=== PATIENT | female | born 1945 | race Caucasian/White ===

== ENCOUNTER → 2016-12-29 | Outpatient (CLI) | payer OTHER ==
[~2016-12-29] MED LIST: ACET-1311 PO; AMLO-114 PO; CEPH500C2 PO; CHOL1000 PO; CLOP1TAB15 PO; EFF/375 PO; ETAN50IN2 INJ; Embrel INJ; FLUT1INH INH; FLV1 PO; FSM70 PO; FSMD/70 PO; FURO-85 PO; GABA-113 PO; GABA1CAP4 PO; LEVO-14 PO; LEVO25TA5 PO; LOSA25TA18 PO; LOVA20TA4 PO; MAGN400T6 PO; MELO15TA10 PO; MELO7.5T5 PO; METH2.5T PO; METO50TA16 PO; MONT1TAB5 PO; NRN/300 PO; NRN600 PO; ONDA4TAB10 SL; OXYC1TAB3 PO; POTA10CA28 PO; PRLSR20 PO; PRT/20 PO; SOLI10TA2 PO; TIOT1AER2 INFIL; TIOT1SPR INH
[2016-12-29 11:11] VITALS: BP 106/67; PULSE 63; TEMP 36.4; O2SAT 97
== END | disposition home or self-care (01) ==
LOC: C.ONC 11:06
PROVIDERS: ATTEND Physician Assistant Medical
DX: D05.11 Intraductal carcinoma in situ of right breast (principal)

== ENCOUNTER 2016-12-30 15:25 | Emergency (ER) | payer OTHER ==
[~2016-12-30] VITALS: Ht 154.9 cm; Wt 96.7 kg
[~2016-12-30 15:25] MED LIST changes: -CEPH500C2 PO; -ETAN50IN2 INJ; -FSM70 PO; -GABA1CAP4 PO; -MELO15TA10 PO; -ONDA4TAB10 SL; -OXYC1TAB3 PO; -PRT/20 PO; -SOLI10TA2 PO; -TIOT1AER2 INFIL; -TIOT1SPR INH
[2016-12-30 15:32] VITALS: TEMP 36.7; Ht 154.9 cm; Wt 96.7 kg
[2016-12-30] MEDS ORDERED: FLV1 PO (15:47)
[2016-12-30] MEDS ORDERED: FENTANYL CITRATE INJ 50 MCG/1 ML 2 ML VIAL IV STA (15:57)
[2016-12-30] MEDS ORDERED: ONDANSETRON INJ 2 MG/ML 2 ML VIAL IV STA (15:57)
[2016-12-30] MEDS ORDERED: SODIUM CHLORIDE 0.9% 500ML 500 ML IV STA (15:57)
[2016-12-30] MEDS ORDERED: ETAN50IN2 INJ (16:00)
[2016-12-30] MEDS ORDERED: FSM70 PO (16:00)
[2016-12-30] MEDS ORDERED: EFF/375 PO (16:00)
[2016-12-30 16:23] LABS: BASO % 0.6 %; BASO ABS # 0.03 K/uL (0-0.2); COMPLETE YES; EOS % 0.2 %; HEMATOCRIT 38.9 % (37-47); IG% 0.8 %; LYMPH % 14.9 %; LYMPH ABS # 0.76 K/uL (1.2-3.4); MEAN CELL VOLUME 94.2 fL (80-100); MEAN CORPUSCULAR HEMOGLOBIN 32.2 pg (25-34); MEAN CORPUSCULAR HGB CONC 34.2 g/dl (32-36); MONO % 0.6 %; NEUT % 82.9 %; PLATELET COUNT 177 K/uL (130-400); RED BLOOD COUNT 4.13 M/uL (4.2-5.4); WHITE BLOOD COUNT 5.09 K/uL (4.8-10.8)
[2016-12-30] MEDS ORDERED: GABA1CAP4 PO (16:23)
[2016-12-30] MEDS ORDERED: MELO15TA10 PO (16:23)
[2016-12-30] MEDS ORDERED: TIOT1AER2 INFIL (16:23)
[2016-12-30] MEDS ORDERED: NRN600 PO (16:23)
[2016-12-30] MEDS ORDERED: SOLI10TA2 PO (16:23)
[2016-12-30] MEDS ORDERED: PRT/20 PO (16:27)
[2016-12-30 16:43] LABS: BUN/CREATININE RATIO 18.4 (10-20); C-REACTIVE PROTEIN 0.41 mg/dl (0-0.29); CALCIUM 9.6 mg/dl (8.5-10.1); CREATININE 0.83 mg/dl (0.60-1.20); POTASSIUM 4.3 mmol/L (3.5-5.1)
[2016-12-30] MEDS ORDERED: CEFTRIAXONE SOD INJ 1 GM ADDVIAL IV STA (16:59)
[2016-12-30] MEDS ORDERED: OXYCODONE IR HOME PACK PO ONE (17:00)
[2016-12-30] MEDS ORDERED: ONDANSETRON HOME PACK 4MG OD TAB PO ONE (17:00)
[2016-12-30] MEDS ORDERED: CEPH500C2 PO (17:01)
[2016-12-30] MEDS ORDERED: ONDA4TAB10 SL (17:01)
[2016-12-30] MEDS ORDERED: OXYC1TAB3 PO (17:01)
--- NOTE | 2016-12-30 17:02 | EMERGENCY ROOM VISIT NOTE ---
History Report prepared by Jarad: Belle Melchor Under the Supervision of: Dr. Conrad Moore M.D. First contact with patient: 15:47 Chief Complaint: PAIN (GENERALIZED) Stated Complaint: BREAST DISCOMFORT HX: BREAST CANCER History of Present Illness The patient is a 71 year old female who presents to the Emergency Room with complaints of worsening right breast pain starting yesterday. She describes her pain as throbbing. She has breast cancer and had radiation therapy yesterday. She was experiencing some infection and pain in her breast and was given gel patches to apply to the affected area. She was told to present to the ED if her pain worsens. She is taking ibuprofen, but her pain is not improving. She is also experiencing nausea, swelling in the legs, and often has a low grade fever. She denies any syncope. She is not on antibiotics or receiving chemotherapy currently. She has had radiation fernando before and reports that her current pain is similar. Source of History: patient Onset: yesterday Position: other (right breast) Quality: other (throbbing) Timing: worsening Associated Symptoms: + fevers, + nausea Note: Pt reports swelling of the legs. Pt denies syncope. Review of Systems See HPI for pertinent positives & negatives. A total of 10 systems reviewed and were otherwise negative. Past Medical & Surgical Medical Problems: (1) Breast cancer Family History FH: breast cancer Social History Smoking Status: Never Smoker Marital Status: Occupation Status: retired Current/Historical Medications Scheduled Acetaminophen (Tylenol), 650 MG PO Q4 Alendronate Sodium (Alendronate Sodium), 70 MG PO WK Amlodipine (Norvasc), 10 MG PO DAILY Cephalexin Monohydrate (Keflex), 500 MG PO QID Cholecalciferol (Vitamin D3), 1 TAB PO DAILY Clopidogrel (Plavix), 75 MG PO DAILY Etanercept (Enbrel), 50 MG INJ WK Fluticasone Furoate-Vilanterol (Breo Ellipta), 1 PUFF INH DAILY Folic Acid (Folic Acid), 2 MG PO QAM Furosemide (Lasix), 2 TAB PO DAILY Gabapentin (Gabapentin), 600 MG PO HS Gabapentin (Gabapentin), 900 MG PO QAM Levocetirizine Dihydrochloride (Levocetirizine Dihydrochl), 1 TAB PO DAILY Levothyroxine Sodium (Levothyroxine Sodium), 1 TAB PO DAILY Losartan Potassium (Cozaar), 1 TAB PO DAILY Lovastatin (Mevacor), 20 MG PO QPM Magnesium Oxide (Mag-Ox), 400 MG PO DAILY Meloxicam (Mobic), 15 MG PO DAILY Methotrexate (Methotrexate), 8 TABS PO DIRECTED Metoprolol Tartrate (Lopressor) (Lopressor), 1 TAB PO BID Montelukast Sodium (Montelukast Sodium), 1 TAB PO DAILY Ondasetron Odt (Zofran Odt), 4 MG SL Q6H Pantoprazole (Protonix), 20 MG PO BID Potassium Chloride (Micro-K Ext Rel), 10 MEQ PO DAILY Solifenacin (Vesicare), 10 MG PO DAILY Tiotropium [place] Monohydrate (Spiriva Respimat), 2 PUFF INFIL DAILY Venlafaxine Hcl (Effexor), 2 TAB PO QAM Venlafaxine Hcl (Effexor), 37.5 MG PO QPM Scheduled PRN Oxycodone Immediate Rel Tab (Roxicodone Ir), 1-2 TAB PO Q4H PRN for Severe Pain Allergies Coded Allergies: No Known Allergies (Unverified , 01/10/16) Physical Exam Vital Signs Date Time Temp Pulse Resp B/P Pulse Ox O2 Delivery O2 Flow Rate FiO2 12/30/16 18:27 74 18 118/51 93 Room Air 12/30/16 15:32 36.7 78 20 144/77 95 Room Air Physical Exam GENERAL: Patient is anxious appearing and in minimal distress. HEENT: No acute trauma, normocephalic atraumatic, mucous membranes moist, no nasal congestion, no scleral icterus. NECK: No stridor, no adenopathy, no meningismus, trachea is midline. CHEST: Erythema over the right breast consistent with cellulitis vs radiation fernando. Erythema extends to the right axilla. Very tender to palpation over the entire breast. No fluctuance appreciated. LUNGS: No dyspnea. Clear to auscultation and equal bilaterally. No wheeze, no rhonchi. HEART: Regular rate and rhythm. No murmurs, rubs, gallops appreciated. ABDOMEN: Soft, nontender, bowel sounds positive, no masses appreciated, no peritonitis. BACK: No midline tenderness, no CVA tenderness EXTREMITIES: Normal motion all extremities, no cyanosis, no edema. NEUROLOGIC: Alert and oriented, no acute motor or sensory deficits, no focal weakness, cranial nerves grossly intact. SKIN: No rash, no jaundice, no diaphoresis. Medical Decision & Procedures Laboratory Results 12/30/16 16:10 Red Blood Count 4.13, Mean Corpuscular Volume 94.2, Mean Corpuscular Hemoglobin 32.2, Mean Corpuscular Hemoglobin Concent 34.2, Mean Platelet Volume 9.0, Neutrophils (%) (Auto) 82.9, Lymphocytes (%) (Auto) 14.9, Monocytes (%) (Auto) 0.6, Eosinophils (%) (Auto) 0.2, Basophils (%) (Auto) 0.6, Neutrophils # (Auto) 4.22, Lymphocytes # (Auto) 0.76, Monocytes # (Auto) 0.03, Eosinophils # (Auto) 0.01, Basophils # (Auto) 0.03 12/30/16 16:10 Test 12/30/16 16:10 White Blood Count 5.09 K/uL (4.8-10.8) Red Blood Count 4.13 M/uL (4.2-5.4) Hemoglobin 13.3 g/dL (12.0-16.0) Hematocrit 38.9 % (37-47) Mean Corpuscular Volume 94.2 fL (80-100) Mean Corpuscular Hemoglobin 32.2 pg (25-34) Mean Corpuscular Hemoglobin Concent 34.2 g/dl (32-36) Platelet Count 177 K/uL (130-400) Mean Platelet Volume 9.0 fL (7.4-10.4) Neutrophils (%) (Auto) 82.9 % Lymphocytes (%) (Auto) 14.9 % Monocytes (%) (Auto) 0.6 % Eosinophils (%) (Auto) 0.2 % Basophils (%) (Auto) 0.6 % Neutrophils # (Auto) 4.22 K/uL (1.4-6.5) Lymphocytes # (Auto) 0.76 K/uL (1.2-3.4) Monocytes # (Auto) 0.03 K/uL (0.11-0.59) Eosinophils # (Auto) 0.01 K/uL (0-0.5) Basophils # (Auto) 0.03 K/uL (0-0.2) RDW Standard Deviation 51.6 fL (36.4-46.3) RDW Coefficient of Variation 15.4 % (11.5-14.5) Immature Granulocyte % (Auto) 0.8 % Immature Granulocyte # (Auto) 0.04 K/uL (0.00-0.02) Anion Gap 5.0 mmol/L (3-11) Est Creatinine Clear Calc Drug Dose 65.1 ml/min Estimated GFR () 81.7 Estimated GFR (Non- 70.4 BUN/Creatinine Ratio 18.4 (10-20) Calcium Level 9.6 mg/dl (8.5-10.1) C-Reactive Protein 0.41 mg/dl (0-0.29) Laboratory results as reviewed by me. Medications Administered Medications (Trade) Dose Ordered Sig/Antony Route Start Time Stop Time Status Last Admin Dose Admin Ondansetron HCl 4 mg 4 mg NOW STAT IV 12/30/16 15:57 12/30/16 15:59 DC 12/30/16 16:33 4 MG Sodium Chloride (Nss 500ml) 500 ml @ 999 mls/hr Q31M STAT IV 12/30/16 15:57 12/30/16 16:27 DC 12/30/16 16:10 999 MLS/HR Fentanyl Citrate (Fentanyl Inj) 50 mcg NOW STAT IV 12/30/16 15:57 12/30/16 15:59 DC 12/30/16 16:34 50 MCG Ceftriaxone Sodium (Rocephin Inj) 1 gm NOW STAT IV 12/30/16 16:59 12/30/16 17:00 DC 12/30/16 17:22 1 GM Oxycodone HCl (Roxicodone Immediate Rel 5MG Home Pack) 1 homepack UD ONCE PO 12/30/16 17:00 12/30/16 17:01 DC 12/30/16 17:00 1 HOMEPACK Ondansetron HCl (ZOFRAN ODT 4MG Home Pack) 1 homepack UD ONCE PO 12/30/16 17:00 12/30/16 17:01 DC 12/30/16 17:00 1 HOMEPACK Hydromorphone HCl (Dilaudid Inj) 0.5 mg NOW STAT IV 12/30/16 17:24 12/30/16 17:25 DC 3/18/17 17:29 0.5 MG ED Course 1551: The patient was evaluated in room B4. A complete history and physical exam was performed. 1557: Fentanyl Inj 50 mcg IV, NSS 500 ml @ 999 mls/hr IV, Zofran Inj 4 mg IV. 1656: I reevaluated the patient. She is feeling better. I discussed results and discharge instructions: She verbalized understanding and agreement. The patient is ready for discharge. 165: Rocephin Inj 1 gm IV. 1700: Ondansetron HCl 1 homepack PO, Oxycodone HCl 1 homepack PO. 1724: Dilaudid Inj 0.5 mg IV. Medical Decision Differentials: Cellulitis, abscess, radiation burn, sepsis 71 yr old female with erythema and pain over anterior right breast extending over nipple and up to axillae. No significant fluctuance nor sloughing of skin. She is not septic. Labs look good. Suspect primarily burn related though with difficulty telling, new pain, and patient stating low grade fever seems reasonable to cover for possible infectious etiology. Stable and feeling better with pain meds. Restrictions on pain meds discussed. 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 I confirm that the note above accurately reflects all work, treatment, procedures, and medical decision making performed by me. Departure Information Dispostion Home / Self-Care Prescriptions Cephalexin Monohydrate (KEFLEX) 500 Mg Cap 500 MG PO QID for 7 Days, #28 CAP Prov: Conrad Moore M.D. 12/30/16 Ondasetron Odt (ZOFRAN ODT) 4 Mg Tab 4 MG SL Q6H for Nausea, #20 TAB Prov: Conrad Moore M.D. 12/30/16 Oxycodone Immediate Rel Tab (ROXICODONE IR) 5 Mg Tab 1-2 TAB PO Q4H Y for Severe Pain, #20 TAB Prov: Conrad Moore M.D. 12/30/16 Referrals Marilu Butler PA-C (PCP) Forms HOME CARE DOCUMENTATION FORM, IMPORTANT VISIT INFORMATION Patient Instructions Cellulitis Luis, My [facility] Additional Instructions You have received a narcotic pain medication prescription. These medications may cause drowsiness and should not be used with other sedative medications. Do not drive, drink alcohol, perform dangerous activities, nor make important decisions after taking these medications. custodial use or inappropriate use may lead to addiction. These medications may cause constipation. Problem Qualifiers
[2016-12-30] MEDS ORDERED: HYDROmorphone INJ 0.5 MG/0.5 ML SYR IV STA (17:24)
[2016-12-30 18:27] VITALS: BP 118/51; PULSE 74; O2SAT 93
== END 2016-12-30 18:28 | disposition home or self-care (01) ==
LOC: C.EDB 15:27
DX: N61.0 Mastitis without abscess (principal); T21.01XA Burn of unspecified degree of chest wall, initial encounter; W90.8XXA Exposure to other nonionizing radiation, initial encounter; D05.11 Intraductal carcinoma in situ of right breast; Z80.3 Family history of malignant neoplasm of breast; Z79.02 Long term (current) use of antithrombotics/antiplatelets

== ENCOUNTER → 2017-01-31 | Outpatient (CLI) | payer OTHER ==
[~2017-01-31] MED LIST changes: +ETAN50IN2 INJ; -Embrel INJ; +FSM70 PO; -FSMD/70 PO; -GABA-113 PO; +GABA1CAP4 PO; +MELO15TA10 PO; -MELO7.5T5 PO; -NRN/300 PO; +ONDA4TAB10 SL; +OXYC1TAB3 PO; -PRLSR20 PO; +PRT/20 PO; +SOLI10TA2 PO; +TIOT1AER2 INFIL
[2017-01-31 15:03] VITALS: BP 129/79; PULSE 68; TEMP 36.8; O2SAT 97
--- NOTE | 2017-01-31 16:18 | Radiation Oncology Follow-Up ---
Radiation Oncology Follow-Up Date of Visit Jan 31, 2017. Reason For Visit One-month follow-up and cancer survivorship care plan Radiation Completion Date Hypofractionation 12/12/16 Diagnosis (1) Intraductal carcinoma of right breast Status: Acute Onset Date: 08/31/2016 Permanent Comment: Abnormal right breast mammogram Status post stereotactic biopsy 08/31/2016 revealing DCIS Estrogen receptor negative and progesterone receptor negative Status post needle localization partial mastectomy 09/29/2016 Stage pTis NX Status post completion of radiation therapy utilizing hypo-fractionation completed 12/12/2016 received 5130 cGy Last Edited By: Marilu Butler on Dec 27, 2016 17:44 History of Present Illness Ms. Garcia is a 70-year-old female with a strong family cancer history. The patient's mother had breast cancer and at age 67. He has 2 sisters with a history of breast cancer. The patient has been followed with screening mammograms. On 08/21/2016 she underwent bilateral digital screening mammograms. This showed the developing grouped calcifications seen in the central right breast. Spot magnification CC and ML views were recommended. Additional imaging was performed on 08/25/2016. This again showed grouped calcifications in the central right breast that appear pleomorphic and indeterminant. Tissue sampling was recommended. On 08/31/2016 the patient underwent a needle localization biopsy at [facility]. The stereotactic biopsy of the right breast 4 to 5 o'clock position 7 cm from the nipple revealed focal atypical ductal proliferation as well as evidence of ductal carcinoma in situ solid with focal noncommunicative necrosis and nuclear grade 3 of 3. The microcalcifications were associated with the DCIS. Estrogen and progesterone receptors were performed and both were negative. Specimen: [id number] and Case: [id number]. Patient was seen by Dr. Ranjith Schaeffer discussed treatment options with the patient. They opted to proceed with a breast conserving technique. Therefore on 10/02/2016 the patient underwent a right partial breast mastectomy. This confirmed residual DCIS extending over 1.2 cm. The histologic pattern was solid with nuclear grade 3. Necrosis was present that was central (expansive "comedo"necrosis. Margins were uninvolved with DCIS. The closest margin was the medial-inferior margin at 4 mm. The distance from the lateral inferior margin was 6 mm and lateral superior margin was 6 mm. No invasive carcinoma was identified. The final stage was therefore pTis ER negative and IL negative. Case: [id number]. Patient is recovering well from her surgery. We are seeing her today in referral to discuss with her the adjuvant radiation options. She underwent a CT simulation was found a candidate for hypo-fractionation. She completed radiation therapy 12/12/2016 and received 5130 cGy Interim History She's been doing well over the past month. Initially she had radiation dermatitis. She was seen in follow-up and was prescribed a Medrol Dosepak. She is also seen in the emergency room. There was concern for possible infection. She was given a seven-day course of Keflex. The area of redness completely resolved without difficulty. There was some dryness and peeling of the skin. This also resolved without difficulty. She has noted a general discomfort of the breasts. This happens in both breasts. It seems to be more intense on the right side. She gives us a pain level of 2. We discussed caffeine intake. She drinks 4-5 cups of coffee per day. She has seen Dr. Schaeffer in follow-up and mammography is scheduled for March. Allergies Coded Allergies: No Known Allergies (Unverified , 01/10/16) Home Medications Scheduled Acetaminophen (Tylenol), 650 MG PO Q4 Alendronate Sodium (Alendronate Sodium), 70 MG PO WK Amlodipine (Norvasc), 10 MG PO DAILY Cholecalciferol (Vitamin D3), 1 TAB PO DAILY Clopidogrel (Plavix), 75 MG PO DAILY Etanercept (Enbrel), 50 MG INJ WK Fluticasone Furoate-Vilanterol (Breo Ellipta), 1 PUFF INH DAILY Folic Acid (Folic Acid), 2 MG PO QAM Furosemide (Lasix), 2 TAB PO DAILY Gabapentin (Gabapentin), 600 MG PO HS Gabapentin (Gabapentin), 900 MG PO QAM Levocetirizine Dihydrochloride (Levocetirizine Dihydrochl), 1 TAB PO DAILY Levothyroxine Sodium (Levothyroxine Sodium), 1 TAB PO DAILY Losartan Potassium (Cozaar), 1 TAB PO DAILY Lovastatin (Mevacor), 20 MG PO QPM Magnesium Oxide (Mag-Ox), 400 MG PO DAILY Meloxicam (Mobic), 15 MG PO DAILY Methotrexate (Methotrexate), 8 TABS PO DIRECTED Metoprolol Tartrate (Lopressor) (Lopressor), 1 TAB PO BID Montelukast Sodium (Montelukast Sodium), 1 TAB PO DAILY Ondasetron Odt (Zofran Odt), 4 MG SL Q6H Pantoprazole (Protonix), 20 MG PO BID Potassium Chloride (Micro-K Ext Rel), 10 MEQ PO DAILY Tiotropium [place] Monohydrate (Spiriva Respimat), 2 PUFF INFIL DAILY Venlafaxine Hcl (Effexor), 2 TAB PO QAM Venlafaxine Hcl (Effexor), 37.5 MG PO QPM Scheduled PRN Oxycodone Immediate Rel Tab (Roxicodone Ir), 1-2 TAB PO Q4H PRN for Severe Pain Review of Systems Gastrointestinal: Symptoms: WNL Oral: Symptoms: No Problems Respiratory: Symptoms: SOB With Exertion Other Respiratory: Relates this to her known COPD; Urinary: Symptoms: WNL Comments: Doesn't ignore urge to void;2 voids/night;Had bladder "tacking" in past; Skin: Symptoms: No Problems Other Skin Symptoms: Using natural care gel to right breast PRN;Skin intact; Breast: Right Upper Arm Measurement: 40.5 Right Mid Arm Measurement: 26.5 Right Wrist Measurement: 16.0 Left Upper Arm Measurement: 40.5 Left Mid Arm Measurement: 26.5 Left Wrist Measurement: 16.0 Arm Dominence: Right Physical Exam Vital Signs Date Time Temp Pulse Resp B/P Pulse Ox O2 Delivery O2 Flow Rate FiO2 01/31/17 15:03 36.8 68 20 129/79 97 Fatigue: None General Appearance: no apparent distress Eyes: normal inspection, EOMI ENT: normal ENT inspection, hearing grossly normal Neck: no adenopathy, thyroid normal Respiratory/Chest: lungs clear, no respiratory distress, no accessory muscle use Breast: Breast examination reveals a well-healed incision in the right breast. There are no masses. She has generalized tenderness throughout the breast. There are no skin retractions or nipple changes. She does have hyperpigmentation. There is also increased hyperpigmentation of a few keratotic lesions near the inframammary fold. Using the [place] score cosmesis she has a good outcome. Left breast pressure no masses or tenderness and no axillary adenopathy. Abdomen: non tender Extremities: no pedal edema Neurologic/Psychiatric: no motor/sensory deficits, alert, normal mood/affect Skin: warm/dry Laboratory Studies Test 12/30/16 16:10 White Blood Count 5.09 K/uL (4.8-10.8) Red Blood Count 4.13 M/uL (4.2-5.4) Hemoglobin 13.3 g/dL (12.0-16.0) Hematocrit 38.9 % (37-47) Mean Corpuscular Volume 94.2 fL (80-100) Mean Corpuscular Hemoglobin 32.2 pg (25-34) Mean Corpuscular Hemoglobin Concent 34.2 g/dl (32-36) Platelet Count 177 K/uL (130-400) Mean Platelet Volume 9.0 fL (7.4-10.4) Neutrophils (%) (Auto) 82.9 % Lymphocytes (%) (Auto) 14.9 % Monocytes (%) (Auto) 0.6 % Eosinophils (%) (Auto) 0.2 % Basophils (%) (Auto) 0.6 % Neutrophils # (Auto) 4.22 K/uL (1.4-6.5) Lymphocytes # (Auto) 0.76 K/uL (1.2-3.4) Monocytes # (Auto) 0.03 K/uL (0.11-0.59) Eosinophils # (Auto) 0.01 K/uL (0-0.5) Basophils # (Auto) 0.03 K/uL (0-0.2) RDW Standard Deviation 51.6 fL (36.4-46.3) RDW Coefficient of Variation 15.4 % (11.5-14.5) Immature Granulocyte % (Auto) 0.8 % Immature Granulocyte # (Auto) 0.04 K/uL (0.00-0.02) Sodium Level 140 mmol/L (136-145) Potassium Level 4.3 mmol/L (3.5-5.1) Chloride Level 105 mmol/L (98-107) Carbon Dioxide Level 30 mmol/L (21-32) Anion Gap 5.0 mmol/L (3-11) Blood Urea Nitrogen 15 mg/dl (7-18) Creatinine 0.83 mg/dl (0.60-1.20) Est Creatinine Clear Calc Drug Dose 65.1 ml/min Estimated GFR () 81.7 Estimated GFR (Non- 70.4 BUN/Creatinine Ratio 18.4 (10-20) Random Glucose 125 mg/dl (70-99) Calcium Level 9.6 mg/dl (8.5-10.1) C-Reactive Protein 0.41 mg/dl (0-0.29) Assessment & Plan Plan: Continue regular follow-up with Dr. Schaeffer. Mammography and follow-up visit will be occurring in March. We discussed weaning off of caffeine. She is going to steadily stop caffeine. She will wean off by introducing decaffeinated coffee. Today we completed a cancer survivorship care plan. A copy of the document was given to the patient. She was given a survivorship booklet. She has been made aware of survivorship program with available at the hospital as well as the availability of our library. We discussed increasing exercise and activity. She is going to participate in [place] [employer] with her sikh. She is going to begin walking on a regular basis. She will also watch her diet. We asked her to return to our office in 6 months. She may call if she has a questions or concerns in the interim. Total Time In Follow-Up I spent 20 minutes speaking to the patient and performing examination. I spent 20 minutes reviewing information, preparing the survivorship document, and completing this note. Copy To Ranjith Schaeffer M.D.; Conrad Gary M.D.
== END | disposition home or self-care (01) ==
LOC: C.ONC 14:50
PROVIDERS: ATTEND Physician Assistant Medical
DX: Z08 Encounter for follow-up examination after completed treatment for malignant neoplasm (principal); Z92.3 Personal history of irradiation; Z85.3 Personal history of malignant neoplasm of breast

== ENCOUNTER → 2017-10-04 | Outpatient (CLI) | payer OTHER ==
[~2017-10-04] MED LIST changes: -AMLO-114 PO; +AMLO10TA3 PO; +FAMO20TA9 PO; +GABA-1219 PO; -GABA1CAP4 PO; -ONDA4TAB10 SL; -OXYC1TAB3 PO; -SOLI10TA2 PO
[2017-10-04 13:34] VITALS: BP 124/70; PULSE 65; TEMP 36.8; O2SAT 96
--- NOTE | 2017-10-04 16:50 | Radiation Oncology Follow-Up ---
Radiation Oncology Follow-Up Date of Visit Oct 04, 2017. Reason For Visit 8 month follow-up Radiation Completion Date Hypo 12/12/16 Diagnosis (1) Intraductal carcinoma of right breast Status: Acute Onset Date: 08/31/2016 Stage: 0 Permanent Comment: Abnormal right breast mammogram Status post stereotactic biopsy 08/31/2016 revealing DCIS Estrogen receptor negative and progesterone receptor negative Status post needle localization partial mastectomy 09/29/2016 Stage pTis NX Status post completion of radiation therapy utilizing hypo-fractionation completed 12/12/2016 received 5130 cGy Last Edited By: Marilu Butler on Dec 27, 2016 17:44 History of Present Illness Ms. Garcia has a strong family cancer history. The patient's mother had breast cancer and at age 67. He has 2 sisters with a history of breast cancer. The patient has been followed with screening mammograms. On 04/2016 she underwent bilateral digital screening mammograms. This showed the developing grouped calcifications seen in the central right breast. Spot magnification CC and ML views were recommended. Additional imaging was performed on 08/25/2016. This again showed grouped calcifications in the central right breast that appear pleomorphic and indeterminant. Tissue sampling was recommended. On 08/31/2016 the patient underwent a needle localization biopsy at [facility]. The stereotactic biopsy of the right breast 4 to 5 o'clock position 7 cm from the nipple revealed focal atypical ductal proliferation as well as evidence of ductal carcinoma in situ solid with focal noncommunicative necrosis and nuclear grade 3 of 3. The microcalcifications were associated with the DCIS. Estrogen and progesterone receptors were performed and both were negative. Specimen: [id number] and Case: [id number]. Patient was seen by Dr. Ranjith Schaeffer discussed treatment options with the patient. They opted to proceed with a breast conserving technique. Therefore on 10/02/2016 the patient underwent a right partial breast mastectomy. This confirmed residual DCIS extending over 1.2 cm. The histologic pattern was solid with nuclear grade 3. Necrosis was present that was central (expansive "comedo"necrosis. Margins were uninvolved with DCIS. The closest margin was the medial-inferior margin at 4 mm. The distance from the lateral inferior margin was 6 mm and lateral superior margin was 6 mm. No invasive carcinoma was identified. The final stage was therefore pTis ER negative and CO negative. Case: [id number]. Patient is recovering well from her surgery. We are seeing her today in referral to discuss with her the adjuvant radiation options. She underwent a CT simulation was found a candidate for hypo-fractionation. She completed radiation therapy 12/12/2016 and received 5130 cGy Interim History She continues to have discomfort of the right breast. She had been seen in follow-up with a discoloration and some mild swelling. Discoloration has resolved. She continues to have some discomfort. This increases with activity. She rates her pain from a 4-5. Occasionally she'll take Tylenol. Discomfort last 5-10 minutes. This happens approximately 3 times per day. She previously was seen and treated with a Medrol Dosepak. This did help with the discomfort. She has noted no masses and no change of the axilla. There has been no swelling of her arm. She is up-to-date on mammography. Allergies Coded Allergies: No Known Allergies (Unverified , 01/10/16) Home Medications Scheduled Acetaminophen (Tylenol), 650 MG PO Q4 Alendronate Sodium (Alendronate Sodium), 70 MG PO WK Amlodipine (Norvasc), 10 MG PO DAILY Clopidogrel (Plavix), 75 MG PO DAILY Etanercept (Enbrel), 50 MG INJ WK Famotidine (Pepcid), 1 TAB PO DAILY Fluticasone Furoate-Vilanterol (Breo Ellipta), 1 PUFF INH DAILY Folic Acid (Folic Acid), 2 MG PO QAM Furosemide (Lasix), 2 TAB PO DAILY Gabapentin (Gabapentin), 600 MG PO HS Gabapentin (Gabapentin), 900 MG PO QAM Levocetirizine Dihydrochloride (Levocetirizine Dihydrochl), 1 TAB PO DAILY Levothyroxine Sodium (Levothyroxine Sodium), 1 TAB PO DAILY Losartan Potassium (Cozaar), 1 TAB PO DAILY Lovastatin (Mevacor), 20 MG PO QPM Meloxicam (Mobic), 15 MG PO DAILY Methotrexate (Methotrexate), 8 TABS PO DIRECTED Metoprolol Tartrate (Lopressor) (Lopressor), 1 TAB PO BID Montelukast Sodium (Montelukast Sodium), 1 TAB PO DAILY Potassium Chloride (Micro-K Ext Rel), 10 MEQ PO DAILY Venlafaxine Hcl (Effexor), 1 TAB PO QAM Review of Systems Gastrointestinal: Symptoms: WNL Oral: Symptoms: No Problems Other Oral Symptoms: Reports sore mouth Respiratory: Symptoms: WNL Other Respiratory: COPD Urinary: Symptoms: WNL Comments: Doesn't ignore urge to void;2 voids/night;Had bladder "tacking" in past; Skin: Symptoms: No Problems Other Skin Symptoms: Reports skin is darker since treatment Breast: Right Upper Arm Measurement: 38.2 Right Mid Arm Measurement: 24.0 Right Wrist Measurement: 16.0 Left Upper Arm Measurement: 39.0 Left Mid Arm Measurement: 25.3 Left Wrist Measurement: 15.3 Arm Dominence: Right Physical Exam Vital Signs Date Time Temp Pulse Resp B/P (MAP) Pulse Ox O2 Delivery O2 Flow Rate FiO2 10/04/17 13:34 36.8 65 16 124/70 96 Fatigue: None General Appearance: no apparent distress Eyes: normal inspection, EOMI ENT: normal ENT inspection, hearing grossly normal Neck: no adenopathy, thyroid normal Respiratory/Chest: lungs clear, no respiratory distress, no accessory muscle use Breast: Breast examination reveals mild generalized tenderness of the right breast. There are no masses and no change of the axilla there is no swelling of the arm. There is no edema or hyperpigmentation. There are no nipple changes or skin retractions. Using the [place] score cosmesis she has a good outcome. The left breast showed no masses or tenderness and no axillary adenopathy. Cardiovascular: regular rate, rhythm, no gallop, no murmur Extremities: no pedal edema Neurologic/Psychiatric: no motor/sensory deficits, alert, normal mood/affect Skin: warm/dry Pain Management Patient Reports Pain: Yes Initial Pain Intensity: 5 Pain Management Plan Pain management in the assessment and plan. Laboratory Laboratory Results: not applicable Pathology Pathology Results: not applicable Imaging Imaging Studies: were reviewed, and pertinent findings noted below Imaging Comments She had a mammogram at [facility] on 08/22/2017. There is no evidence to suggest malignancy. There are no suspicious calcifications. Postoperative changes of the right breast appears stable. There are benign calcifications in both breasts. This was given a BI-RADS Category 3. Follow- up was recommended. Assessment & Plan Plan: Continue with scheduled mammography she'll be having a right breast mammogram in February. We discussed the breast tenderness. I've asked her to take ibuprofen 400 mg twice a day with food for one week. She then will stop the medication she may assess whether this has helped the discomfort of the breast. She can repeat this every few months if needed. We discussed that the discomfort she is steadily improve over time. Pain is related to posttreatment inflammation. She was instructed to not take the ibuprofen on 8 continued regular basis. We asked her to return to our office in 1 year. She may call if she has any questions or concerns in the interim. Total Time In Follow-Up I spent 20 minutes speaking to the patient and performing examination. I spent 15 minutes reviewing information and completing this note. Copy To Ranjith Schaeffer M.D.; Conrad Gary M.D.
== END | disposition home or self-care (01) ==
LOC: C.ONC 13:24
PROVIDERS: ATTEND Physician Assistant Medical
DX: Z08 Encounter for follow-up examination after completed treatment for malignant neoplasm (principal); Z92.3 Personal history of irradiation; Z85.3 Personal history of malignant neoplasm of breast

== ENCOUNTER 2017-12-31 08:38 | Day surgery (SDC) | payer OTHER ==
[~2017-12-31] VITALS: Ht 154.9 cm; Wt 92.0 kg
[2017-12-31] VITALS (7 sets, daily range): BP systolic 109–132; BP diastolic 48–63; PULSE 71–85; TEMP 36.5–37; O2SAT 92–99; Ht 154.9 cm; Wt 92.0 kg
[~2017-12-31 08:38] MED LIST changes: +AMLO-114 PO; -AMLO10TA3 PO; -CHOL1000 PO; -MAGN400T6 PO; -PRT/20 PO; -TIOT1AER2 INFIL
--- NOTE | 2017-12-31 09:22 | History & Physical Bridge Note ---
H&P Re-Evaluation Bridge Note: I have examined the patient, reviewed the History & Physical and in the interval since the performance of the History & Physical I have noted the following changes of clinical significance: No changes noted
--- NOTE | 2017-12-31 09:23 | Pre Sedation Assessment ---
Pre Sedation Assessment General Date of Sedation: Dec 31, 2017. Pre-Sedation Airway Assessment Smoking Status: Never Smoker Mallampati Classification: Class II ASA Classification: Class II NPO Status Date of Last Intake of Fluids: Dec 30, 2017 Time of Last Intake of Fluids: 2199 Date of Last Intake of Solids: Dec 30, 2017 Time of Last Intake of Solids: 2129 Procedure Planning Contraindications for Sedation: None Current Medications Reviewed: Yes Notes The planned sedation has been discussed with the patient. Informed Consent was obtained. I have identified the patient, determined the appropriateness of sedation and have assessed the patient immediately prior to the procedure. All medicine(s) and interventions are by my order.
[2017-12-31] MEDS ORDERED: NURSING VERBAL MED ORDER ONE (09:45)
[2017-12-31] MEDS ORDERED: DEXTROSE 5% 1000ML 1,000 ML IV SCH (10:00)
--- NOTE | 2017-12-31 11:11 | [facility] Operative Report ---
Operative Report Operative Date Dec 31, 2017. Pre-Operative Diagnosis cough Post-Operative Diagnosis cough Procedure(s) Performed bronchoscopy Surgeon dr dent Estimated Blood Loss 0 Findings Chronic Mucopurulent Bronchitis Specimens left upper lobe washing Complication(s) None Disposition I attest to the content of the Intraoperative Record and any orders documented therein. Any exceptions are noted below.
--- NOTE | 2017-12-31 11:11 | Post Sedation Assessment ---
Post Sedation Assessment General Date of Sedation Dec 31, 2017. Vital Signs: Vital Signs Past 12 Hours Date Time Temp Pulse Resp B/P (MAP) Pulse Ox O2 Delivery O2 Flow Rate FiO2 12/31/17 11:00 79 21 119/73 94 Oxymask 6 12/31/17 10:55 79 21 137/94 94 Oxymask 6 12/31/17 10:50 89 22 125/74 92 Oxymask 6 12/31/17 10:45 79 17 126/65 100 Oxymask 6 12/31/17 10:40 82 17 142/63 100 Oxymask 6 12/31/17 10:32 76 19 132/90 98 Oxymask 6 12/31/17 09:26 36.5 74 20 126/61 (82) 92 Room Air Post Procedure Recovery Score Activity: (2) Moves 4 extremities * Respiration: (2) Deep breath/cough Circulation: (2) +/-20% PreAnes Value Consciousness: (1) Arouseable (by name) Oxygen Saturation: (1) O2 needed for >90% Post Anesthesia Score: 8 Discharge Sedation Level of Care: Fast Track Phase II Post Sedation Plan On clinical assessment, the patient appears to have tolerated the sedation without complications. Patient is recovering as anticipated. Patient will continue to be monitored by nursing and may be discharged when sedation discharge criteria are met per below protocol. Upon Completions of procedure and additional 15 minutes continue every 5 minute vital signs and the P.A.R. score; then discharge to a Phase I or Fast Track to Phase II per the following guidelines: * Discharge Patient to appropriate Phase II area if PAR is 8 or greater or return to pre- procedure baseline. The post - procedure orders will be as directed. * If PAR score is less than 8 or not return to pre-procedure baseline then patient will follow Phase I monitoring till PAR is reached for Phase II. The Phase I may be done in procedure room or may call to secure a Phase I area. * If naloxone or flumazenil are used for reversal, hold in Phase I for an additional 60 -120 minutes before discharge to Phase II. Please call the Sedation Physician to re-evaluate and complete post-note for discharge to Phase II area. Do NOT discharge from procedure sedation or Phase 1 until post- sedation evaluation note is complete by procedure /sedation MD Sedation Discharge Instructions to be given to the patient at discharge to home.
[2017-12-31] MEDS ORDERED: LEVALBUTEROL 1.25MG/3ML NEB INH ONE (11:13)
[2017-12-31] MEDS ORDERED: LIDOCAINE HCL 2% LOCAL 50ML VIAL INSTIL ONE (11:13)
[2017-12-31] MEDS ORDERED: FENTANYL CITRATE INJ 50 MCG/1 ML 2 ML VIAL IV ONE (11:13)
[2017-12-31] MEDS ORDERED: LIDOCAINE VISCOUS 2% 100ML TOP ONE (11:13)
[2017-12-31] MEDS ORDERED: OXYMETAZOLINE HCL 0.05% NA SPR 15 ML BTL ONE (11:13)
[2017-12-31] MEDS ORDERED: LIDOCAINE 4% INH SOLN 4 ML BTL TOP ONE (11:13)
[2017-12-31] MEDS ORDERED: MIDAZOLAM HCL 5 MG/ML 1 ML VIAL IV ONE (11:13)
--- NOTE | 2017-12-31 11:13 | Discharge Instructions ---
Discharge Instructions Date of Service Dec 31, 2017. Admission Reason for Admission: Cough,Chronic Bronchitis,Sob Discharge Discharge Diagnosis / Problem: Chronic Mucopurulent Bronchitis Discharge Goals Goal(s): Diagnostic testing Activity Recommendations Activity Limitations: resume your previous activity Lifting Limitations: none Exercise/Sports Limitations: none May Resume Sexual Activity: when tolerated Shower/Bathe: no limitations Driving or Machine Use: resume 1 day after discharge none . Instructions / Follow-Up Instructions / Follow-Up ACTIVITY RECOMMENDATIONS: * Rest today, resume normal activity tomorrow. * Do not drive today. SPECIAL CARE INSTRUCTIONS: * Call your physician if you experience any chest or shoulder pain, fever, coughing, spitting up blood (more than 2 teaspoons) or excessive shortness of breath. * Remove dressing from IV site (where needle was placed into the vein) after 2 hours. Apply a warm, moist compress to site if irritation occurs. Call physician if site becomes red or painful to touch. FOLLOW UP VISIT: * Keep any scheduled doctor appointments. Current Hospital Diet Patient's current hospital diet: Discharge Diet Recommended Diet: Regular Diet Fluid Restriction: None Procedures Procedures Performed: bronchoscopy Pending Studies Studies pending at discharge: no Medical Emergencies . Who to Call and When: Medical Emergencies: If at any time you feel your situation is an emergency, please call 911 immediately. . Non-Emergent Contact Non-Emergency issues call your: Equipment Operat0R Call Non-Emergent contact if: temperature is above 101 . . "Provider Documentation" section prepared by Rajan Paris. .
--- NOTE | 2017-12-31 11:29 | OPERATIVE REPORT ---
DATE OF OPERATION: 12/31/2017 TIME: 0900 PROCEDURE: Fiberoptic bronchoscopy with bronchoalveolar lavage. INDICATIONS: Persistent cough/chest congestion refractory to outpatient therapy. ANESTHESIA PREOPERATIVELY: None. ANESTHESIA DURING PROCEDURE: A 4 mg IV Versed, 25 mcg IV fentanyl, 20 mL 2% Xylocaine spray above and below the cords, 4% viscous Xylocaine intranasally. DESCRIPTION OF PROCEDURE: Procedure was started at 10:40. The fiberoptic bronchoscope was inserted into the left naris and advanced to the level of the true vocal cords without difficulty. The cords appeared to approximate normally with phonation without evidence of lesions or paralysis. The area was anesthetized and scope was then introduced in the trachea and right/left tracheobronchial tree. The esdras was sharp. There was evidence for endoscopic dynamic airway collapse or EDAC involving the trachea and both right and left mainstem bronchi to approximately 70% of the normally customary diameter. Right mainstem bronchus was explored initially and no endobronchial lesion was seen. Right upper lobe, the apical impulse, anterior segments, bronchus intermedius, right middle lobe and the medial lateral segments and all basilar segments right lower lobe were found to be free of endobronchial lesions. Small amount of mucopurulent secretion was lavaged from right lower lobe until clear. Left tracheobronchial tree was then explored and moderately severe inflammatory mucosal change was seen with easy friability involving the left upper lobe and lingula. This area was copiously lavaged with normosol and the aspirate sent for appropriate studies. No lesions were visible. The left lower lobe was then explored and no endobronchial lesion was seen down to the segmental and subsegmental bronchi. The scope was then withdrawn to the left upper division and both the left upper lobe bronchus and its segmental bronchi and lingula subdivision were again copiously lavaged with normosol and the aspirate sent for appropriate studies. The procedure was then terminated. No brushings or biopsies were deemed necessary. The patient was given a nebulizer treatment with Xopenex 1.25 mg then transferred back to the medical treatment unit hemodynamically stable with no signs of respiratory compromise. Will await microbiological and cytologic examination of the bronchial washings. I attest to the content of the Intraoperative Record and any orders documented therein. Any exception s are noted below.
== END 2017-12-31 13:22 | disposition home or self-care (01) ==
LOC: C.ACU 08:38
PROVIDERS: ATTEND Internal Medicine Pulmonary Disease
DX: R05 Cough (principal); R09.89 Other specified symptoms and signs involving the circulatory and respiratory systems; K21.9 Gastro-esophageal reflux disease without esophagitis; I10 Essential (primary) hypertension; F32.9 Major depressive disorder, single episode, unspecified; Z90.89 Acquired absence of other organs; Z98.890 Other specified postprocedural states; Z90.710 Acquired absence of both cervix and uterus; Z98.51 Tubal ligation status; Z80.1 Family history of malignant neoplasm of trachea, bronchus and lung; Z80.3 Family history of malignant neoplasm of breast; Z82.49 Family history of ischemic heart disease and other diseases of the circulatory system; Z83.3 Family history of diabetes mellitus; Z82.3 Family history of stroke; Z80.7 Family history of other malignant neoplasms of lymphoid, hematopoietic and related tissues

== ENCOUNTER 2020-08-31 06:59 | Observation (INO) ==
--- NOTE | 2020-08-19 15:42 | PAT Medication Instructions ---
Medication Instructions Date of Service August 19, 2020 Home Medications Medication Instructions Recorded azelastine 137 mcg (0.1 %) nasal 2 sprays INTNAS BID PRN #30 ml 09/30/19 spray aerosol nebulizers #1 ea 11/03/19 fluticasone fur. 100 mcg-umeclid 1 inh INHALATION QAM #1 inhaler 05/24/20 62.5 mcg-vilant 25 mcg inhalat.powder montelukast 10 mg tablet 10 mg PO QPM #90 tab 06/21/20 amlodipine [Norvasc] 10 mg PO QAM levothyroxine [Synthroid] 25 mcg PO QAM losartan [Cozaar] 25 mg PO QAM lovastatin 20 mg PO HS arformoterol 15 mcg/2 mL solution for nebulization 15 mcg INHALATION BID PRN gabapentin 300 mg capsule 900 mg PO QAM ipratropium 0.5 mg-albuterol 3 mg (2.5 mg base)/3 mL nebulization soln 3 ml INHALATION Q4H PRN cetirizine 10 mg tablet 10 mg PO QAM Dexilant 60 mg PO QAM gabapentin 600 mg PO HS metoprolol tartrate 50 mg PO BID clopidogrel [Plavix] 75 mg PO QAM folic acid 2 mg PO QAM furosemide 20 mg tablet 40 mg PO QAM azelastine 137 mcg (0.1 %) nasal spray aerosol 2 sprays INTNAS BID PRN abatacept 125 mg/mL subcutaneous syringe 125 mg SQ WK duloxetine 30 mg capsule,delayed release 30 mg PO QAM fluticasone fur. 100 mcg-umeclid 62.5 mcg-vilant 25 mcg inhalat.powder 1 inh INHALATION QAM montelukast 10 mg tablet 10 mg PO QPM denosumab 60 mg/mL subcutaneous syringe 60 mg SUBCUT .COMPLEX ASK your prescriber and surgeon abatacept 125 mg/mL subcutaneous syringe 125 mg SQ WK denosumab 60 mg/mL subcutaneous syringe 60 mg SUBCUT .COMPLEX clopidogrel [Plavix] 75 mg PO QAM (in order for spinal anesthesia, clopidogrel (Plavix) needs to be stopped 7 days before surgery. Please check if okay with doctor that prescribes this to you) DO NOT take the morning of surgery losartan [Cozaar] 25 mg PO QAM cetirizine 10 mg tablet 10 mg PO QAM folic acid 2 mg PO QAM furosemide 20 mg tablet 40 mg PO QAM Take morning of surgery With a small sip of water, OTHERWISE NOTHING TO EAT OR DRINK AFTER MIDNIGHT: amlodipine [Norvasc] 10 mg PO QAM levothyroxine [Synthroid] 25 mcg PO QAM arformoterol 15 mcg/2 mL solution for nebulization 15 mcg INHALATION BID PRN (if needed) gabapentin 300 mg capsule 900 mg PO QAM ipratropium 0.5 mg-albuterol 3 mg (2.5 mg base)/3 mL nebulization soln 3 ml INHALATION Q4H PRN (if needed) Dexilant 60 mg PO QAM metoprolol tartrate 50 mg PO BID azelastine 137 mcg (0.1 %) nasal spray aerosol 2 sprays INTNAS BID PRN (if needed) duloxetine 30 mg capsule,delayed release 30 mg PO QAM fluticasone fur. 100 mcg-umeclid 62.5 mcg-vilant 25 mcg inhalat.powder 1 inh INHALATION QAM Take evening before surgery lovastatin 20 mg PO HS arformoterol 15 mcg/2 mL solution for nebulization 15 mcg INHALATION BID PRN (if needed) ipratropium 0.5 mg-albuterol 3 mg (2.5 mg base)/3 mL nebulization soln 3 ml INHALATION Q4H PRN (if needed) gabapentin 600 mg PO HS metoprolol tartrate 50 mg PO BID azelastine 137 mcg (0.1 %) nasal spray aerosol 2 sprays INTNAS BID PRN (if needed) montelukast 10 mg tablet 10 mg PO QPM Other Notes If you have any questions please call us at [phone] or [phone] or [phone] or [phone]
--- NOTE | 2020-08-20 08:37 | History & Physical Report ---
Date of Service August 20, 2020 date of surgery: 08/31/20 Procedure: Right Total Knee Arthroplasty Assessment & Plan (1) Arthritis of right knee: Risks and benefits of procedure discussed in detail today, patient would like to proceed with a Right total knee replacement at [facility] as scheduled. will obtain medical clearance prior to surgery as well as obtain PATs at [facility]. Will place on ASA 81mg po bid x 1 month post op, f/u 2 weeks post op for routine post-operative care and x-ray, sooner if having any problems. will make arrangements for HHPT at the time of discharge. At this point in time, has failed conservative measures and would like to proceed with surgical intervention. The risks and benefits have been discussed including, but not limited to, risk of infection, nerve injury, stiffness, loss of motion, failure to improve, etc. Reasonable outcomes and options of treatment were discussed. An explanation of appropriate alternatives to the procedure that may be advantageous were discussed and their risks and benefits, as well as the risks and benefits of not proceeding with treatment. I offered to answer any additional inquiries concerning the treatment involved. All the patient's questions were answered. The patient is agreeable, understanding of the treatment plan and alternatives, and wishes to proceed with the treatment plan. History of Present Illness Chief Complaint: Right knee pain Primary Care Provider: Conrad L. Cookie Gallo is a 74 year old female who complains of Right knee pain, presents for pre- op evaluation prior to a Right total knee replacement by dr Romero at [facility]. She complains of pain and decreased range of motion in her Right knee. She states that the symptoms have been chronic and non-traumatic and states that the symptoms are moderate-severe. The pain is described as aching, sharp and throbbing. The symptoms are aggravated by ascending stairs, daily activities, first steps while awake walking. Prior NSAIDs include IBU and Aleve as well as prior pain medications include Tylenol. she has had previous cortisone injections without relief. Allergies Allergy/AdvReac Type Severity Reaction Status Date / Time No Known Drug Allergies Allergy Verified 08/16/20 15:29 Home Medications Home Medications Medication Instructions Recorded Confirmed Type amlodipine [Norvasc] 10 mg PO QAM 08/13/18 08/16/20 History levothyroxine [Synthroid] 25 mcg PO QAM 08/13/18 08/16/20 History losartan [Cozaar] 25 mg PO QAM 08/13/18 08/16/20 History lovastatin 20 mg PO HS 08/13/18 08/16/20 History arformoterol 15 mcg/2 mL solution 15 mcg INHALATION BID PRN #1 ml 05/09/19 08/16/20 History for nebulization gabapentin 300 mg capsule 900 mg PO QAM cap 05/09/19 08/16/20 History ipratropium 0.5 mg-albuterol 3 mg 3 ml INHALATION Q4H PRN #3 ml 05/09/19 08/16/20 History (2.5 mg base)/3 mL nebulization soln cetirizine 10 mg tablet 10 mg PO QAM 06/05/19 08/16/20 History Dexilant 60 mg PO QAM 06/12/19 08/16/20 History gabapentin 600 mg PO HS 06/12/19 08/16/20 History metoprolol tartrate 50 mg PO BID 06/12/19 08/16/20 History clopidogrel [Plavix] 75 mg PO QAM 06/20/19 08/16/20 History folic acid 2 mg PO QAM 09/08/19 08/16/20 History furosemide 20 mg tablet 40 mg PO QAM tab 09/18/19 08/16/20 History azelastine 137 mcg (0.1 %) nasal 2 sprays INTNAS BID PRN #30 ml 09/30/19 08/16/20 Rx spray aerosol nebulizers #1 ea 11/03/19 08/16/20 Rx abatacept 125 mg/mL subcutaneous 125 mg SQ WK 05/24/20 08/16/20 History syringe duloxetine 30 mg capsule,delayed 30 mg PO QAM 05/24/20 08/16/20 History release fluticasone fur. 100 mcg-umeclid 1 inh INHALATION QAM #1 inhaler 05/24/20 08/16/20 Rx 62.5 mcg-vilant 25 mcg inhalat.powder montelukast 10 mg tablet 10 mg PO QPM #90 tab 06/21/20 08/16/20 Rx denosumab 60 mg/mL subcutaneous 60 mg SUBCUT .COMPLEX ml 08/16/20 08/16/20 History syringe Past Med/Surg History Medical History Abdominal aortic aneurysm FOLLOWED BY [facility] ?NAME "RECENT CHECK UP DONE" Allergic rhinitis Anxiety Chronic obstructive pulmonary disease Fibromyalgia GERD (gastroesophageal reflux disease) Hx of migraines HX: breast cancer RT (SURGERY AND RADIATION) Hyperlipidemia Hypertension Osteoarthritis Peripheral edema Lasix PRN Peripheral neuropathy Restless leg syndrome Rheumatoid arthritis Transient ischemic attack (TIA) REASON FOR PLAVIX (TIA "A LONG TIME AGO") Surgical History Family history of reaction to anesthesia SISTER-NAUSEA History of appendectomy History of arthroscopy RT KNEE History of bilateral tubal ligation History of bladder surgery BLADDER TACK History of bronchoscopy History of cardiac cath "UNSURE OF DATE, A LONG TIME AGO" NO STENTS PLACED History of carpal tunnel surgery RT/LEFT History of cholecystectomy History of colonoscopy History of esophagogastroduodenoscopy (EGD) History of repair of rectocele History of repair of rotator cuff RT/LEFT X 2 History of tooth extraction Hx of lumpectomy RT Nausea and vomiting after administration of anesthetic agent S/P MIGUE-BSO Status post excisional biopsy Excisional BX and possible closure of right nasal defect -Dr. Drake on 06/20/19 Family History Mother Diabetes Breast cancer Lung cancer Unknown Bone cancer Coronary heart disease Non-Hodgkin lymphoma Breast cancer Lung cancer Stroke syndrome Cancer Hypertension Thyroid disorder Stroke Father Diabetes Sister Colon cancer Diabetes Family history of esophageal cancer Brother Diabetes Social History Smoking Status: Never smoker Second Hand Exposure: No; Do You Dip or Chew Tobacco: No; Tobacco Cessation Education Requested by Patient: No Hx Alcohol Use: Yes Hx Substance Use: No Preferred Language: Persian Communication Ability: Effective Visual Impairment: No Limitations Metrologist Required: No Beliefs That Will Affect Care: None Current Living Situation: Alone Feels Safe at Home: Yes Safety Concerns: Feels Safe At This Time Assistive Devices: Cane, Denture - Upper, Denture - Lower and Glasses Review of Systems Review of Systems: All systems reviewed & are unremarkable except as noted in HPI & below Constitutional: no fever, no chills and no sweats Respiratory: no cough and no dyspnea Cardiovascular: no chest pain, no dyspnea and no orthopnea Gastrointestinal: no abdominal pain, no nausea and no vomiting Musculoskeletal: as per Subjective / HPI Physical Exam Physical Exam: Ht: 5ft 1in Wt: 88.45kg BP: 138/84 Pulse: 65 Constitutional: WD/WN, vitals as above no acute distress Respiratory: normal respiratory effort, lungs clear to auscultation no respiratory distress, no labored breathing and does not use accessory muscles Cardiovascular: RRR, no murmur, no edema Gastrointestinal (Abdomen): normal bowel sounds, soft, nontender, no hepatosplenomegaly Musculoskeletal: Knee: + knee abnormal to inspection (Right knee- ), + effusion (+1 effusion), + limited ROM of knee (ROM 0/3/110), + knee ROM with crepitation, + joint line tenderness (medial joint line) and + Betito's sign positive; no deformity, no skin erythema, no ecchymosis, no valgus laxity, no varus laxity, anterior drawer test negative, Meera's sign negative and pivot shift test negative Results & Data Results & Data ([facility]) Laboratory Results Laboratory Results WBC 6.04 K/uL (4.8-10.8) 08/20/20 12:52 RBC 4.38 M/uL (4.2-5.4) 08/20/20 12:52 Hgb 12.4 g/dL (12.0-16.0) 08/20/20 12:52 Hct 38.8 % (37-47) 08/20/20 12:52 MCV 88.6 fL (80-100) 08/20/20 12:52 MCH 28.3 pg (25-34) 08/20/20 12:52 MCHC 32.0 g/dL (32-36) 08/20/20 12:52 RDW Std Deviation 47.7 fL (36.4-46.3) H 08/20/20 12:52 RDW Coeff of Griffin 14.7 % (11.5-14.5) H 08/20/20 12:52 Plt Count 213 K/uL (130-400) 08/20/20 12:52 MPV 9.4 fL (7.4-10.4) 08/20/20 12:52 Immature Gran % (Auto) 0.3 % 08/20/20 12:52 Neut % (Auto) 67.8 % 08/20/20 12:52 Lymph % (Auto) 25.2 % 08/20/20 12:52 [place] % (Auto) 5.1 % 08/20/20 12:52 Eos % (Auto) 1.3 % 08/20/20 12:52 Baso % (Auto) 0.3 % 08/20/20 12:52 Neut # (Auto) 4.09 K/uL (1.4-6.5) 08/20/20 12:52 Lymph # (Auto) 1.52 K/uL (1.2-3.4) 08/20/20 12:52 [place] # (Auto) 0.31 K/uL (0.11-0.59) 08/20/20 12:52 Eos # (Auto) 0.08 K/uL (0-0.5) 08/20/20 12:52 Baso # (Auto) 0.02 K/uL (0-0.2) 08/20/20 12:52 Immature Gran # (Auto) 0.02 K/uL (0.00-0.02) 08/20/20 12:52 PT 10.8 Seconds (9.0-12.0) 08/20/20 12:52 INR 1.0 (0.9-1.1) 08/20/20 12:52 APTT 27.0 Seconds (21.0-31.0) 08/20/20 12:52 PTT Ratio 1.0 08/20/20 12:52 Sodium 139 mmol/L (136-145) 08/20/20 12:52 Potassium 4.6 mmol/L (3.5-5.1) 08/20/20 12:52 Chloride 108 mmol/L (98-107) H 08/20/20 12:52 Carbon Dioxide 27 mmol/L (21-32) 08/20/20 12:52 Anion Gap 4.0 (3-11) 08/20/20 12:52 BUN 9 mg/dl (7-18) 08/20/20 12:52 Creatinine 0.62 mg/dl (0.6-1.2) 08/20/20 12:52 Est Cr Clr Drug Dosing 81.6 ml/min 08/20/20 12:52 Est GFR ( Amer) 102.2 08/20/20 12:52 Est GFR (Non-Af Amer) 88.2 08/20/20 12:52 BUN/Creatinine Ratio 15.0 (10-20) 08/20/20 12:52 Glucose 104 mg/dl (70-99) H 08/20/20 12:52 Estimat Average Glucose 114 mg/dl 08/20/20 12:52 Hemoglobin A1c 5.6 % (4.5-5.6) 08/20/20 12:52 Calcium 9.3 mg/dl (8.5-10.1) 08/20/20 12:52 Albumin 3.4 gm/dl (3.4-5.0) 08/20/20 12:52 Urine Color Yellow 08/20/20 12:52 Urine Appearance Clear (Clear) 08/20/20 12:52 Urine pH 5.5 (4.5-7.5) 08/20/20 12:52 Ur Specific [place] 1.009 (1.000-1.030) 08/20/20 12:52 Urine Protein Negative (Negative) 08/20/20 12:52 Urine Glucose (UA) Negative (Negative) 08/20/20 12:52 Urine Ketones Negative (Negative) 08/20/20 12:52 Urine Blood Negative (Negative) 08/20/20 12:52 Urine Nitrite Negative (Negative) 08/20/20 12:52 Urine Bilirubin Negative (Negative) 08/20/20 12:52 Urine Urobilinogen Negative (Negative) 08/20/20 12:52 Ur Leukocyte Esterase Negative (Negative) 08/20/20 12:52 Blood Type A Positive 08/20/20 12:52 Antibody Screen NEGATIVE 08/20/20 12:52 Diagnostic Findings Right Knee X-ray: Right knee series showing degenerative changes to the right knee, narrowing of the medial compartment and patello-femoral joint with patellar spurring noted, findings showing joint space narrowing of the medial compartment and patello- femoral joint, osteophyte formation and subchondral sclerosis noted. overall varus alignment. no acute bony pathology noted.
--- NOTE | 2020-08-20 12:46 | Anesthesiology Consultation ---
Date of Service August 20, 2020 Assessment & Plan (1) Encounter for pre-operative examination: COVID Status: As of 08/20 assessment, patient denies travel to endemic area, known exposure/sick contacts, or symptoms of COVID19. Patient instructed that they and their household members must follow strict social distancing guidelines, wear a mask in public and avoid travel/events/gatherings for 14 days prior to surgery. Preoperative COVID19 testing to be completed prior to surgery per surgeon's arrangements (pt pt [place]24 [place] [facility] Patient made aware to self- isolate as much as possible between COVID testing and surgery. Pulmonary visit 08/16/20. Pulm aware of upcoming surgery. "Stable at this time..continue medications as they are." Chart Review Chart Review: Acceptable Risk for Surgery (pending pcp clearance) and Patient seen in Pre Admission Testing Teaching & Discussion Instructed NPO after midnight before surgery, except medications with 15 cc of water. Medication instructions provided according to the PAT guidelines. History Surgery Operation Date: 08/31/20 07:15 Proposed Procedures p Right Total Knee Arthroplasty - Ari Romero DO Height/Weight Height: 5 ft 1 in Weight: 93.2 kg Allergies Allergy/AdvReac Type Severity Reaction Status Date / Time No Known Drug Allergies Allergy Verified 08/16/20 15:29 Medications Home Medications Medication Instructions Recorded Confirmed Last Taken amlodipine [Norvasc] 10 mg PO QAM 08/13/18 08/16/20 09/08/19 levothyroxine [Synthroid] 25 mcg PO QAM 08/13/18 08/16/20 09/08/19 losartan [Cozaar] 25 mg PO QAM 08/13/18 08/16/20 09/08/19 lovastatin 20 mg PO HS 08/13/18 08/16/20 09/07/19 arformoterol 15 mcg/2 mL solution 15 mcg INHALATION BID PRN #1 ml 05/09/19 08/16/20 Unknown for nebulization gabapentin 300 mg capsule 900 mg PO QAM cap 05/09/19 08/16/20 09/08/19 ipratropium 0.5 mg-albuterol 3 mg 3 ml INHALATION Q4H PRN #3 ml 05/09/19 08/16/20 Unknown (2.5 mg base)/3 mL nebulization soln cetirizine 10 mg tablet 10 mg PO QAM 06/05/19 08/16/20 09/08/19 Dexilant 60 mg PO QAM 06/12/19 08/16/20 09/08/19 gabapentin 600 mg PO HS 06/12/19 08/16/20 09/07/19 metoprolol tartrate 50 mg PO BID 06/12/19 08/16/20 09/08/19 clopidogrel [Plavix] 75 mg PO QAM 06/20/19 08/16/20 09/08/19 folic acid 2 mg PO QAM 09/08/19 08/16/20 09/08/19 furosemide 20 mg tablet 40 mg PO QAM tab 09/18/19 08/16/20 Unknown azelastine 137 mcg (0.1 %) nasal 2 sprays INTNAS BID PRN #30 ml 09/30/19 08/16/20 Unknown spray aerosol nebulizers #1 ea 11/03/19 08/16/20 Unknown abatacept 125 mg/mL subcutaneous 125 mg SQ WK 05/24/20 08/16/20 Unknown syringe duloxetine 30 mg capsule,delayed 30 mg PO QAM 05/24/20 08/16/20 Unknown release fluticasone fur. 100 mcg-umeclid 1 inh INHALATION QAM #1 inhaler 05/24/20 08/16/20 Unknown 62.5 mcg-vilant 25 mcg inhalat.powder montelukast 10 mg tablet 10 mg PO QPM #90 tab 06/21/20 08/16/20 Unknown denosumab 60 mg/mL subcutaneous 60 mg SUBCUT .COMPLEX ml 08/16/20 08/16/20 Unknown syringe Past Medical History Medical History (Updated 08/20/20 @ 15:28 by Evelio Aponte) Allergic rhinitis Anxiety Chronic obstructive pulmonary disease Fibromyalgia GERD (gastroesophageal reflux disease) Hx of migraines HX: breast cancer RT (SURGERY AND RADIATION) Hyperlipidemia Hypertension Osteoarthritis Peripheral edema Lasix PRN Peripheral neuropathy Restless leg syndrome Rheumatoid arthritis Superior mesenteric artery stenosis Follows with [facility]. "Asymptomatic severe SMA stenosis with widely patent celiac and CHRIS. She has symptoms unrelated to eating. No indication for surgery. Continue Plavix and statin." Transient ischemic attack (TIA) Remote hx, now on Plavix for SMA stenosis. Past Family History Family History Mother Diabetes Breast cancer Lung cancer Unknown Bone cancer Coronary heart disease Non-Hodgkin lymphoma Breast cancer Lung cancer Stroke syndrome Cancer Hypertension Thyroid disorder Stroke Father Diabetes Sister Colon cancer Diabetes Family history of esophageal cancer Brother Diabetes Past Surgical History Surgical History Family history of reaction to anesthesia SISTER-NAUSEA History of appendectomy History of arthroscopy RT KNEE History of bilateral tubal ligation History of bladder surgery BLADDER TACK History of bronchoscopy History of cardiac cath "UNSURE OF DATE, A LONG TIME AGO" NO STENTS PLACED History of carpal tunnel surgery RT/LEFT History of cholecystectomy History of colonoscopy History of esophagogastroduodenoscopy (EGD) History of repair of rectocele History of repair of rotator cuff RT/LEFT X 2 History of tooth extraction Hx of lumpectomy RT Nausea and vomiting after administration of anesthetic agent S/P MIGUE-BSO Status post excisional biopsy Excisional BX and possible closure of right nasal defect -Dr. Drake on 06/20/19 Past Anesthesia History No Hx of Anesthesia Complications and No Family Hx of Anesthesia Complications (sister PONV) History of PONV No Hx of Motion Sickness and History of PONV Social History Smoking Status: Never smoker Do You Dip or Chew Tobacco: No Hx Alcohol Use: Yes alcohol intake frequency: holidays/special occasions only Hx Substance Use: No substance use type: does not use Review of Systems Pt denies any recent chest pain, shortness of breath, palpitations, cough, fever, URI. + daily acid reflux. Physical Exam Vital Signs BP: 119/77 P: 68bpm SPO2: 96% RA T: 98.0 F R: 16 ENMT Mouth: + dentures and + edentulous Thyromental Distance: < 3.5 Finger Breadths (3) Mallampati Class: I Neck + short neck; neck extension not limited Respiratory normal respiratory effort, lungs clear to auscultation Cardiovascular RRR, no murmur, no edema Testing Laboratory Results 08/20/20 12:52 08/20/20 12:52 PT 10.8 Seconds (9.0-12.0) 08/20/20 12:52 INR 1.0 (0.9-1.1) 08/20/20 12:52 APTT 27.0 Seconds (21.0-31.0) 08/20/20 12:52 Hemoglobin A1c 5.6 % (4.5-5.6) 08/20/20 12:52 Urine Color Yellow 08/20/20 12:52 Urine Appearance Clear (Clear) 08/20/20 12:52 Urine pH 5.5 (4.5-7.5) 08/20/20 12:52 Ur Specific [place] 1.009 (1.000-1.030) 08/20/20 12:52 Urine Protein Negative (Negative) 08/20/20 12:52 Urine Glucose (UA) Negative (Negative) 08/20/20 12:52 Urine Ketones Negative (Negative) 08/20/20 12:52 Urine Nitrite Negative (Negative) 08/20/20 12:52 Ur Leukocyte Esterase Negative (Negative) 08/20/20 12:52 Blood Type A Positive 08/20/20 12:52 Antibody Screen NEGATIVE 08/20/20 12:52 Electrocardiogram Date: 08/20/20 Findings: + NSR @ (64bpm) Left axis deviation. No significant change from 08/2019. Chest X-Ray Date: 08/20/20 Findings: + NAD
[2020-08-20 13:46] LABS: Basophils # (auto) 0.02 K/uL (0-0.2); Basophils % (auto) 0.3 %; Eosinophils # (auto) 0.08 K/uL (0-0.5); Eosinophils % (auto) 1.3 %; Hematocrit (blood only) 38.8 % (37-47); Hemoglobin 12.4 g/dL (12.0-16.0); Immature Granulocytes # (auto) 0.02 K/uL (0.00-0.02); Immature Granulocytes % (auto) 0.3 %; Lymphocytes # (auto) 1.52 K/uL (1.2-3.4); Lymphocytes % (auto) 25.2 %; Mean Corpuscular Hemoglobin 28.3 pg (25-34); Mean Corpuscular Volume 88.6 fL (80-100); Mean Platelet Volume 9.4 fL (7.4-10.4); Monocytes # (auto) 0.31 K/uL (0.11-0.59); Monocytes % (auto) 5.1 %; Neutrophils # (auto) 4.09 K/uL (1.4-6.5); Neutrophils % (auto) 67.8 %; Platelet Count 213 K/uL (130-400); RDW Coefficient of Variation 14.7 % (11.5-14.5); RDW Standard Deviation 47.7 fL (36.4-46.3); Red Blood Count 4.38 M/uL (4.2-5.4); White Blood Count 6.04 K/uL (4.8-10.8)
--- NOTE | 2020-08-20 13:48 | XRay Report ---
XR chest Pre-admission PA/Lat HISTORY: Preop. COMPARISON: Chest 09/08/2019. FINDINGS: A few bibasilar linear densities suggesting subsegmental atelectasis or scarring. This [place] ins unchanged. Otherwise, lungs are clear. No pleural effusions. No pneumothorax. The heart is normal in size. IMPRESSION: No significant change compared to the prior study. No acute process. ACT 112: Negative or not required by law. Electronically signed by: Preet Cooper M.D. 08/20/2020 1:46 PM
[2020-08-20 13:57] LABS: Prothrombin Time 10.8 Seconds (9.0-12.0)
[2020-08-20 14:11] LABS: Albumin Level 3.4 gm/dl (3.4-5.0); Calcium 9.3 mg/dl (8.5-10.1); Creatinine Clr Calc Pharmacy 81.6 ml/min; Est GFR (African American) 102.2; Est GFR (Non-African American) 88.2; Potassium 4.6 mmol/L (3.5-5.1)
[2020-08-20 14:52] LABS: Appearance Urine Clear (Clear); Bilirubin Urine Negative (Negative); Blood Urine Negative (Negative); Color Urine Yellow; Glucose Urine UA Negative (Negative); Ketones Urine Negative (Negative); Leukocyte Esterase Urine Negative (Negative); Nitrite Urine Negative (Negative); Protein Urine Negative (Negative); Specific Gravity Urine 1.009 (1.000-1.030); Urobilinogen Urine Negative (Negative); pH Urine 5.5 (4.5-7.5)
[2020-08-20 14:54] LABS: Estimated Average Glucose 114 mg/dl; Hemoglobin A1C 5.6 % (4.5-5.6)
--- NOTE | 2020-08-20 18:21 | Electrocardiogram Report ---
Test Reason : Blood Pressure : / mmHG Vent. Rate : 064 BPM Atrial Rate : 064 BPM P-R Int : 194 ms QRS Dur : 090 ms QT Int : 412 ms P-R-T Axes : 033 -38 057 degrees QTc Int : 425 ms Normal sinus rhythm Left axis deviation Abnormal ECG When compared with ECG of 08-SEP-2019 16:54, No significant change was found Confirmed by Niraj Logan ([id number]) on 08/20/2020 6:20:53 PM Referred By: Ari Romero Confirmed By:Harshal Logan
[~2020-08-31 06:59] MED LIST changes: -ACET-1311 PO; -AMLO-114 PO; +BUPIVACAINE 0.5 % 5 MG/1 ML PF 10ML VIAL ONE; -CLOP1TAB15 PO; -EFF/375 PO; +EPINEPHrine INJ 1 MG/ML AMP ONE; -ETAN50IN2 INJ; -FAMO20TA9 PO; -FLUT1INH INH; -FLV1 PO; -FSM70 PO; -FURO-85 PO; -GABA-1219 PO; -LEVO-14 PO; -LEVO25TA5 PO; -LOSA25TA18 PO; -LOVA20TA4 PO; +LR 500ML BOLUS, THEN 15ML/HR IV SCH; -MELO15TA10 PO; -METH2.5T PO; -METO50TA16 PO; +METOCLOPRAMIDE HCL 10 MG TABLET PO SCH; -MONT1TAB5 PO; -NRN600 PO; -POTA10CA28 PO; +ROPIVACAINE 0.5% 5 MG/ML 30 ML VIAL ONE; +ROPIVACAINE 0.5% HCL/PF 150 MG, BUPIVACAINE 0.5% MPF 30 ML, EPINEPHrine 30MG/30ML (OR U... INSTIL SCH; +TRANEXAMIC ACID 1,000 MG **IV Intra-op IV SCH; +TRANEXAMIC ACID 1,000 MG **IV Pre-op IV SCH; +ceFAZolin 2000MG 2,000 MG/15 ML SYR IV SCH
--- NOTE | 2020-08-31 07:22 | History & Physical Bridge Note ---
Date of Service August 31, 2020 History & Physical Bridge Note I have examined the patient, reviewed the History & Physical and in the interval since the performance of the History & Physical I have noted the following changes of clinical significance: no changes noted
[2020-08-31] MEDS ORDERED: fentaNYL citrate 100 MCG/2 ML VIAL ONE (07:44)
[2020-08-31] MEDS ORDERED: MIDAZOLAM HCL 1 MG/ML 2ML VIAL ONE ×2 (07:44→10:09)
[2020-08-31] MEDS: ACETAMINOPHEN 500 MG TAB PO SCH ×4 (07:59→20:53)
[2020-08-31] MEDS: dexAMETHasone 4 MG TAB PO SCH ×2 (07:59→09:22)
[2020-08-31] MEDS: FAMOTIDINE 20 MG TAB PO SCH ×2 (07:59→09:23)
[2020-08-31] MEDS: CeleBREX 200 MG CAP PO SCH ×2 (07:59→09:23)
[2020-08-31] MEDS: GABAPENTIN 300 MG CAP PO SCH ×2 (08:00→10:10)
[2020-08-31] MEDS ORDERED: ORTHO JOINT ANESTHETIC ONE (09:20)
[2020-08-31] MEDS ORDERED: BACITRACIN INJ 50,000 UNIT VIAL ONE (09:20)
[2020-08-31] MEDS ORDERED: PROPOFOL IV EMULSION 10 MG/ML 20 ML VIAL IV ONE ×2 (10:17→11:17)
[2020-08-31] MEDS ORDERED: ONDANSETRON INJ 2 MG/ML 2 ML VIAL ONE (10:20)
[2020-08-31] MEDS ORDERED: ATROPINE SULFATE 0.1 MG/ML 10ML SYR IV PRN (11:04)
[2020-08-31] MEDS ORDERED: ePHEDrine sulfate 50 MG/ML AMP IV PRN (11:04)
--- NOTE | 2020-08-31 11:13 | Operative Report ---
Post Operative Report Pre & Post Diagnosis Operation Date: 08/31/20 09:00 Pre-Op Diagnosis: Unilateral Primary Osteoarthritis of Right Knee Post-Op Diagnosis: Unilateral Primary Osteoarthritis of Right Knee I identified the patient and participated in the time-out.: Yes Procedure Operation Date: 08/31/20 09:00 Actual Procedures p Right Total Knee Arthroplasty, Cemented(Right) journey 2 patient matched total knee arthroplasty size 3 femur to tibia 13 polyethylene 29 oval patella- Ari Romero DO Surgeon Ari Romero DO [employer] Juan SHIRLEY Estimated Blood Loss 5 Findings Consistent with Post-Op Diagnosis Patient presents with severe end-stage tricompartmental degenerative joint disease right knee no response to conservative management clinic physical therapy injections the intraoperative findings are consistent with eburnated [id number] marginal osteophytes subchondral cystic changes moderate to large effusion varus alignment a 3 flexion contracture Specimens Bone and cartilage Drains Medium bore Hemovac Anesthesia Type MAC Spinal Regional Complications none Disposition Accompanied Patient To Recovery: No Disposition: Recovery Room Indications Patient presents with ongoing planes of pain trouble to the right knee no response to conservative management patient fell attempted Visco supplementation corticosteroid injections anti-inflammatories relative rest activity modification the above intraoperative findings were noted Description of Procedure After proper prepping and draping of the Right lower extremity anterior midline incision was made over the region of the extensor extensor mechanism after meticulous hemostasis was obtained and maintained in subcutaneous tissues a medial parapatellar incision was made The patella was subluxed lateralward the medial lateral gutter were cleaned from any hypertrophic synovitis and scar tissue of the distal femoral block was placed and the distal femoral osteotomy cut was made subsequently the chamfers anterior and posterior osteotomy cuts were made utilizing the 4-in-1 block the tibia was subsequently subluxed anteriorward medial and ateral meniscal remnants were excised in their entirety remnants of the anterior and posterior cruciate ligaments were excised in their entirety excellent exposure of the proximal tibia was obtained the tibial osteotomy guide was placed on the proximal tibial osteotomy cut was made once again the knee was irrigated with copious amounts of sterile saline solution the patella was subsequently everted lateralward thickened scar tissue around the patella was removed the patella was subsequently cut utilizing a freehand technique and was drilled prepared for final preparation and placement of patella socially flexion-extension gaps were checked and the equal and symmetric trials were placed to the appropriate femoral and tibial trials with poly-spacer being placed for equal flexion and extension gaps and full range of motion including extension to 0 and flexion to 140 the trial components after having been taken to recovery range of motion was subsequently removed meticulous hemostasis was obtained and maintained subsequently a knee block injection of joint cocktail including ropivacaine 0.5% 150 mg. Bupivacaine 0.5% epinephrine 1-200,030 mL's toradol 30 mg dexamethasone 4 mg ketamine 10 mg clonidine 100 micrograms normal saline solution 30 mg was infiltrated into the soft tissues of the posterior knee medial lateral gutters and periosteal synovium special attention was paid to protect neurovascular structures at all times subsequently trial components having been removed the knee was irrigated with sterile saline solution. debris was removed the proximal tibia was subsequently prepared and was made ready for the placement of the tibial component tibial component was also cemented and tamped into position the femoral component was subsequently placed and cemented in the position the patellar component was subsequently cemented in position because hemostasis once again obtained and maintained wound having been thoroughly irrigated with debridement and debridement lavage was performed as well as a medial parapatellar incision closed with #1 Vicryl in interrupted fashion subcutaneous was closed with #2 Vicryl skin was closed with skin clips. PA-C was necessary for prepping and drapping as well as wound closure of deep fascia Sub cutaneous tissue and skin and was necessary for the case. A sterile compressive dressing was placed patient was taken to recovery in stable condition of report dictated by Nick I attest to the content of the Intraoperative Record and any orders documented therein. Any exceptions are noted below. I attest to the content of the Intraoperative Record and any orders documented therein. Any exceptions are noted below.
[2020-08-31] MEDS ORDERED: ePHEDrine sulfate 50 MG/ML SYR ONE (11:19)
--- NOTE | 2020-08-31 12:51 | XRay Report ---
TWO VIEWS RIGHT KNEE CLINICAL HISTORY: Postoperative examination. FINDINGS: AP and crosstable lateral portable views of the right knee are obtained. A right knee arthr oplasty is in near anatomic alignment. There has been undersurface remodeling of the patella. No acut e fracture is seen. There are expected postoperative changes around the knee including a surgical zen in, soft tissue edema, and subcutaneous gas. IMPRESSION: Expected postoperative changes status post right knee arthroplasty. No acute fracture is seen. ACT 112: Negative or not required by law. Electronically signed by: Jose Levi M.D. 08/31/2020 12:50 PM
--- NOTE | 2020-08-31 13:02 | Anesthesiology Progress Note ---
Date of Service August 31, 2020 Anesthesia Post Procedure Vital Signs Vital Signs: Temp Pulse Pulse Resp BP Pulse Ox 08/31/20 12:50 75 18 109/51 L 93 08/31/20 12:40 36.4 C L 74 18 102/55 L 93 08/31/20 12:30 73 14 106/69 93 08/31/20 12:20 75 20 103/60 93 08/31/20 12:10 77 14 107/63 94 08/31/20 12:00 77 14 100/57 L 96 08/31/20 11:51 36.2 C L 76 16 103/58 L 99 08/31/20 07:44 36.7 C 73 20 137/68 98 Pain Intensity Right Knee: Pain Intensity: 0 Transfer of Care Handoff Completed per policy Notes Mental Status: alert / awake / arousable Patient Amnestic to Procedure: Yes Nausea / Vomiting: adequately controlled Pain: adequately controlled Airway Patency, RR, SpO2: stable & adequate BP & HR: stable & adequate Hydration State: stable & adequate Neuraxial Anesthesia: was administered and sensory block is resolving Anesthetic Complications: no major complications apparent
[2020-08-31] MEDS ORDERED: MAGNESIUM HYDROXIDE SUSP 30 ML UDC PO PRN (13:10)
[2020-08-31] MEDS ORDERED: diphenhydrAMINE Capsule 25 MG CAP PO PRN (13:10)
[2020-08-31] MEDS ORDERED: METOCLOPRAMIDE HCL INJ 5 MG/ML 2 ML VIAL IV PRN (13:10)
[2020-08-31] MEDS ORDERED: ALBUT/IPRATROP 3MG/0.5MG NEB 3 ML VIAL INH PRN (13:10)
[2020-08-31] MEDS ORDERED: bisacodyL 10 MG SUPP PR PRN (13:10)
[2020-08-31] MEDS ORDERED: HYDROmorphone INJ 1 MG/ML SYRINGE IV PRN (13:10)
[2020-08-31] MEDS ORDERED: NALOXONE HCL 0.4 MG/1 ML VIAL/CARP IV PRN (13:10)
[2020-08-31] MEDS: SODIUM CHLORIDE 0.9% 1000ML 1,000 ML IV SCH ×2 (13:20→23:20)
[2020-08-31] MEDS ORDERED: FORMOTEROL 20 MCG/2 ML VIAL INH PRN (14:02)
[2020-08-31] MEDS: KETOROLAC TROMETHAMINE 15 MG/ML VIAL IV SCH ×2 (14:12→19:38)
[2020-08-31] MEDS: ONDANSETRON INJ 2 MG/ML 2 ML VIAL IV PRN ×2 (14:13→21:01)
[2020-08-31] MEDS ORDERED: Scopolamine CHECK PATCH PLACEMENT SCH (16:00)
[2020-08-31] MEDS: ceFAZolin 2000MG 2,000 MG/15 ML SYR IV SCH (17:18)
[2020-08-31] MEDS: DOCUSATE SODIUM 100 MG CAP PO SCH (20:53)
[2020-08-31] MEDS: METOPROLOL TARTRATE 50 MG TAB PO SCH (20:54)
[2020-08-31] MEDS: MONTELUKAST SODIUM 10 MG TABLET PO SCH (20:55)
[2020-08-31] MEDS: LOVASTATIN 20 MG TAB PO SCH (20:55)
[2020-08-31] MEDS: SENNA 8.6 MG TAB PO SCH (20:56)
[2020-08-31] MEDS: GABAPENTIN 600 MG TAB PO SCH (20:57)
[2020-08-31] MEDS: ASPIRIN 81 MG ECTAB PO SCH (20:57)
[2020-09-01] MEDS: KETOROLAC TROMETHAMINE 15 MG/ML VIAL IV SCH ×2 (02:32→09:13)
[2020-09-01] MEDS: ceFAZolin 2000MG 2,000 MG/15 ML SYR IV SCH (02:32)
[2020-09-01] MEDS: ONDANSETRON INJ 2 MG/ML 2 ML VIAL IV PRN (04:34)
[2020-09-01] MEDS: LEVOTHYROXINE SODIUM 25 MCG TABLET PO SCH (04:57)
[2020-09-01] MEDS: ACETAMINOPHEN 500 MG TAB PO SCH ×3 (04:57→20:19)
[2020-09-01 06:18] LABS: Hematocrit (blood only) 31.4 % (37-47); Hemoglobin 10.1 g/dL (12.0-16.0); Mean Corpuscular Hemoglobin 28.5 pg (25-34); Mean Corpuscular Hgb Conc 32.2 g/dL (32-36); Mean Corpuscular Volume 88.5 fL (80-100); Mean Platelet Volume 9.3 fL (7.4-10.4); Platelet Count 186 K/uL (130-400); RDW Coefficient of Variation 14.4 % (11.5-14.5); RDW Standard Deviation 47.6 fL (36.4-46.3); Red Blood Count 3.55 M/uL (4.2-5.4); White Blood Count 7.47 K/uL (4.8-10.8)
[2020-09-01 06:37] LABS: Calcium 8.5 mg/dl (8.5-10.1); Creatinine Clr Calc Pharmacy 69.3 ml/min; Est GFR (African American) 93.4; Est GFR (Non-African American) 80.6; Potassium 4.1 mmol/L (3.5-5.1)
[2020-09-01] MEDS: oxyCODONE HCL IR 5 MG TAB (IMMEDIATE RELEASE) PO PRN ×4 (09:08→23:34)
[2020-09-01] MEDS: DOCUSATE SODIUM 100 MG CAP PO SCH ×2 (09:09→20:17)
[2020-09-01] MEDS: FOLIC ACID 1 MG TAB PO SCH (09:09)
[2020-09-01] MEDS: CETIRIZINE HCL 10 MG TABLET PO SCH (09:10)
[2020-09-01] MEDS: METOPROLOL TARTRATE 50 MG TAB PO SCH ×2 (09:10→20:19)
[2020-09-01] MEDS: DULoxetine HCL 30 MG CAP PO SCH (09:10)
[2020-09-01] MEDS: GABAPENTIN 300 MG CAP PO SCH (09:10)
[2020-09-01] MEDS: PANTOprazole 40 MG TAB PO SCH (09:10)
[2020-09-01] MEDS: LOSARTAN POTASSIUM 25 MG TAB PO SCH (09:10)
[2020-09-01] MEDS: amLODIPine BESYLATE 5 MG TAB PO SCH (09:11)
[2020-09-01] MEDS: MULTIVITAMIN TAB PO SCH (09:11)
[2020-09-01] MEDS: UMECLIDINIUM/VILANTEROL 62.5/25MCG 7 PUFFS/INHALER INH SCH (09:11)
[2020-09-01] MEDS: CLOPIDOGREL BISULFATE 75 MG TAB PO SCH (09:11)
[2020-09-01] MEDS: FLUTICASONE FUROATE 100MCG 14 PUFFS/INHALER INH SCH (09:12)
[2020-09-01] MEDS: ASPIRIN 81 MG ECTAB PO SCH (09:12)
[2020-09-01] MEDS: SODIUM CHLORIDE 0.9% 1000ML 1,000 ML IV SCH (09:20)
--- NOTE | 2020-09-01 09:50 | Orthopedic Progress Note ---
Date of Service September 01, 2020 Assessment & Plan (1) History of total right knee replacement: POD #1 s/p Right TKA pt/ot dvt proph with [facility]OTT/SCD/ASA unsure of discharge, she does live alone, will consider HHPT vs SNF, will see how she performs in PT. Admission and Anticipated Discharge Date Admission Date: August 31, 2020 Subjective POD #1 s/p Right TKA Review of Systems Constitutional: no fever, no chills and no sweats Respiratory: no cough and no dyspnea Cardiovascular: no chest pain and no dyspnea Gastrointestinal: no abdominal pain, no nausea and no vomiting Physical Exam Physical Exam: Vital Signs Temp 36.6 C 09/01/20 07:24 Pulse 64 09/01/20 07:24 Resp 16 09/01/20 07:24 BP 110/73 09/01/20 07:24 Pulse Ox 95 09/01/20 07:24 Intake & Output 08/31/20 09/01/20 09/01/20 18:59 06:59 18:59 Intake Total 1300 / 3073.333 1773.333 / 3073.33 3 Output Total 505 / 1105 600 / 1105 601 / 601 Balance 795 / 6688.826 9550.333 / 1968.33 3 -601 / -601 Weight 93.2 kg Intake: IV 600 / 2133.333 1533.333 / 2133.33 3 Lr 1,000 ml @ 15 mls/hr IV . 400 / 400 Q24H [facility] Rx#:[id number] Nss 1000ML 1,0 00 ml @ 100 mls/ 1533.333 / 1533.33 3 hr IV .Q10H SC H Rx#:[id number] TRANEXAMIC ACI D / 0.7% NACL 1, 200 / 200 000 mg In 100 ml @ 600 mls/hr IV TODAY@0600 [facility] Rx#:[id number] IV Perioperative 700 / 700 Oral 240 / 240 Output: Urine 500 / 900 400 / 900 600 / 600 Estimated Blood Loss 5 / 5 Drain Output 0 / 200 200 / 200 Right Knee Hem ovac 0 / 200 200 / 200 # Bowel Movement s Other: Weight Measureme nt Method Standing Scale Constitutional: WD/WN, vitals as above no acute distress Musculoskeletal: Right Leg: NVDI, calf SNT, negative naveed sign. DP palpable, able to wiggle toes/ankle movement without difficulty. dressing clean dry and intact. Results & Data ([facility]) Vital Signs (Past 12 Hours) Vital Signs Temp Pulse Pulse Resp BP Pulse Ox 09/01/20 07:24 36.6 C 64 16 110/73 95 09/01/20 04:29 36.8 C 63 16 105/67 94 08/31/20 23:02 36.7 C 64 15 94/52 L 95 Laboratory Results Laboratory Results WBC 7.47 K/uL (4.8-10.8) 09/01/20 05:51 RBC 3.55 M/uL (4.2-5.4) L 09/01/20 05:51 Hgb 10.1 g/dL (12.0-16.0) L 09/01/20 05:51 Hct 31.4 % (37-47) L 09/01/20 05:51 MCV 88.5 fL (80-100) 09/01/20 05:51 MCH 28.5 pg (25-34) 09/01/20 05:51 MCHC 32.2 g/dL (32-36) 09/01/20 05:51 RDW Std Deviation 47.6 fL (36.4-46.3) H 09/01/20 05:51 RDW Coeff of Griffin 14.4 % (11.5-14.5) 09/01/20 05:51 Plt Count 186 K/uL (130-400) 09/01/20 05:51 MPV 9.3 fL (7.4-10.4) 09/01/20 05:51 Immature Gran % (Auto) 0.3 % 08/20/20 12:52 Neut % (Auto) 67.8 % 08/20/20 12:52 Lymph % (Auto) 25.2 % 08/20/20 12:52 Barnwell % (Auto) 5.1 % 08/20/20 12:52 Eos % (Auto) 1.3 % 08/20/20 12:52 Baso % (Auto) 0.3 % 08/20/20 12:52 Neut # (Auto) 4.09 K/uL (1.4-6.5) 08/20/20 12:52 Lymph # (Auto) 1.52 K/uL (1.2-3.4) 08/20/20 12:52 Barnwell # (Auto) 0.31 K/uL (0.11-0.59) 08/20/20 12:52 Eos # (Auto) 0.08 K/uL (0-0.5) 08/20/20 12:52 Baso # (Auto) 0.02 K/uL (0-0.2) 08/20/20 12:52 Immature Gran # (Auto) 0.02 K/uL (0.00-0.02) 08/20/20 12:52 PT 10.8 Seconds (9.0-12.0) 08/20/20 12:52 INR 1.0 (0.9-1.1) 08/20/20 12:52 APTT 27.0 Seconds (21.0-31.0) 08/20/20 12:52 PTT Ratio 1.0 08/20/20 12:52 Sodium 140 mmol/L (136-145) 09/01/20 05:51 Potassium 4.1 mmol/L (3.5-5.1) 09/01/20 05:51 Chloride 109 mmol/L (98-107) H 09/01/20 05:51 Carbon Dioxide 26 mmol/L (21-32) 09/01/20 05:51 Anion Gap 5.0 (3-11) 09/01/20 05:51 BUN 14 mg/dl (7-18) 09/01/20 05:51 Creatinine 0.73 mg/dl (0.6-1.2) 09/01/20 05:51 Est Cr Clr Drug Dosing 69.3 ml/min 09/01/20 05:51 Est GFR ( Amer) 93.4 09/01/20 05:51 Est GFR (Non-Af Amer) 80.6 09/01/20 05:51 BUN/Creatinine Ratio 19.0 (10-20) 09/01/20 05:51 Glucose 130 mg/dl (70-99) H 09/01/20 05:51 Estimat Average Glucose 114 mg/dl 08/20/20 12:52 Hemoglobin A1c 5.6 % (4.5-5.6) 08/20/20 12:52 Calcium 8.5 mg/dl (8.5-10.1) 09/01/20 05:51 Albumin 3.4 gm/dl (3.4-5.0) 08/20/20 12:52 Urine Color Yellow 08/20/20 12:52 Urine Appearance Clear (Clear) 08/20/20 12:52 Urine pH 5.5 (4.5-7.5) 08/20/20 12:52 Ur Specific [place] 1.009 (1.000-1.030) 08/20/20 12:52 Urine Protein Negative (Negative) 08/20/20 12:52 Urine Glucose (UA) Negative (Negative) 08/20/20 12:52 Urine Ketones Negative (Negative) 08/20/20 12:52 Urine Blood Negative (Negative) 08/20/20 12:52 Urine Nitrite Negative (Negative) 08/20/20 12:52 Urine Bilirubin Negative (Negative) 08/20/20 12:52 Urine Urobilinogen Negative (Negative) 08/20/20 12:52 Ur Leukocyte Esterase Negative (Negative) 08/20/20 12:52 Blood Type A Positive 08/20/20 12:52 Antibody Screen NEGATIVE 08/20/20 12:52 Diagnostic Findings TWO VIEWS RIGHT KNEE CLINICAL HISTORY: Postoperative examination. FINDINGS: AP and crosstable lateral portable views of the right knee are obtained. A right knee arthroplasty is in near anatomic alignment. There has been undersurface remodeling of the patella. No acute fracture is seen. There are expected postoperative changes around the knee including a surgical drain, soft tissue edema, and subcutaneous gas. IMPRESSION: Expected postoperative changes status post right knee arthroplasty. No acute fracture is seen.
[2020-09-01] MEDS: SENNA 8.6 MG TAB PO SCH (20:16)
[2020-09-01] MEDS: LOVASTATIN 20 MG TAB PO SCH (20:18)
[2020-09-01] MEDS: MONTELUKAST SODIUM 10 MG TABLET PO SCH (20:18)
[2020-09-01] MEDS: GABAPENTIN 600 MG TAB PO SCH (20:19)
[2020-09-01 23:29] VITALS: PULSE 61
[2020-09-02] MEDS: LEVOTHYROXINE SODIUM 25 MCG TABLET PO SCH (06:04)
[2020-09-02] MEDS: ACETAMINOPHEN 500 MG TAB PO SCH (06:04)
[2020-09-02] MEDS: oxyCODONE HCL IR 5 MG TAB (IMMEDIATE RELEASE) PO PRN ×2 (06:06→10:14)
[2020-09-02 07:28] VITALS: BP 103/68; TEMP 97.7; O2SAT 95
--- NOTE | 2020-09-02 08:37 | Orthopedic Progress Note ---
Date of Service September 02, 2020 Assessment & Plan (1) History of total right knee replacement: POD #2 s/p Right TKA PT/OT -ambulated 140 feet x 2 yesterday dvt proph with [facility]/SCD/ASA Pain management as written DC planning-start made for home health services. Patient lives alone but states that she has arranged for someone to come in and help her. Likely plan for discharge today. Admission and Anticipated Discharge Date Admission Date: August 31, 2020 Subjective Postop day two status post right total knee arthroplasty. Patient is sitting up in bed awake and alert. States that her knee does have some pain this morning. Otherwise she is feeling well. Denies any shortness of breath, chest pain, lightheadedness. Physical Exam Physical Exam: Adrian dressing is clean, dry, and intact. Calves are soft and nontender. Neurovascular is intact. Toes are mobile. Results & Data ([facility]) Vital Signs (Past 12 Hours) Vital Signs Temp Pulse Pulse Resp BP Pulse Ox 09/02/20 07:24 36.5 C 61 16 103/68 95 09/01/20 23:27 36.7 C 61 18 114/67 92
[2020-09-02] MEDS ORDERED: FUROSEMIDE 40 MG TAB PO SCH (09:00)
[2020-09-02] MEDS: GABAPENTIN 300 MG CAP PO SCH (09:06)
[2020-09-02] MEDS: CLOPIDOGREL BISULFATE 75 MG TAB PO SCH (09:06)
[2020-09-02] MEDS: ASPIRIN 81 MG ECTAB PO SCH (09:06)
[2020-09-02] MEDS: DULoxetine HCL 30 MG CAP PO SCH (09:07)
[2020-09-02] MEDS: LOSARTAN POTASSIUM 25 MG TAB PO SCH (09:07)
[2020-09-02] MEDS: amLODIPine BESYLATE 5 MG TAB PO SCH (09:07)
[2020-09-02] MEDS: CETIRIZINE HCL 10 MG TABLET PO SCH (09:07)
[2020-09-02] MEDS: DOCUSATE SODIUM 100 MG CAP PO SCH (09:07)
[2020-09-02] MEDS: MULTIVITAMIN TAB PO SCH (09:08)
[2020-09-02] MEDS: PANTOprazole 40 MG TAB PO SCH (09:08)
[2020-09-02] MEDS: METOPROLOL TARTRATE 50 MG TAB PO SCH (09:08)
[2020-09-02] MEDS: UMECLIDINIUM/VILANTEROL 62.5/25MCG 7 PUFFS/INHALER INH SCH (09:08)
[2020-09-02] MEDS: FLUTICASONE FUROATE 100MCG 14 PUFFS/INHALER INH SCH (09:08)
[2020-09-02] MEDS: FOLIC ACID 1 MG TAB PO SCH (09:08)
--- NOTE | 2020-09-03 15:28 | Discharge Summary ---
Date of Service date of admission: August 31, 2020 date of discharge: 09-02-20 Admission HPI Per Admitting Provider Cleo is a 74 year old female who complains of Right knee pain, presents for pre- op evaluation prior to a Right total knee replacement by dr Romero at [facility]. She complains of pain and decreased range of motion in her Right knee. She states that the symptoms have been chronic and non-traumatic and states that the symptoms are moderate-severe. The pain is described as aching, sharp and throbbing. The symptoms are aggravated by ascending stairs, daily activities, first steps while awake walking. Prior NSAIDs include IBU and Aleve as well as prior pain medications include Tylenol. she has had previous cortisone injections without relief. Principal Diagnosis Right knee arthritis Discharge Exam Vital Signs Temp 36.5 C 09/02/20 09:48 Pulse 61 09/02/20 09:48 Resp 16 09/02/20 09:48 BP 103/68 09/02/20 09:48 Pulse Ox 95 09/02/20 09:48 Intake & Output 09/02/20 09/03/20 09/03/20 18:59 06:59 18:59 Weight 93.2 kg Constitutional WD/WN, vitals as above no acute distress Musculoskeletal Right Knee: NVDI, calf SNT, negative naveed sign. DP palpable, able to wiggle toes/ankle movement without difficulty. dressing clean dry and intact. expected post-operative bruising noted. Discharge Data Allergies Allergy/AdvReac Type Severity Reaction Status Date / Time No Known Drug Allergies Allergy Verified 08/31/20 07:23 Consultations 08/31/20 13:10 Consult Case Management - Discharge Planning Routine Procedures Performed Operation Date: 08/31/20 09:00 Actual Procedures p Right Total Knee Arthroplasty, Cemented(Right) - Ari Romero, Ordered Studies 08/31/20 05:00 US - OR guided needle placemen Routine Hospital Course (1) History of total right knee replacement: POD #2 s/p Right TKA PT/OT -ambulated 140 feet x 2 yesterday dvt proph with [facility]/SCD/ASA Pain management as written DC planning-start made for home health services. Patient lives alone but states that she has arranged for someone to come in and help her. Likely plan for discharge today. Total Time Total Time Spent Total Time Spent (In Minutes): 20 Total Time Includes: Examination of the Patient, Discharge Planning and Medication Reconciliation Discharge Plan Discharge Items Patient Disposition: Home - Home Health Services Reason For Visit: Unilateral Primary Osteoarthritis of Right Knee Discharge Diagnosis: Right total knee replacement Activity: Per Instructions section Lifting: Wait until after follow-up appointment Weightbearing Comment: WBAT with walker Non-emergency contact: Surgeon Call non-emergency contact if: you have any medication questions, your temperature is above 101, your wound has increased redness, your wound has increased drainage and your wound pain has increased Follow-up/Referrals: Conrad Gary [Primary Care Provider] - Diet: Regular Addtl Attending Provider Instructions: ACTIVITY RECOMMENDATIONS: SELF CARE INSTRUCTIONS AFTER TOTAL KNEE REPLACEMENT A. You may need to continue a physical therapy program after discharge from the hospital. There are several options available to you. Your doctor will assist you in selecting the best one for you. 1. An out-patient facility 2 to 3 times a week for therapy or home therapy. 2. Continue working on all exercises taught to you in the hospital. Your goals should be to increase bending of your knee to 90 degrees and beyond and to fully straighten your knee. B. You may progress at your own pace from walking with a walker or crutches to a cane; then to no assistive devices. C. Make walking a part of your daily routine. Be up as much as comfortable with rest periods throughout the day. Rest with leg elevation is very important. Use the ice wrap frequently for the first 3-4 weeks. D. There are no restrictions on activities. 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 E. Wear the long elastic stockings (SCOTT hose) 20 hours a day for 2 weeks after surgery. They can be removed several times a day for laundering and for a bath. F. You may shower, no tub baths until cleared by your doctor. SPECIAL CARE INSTRUCTIONS: VERY IMPORTANT TO READ AND REVIEW A. There are a few signs you need to watch for after you are home. Call [facility] if you notice any of the followin. Increased severe knee pain. Some pain is expected especially when you exercise. 2. Increased swelling in your leg or knee; pain or swelling of the calf muscle in either lower leg. 3. Any fluid drainage from the incision. 4. Shortness of breath or chest pain. B. Please call [facility] at if you have any concerns or questions about your operation or recovery. The doctor or his nurse will return your call promptly. C. You must take antibiotics before dental work, bladder, bowel or other surgery. Your doctor will provide you with a permanent care to carry describing this precaution. IMPORTANT: * REMEMBER TO TAKE ASPIRIN, 81 MG, TWICE DAILY FOR 4 WEEKS UNLESS OTHERWISE DIRECTED. THIS IS YOUR BLOOD THINNER. * HIGH RISK PATIENTS MAY BE PRESCRIBED A STRONGER BLOOD THINNER. THIS WILL BE PROVIDED AT DISCHARGE. * CALL IF INCREASED PAIN, REDNESS, DRAINAGE OR FEVER GREATER THAT 101. * WEAR SCOTT HOSE 20 HOURS PER DAY FOR 2 WEEKS. * CLIF Dressing- This is a large suction dressing covering your incision. This will help pull any excess drainage from the wound and allow your incision to heal properly. You may shower with this if you can keep the unit outside of the shower. If any bleeding or leakage is noted please call your doctor's office. This will remain on your incision for 7 days and then should be removed. This can be done yourself or by the home nursing staff if applicable. The entire unit is disposable once removed. Once removed, keep incision clean and dry. If redness or drainage is noted, please call your surgeon. once CLIF is removed, follow these instructions: DERMABOND Prineo- This is a mesh tape dressing that is covered with glue. It should remain in place until the incision is properly healed, usually 10-14 days. This dressing is designed to naturally slough off. You may trim the excess mesh tape as it peels off. Incision may be briefly wet in a shower. Dry immediately by blotting with a clean, dry towel. Do not bath or swim until instructed by your doctor. Do not scratch, rub, or pick at the dressing. Do not apply any topical ointments or lotions until dressing is completely removed and/or instructed by your doctor. There may be a small piece of suture material at one end of your incision. Do not pull or trim this. If it is bothersome or catching on clothing, you may cover it with a band-aid. IF INCISION IS LEAKING THROUGH DRESSING, CALL THE OFFICE . FOLLOW UP VISIT: If appointment is not already scheduled: Please call [facility] to make a follow-up appointment for 2 weeks after your surgery at . Stand-Alone Forms: My [facility], Opioid Pain Management, Smoking Cessation Medications and DC Order Prescriptions: New acetaminophen 500 mg Tablet 1,000 mg PO Q8 14 Days Qty: 84 RF: 0 aspirin 81 mg Tablet,Delayed Release (Dr/Ec) 81 mg PO DAILY 30 Days Qty: 30 RF: 0 cefadroxil 500 mg capsule 500 mg PO BID Qty: 28 RF: 1 polyethylene glycol 3350 [Miralax] 17 gram powder in packet 17 g PO DAILY PRN (Reason: constipation) Qty: 5 RF: 0 oxycodone 5 mg Tablet 5 - 10 mg PO Q4H PRN (Reason: pain) Qty: 30 RF: 0 Continued montelukast [Singulair] 10 mg tablet 10 mg PO QPM Qty: 90 RF: 1 duloxetine [Cymbalta] 30 mg capsule,delayed release(DR/EC) 30 mg PO QAM RF: 0 Trelegy Ellipta 100-62.5-25 mcg blister with device 1 inh INHALATION QAM Qty: 1 RF: 5 (DME) nebulizers Misc See Rx Instructions .ROUTE .MEDSUPPLY Qty: 1 RF: 0 gabapentin 300 mg capsule 900 mg PO QAM RF: 0 arformoterol 15 mcg/2 mL solution for nebulization 15 mcg inhalation BID PRN (Reason: SHORT OF BREATH) Qty: 1 RF: 0 ipratropium-albuterol 0.5 mg-3 mg(2.5 mg base)/3 mL solution for nebulization 3 ml inhalation Q4H PRN (Reason: shortness of breath or wheezing) Qty: 3 RF: 0 cetirizine [Zyrtec] 10 mg tablet 10 mg PO QAM RF: 0 azelastine 137 mcg (0.1 %) aerosol,spray 2 sprays INTNAS BID PRN (Reason: ALLERGIC RHINITIS) Qty: 30 RF: 11 levothyroxine [Synthroid] 25 mcg Tablet 25 mcg PO QAM RF: 0 amlodipine [Norvasc] 10 mg Tablet 10 mg PO QAM RF: 0 losartan [Cozaar] 25 mg Tablet 25 mg PO QAM RF: 0 lovastatin 20 mg Tablet 20 mg PO HS RF: 0 folic acid 1 mg tablet 2 mg PO QAM RF: 0 furosemide 20 mg tablet 40 mg PO QAM RF: 0 gabapentin 600 mg Tablet 600 mg PO HS RF: 0 Dexilant 60 mg Capsule,Biphase Delayed Releas 60 mg PO QAM RF: 0 metoprolol tartrate 50 mg Tablet 50 mg PO BID RF: 0 clopidogrel [Plavix] 75 mg Tablet 75 mg PO QAM RF: 0 Discontinued Orencia 125 mg/mL syringe 125 mg SQ WK RF: 0 Prolia 60 mg/mL syringe 60 mg subcut .COMPLEX RF: 0 Discharge Orders: Discharge Order (Routine); Ordered 09/02/20 Ordered By: Christopher Bliss/Other Patient Handouts: How Your Knee Works, Knee Surg Exercise After, Total Knee Replacement Admission Data Admit Date/Time: 08/31/20 11:59 Attending Provider: Ari Romero Admit Provider: Ari Romero Primary Care Provider: Conrad Gary Other Providers: [facility],Home Healthcare Other Interventions: Discharge Summary Assessment (RN) Last Done: 09/02/20 09:48
== END 2020-09-02 10:58 | disposition home health service (06) ==
LOC: ASU 06:59 → 3E 06:59
DX: M79.7 Fibromyalgia; Z79.890 Hormone replacement therapy; M06.9 Rheumatoid arthritis, unspecified; Z79.02 Long term (current) use of antithrombotics/antiplatelets; E78.5 Hyperlipidemia, unspecified; Z79.899 Other long term (current) drug therapy; J44.9 Chronic obstructive pulmonary disease, unspecified; M17.11 Unilateral primary osteoarthritis, right knee; Z86.73 Personal history of transient ischemic attack (TIA), and cerebral infarction without residual deficits; I10 Essential (primary) hypertension

== ENCOUNTER 2025-02-16 08:14 | Inpatient (IN) ==
--- NOTE | 2025-02-04 08:48 | Anesthesiology Consultation ---
Date of Service February 04, 2025 Assessment & Plan (1) Encounter for pre-operative examination: Chart Review Chart Review: Acceptable Risk for Surgery (pending cardio evaluation/optimization ) and Patient NOT seen in Pre Admission Testing - Please set up cardio appt with [facility] cardio for abnormal EKG and needing routine follow up for cardiac issues (was suppose to follow up with cardio 07/2024); patient made aware cardio appt is being scheduled preoperatively Right limb restriction - Ozempic instructions: Patient informed by PAT nursing to stop 7 days prior to surgery. Patient advised by PAT nursing to check with prescriber to see if alternative diabetic management changes recommended while holding Ozempic - if so, patient to call back to PAT to update chart and discuss if any further preop medication instructions needed. Last dose of Ozempic scheduled 02/03/25, will be off Ozempic x 13 days by DOS 02/16/25 -Infectious Disease screening: Per PAT nursing assessment on 02/03/25. No known infectious disease contacts in past 10 days or current infectious disease symptoms. No recent travel outside the country. Last seen by cardio 01/23/24= Overall feels well. Continues to have mild ches discomfort that is intermittent and not bothersome. No SOB. Chronic edema- well controlled with Lasix. Has noticed low BP with dizziness. Chronic HF with preserved EF - chronic LE edema, euvolemic. Continue meds. HTN- stop losartan. Stay hydrated. History of TIA- on Plavix. Dyslipidemia- on statin. Follow up in six months History Surgery Operation Date: 02/16/25 08:40 Proposed Procedures p Bilateral Mastectomy, Simple - Heri Ko MD Height/Weight Height: 5 ft Weight: 77.111 kg Allergies Allergy/AdvReac Type Severity Reaction Status Date / Time No Known Allergies Allergy Verified 02/03/25 15:37 Medications Home Medications Medication Instructions Recorded Confirmed Last Taken levothyroxine 25 mcg tablet 25 mcg PO QAM 08/13/18 02/03/25 03/14/23 (Synthroid) gabapentin 300 mg capsule 300 mg PO DAILY 05/09/19 02/03/25 03/12/23 gabapentin 600 mg tablet 600 mg PO BID 06/12/19 02/03/25 03/12/23 metoprolol tartrate 50 mg tablet 50 mg PO BID 06/12/19 02/03/25 03/12/23 clopidogrel 75 mg tablet (Plavix) 75 mg PO QAM 06/20/19 02/03/25 03/12/23 nebulizers #1 ea 05/17/22 11/13/22 Unknown celecoxib 200 mg capsule 200 mg PO DAILY 11/14/22 02/03/25 03/12/23 abatacept 125 mg/mL subcutaneous 125 mg subcut WK 12/01/22 02/03/25 Unknown syringe (Orencia) furosemide 20 mg tablet 40 mg PO HS 12/01/22 02/03/25 03/12/23 amlodipine 2.5 mg tablet 2.5 mg PO QAM 03/14/23 02/03/25 03/12/23 atorvastatin 40 mg tablet 40 mg PO HS 03/14/23 02/03/25 03/12/23 benzonatate 100 mg capsule 100 - 200 mg PO HS PRN Cough 03/14/23 02/03/25 Unknown budesonide 160 mcg-glycopyr 9 2 inh inhalation BID 03/14/23 02/03/25 03/12/23 mcg-formot 4.8 mcg/actuation HFA inhaler (Breztri Aerosphere) cholecalciferol (vitamin D3) 125 125 mcg PO HS 03/14/23 02/03/25 03/12/23 mcg (5,000 unit) tablet (Vitamin D3) colestipol 1 gram tablet 0 g PO UD 03/14/23 02/03/25 03/12/23 denosumab 60 mg/mL subcutaneous 60 mg subcut DIRECTED 03/14/23 02/03/25 01/08/23 syringe (Prolia) duloxetine 60 mg capsule,delayed 60 mg PO QAM 03/14/23 02/03/25 03/12/23 release losartan 50 mg tablet 50 mg PO QAM 03/14/23 02/03/25 03/12/23 montelukast 10 mg tablet 10 mg PO HS 03/14/23 02/03/25 03/12/23 (Singulair) pantoprazole 40 mg tablet,delayed 40 mg PO UD PRN Acid Reflux 03/14/23 02/03/25 03/12/23 release psyllium husk 3.4 gram/5.4 gram 1 tbsp PO UD PRN Constipation 05/31/23 04/22/25 Unknown oral powder (Metamucil) semaglutide 0.25 mg or 0.5 mg (2 2 mg subcut WK 03/14/23 02/03/25 02/03/25 mg/3 mL) subcutaneous pen injector (Ozempic) spironolactone 25 mg tablet 0 mg PO QAM 03/14/23 02/03/25 03/12/23 vitamin B complex 1 tab PO QAM 03/14/23 02/03/25 03/12/23 Past Medical History Medical History (Updated 02/04/25 @ 09:57 by Ro Perera PA-C) Anxiety Asthma well controlled Chronic heart failure with preserved EF Chronic obstructive pulmonary disease Depression Diabetes Fibromyalgia Gastroparesis Per records GERD (gastroesophageal reflux disease) History of COVID-19 approx 2019 or 2020/no hx hospitalization. 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 CT 2022 of A/P with no flow limiting mesenteric artery disease. Dx'ed with gastroparesis- continue Plavix and Lipitor. Follow PRN Past Family History Family History Mother Diabetes Breast cancer Lung cancer Unknown Bone cancer Coronary heart disease Non-Hodgkin lymphoma Breast cancer Lung cancer Stroke syndrome Cancer Hypertension Thyroid disorder Stroke Father Diabetes Sister Family history of esophageal cancer Colon cancer Diabetes Brother Diabetes Past Surgical History Surgical History Family history of reaction to anesthesia SISTER-NAUSEA History of appendectomy History of arthroscopy RT KNEE History of bilateral tubal ligation History of bladder surgery BLADDER TACK History of bronchoscopy History of cardiac cath "UNSURE OF DATE, A LONG TIME AGO" NO STENTS PLACED History of carpal tunnel surgery RT/LEFT History of cholecystectomy History of colonoscopy History of esophagogastroduodenoscopy (EGD) History of repair of rectocele History of repair of rotator cuff RT/LEFT X 2 History of tooth extraction History of total right knee replacement Hx of lumpectomy RT Nausea and vomiting after administration of anesthetic agent S/P MIGUE-BSO Status post excisional biopsy Excisional BX and possible closure of right nasal defect -Dr. Drake on 06/20/19 Social History Smoking Status: Never smoker Do You Dip or Chew Tobacco: No Hx Alcohol Use: Yes alcohol intake frequency: holidays/special occasions only Hx Substance Use: No substance use type: does not use Testing Laboratory Results 01/28/25= WBC: 5.56 H/H: 12.8/40.0 PLATELETS: 213 SODIUM: 141 POTASSIUM: 4.3 CHLORIDE: 103 CO2: 27 BUN: 14 CREATININE: 0.9 GLUCOSE: 94 Electrocardiogram Date: 01/28/25 Findings: + NSR @ (65bpm) Low voltage QRS, consider pulmonary disease, pericardial effusion or normal variant Left anterior fascicular block Poor R wave progression Possible anterolateral infarct, age undetermined When compared to EKG from February 26, 2023- borderline criteria for anterolateral infarct per cardio Echocardiogram Date: 07/11/22 EF: 55-59% LV Function: normal RWMA: + none Other Findings: + LVH (mild/concentric ) and + diastolic dysfunction (Grade I ) Mild TR No evidence of pulm HTN Stress Test Date: 10/29/23 Type: DSE Resting EF: 55-59% Resting LV Function: normal Resting RWMA: + none Stress ECHO is negative for inducible ischemia Grade I DD Mild MR Other Testing Mesenteric Artery Duplex 07/17/23= Widely patent celiac artery. Possible >70% stenosis versus tortuosity/difficult angle of insonation of the proximal superior mesenteric artery.
--- OUTSIDE RECORDS SUMMARY | 2025-02-16 08:42 | External Medical Summary | Summary of Care ---
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 90 Capsule 1 10/26/19 22 Active Metamucil 28.3 % Oral Powder (Psyllium) 1 tablespoon daily 538 g 1 02/23/20 22 Active Vitamin B Complex Oral Tablet Take 1 Tablet by mouth in the morning. 11/24/19 23 Active OneTouch Verio In Vitro Strip (Glucose Blood) Use to test sugars once daily - E11.9 100 Strip 11 04/18/20 23 Active OneTouch Delica Lancets 33G Use to test sugars once daily - E11.9 100 Each 3 04/18/20 23 Active Ondansetron HCl 4 MG Oral TabletIndications:N ausea without vomiting Take 1 Tablet by mouth every 6 hours as needed for Nausea. 30 Tablet 1 3 6:13 AM EDT 05/02/20 23 Active Prochlorperazine Maleate 5 MG Oral Tablet (Compazine)Indicati ons:Viral gastroenteritis Take 1 Tablet by mouth every 8 hours as needed for Nausea. 30 Tablet 4 10:40 AM EST 12/21/19 24 Active Vitamin C 1000 MG Oral Tablet Take 1 Tablet by mouth in the morning. Active Albuterol Sulfate HFA 108 (90 Base) MCG/ACT Inhalation Aerosol SolutionIndications :Moderate persistent asthma without complication Inhale 2 Puffs by mouth every 6 hours as needed for Shortness of Breath or Wheezing. 54 g 4 6:25 AM EDT 03/03/20 24 Active Prolia 60 MG/ML Subcutaneous Solution Prefilled Syringe INJECT 60 MG (1 SYRINGE) UNDER THE SKIN ONCE FOR 1 DOSE 1 mL 1 4 12:13 PM EDT 05/02/20 24 025 Active Clopidogrel Bisulfate 75 MG Oral Tablet (pLAVix) TAKE ONE TABLET BY MOUTH EVERY DAY 100 Tablet 3 5 8:28 AM EDT 06/30/20 24 025 Active Trospium Chloride ER 60 MG Oral Capsule Extended Release 24 Hour (Sanctura ER) Take 1 Capsule by mouth in the morning. 90 Capsule 4 2:26 PM EDT 08/14/20 24 Active Pantoprazole Sodium 40 MG Oral Tablet Delayed Release (Protonix) Take 1 Tablet by mouth in the morning. 90 Tablet 1 5 7:24 AM EST 08/25/20 24 Active Orencia ClickJect 125 MG/ML Subcutaneous Solution Auto-injector (Abatacept)Indicati ons:Rheumatoid arthritis involving multiple sites with positive rheumatoid factor (HCC) Inject 125 mg (1 pen) under the skin once a week. 12 mL 1 5 2:32 PM EDT 09/12/20 24 Active Gabapentin 300 MG Oral Capsule (Neurontin) Take 1 Capsule by mouth in the morning and Take 1 capsule by mouth in the afternoon. 180 Capsule 1 5 6:32 PM EST 09/17/20 24 Active Additional Information Patient taking differently:300 mg OralDAILY NOON, Reported on 02/09/2025 Levothyroxine Sodium 25 MCG Oral Tablet (Levoxyl)Indication s:Primary hypertension,Histor y of TIA (transient ischemic attack) TAKE 1 TABLET BY MOUTH DAILY AT LEAST 30 MINUTES PRIOR TO FIRST MEAL OF THE DAY OR OTHER MEDICATIONS 100 Tablet 3 5 12:11 PM EDT 10/21/19 25 Active Montelukast Sodium 10 MG Oral Tablet (Singulair)Indicati ons:Primary hypertension,Histor y of TIA (transient ischemic attack) TAKE ONE TABLET BY MOUTH EVERY DAY AT BEDTIME 90 Tablet 3 5 10:40 AM EDT 10/27/19 25 026 Active rOPINIRole HCl 0.5 MG Oral Tablet (Requip)Indications :RLS (restless legs syndrome) Take 2 Tablets by mouth at bedtime. 60 Tablet 5 11/26/19 25 Active Breztri Aerosphere 160-9-4.8 MCG/ACT Inhalation Aerosol (Budeson-Glycopyrro l-Formoterol)Indica tions:Moderate persistent asthma without complication INHALE TWO PUFFS BY MOUTH TWICE A DAY 32.1 g 3 5 10:18 AM EST 12/04/19 25 026 Active Gabapentin 600 MG Oral Tablet (Neurontin) Take 1 Tablet by mouth in the morning and 1 Tablet before bedtime. 180 Tablet 5 7:21 AM EST 12/08/19 25 Active DULoxetine HCl 60 MG Oral Capsule Delayed Release Particles (Cymbalta) TAKE 1 CAPSULE BY MOUTH DAILY. 100 Capsule 5 9:45 AM EDT 01/11/20 25 026 Active Metoprolol Tartrate 50 MG Oral Tablet (Lopressor)Indicati ons:Primary hypertension,Histor y of TIA (transient ischemic attack) TAKE ONE TABLET BY MOUTH EVERY DAY IN THE MORNING AND BEFORE BEDTIME 180 Tablet 5 10:48 AM EDT 01/16/20 25 026 Active Spironolactone 25 MG Oral Tablet (Aldactone)Indicati ons:HTN, goal below 140/80,History of TIA (transient ischemic attack) Take one-half tablet by mouth in the morning. 15 Tablet 5 10:48 AM EDT 01/16/20 25 Active Celecoxib 200 MG Oral Capsule (CeleBREX) Take 1 Capsule by mouth in the morning. 90 Capsule 5 3:45 PM EDT 01/21/20 25 Active busPIRone HCl 10 MG Oral Tablet (Buspar)Indications :Anxiety Take 1 Tablet by mouth in the morning and 1 Tablet at noon and 1 Tablet before bedtime. 60 Tablet 01/20/20 25 Active Atorvastatin Calcium 40 MG Oral Tablet (Lipitor)Indication s:Primary hypertension,Histor y of TIA (transient ischemic attack) TAKE ONE TABLET BY MOUTH EVERY DAY 100 Tablet 1 5 2:39 PM EDT 02/05/20 25 Active Ozempic (2 MG/DOSE) 8 MG/3ML Subcutaneous Solution Pen-injector (Semaglutide (2 MG/DOSE))Indication s:DM type 2, goal HbA1c < 8% (HCC) Inject 2 mg under the skin once a week. EVERY SUNDAY. 9 mL 3 02/06/20 25 Active Furosemide 20 MG Oral Tablet (Lasix) Take 1 Tablet by mouth daily. 02/10/20 25 Active Hospital, Clinic, or Other Facility Administered Medication Ordered Dose Route Frequency Start Date End Date Status Albuterol Sulfate (Proventil) (2.5 MG/3ML) 0.083% inhalation solution 2.5 mgIndications:Moderate persistent asthma without complication 2.5 mg NEBULIZER PRN 02/11/2024 Active Albuterol Sulfate (Proventil) (5 MG/ML) 0.5% *conc* inhalation solution 2.5 mgIndications:Moderate persistent asthma without complication 2.5 mg NEBULIZER PRN 02/11/2024 Active documented as of this encounter (statuses as of 02/11/2025) Active Problems Problem Noted Date Diagnosed Date 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 Lumpectomy and radiation in 2017. Dyslipidemia, goal LDL below 70 11/09/2022 History of TIA (transient ischemic attack) 09/21 Overview (09/21/2022): 02/24/22 Vascular Note Remote hx TIA - felt "dizy" for which she was admitted to [facility] (placed on Plavix for this by PCP). Factor 5 Leiden mutation, heterozygous Overview (11/09/2022): Anticoagulation contraindicated due to falls. Primary osteoarthritis of both knees 05/30/2019 Mesenteric artery stenosis 09/09/2018 Generalized osteoarthritis 08/30/2018 Senile osteoporosis 06/29/2017 Rheumatoid arthritis involvi ng multiple sites with positive rheumatoid factor 03/03/2016 Urge incontinence of urine 05/20/2015 Encounter for long-term (current) use of medicat ions 04/30/2015 Advanced directives, counseling/discussion 11/06 Female stress incontinence 07/30/2014 Pelvic relaxation due to vag inal vault prolapse, posthysterectomy 11/26/2013 Fibromyalgia Moderate persistent asthma without complication HTN, goal below 140/90 documented as of this encounter (statuses as of 02/11/2025) Resolved Problems Problem Noted Date Diagnosed Date Resolved Date Polyneuropathy associated wi th underlying disease 12/11/2023 12/17/2024 Morbid obesity due to excess calories 12/11/2023 12/11/2023 Gastroparesis 07/30/2023 01/19/2025 Migraine, unspecified, witho ut mention of intractable migraine without mention of status migrainosus 11/09/2022 11/24/2022 Overview (01/14/2025): ICD-10 Update of Inactive Term Depression, unspecified 11/09/202211/15 Disorder of iron metabolism, unspecified 11/09/2022 04/11/2023 Trochanteric bursitis, right hip 06/29/2017 11/24/2022 Primary osteoarthritis of right knee 06/29/2017 01/04/2023 Osteopenia of multiple sites 01/08/2017 11/24/2022 Osteoporosis 08/06/2015 06/29/2017 Overflow incontinence 08/13/20142023 Rheumatoid arthritis 016 Hypothyroidism 12/11/2023 GERD (gastroesophageal reflux disease) 11/24/2022 Hyperlipidemia 11/24/2022 TIA (transient ischemic attack) 09/21/2022 Overview (09/21/2022): History 02/24/22 Vascular Note Remote hx TIA - felt "dizy" for which she was admitted to [facility] (placed on Plavix for this by PCP). documented as of this encounter (statuses as of 02/11/2025) Immunizations Name Administration Dates Next Due COVID-19 mRNA, LNP-s, No Pre serve, 2-Dose Series (ePrimeCare) 08/30/2021,12/22/2020,12/01/2020 Covid-19, Mrna, Lnp-s, Pf, B ivalent, 30 Mcg, IM, 12 yrs and above (ePrimeCare) 11/24/2022 PPD 01/20/2014 Pneumococcal Conjugate Vacc, 13 Valent (Prevnar) 10/03/2016 Pneumococcal Polysaccharide PPV23 (Pneumovax) 12/12/2013 RSV Vac., Bivalent, Perfusio n F, Pf,0.5 Ml (Abrysvo) 12/21/2023 Seasonal Influenza Vac., MDV , IM, 0.5 mL (Fluzone) 07/20/2021,09/02/2019,08/15/2019,10/22,07/15/2018,07/31/2017,08/03/2016 ,08/06/2015,07/13/2014,07/24/2013 Seasonal Influenza Virus Vac cine, Unspecified Formulation 07/31/2017 Seasonal Influenza, High Dos e, Trivalent, PF, IM (Fluzone HD) 07/25/2024 Seasonal Influenza, Quadriva lent Hd (Fluzone Hd) 06/27/2023,08/04/2022 Seasonal Influenza, Recombin ant, RIV4, PF, (Flublock) 07/20/2021,07/21/2020,09/02/2019,10/22 Seasonal Influenza, Trivalen t, Adjuvanted, 65+ YRS, PF, (Fluad) 08/15/2019 TD, Preservative Free 10/18/2012 TDAP, Age 7 and older, IM (Adacel) 11/07/2018 Varicella Zoster Vaccine Santos lt (Zostavax) 08/24/2013 Zoster Vaccine Recombinant (Shingrix) 02/05/2023 ,11/24/2022 documented as of this encounter Social History Tobacco Use Types Packs/Day Years Used Date Smoking Tobacco: Never Passive Smoke Exposure: Past Smokeless Tobacco: Never Alcohol Use Standard Drinks/Week Comments Yes 0 (1 standard drink = 0.6 oz pur e alcohol) occasionally-socially PHQ-2 Answer Date Recorded PHQ Adult Total Score 2 01/19/2025 Hunger Vital Sign Answer Date Recorded Within the past 12 months, y ou worried that your food would run out before you got the money to buy more. Never true 08/15/20 24 Within the past 12 months, t he food you bought just didn't last and you didn't have money to get more. Never true 08/15/2024 Childcare Answer Date Recorded Do you feel overwhelmed with taking care of a child, family member or friend? No 08/15/2024 Does your family need help f inding childcare? (Household - for ages 0-17 years) Not on file 08/15/2024 Clothing Answer Date Recorded Have you been unable to get clothing when it was really needed? No 08/15/2024 Is your family able to get c lothes or diapers when needed? (Household - for ages 0-17 years) Not on file 08/15/2024 Personal Safety Answer Date Recorded Do you feel unsafe or have concerns for your saf ety? No 08/15/2024 Do you have concerns for you r family's safety? (Household - for ages 0-17 years) Not on file 08/15/2024 Utilities Answer Date Recorded Do you have trouble paying y our heating, water, or electric bill? No 08/15/2024 Is your family able to pay t he heat, water, or electric bill? (Household - for ages 0-17 years) Not on file 08/15/2024 Does your family have access to good internet? (Household - for ages 0-17 years) Not on file 08/15/2024 Employment Status Answer Date Recorded Are you unemployed or without regular income? No 08/15/2024 Does the household have a re gular source of income? (Household - for ages 0-17 years) Not on file 08/15/2024 Social Connections Answer Date Recorded How often do you feel lonely or isolated from th ose around you? Never 08/15/2024 Financial Resource Strain Answer Date R ecorded Do you have any trouble payi ng for your medications, or do you think you might in the future? No 08/15/2024 Does your family have troubl e paying for medicine? (Household - for ages 0-17 years) Not on file 08/15/2024 Transportation Needs Answer Date Record ed Do you have trouble getting a ride to medical visits or work? (Adult - for ages 18 years and over) Not on file 08/15/2024 Does your family have a hard time getting a ride to doctors visits? (Household - for ages 0-17 years) Not on file 08/15/2024 Has lack of transportation k ept you from medical appointments, meetings, work, or from getting things needed for daily living? Check all that apply. No 08/15/2024 Do you (or your family) have trouble finding or paying for a ride (transportation)? (Household - for ages 0-17 years) Not on file 08/15/2024 Housing Stability Answer Date Recorded Do you currently live in a s helter or have no steady place to sleep at night? No 08/15/2024 Do you think you are at risk of becoming homeless? (Adult - for ages 18 years and over) Not on file 08/15/2024 Does your family worry about paying for your home or becoming homeless? (Household - for ages 0-17 years) Not on file 1 10/15/2023 Are you homeless or worried that you might be in the future? No 08/15/2024 Are you (or your family) daniel eless or worried that you might be in the future? (Household - for ages 0-17 years) Not on file Food Insecurity Answer Date Recorded Do you need food for this week? No 08/15/2024 Are you able to get enough f ood for your family? (Household - for ages 0-17 years) Not on file 08/15/2024 Does your family need food t his week? (Household - for ages 0-17 years) Not on file 08/15/2024 Do you always have enough fo od for your family? (Household - for ages 0-17 years) Not on file 08/15/2024 Food Insecurity Answer Date Recorded Within the past 12 months, y ou worried that your food would run out before you got the money to buy more. Never true 08/15/20 24 Within the past 12 months, t he food you bought just didn't last and you didn't have money to get more. Never true 08/15/2024 Do you need food for this week? No 08/15/2024 Comments No Sex and Gender Information Value Date Recorded Sex Assigned at Female 12/18/2022 11:34 AM EST Legal Sex Female 7:08 AM EST Gender Identity Female 12/18/2022 11:34 AM EST Sexual Orientation Straight 12/18/2022 11 :34 AM EST documented as of this encounter Miscellaneous Notes * Telephone Encounter - Celi Christensen RPh - 02/11/2025 11:03 AM EDT Called patient and let her know to hold clopidorel as of today. She is aware and will hold that as well as already holding her celebrex and ozempic. Celi Malagon, Pharm D, BCACP Clinical Pharmacist [address] [facility] 02/11/2025, 11:07 AM Ph. [phone] * Telephone Encounter - Andrea Reyes DO - 02/11/2025 10:22 AM EDT Hold Clopidogrel starting today * Telephone Encounter - Celi Christensen RPh - 02/10/2025 4:32 PM EDT Images from the original note were not included. Per stress test today: Forwarding to PCP to confirm clopidogrel 5 day hold still okay. Celi Malagon, Pharm D, BCACP Clinical Pharmacist [address] [facility] 02/10/2025, 4:33 PM Ph. [phone] * Telephone Encounter - Rayna Jalloh [facility] - 02/09/2025 4:42 PM EDT Reviewed charts with [facility] as patient is getting a double mastectomy on 02/16 with [facility]. The pre-surgery note only has specific hold recommendations for Ozempic (last dose was to be 02/03; confirmed this) and that Plavix was to be deferred to PCP due to hx of TIA and was cleared to hold via cardiology.PCP aware and advised that a 5 day hold is sufficient. However, will await stress test results tomorrow and confirm hold with patient. Rayna Jalloh PharmD Clinical Pharmacist 02/09/2025 4:50 PM * Telephone Encounter - Ezequiel Mcnair MED ASSIST - 02/09/2025 3:54 PM EDT Patient called in wanting to talk to a nurse about medication she is to stop for surgery. Patient states she is having surgery Sunday and needs to know what needs to be stopped. documented in this encounter Plan of Treatment Upcoming Encounters Date Type Department Care Team (Late st Contact Info) Description 02/16/2025 7:20 AM EDT Office Visit Non [facility], Operating Room, [place] [address] [facility], [place] [address] Heri Ko MD [address] [facility] [place] [address] 02/16/2025 7:30 AM EDT Office Visit [facility], Operating Room, [facility] [address] [place] [address] Heri Ko MD [address] [place] [address] 03/04/2025 11:45 AM EDT Office Visit General Surgery, [facility] [address] [place] [phone] Heri Ko MD [address] [place] [address] 03/06/2025 10:00 AM EDT Office Visit Gastroenterology, [facility] [address] [place] [id number] Winter Kraus CRNP [address] [place] [address] 03/10/2025 3:30 PM EDT Office Visit Rheumatology [facility] [address] [place] [phone] Susan Faith CRNP [address] [place] [phone] 04/20/2025 2:00 PM EDT Pharmacy Family Practice [address] [facility] [address] [facility] [place] [phone] College, Pharmacist [address] [place] [address] 04/20/2025 2:30 PM EDT Office Visit Family Practice [address] [facility] [address] [facility] [place] [phone] Andrea Reyes, [address] [place] [address] 11/27/2025 1:10 PM EST Office Visit Dermatology [facility], [place] [address] [place] [address] [place] PA-C [address] [facility] [place] [address] Scheduled Procedures Name Priority Associated Diagnoses Date/Ti me COLONOSCOPY FLEXIBLE PROXIMA L DIAGNOSTIC Recall Family history of colon cancer History of colonic polyps Health Maintenance Due Date Last Done Comments COVID-19 Vaccine ( season) 2024 11/24/2022, 08/30/2021, 12/22/2020, Additional history exists Albumin/Creatinine Ratio 12/11/2024 12/11/2023, 07/16 Adult Wellness Visit 12/20/2024 12/21/2023, 12/19/19 Diabetic Foot Exam 04/01/2025 04/01/2024, 02/05/2023 Diabetic Eye Exam 04/14/2025 04/14/2024, , 02/05/2023, Additional history exists DXA Scan 06/11/2025 06/11/2023, 05/16, 12/14/2020, Additional history exists HbA1c 06/19/2025 12/17/2024, 1110/2023, 04/14/2024, Additional history exists TSH 08/15/2025 08/15/2024, 070 10/2023, 07/30/2023, Additional history exists Depression Screening 01/19/2026 01/19/2025 GFR 01/28/2026 01/28/2025, 03/15, 12/11/2023, Additional history exists Colonoscopy 10/17/2027 10/17/2022, 12/2022, 10/21/2018, Additional history exists DTap/Tdap Vaccines (2 - Td or Tdap) 11/07/2028 11/07/2018, 10/18/2012 Pneumococcal Vaccine: 50+ Years Completed 10/03/2016, 12/12/2013 RETIRED - COLONOSCOPY-EVERY 5 YRS AGES 18-100 Discontinued 10/17/2022, 10/17/2022, 10/21/2018, Additional history exists Zoster Vaccines Completed 02/05/2023, 11/15, 08/24/2013 VITAMIN D LEVEL ONCE IN A LIFETIME-USE SMARTSET# [id number] Completed 12/11/2023, 10/22/2023, 10/13/2022, Additional history exists Influenza Vaccine (FLU shot) Completed 07/25/2024, 06/27/2023, 08/04/2022, Additional history exists HPV (Gardasil) Vaccine Aged Out No lo nger eligible based on patient's age to complete this topic Hepatitis B Vaccine Aged Out No longe r eligible based on patient's age to complete this topic MENINGOCOCCAL (MENACTRA/MENVEO) Aged Out No longer eligible based on patient's age to complete this topic Meningitis B Vaccine (Bexsero/Trumemba) Aged Out No longer eligible based on patient's age to complete this topic documented as of this encounter Medical Devices Implanted Type Area Final Finisher Device Identifier Shelf Expiration Date Model / Serial / Lot Sling Elevate Post/Apical - [id number] Implanted:Qty: 1 on 12/22/2014 by Heri Cochran DO at OR [facility] N/A: Vaginal Vault [employer] 05/04/2017 [id number] / / [id number] documented as of this encounter Advance Directives * Full Code (Latest Code Status on File) Date Activated Date Inactivated Comments 12/22/2014 10:37 AM 12/23/2014 2:42 PM This order reflects the patients wishes and were consensually agreed upon. * Full Code Date Activated Date Inactivated Comments 12/22/2014 7:46 AM 12/22/2014 10:37 AM This order reflects the patients wishes and were consensually agreed upon. Care Teams Pie Crimping Machine Operator Relationship Specialty Start Date End Date Andrea Reyes DO [address] [place] [address] PCP - General Internal Medicine 03/28/24 documented as of this encounter
--- OUTSIDE RECORDS SUMMARY | 2025-02-16 08:42 | External Medical Summary | Summary of Care ---
Author Name Unknown Organization [facility] Address [address] [place] [address] Phone [phone] Care Team Providers Care Staying Machine Operator Name Role Phone Andrea Reyes DO Primary Care Provider [phone] Reason for Visit * Reason Comments Medication Refill Encounter Details Date Type Department Care Team ([facility] st Contact Info) Description 02/12/2025 Refill Cardiology, [facility] 132 [facility] [place] [address] Daphne Mcclure PA-C 400 [facility] [place] [address] HTN, goal below 140/80; History of TIA (transient ischemic attack) Allergies No known active allergiesdocumented as of this encounter (statuses as of 02/13/2025) Medications Vitamin D 125 MCG (5000 UT) [...] 10:48 AM EDT 01/16/20 25 026 Active Celecoxib 200 MG Oral Capsule (CeleBREX) [...] a week. EVERY SUNDAY. 9 mL 3 5 2:05 PM EDT 02/06/20 25 Active Furosemide 20 MG Oral Tablet (Lasix) Take 1 Tablet by mouth daily. 02/10/20 25 Active Spironolactone 25 MG Oral Tablet (Aldactone)Indicati ons:HTN, goal below 140/80,History of TIA (transient ischemic attack) Take one-half tablet by mouth in the morning. 90 Tablet 1 02/14/20 25 Active Spironolactone 25 MG Oral Tablet (Aldactone)Indicati ons:HTN, goal below 140/80,History of TIA (transient ischemic attack) Take one-half tablet by mouth in the morning. 15 Tablet 5 10:48 AM EDT 01/16/20 25 025 Discontin ued(Refil l) Hospital, Clinic, or Other Facility Administered Medication [...] as of this encounter (statuses as of 02/13/2025) Active Problems Problem Noted Date Diagnosed Date [...] as of this encounter (statuses as of 02/13/2025) Resolved Problems Problem Noted Date Diagnosed Date [...] as of this encounter (statuses as of 02/13/2025) Immunizations Name Administration Dates Next Due COVID-19 mRNA, LNP-s, No Pre serve, 2-Dose Series ([employer]) 08/30/2021,12/22/2020,12/01/2020 Covid-19, Mrna, Lnp-s, Pf, B ivalent, 30 Mcg, IM, 12 yrs and above (Pfizer) 11/24/2022 PPD 01/20/2014 Pneumococcal Conjugate Vacc, 13 [...] No 08/15/2024 Does the household have a [facility] source [facility] income? (Household - for ages [...] encounter Miscellaneous Notes * Telephone Encounter - Kyle Schultz [facility] - 02/13/2025 6:17 AM EDT Signed Prescriptions: Disp Refills Spironolactone 25 MG Oral Tablet (Aldacton*90 Tab*1 Sig: Take one-half tablet by mouth in the morning.Authorizing Provider: DAPHNE MCCLURE User: KYLE SCHULTZ documented in this encounter Plan of Treatment Upcoming Encounters Date Type Department Care Team (Late st Contact Info) Description 02/16/2025 7:20 AM EDT Office Visit [facility], Operating Room, [facility] [address] [place] [facility] [place] [address] Heri Ko MD [address] [place] [address] 02/16/2025 7:30 AM EDT Office Visit Non [facility], Operating Room, [facility] [address] [place] [facility] [place] [address] Heri Ko MD [address] [place] [address] 03/04/2025 11:45 AM EDT Office Visit General Surgery, [facility] [address] [place] [address] Heri Ko MD [address] [place] [address] 03/06/2025 10:00 AM EDT Office Visit Gastroenterology, [facility] [address] [place] [address] Winter Kraus CRNP [address] [place] [address] 03/10/2025 3:30 PM EDT Office Visit Rheumatology [facility] [address] [place] [phone] Susan Faith CRNP [address] [place] [address] 04/20/2025 2:00 PM EDT Pharmacy Family Practice [address] [place] [address] 293 [place] [address] College, Pharmacist 65 [facility] 293 [facility] [place] [address] 04/20/2025 2:30 PM EDT Office Visit Family Practice [address], [place] [address] [place] [address] Andrea Reyes, 293 [facility] [place] [address] 11/27/2025 1:10 PM EST Office Visit Dermatology [facility], [place] [address] [place] [address] Sheba Huerta PA-C [address] [place] [address] Scheduled Procedures Name Priority Associated Diagnoses Date/Ti me COLONOSCOPY FLEXIBLE PROXIMA L DIAGNOSTIC Recall Family history of colon cancer History of colonic polyps Health Maintenance Due Date Last Done Comments COVID-19 Vaccine ( season) 2024 11/24/2022, 08/30/2021, 12/22/2020, Additional history exists Albumin/Creatinine Ratio 12/11/2024 12/11/2023, 07/16 Adult Wellness Visit 12/20/2024 12/21/2023, 12/19/19 23 Diabetic Foot Exam 04/01/2025 04/01/2024, 02/05/2023 Diabetic Eye Exam 04/14/2025 04/14/2024, , 02/05/2023, Additional history exists DXA Scan 06/11/2025 06/11/2023, 05/16, 12/14/2020, Additional history exists HbA1c 06/19/2025 12/17/2024, 10/2023, 04/14/2024, Additional history exists TSH 08/15/2025 08/15/2024, 10/2023, 07/30/2023, Additional history exists Depression Screening [...] D LEVEL ONCE IN A LIFETIME-USE SMARTSET# 73999 Completed 12/11/2023, 10/22/2023, 10/13/2022, Additional history exists [...] this encounter Medical Devices Implanted Type Area Mailing Manager Device Identifier Shelf Expiration Date Model / Serial / Lot Sling Elevate Post/Apical - [id number] Implanted:Qty: 1 on 12/22/2014 by Heri Cochran DO at OR [facility] [place] N/A: Vaginal Vault [employer] 05/04/2017 [id number] / / [id number] documented as of this encounter Visit Diagnoses Diagnosis HTN, goal below 140/80 Unspecified essential hypertension History of TIA (transient ischemic attack) Transient ischemic attack (TIA), and cerebral infarction without residual deficits documented in this encounter Advance Directives * Full Code (Latest Code Status on File) Date Activated Date Inactivated Comments 12/22/2014 10:37 AM 12/23/2014 2:42 PM This order reflects the patients wishes and were consensually agreed upon. * Full Code Date Activated Date Inactivated Comments 12/22/2014 7:46 AM 12/22/2014 10:37 AM This order reflects the patients wishes and were consensually agreed upon. Care Teams Staying Machine Operator Relationship Specialty Start Date End Date Andrea Reyes DO [address] [place] [address] PCP - General Internal Medicine 03/28/24 documented as of this encounter
--- OUTSIDE RECORDS SUMMARY | 2025-02-16 08:43 | External Medical Summary | Summary of Care ---
Author Name Unknown Organization [facility] Address [address] [facility] [place] [address] Phone [phone] Care Team Providers Care Aircraft Parts Assembler Name Role Phone Andrea Reyes DO Primary Care Provider [phone] Encounter Details Date Type Department Care Team ([facility] st Contact Info) Description 02/10/2025 Orders Only Unspecified Department Daphne Mcclure PA-C [address] [place] [address] Allergies No known active allergiesdocumented as of [...] 1 Tablet before bedtime. 60 Tablet 01/20/20 Active Atorvastatin Calcium 40 MG Oral Tablet (Lipitor)Indication s:Primary hypertension,Histor y of TIA (transient ischemic attack) TAKE ONE TABLET BY MOUTH EVERY DAY 100 Tablet 1 5 2:39 PM EDT 02/05/20 Active Ozempic (2 MG/DOSE) 8 MG/3ML Subcutaneous [...] mRNA, LNP-s, No Pre serve, 2-Dose Series ([employer]) 08/30/2021,12/22/2020,12/01/2020 Covid-19, Mrna, Lnp-s, Pf, B ivalent, [...] as of this encounter Miscellaneous Notes * Result Encounter Note - Daphne Mcclure PA-C - 02/10/2025 4:16 PM EDT Normal nuclear stress test. She is high risk for perioperative cardiac events per David Criteria, but not prohibitive. No furthercardiac testing needed preop. Please fax office note and nuclear stress test results to [facility]. documented in this encounter Plan of Treatment Upcoming Encounters Date Type Department Care Team (Late st Contact Info) Description 02/16/2025 7:20 AM EDT Office Visit Non [facility], Operating Room, [facility] [address] [place] [place] [address] Heri Ko MD [address] [place] [address] 02/16/2025 7:30 AM EDT Office Visit Non [facility], Operating Room, [facility] [address] [place] [facility] [place] [address] Heri Ko MD [address] [place] [address] 03/04/2025 11:45 AM EDT Office Visit General Surgery, [facility] [address] [place] [address] Heri Ko MD [address] [place] [address] 03/06/2025 10:00 AM EDT Office Visit Gastroenterology, [facility] [address] [place] [address] Winter Kraus CRNP [address] [place] [address] 03/10/2025 3:30 PM EDT Office Visit Rheumatology [facility] [address] [place] [phone] Susan Faith CRNP [address] [place] [address] 04/20/2025 2:00 PM EDT Pharmacy Family Practice [address] [place] [address] 293 [place] [address] College, Pharmacist [address] [place] [address] 04/20/2025 2:20 PM EDT Office Visit Family Practice 65 [facility] 293 [place] [address] Andrea Reyes, 293 [place] [address] 11/27/2025 1:10 PM EST Office Visit Dermatology [facility], [place] [address] [facility] [place] [address] Sheba Huerta PA-C [address] [place] [address] Scheduled Procedures Name Priority Associated Diagnoses Date/Ti [...] D LEVEL ONCE IN A LIFETIME-USE SMARTSET# [id number] Completed 12/11/2023, 10/22/2023, 10/13/2022, Additional history exists [...] this encounter Medical Devices Implanted Type Area Tin Container Straightener Device Identifier Shelf Expiration Date Model / Serial / Lot Sling Elevate Post/Apical - [id number] Implanted:Qty: 1 on 12/22/2014 by Heri Cochran DO at OR [facility] [place] N/A: Vaginal Vault [employer] [facility] 05/04/2017 [id number] / / [id number] documented as of this encounter Procedures Procedure Name Priority Date/Time Associated Diagnosis Comments NM MYOCARDIAL PERFUSION IMAGING SPECT MULTIPLE STUDIES WITH PHARMACOLOGIC INTERVENTION Routine 02/10/2025 12:30 PM EDT documented in this encounter Results * NM MYOCARDIAL PERFUSION IMAGING SPECT MULTIPLE STUDIES WITH PHARMACOLOGIC INTERVENTION (02/10/2025 12:30 PM EDT) 02/10/2025 12:3 0 PM EDT Daphne Mcclure PA-C RAD NUCLEAR MED Final R esult [facility] documented in this encounter Advance Directives * Full Code (Latest Code Status on File) Date Activated Date Inactivated Comments 12/22/2014 10:37 AM 12/23/2014 2:42 PM This order reflects the patients wishes and were consensually agreed upon. * Full Code Date Activated Date Inactivated Comments 12/22/2014 7:46 AM 12/22/2014 10:37 AM This order reflects the patients wishes and were consensually agreed upon. Care Teams Aircraft Parts Assembler Relationship Specialty Start Date End Date Andrea Reyes DO [address] [facility] [place] [address] PCP - General Internal Medicine 03/28/24 documented as of this encounter
--- OUTSIDE RECORDS SUMMARY | 2025-02-16 08:43 | External Medical Summary | Summary of Care ---
Author Name Unknown Organization [facility] Address [address] [place] [address] Phone [phone] Care Team Providers Care Ice Delivery Driver Name Role Phone Andrea Reyes DO Primary Care Provider [phone] Reason for Visit * Reason Onset Date Comments Medication Question 02/09/2025 Encounter Details Date Type Department Care Team ([facility] st Contact Info) Description 02/09/2025 Telephone Family Practice [address], [place] [address] [place] [address] Andrea Reyes DO [address] [place] [address] Medication Question Allergies No known [...] mRNA, LNP-s, No Pre serve, 2-Dose Series ([employer]) 08/30/2021,12/22/2020,12/01/2020 Covid-19, Mrna, Lnp-s, Pf, B ivalent, 30 Mcg, IM, 12 yrs and above ([employer]) 11/24/2022 PPD 01/20/2014 Pneumococcal Conjugate Vacc, 13 [...] [facility] 02/11/2025, 11:07 AM Ph. [phone] * Telephone Encounter - Andrea Reyes DO [...] [facility] 02/10/2025, 4:33 PM Ph. [phone] * Telephone Encounter - Rayna Jalloh [facility] - 02/09/2025 4:42 PM EDT Reviewed charts with [facility] as patient is getting a double mastectomy on 02/16 with [facility]. The pre-surgery note only has specific [...] Office Visit Non [facility], Operating Room, [place] [address] [address] [facility] [place], [place] [address] Heri Ko MD [address] [facility] [place] [address] 02/16/2025 7:30 AM EDT Office Visit Non [facility], Operating Room, [facility] [address] [place] [facility] [place] [address] Heri Ko MD [address] [place] [address] 03/04/2025 11:45 AM EDT Office Visit General Surgery, [facility] [address] [place] [address] Heri Ko MD [address] [place] [address] 03/06/2025 10:00 AM EDT Office Visit Gastroenterology, [facility] [address] [place] [address] Winter Kraus CRNP [address] [place] [address] 03/10/2025 3:30 PM EDT Office Visit Rheumatology [facility] [address] [place] [address] Susan Faith CRNP [address] [place] [address] 04/20/2025 2:00 PM EDT Pharmacy Family Practice 65 [facility] 293 [place] [address] College, Pharmacist [address] [place] [address] 04/20/2025 2:30 PM EDT Office Visit Family Practice 65 [facility] 293 [place] [address] Andrea Reyes, 293 [place] [address] 11/27/2025 1:10 PM EST Office Visit Dermatology [facility], [place] [address] [place] [address] Sheba Huerta PA-C [address] [facility] [place] [address] Scheduled Procedures Name Priority Associated Diagnoses Date/Ti [...] D LEVEL ONCE IN A LIFETIME-USE SMARTSET# 95915 Completed 12/11/2023, 10/22/2023, 10/13/2022, Additional history exists [...] this encounter Medical Devices Implanted Type Area Second Vp Hr Assessment Device Identifier Shelf Expiration Date Model / Serial / Lot Sling Elevate Post/Apical - [id number] Implanted:Qty: 1 on 12/22/2014 by Heri Cochran DO at OR [facility] N/A: Vaginal Vault [employer] 05/04/2017 [id number] / / [id number] documented as of this encounter Advance Directives [...] and were consensually agreed upon. Care Teams Ice Delivery Driver Relationship Specialty Start Date End Date Andrea Reyes DO [address] [place] [address] PCP - General Internal Medicine 03/28/24 documented as of this encounter
--- OUTSIDE RECORDS SUMMARY | 2025-02-16 08:43 | External Medical Summary | Summary of Care ---
Author Name Unknown Organization [facility] Address [address] [place] [address] Phone [phone] Care Team Providers Care Auto Mechanic Supervisor Name Role Phone Sapna Reyes DO Primary Care Provider [phone] Reason for Visit * Reason Comments Medication Refill Encounter Details Date Type Department Care Team (Late st Contact Info) Description 02/04/2025 Refill Family Practice [address], [place] [address] [place] [address] Sapna Reyes DO [address] [place] [address] DM type 2, goal HbA1c < 8% ([facility] Allergies No known active allergiesdocumented as of this encounter (statuses as of 02/05/2025) Medications Vitamin D 125 MCG (5000 UT) [...] 4 6:25 AM EDT 03/03/20 24 Active Furosemide 20 MG Oral Tablet (Lasix)Indications: Chronic diastolic congestive heart failure (HCC) Take 1 Tablet by mouth in the morning and 1 Tablet in the evening. Dose adjustment. Refill not due yet. 200 Tablet 3 5 9:40 AM EST 03/24/20 24 Active Prolia 60 MG/ML Subcutaneous Solution Prefilled Syringe INJECT 60 MG (1 SYRINGE) UNDER THE SKIN ONCE FOR 1 DOSE 1 mL 1 4 12:13 PM EDT 05/02/20 24 025 Active Levocetirizine Dihydrochloride 5 MG Oral Tablet TAKE ONE TABLET BY MOUTH EVERY DAY 100 Tablet 3 5 8:28 AM EDT 06/30/20 24 025 Active Clopidogrel Bisulfate 75 MG [...] 5 6:32 PM EST 09/17/20 24 Active Levothyroxine Sodium 25 MCG Oral Tablet (Levoxyl)Indication [...] BY MOUTH EVERY DAY 100 Tablet 1 02/05/20 25 Active Ozempic (2 MG/DOSE) 8 MG/3ML Subcutaneous Solution Pen-injector (Semaglutide (2 MG/DOSE))Indication s:DM type 2, goal HbA1c < 8% (HCC) Inject 2 mg under the skin once a week. EVERY SUNDAY. 9 mL 3 02/06/20 25 Active Semaglutide (2 MG/DOSE) 8 MG/3ML Subcutaneous Solution Pen-injector (Ozempic)Indication s:DM type 2, goal HbA1c < 8% (HCC) INJECT 2 MG UNDER THE SKIN ONCE A WEEK, 12 mL 3 5 9:07 AM EST 12/25/19 24 025 Discontin ued(Refil l) Hospital, Clinic, or [...] as of this encounter (statuses as of 02/05/2025) Active Problems Problem Noted Date Diagnosed Date [...] as of this encounter (statuses as of 02/05/2025) Resolved Problems Problem Noted Date Diagnosed Date [...] as of this encounter (statuses as of 02/05/2025) Immunizations Name Administration Dates Next Due COVID-19 mRNA, LNP-s, No Pre serve, 2-Dose Series ([employer]) 08/30/2021,12/22/2020,12/01/2020 Covid-19, Mrna, Lnp-s, Pf, B ivalent, [...] No 08/15/2024 Does the household have a [facility] source of income? (Household - for ages [...] encounter Miscellaneous Notes * Telephone Encounter - Shi Leo, [facility] - 02/05/2025 2:57 PM EDTSigned Prescriptions: Disp Refills Ozempic (2 MG/DOSE) 8 MG/3ML Subcutaneous *9 mL 3 Sig: Inject 2 mg under the skin once a week. EVERY SUNDAY.Authorizing Provider: SAPNA REYES User: SHI LEO documented in this encounter Plan of Treatment Upcoming Encounters Date Type Department Care Team (Late st Contact Info) Description 02/09/2025 8:00 AM EDT Office Visit Cardiology, [place] [address] [place] [address] Daphne Mcclure [facility]C [address] [facility] [place] [address] 02/16/2025 7:20 AM EDT Office Visit Non [facility], Operating Room, [facility] [address] [place] [address] Heri Ko MD [address] [place] [address] 02/16/2025 7:30 AM EDT Office Visit Non [facility], Operating Room, [facility] [address] [facility] [place] [address] Heri Ko MD [address] [place] [address] 03/04/2025 11:45 AM EDT Office Visit General Surgery, [facility] [address] [place] [phone] Heri Ko MD [address] [place] [address] 03/06/2025 10:00 AM EDT Office Visit Gastroenterology, [facility] [address] [place] [address] Winter Kraus CRNP [address] [place] [address] 03/10/2025 3:30 PM EDT Office Visit Rheumatology [facility] [address] [place] [address] Susan Faith CRNP [address] [place] [address] 04/20/2025 2:00 PM EDT Pharmacy Family Practice [address] [place] [address] [address] [place] [address] College, Pharmacist [address] [place] [address] 04/20/2025 2:20 PM EDT Office Visit Family Practice [address] [place] [address] [address] [place] [address] Sapna Reyes, 293 [place] [address] 11/27/2025 1:10 PM EST Office Visit Dermatology [facility] [address] [place] [address] Sheba Huerta PA-C [address] [place] [address] Scheduled Procedures Name Priority Associated Diagnoses Date/Ti [...] 12/14/2020, Additional history exists HbA1c 06/19/2025 12/17/2024, 110 10/2023, 04/14/2024, Additional history exists TSH 08/15/2025 [...] D LEVEL ONCE IN A LIFETIME-USE SMARTSET# [id number] Completed 12/11/2023, 10/22/2023, 10/13/2022, Additional history exists [...] this encounter Medical Devices Implanted Type Area Desktop Specialist Device Identifier Shelf Expiration Date Model / Serial / Lot Sling Elevate Post/Apical - [id number] Implanted:Qty: 1 on 12/22/2014 by Heri Cochran DO at OR [facility] [place] N/A: Vaginal Vault [employer] 05/04/2017 [id number] / / [id number] documented as of this encounter Visit Diagnoses Diagnosis DM type 2, goal HbA1c < 8% (HCC) documented in this encounter Advance Directives * Full Code (Latest Code Status on File) Date Activated Date Inactivated Comments 12/22/2014 10:37 AM 12/23/2014 2:42 PM This order reflects the patients wishes and were consensually agreed upon. * Full Code Date Activated Date Inactivated Comments 12/22/2014 7:46 AM 12/22/2014 10:37 AM This order reflects the patients wishes and were consensually agreed upon. Care Teams Auto Mechanic Supervisor Relationship Specialty Start Date End Date Sapna Reyes DO [address] [place] [address] PCP - General Internal Medicine 03/28/24 documented as of this encounter
--- OUTSIDE RECORDS SUMMARY | 2025-02-16 08:43 | External Medical Summary | Summary of Care ---
Author Name Unknown Organization [facility] Address [address] [place] [address] Phone [phone] Care Team Providers Care Mixer And Scaler Name Role Phone Andrea Reyes DO Primary Care Provider [phone] Reason for Referral * Precert (Within 10 days (routine)) - Authorized Specialty Diagnoses / Procedures Referred By Contac t Referred To Contact Radiology Diagnoses Chronic heart failure with preserved ejection fraction (HCC) HTN, goal below 140/80 Preoperative cardiovascular examination Procedures NM MYOCARD PERF IMG SPECT MULT STUDIES WITH PHARM INTERV Daphne Mcclure PA-C [address] [place] [address] Phone: tel: fax: Referral ID Status Reason Start Date Expiration Date V isits Requested Visits Authorized [id number] Authorized Precert 02/09/2025 999 999 Reason for Visit * Reason Comments Pre-op Clearance Encounter Details Date Type Department Care Team ([facility] Contact Info) Description 02/09/2025 8:00 AM EDT Office Visit [facility] [address] [place] [address] Daphne Mcclure PA-C [address] [place] [address] Preoperative cardiovascular examination*; Chronic heart failure with preserved ejection fraction (HCC); HTN, goal below 140/80; History of TIA (transient ischemic attack); Dyslipidemia, goal LDL below 70 Allergies No known active allergiesdocumented as of this encounter (statuses as of 02/09/2025) Medications Vitamin D 125 MCG (5000 UT) Oral Capsule Take 125 mcg by mouth daily. 90 Capsule 1 022 Active Metamucil 28.3 % Oral Powder (Psyllium) 1 tablespoon daily 538 g 1 022 Active Vitamin B Complex Oral Tablet Take 1 Tablet by mouth in the morning. 023 Active OneTouch Verio In Vitro Strip (Glucose Blood) Use to test sugars once daily - E11.9 100 Strip 11 Active OneTouch Delica Lancets 33G Use to test sugars once daily - E11.9 100 Each 3 023 Active Ondansetron HCl 4 MG Oral TabletIndications: Nausea without vomiting Take 1 Tablet by mouth every 6 hours as needed for Nausea. 30 Tablet 1 05/16/20 23 6:13 AM EDT 023 Active Prochlorperazine Maleate 5 MG Oral Tablet (Compazine)Indicat ions:Viral gastroenteritis Take 1 Tablet by mouth every 8 hours as needed for Nausea. 30 Tablet 12/22/19 24 10:40 AM EST 024 Active Vitamin C 1000 MG Oral Tablet Take 1 Tablet by mouth in the morning. Active Albuterol Sulfate HFA 108 (90 Base) MCG/ACT Inhalation Aerosol SolutionIndication s:Moderate persistent asthma without complication Inhale 2 Puffs by mouth every 6 hours as needed for Shortness of Breath or Wheezing. 54 g 03/05/20 24 6:25 AM EDT 024 Active Prolia 60 MG/ML Subcutaneous Solution Prefilled Syringe INJECT 60 MG (1 SYRINGE) UNDER THE SKIN ONCE FOR 1 DOSE 1 mL 1 07/16/20 24 12:13 PM EDT 024 2024 Active Clopidogrel Bisulfate 75 MG Oral Tablet (pLAVix) TAKE ONE TABLET BY MOUTH EVERY DAY 100 Tablet 3 01/17/20 25 8:28 AM EDT 024 2024 Active Trospium Chloride ER 60 MG Oral Capsule Extended Release 24 Hour (Sanctura ER) Take 1 Capsule by mouth in the morning. 90 Capsule 08/16/20 24 2:26 PM EDT 024 Active Pantoprazole Sodium 40 MG Oral Tablet Delayed Release (Protonix) Take 1 Tablet by mouth in the morning. 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 12 mL 1 02/03/20 25 2:32 PM EDT 024 Active Gabapentin 300 MG Oral Capsule (Neurontin) Take 1 Capsule by mouth in the morning and Take 1 capsule by mouth in the afternoon. 180 Capsule 1 12/11/19 25 6:32 PM EST 024 Active Additional Information Patient taking differently:300 mg OralDAILY NOON, Reported on 02/09/2025 Levothyroxine Sodium 25 MCG Oral Tablet (Levoxyl)Indicatio ns:Primary hypertension,Histo ry of TIA (transient ischemic attack) TAKE 1 TABLET BY MOUTH DAILY AT LEAST 30 MINUTES PRIOR TO FIRST MEAL OF THE DAY OR OTHER MEDICATIONS 100 Tablet 3 01/28/20 25 12:11 PM EDT 025 Active Montelukast Sodium 10 MG Oral Tablet (Singulair)Indicat ions:Primary hypertension,Histo ry of TIA (transient ischemic attack) TAKE ONE TABLET BY MOUTH EVERY DAY AT BEDTIME 90 Tablet 3 01/27/20 25 10:40 AM EDT 025 2025 Active rOPINIRole HCl 0.5 MG Oral Tablet (Requip)Indication s:RLS (restless legs syndrome) Take 2 Tablets by mouth at bedtime. 60 Tablet 5 025 Active Breztri Aerosphere 160-9-4.8 MCG/ACT Inhalation Aerosol (Budeson-Glycopyrr ol-Formoterol)Alem cations:Moderate persistent asthma without complication INHALE TWO PUFFS BY MOUTH TWICE A DAY 32.1 g 3 12/09/19 25 10:18 AM EST 025 2025 Active Gabapentin 600 MG Oral Tablet (Neurontin) Take 1 Tablet by mouth in the morning and 1 Tablet before bedtime. 180 Tablet 12/11/19 25 7:21 AM EST 025 Active DULoxetine HCl 60 MG Oral Capsule Delayed Release Particles (Cymbalta) TAKE 1 CAPSULE BY MOUTH DAILY. 100 Capsule 01/15/20 9:45 AM EDT 025 2025 Active Metoprolol Tartrate 50 MG Oral Tablet (Lopressor)Indicat ions:Primary hypertension,Histo ry of TIA (transient ischemic attack) TAKE ONE TABLET BY MOUTH EVERY DAY IN THE MORNING AND BEFORE BEDTIME 180 Tablet 01/17/20 10:48 AM EDT 025 2025 Active Spironolactone 25 MG Oral Tablet (Aldactone)Indicat ions:HTN, goal below 140/80,History of TIA (transient ischemic attack) Take one-half tablet by mouth in the morning. 15 Tablet 01/17/20 10:48 AM EDT 025 Active Celecoxib 200 MG Oral Capsule (CeleBREX) Take 1 Capsule by mouth in the morning. 90 Capsule 01/22/20 3:45 PM EDT 025 Active busPIRone HCl 10 MG Oral Tablet (Buspar)Indication s:Anxiety Take 1 Tablet by mouth in the morning and 1 Tablet at noon and 1 Tablet before bedtime. 60 Tablet 025 Active Atorvastatin Calcium 40 MG Oral Tablet (Lipitor)Indicatio ns:Primary hypertension,Histo ry of TIA (transient ischemic attack) TAKE ONE TABLET BY MOUTH EVERY DAY 100 Tablet 1 02/07/20 25 2:39 PM EDT 025 Active Ozempic (2 MG/DOSE) 8 MG/3ML Subcutaneous Solution Pen-injector (Semaglutide (2 MG/DOSE))Indicatio ns:DM type 2, goal HbA1c < 8% (HCC) Inject 2 mg under the skin once a week. EVERY SUNDAY. 9 mL 3 025 Active Furosemide 20 MG Oral Tablet (Lasix) Take 1 Tablet by mouth daily. 025 Active Furosemide 20 MG Oral Tablet (Lasix)Indications :Chronic diastolic congestive heart failure (HCC) Take 1 Tablet by mouth in the morning and 1 Tablet in the evening. Dose adjustment. Refill not due yet. 200 Tablet 3 11/04/19 25 9:40 AM EST 024 2024 Discontinued Levocetirizine Dihydrochloride 5 MG Oral Tablet TAKE ONE TABLET BY MOUTH EVERY DAY 100 Tablet 3 01/17/20 25 8:28 AM EDT 024 2024 Discontinued(P atient preference/dis continuation) Hospital, Clinic, or Other Facility Administered Medication [...] as of this encounter (statuses as of 02/09/2025) Active Problems Problem Noted Date Diagnosed Date [...] as of this encounter (statuses as of 02/09/2025) Resolved Problems Problem Noted Date Diagnosed Date [...] as of this encounter (statuses as of 02/09/2025) Immunizations Name Administration Dates Next Due COVID-19 mRNA, LNP-s, No Pre serve, 2-Dose Series ([employer]) 08/30/2021,12/22/2020,12/01/2020 Covid-19, Mrna, Lnp-s, Pf, B ivalent, [...] Passive Smoke Exposure: Past Smokeless Tobacco: Never Tobacco Cessation:Counseling Given: Not Answered Alcohol Use Standard Drinks/Week Comments Yes 0 [...] AM EST documented as of this encounter Last Filed Vital Signs Vital Sign Reading Time Taken Comments Blood Pressure 110/65 02/09/2025 8:11 AM EDT Pulse 80 02/09/2025 8:11 AM EDT Temperature - - Respiratory Rate - - Oxygen Saturation - - Inhaled Oxygen Concentration - - Weight 77.1 kg (170 lb) 02/09/2025 8:11 AM EDT Height 152.4 cm (5') 02/09/2025 8:11 AM EDT Body Mass Index 33.2 02/09/2025 8:11 AM EDT documented in this encounter Progress Notes * Daphne Mcclure PA-C - 02/09/2025 8:00 AM EDT 02/09/2025 Cardiology Follow Up Primary Automotive Tire Technician: Dr. Ponce Past Medical History: 1. Chronic heart failure with preserved EF 2. Hypertension 3. COPD 4. 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 Prior TIA, on Plavix History of Present Illness Cleo Garcia is an 79 year old female who presents for pre-operative evaluation. She is scheduledfor bilateral maste[facility] on [facility] with Dr. Ko, under general anesthesia. She maintains an active lifestyle, assisting her great-grandchildren in the morning and caring for a 91-year-old lady during the day, but plans to cease these activities due to her upcoming surgery. In the review of symptoms, she reports mild shortness of breath that has not worsened, recent weight loss, and a reduced need for inhalers. She denies chest pain, lightheadedness, dizziness. No abnormal bleeding. She notes post op nausea, but no other major complications with anesthesia. REVIEW OF SYSTEMS: See HPI for pertinent positives. All others negative other than those noted in the HPI. CONSTITUTIONAL: No change in weight, No weakness, No fatigue and No fevers, No sweats or chills. PULMONARY: No cough, sputum, or hemoptysis, No wheezing, No shortness of breath and No recent change in breathing. CARDIOVASCULAR: No chest pain, No dyspnea on exertion, No edema, No palpitations and No syncope. GASTROINTESTINAL: No abdominal pain, No change in bowel habits, No significant heartburn, No nausea, No vomiting, No diarrhea, No constipation, No blood in stools or black tarry stools. No dysphagia. HEMATOLOGIC: No abnormal bleeding and No bruising. NEUROLOGICAL: Normal balance, No headaches and No weakness. Review of patient's allergies indicates: No Known Allergies Current Outpatient Medications Medication Sig Dispense Refill Vitamin D 125 MCG (5000 UT) Oral Capsule Take 125 mcg by mouth daily. 90 Capsule 1 Metamucil 28.3 % Oral Powder (Psyllium) 1 tablespoon daily 538 g 1 Vitamin B Complex Oral Tablet Take 1 Tablet by mouth in the morning. Ondansetron HCl 4 MG Oral Tablet Take 1 Tablet by mouth every 6 hours as needed for Nausea. 30 Tablet 1 Prochlorperazine Maleate 5 MG Oral Tablet (Compazine) Take 1 Tablet by mouth every 8 hours as needed for Nausea. 30 Tablet 0 Vitamin C 1000 MG Oral Tablet Take 1 Tablet by mouth in the morning. Albuterol Sulfate HFA 108 (90 Base) MCG/ACT Inhalation Aerosol Solution Inhale 2 Puffs by mouth every 6 hours as needed for Shortness of Breath or Wheezing. 54 g 0 Furosemide 20 MG Oral Tablet (Lasix) Take 1 Tablet by mouth in the morning and 1 Tablet in the evening. Dose adjustment. Refill not due yet. (Patient taking differently: Take 1 Tablet by mouth in themorning and 1 Tablet in the evening. Dose adjustment. Refill not due yet- PT ONLY TAKES ONE TAB IN PM.) 200 Tablet 3 Clopidogrel Bisulfate 75 MG Oral Tablet (pLAVix) TAKE ONE TABLET BY MOUTH EVERY DAY 100 Tablet 3 Trospium Chloride ER 60 MG Oral Capsule Extended Release 24 Hour (Sanctura ER) Take 1 Capsule by mouth in the morning. 90 Capsule 0 Pantoprazole Sodium 40 MG Oral Tablet Delayed Release (Protonix) Take 1 Tablet by mouth in the morning. 90 Tablet 1 Orencia ClickJect 125 MG/ML Subcutaneous Solution Auto-injector (Abatacept) Inject 125 mg (1 pen) under the skin once a week. 12 mL 1 Gabapentin 300 MG Oral Capsule (Neurontin) Take 1 Capsule by mouth in the morning and Take 1 capsule by mouth in the afternoon. (Patient taking differently: Take 1 Capsule by mouth daily at noon.) 180 Capsule 1 Levothyroxine Sodium 25 MCG Oral Tablet (Levoxyl) TAKE 1 TABLET BY MOUTH DAILY AT LEAST 30 MINUTES PRIOR TO FIRST MEAL OF THE DAY OR OTHER MEDICATIONS 100 Tablet 3 Montelukast Sodium 10 MG Oral Tablet (Singulair) TAKE ONE TABLET BY MOUTH EVERY DAY AT BEDTIME 90 Tablet 3 rOPINIRole HCl 0.5 MG Oral Tablet (Requip) Take 2 Tablets by mouth at bedtime. 60 Tablet 5 Breztri Aerosphere 160-9-4.8 MCG/ACT Inhalation Aerosol (Uwzkdmo-Xinxflhtrym-Rotvjijngq) INHALE TWOPUFFS BY MOUTH TWICE A DAY 32.1 g 3 Gabapentin 600 MG Oral Tablet (Neurontin) Take 1 Tablet by mouth in the morning and 1 Tablet beforebedtime. 180 Tablet 0 DULoxetine HCl 60 MG Oral Capsule Delayed Release Particles (Cymbalta) TAKE 1 CAPSULE BY MOUTH DAILY. 100 Capsule 0 Metoprolol Tartrate 50 MG Oral Tablet (Lopressor) TAKE ONE TABLET BY MOUTH EVERY DAY IN THE MORNINGAND BEFORE BEDTIME 180 Tablet 0 Spironolactone 25 MG Oral Tablet (Aldactone) Take one-half tablet by mouth in the morning. 15 Tablet 0 Celecoxib 200 MG Oral Capsule (CeleBREX) Take 1 Capsule by mouth in the morning. 90 Capsule 0 busPIRone HCl 10 MG Oral Tablet (Buspar) Take 1 Tablet by mouth in the morning and 1 Tablet at noonand 1 Tablet before bedtime. 60 Tablet 0 Atorvastatin Calcium 40 MG Oral Tablet (Lipitor) TAKE ONE TABLET BY MOUTH EVERY DAY 100 Tablet 1 Ozempic (2 MG/DOSE) 8 MG/3ML Subcutaneous Solution Pen-injector (Semaglutide (2 MG/DOSE)) Inject 2 mg under the skin once a week. EVERY SUNDAY. 9 mL 3 OneTouch Verio In Vitro Strip (Glucose Blood) Use to test sugars once daily - E11.9 100 Strip 11 OneTouch Delica Lancets 33G Use to test sugars once daily - E11.9 100 Each 3 Prolia 60 MG/ML Subcutaneous Solution Prefilled Syringe INJECT 60 MG (1 SYRINGE) UNDER THE SKIN ONCE FOR 1 DOSE 1 mL 1 Current Facility-Administered Medications Medication Dose Route Frequency Provider Last Rate Last Admin Albuterol Sulfate (Proventil) (2.5 MG/3ML) 0.083% inhalation solution 2.5 mg 2.5 mg Nebulizer Mamadou Parra MD 2.5 mg at 03/14/24 0808 Albuterol Sulfate (Proventil) (5 MG/ML) 0.5% *conc* inhalation solution 2.5 mg 2.5 mg Nebulizer Mamadou Alvarez MD Past Medical History: Diagnosis Date Depression Edema Fibromyalgia Gastroparesis 07/30/2023 GERD (gastroesophageal reflux disease) History of breast cancer radiation 3670-5241 Hyperlipidemia Hypertension Hypothyroidism IBS (irritable bowel syndrome) 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 Moderate persistent asthma without complication Obstructive sleep apnea of adult 11/24/2022 PAD (peripheral artery disease) (HCC) Rheumatoid arthritis(714.0) TIA (transient ischemic attack) Family History Problem Relation Name Age of Onset Other (breast cancer [Other]) Mother Arthritis Mother Lung cancer Mother Other (emphysema [Other]) Father Cancer Father lung Breast Cancer Sister yoanna 69 Lung cancer Sister yoanna Breast Cancer Sister Lung cancer Sister Leida Colon cancer Sister Leida Esophageal cancer Sister Laverne 45 Eye Problems Sister Cristina Heart disease Sister Cristina Lung cancer Brother Lung cancer Brother Hyperlipidemia Son Justen Other (dvt) Son Justen Hyperlipidemia Son Tolu Other (dvt) Son Tolu Hyperlipidemia Son Kyle Heart disease Son Kyle Social History Socioeconomic History Marital status: Number of children: 3 Tobacco Use Smoking status: Never Passive exposure: Past Smokeless tobacco: Never Vaping Use Vaping status: Never Used Substance and Sexual Activity Alcohol use: Yes Comment: occasionally-socially Drug use: Never Sexual activity: Not Currently Partners: Male Social Needs Financial Resource Strain: Low Risk (08/15/2024) Financial Resource Strain Do you have any trouble paying for your medications, or do you think you might in the future? (Adult - for ages 18 years and over): No Food Insecurity: No Food Insecurity (08/15/2024) Food Insecurity Worried About Running Out of Food in the Last Year: Never true Ran Out of Food in the Last Year: Never true Do you need food for this week? (Adult - for ages 18 years and over): No Transportation Needs: No Transportation Needs (08/15/2024) Transportation Needs Has lack of transportation kept you from medical appointments, meetings, work, or from getting things needed for daily living? Check all that apply. (Adult - for ages 18 years and over): No Social Connections: Socially Integrated (08/15/2024) Social Connections How often do you feel lonely or isolated from those around you? (Adult - for ages 18 years and over): Never Housing Stability: Low Risk (08/15/2024) Housing Stability Do you currently live in a half-way or have no steady place to sleep at night? (Adult - for ages 18 years and over): No Are you homeless or worried that you might be in the future? (Adult - for ages 18 years and over): No OBJECTIVE/PHYSICAL EXAMINATION: BP 110/65 (BP Site: Left Arm, BP Position: Sitting, BP Cuff Size: Large) | Pulse 80 | Ht 1.524 m (5') | Wt 77.1 kg (170 lb) | BMI 33.20 kg/m² | BSA 1.81 m² Wt Readings from Last 3 Encounters: 02/09/25 77.1 kg (170 lb) 01/19/25 77.6 kg (171 lb) 01/15/25 77.3 kg (170 lb 8 oz) General: No acute distress. A+Ox3. HEENT: Normocephalic. Atraumatic. PERRL. EOMI. Conjunctiva and sclera clear. NECK: No carotid bruits. No JVD. Carotid upstrokes are brisk. Heart: RRR. S1 and S2 noted. No murmur. No rubs or gallops. PMI non displaced. Lungs: Clear to auscultation. No wheezes. No rhonchi. No rales. Abdomen: Normal bowel sounds. Soft. Nontender. No masses or organomegaly. No abdominal bruits. Extremities: No edema. No clubbing or cyanosis. Pulses: radial=2/4, posterior tibial=2/4, dorsalis pedis = 2/4. NEURO: No focal deficits. PSYCH: Appropriate affect and insight. DATA Labs & Imaging Reviewed Below: EKG 01/28/25 NSR, 65 bpm Left anterior fascicular block Possible anterolateral infarct Dobutamine stress echo 10/29/23 The examination is adequate to evaluate the referral indication. The stress echo is negative for inducible ischemia. Mild mitral regurgitation is present. Echo 07/11/22 The examination is adequate to evaluate the referral indication. The LV wall thickness is mildly increased (concentric). The left ventricular wall motion is normal. The qualitative LV ejection fraction is 55-59% (normal). The left ventricular diastolic function is mildly abnormal (grade I). Mild tricuspid regurgitation is present. There is no evidence of pulmonary hypertension. ASSESSMENT/PLAN: 79 year old female 1. Chronic heart failure with preserved ejection fraction (HCC) - euvolemic on exam, weight stable - continue furosemide 20 mg daily - continue spironolactone to 12.5 mg daily 2. HTN, goal below 140/80 - blood pressure controlled - continue metoprolol tartate 50 mg twice daily - encouraged to stay well hydrated 3. History of TIA (transient ischemic attack) - denies stroke like symptoms - continue plavix 75 mg daily 4. Dyslipidemia, goal LDL below 70 - LDL 50, continue atorvastatin 40 mg daily 5. Preoperative cardiovascular examination - asymptomatic and euvolemic on exam - activity less than 4 METS, recommend nuclear stress test prior to surgery - may hold plavix from cardiac standpoint, but will defer to PCP as she is on it for history of TIA DISPOSITION: Follow up 1 year or sooner if symptoms worsen/fail to improve. All questions were answered to the patients satisfaction. Patient advised to report to ED with any and all emergencies. The patient agrees to the above plan and will call with additional questions or concerns. Daphne Mcclure PA-C Cardiology, [address] [address] I spent a total of 40 minutes on the date of service in preparation, delivery, and documentation ofthe care provided to Cleo Garcia excluding any time spent in the performance of separately billed services. This chart was completed in part utilizing [employer] Speech Voice Recognition Software. Grammatical errors, random word insertions, pronoun errors, and incomplete sentences are an occasional consequence of this system due to software limitations, ambient noise, and hardware issues. Any formal questions or concerns about the content, text, or information contained within the body of this dictation should be directly addressed to the provider for clarification. Text in this note was generated using an ambient documentation service. I discussed the use of a device to record and summarize our discussion today. All persons present during the encounter consented to its use. documented in this encounter Nursing Notes * Vonnie Coello NRCMA - 02/09/2025 8:19 AM EDT Patient was identified by name and date of . Name: Cleo Garcia Date of : (1945). Examination Room: 4 Reason for Visit: Chief Complaint Patient presents with Pre-op Clearance Interim Hospitalization(s): NO Interim Emergency room visit(s): NO Chest Pain: No SOB: [place] Problems/Concerns: No Medications reviewed and are up to date via: Patient's memory Would you like to sign up for [facility]? DECLINES Patient was instructed to not get up on the exam table/exam chair until directed and assisted by their provider; patient is to remain seated in the chair/ wheelchair/ exam table/ exam chair for fall prevention and safety reasons. Patient is aware to have assistance to step down off exam table/exam chair with personnel. Patient voiced full comprehension of instructions. ROBEL Valdes 8:19 AM 02/09/2025 documented in this encounter Plan of Treatment Upcoming Encounters Date Type Department Care Team (Late st Contact Info) Description 02/16/2025 7:20 AM EDT Office Visit [facility], Operating Room, [facility] [address] [facility] [place] [address] Heri Ko MD [address] [place] [address] 02/16/2025 7:30 AM EDT Office Visit [facility], Operating Room, [facility] [address] [facility] [place] [address] Heri Ko MD [address] [place] [address] 03/04/2025 11:45 AM EDT Office Visit General Surgery, [facility] [address] [place] [phone] Heri Ko MD [address] [place] [address] 03/06/2025 10:00 AM EDT Office Visit Gastroenterology, [facility] [address] [place] [phone] Winter Kraus CRNP [address] [place] [address] 03/10/2025 3:30 PM EDT Office Visit Rheumatology [facility] [address] [place] [phone] Susan Faith CRNP [address] [place] [phone] 04/20/2025 2:00 PM EDT Pharmacy Family Practice [facility] [address] [place] [phone] College, Pharmacist [address] [place] [address] 04/20/2025 2:20 PM EDT Office Visit Family Practice [facility] [address] [place] [phone] Andrea Reyes, [address] [place] [address] 11/27/2025 1:10 PM EST Office Visit Dermatology [facility] [place] [address] [place] [address] [place], [place] [address] [place] [address] Scheduled Orders Name Type Priority Associated Diagnoses Orde r Schedule NM MYOCARD PERF IMG SPECT MULT STUDIES WITH PHARM INTERV Cardiology Routine Chronic heart failure with preserved ejection fraction (HCC) HTN, goal below 140/80 Preoperative cardiovascular examination Expected: 02/09/2025 (Approximate), Expires: 03/11/2026 Scheduled Procedures Name Priority Associated Diagnoses Date/Ti [...] D LEVEL ONCE IN A LIFETIME-USE SMARTSET# [id number] Completed 12/11/2023, 10/22/2023, 10/13/2022, Additional history exists [...] this encounter Medical Devices Implanted Type Area Fundraising Sale Representative Device Identifier Shelf Expiration Date Model / Serial / Lot Sling Elevate Post/Apical - [id number] Implanted:Qty: 1 on 12/22/2014 by Heri Cochran DO at OR [facility] N/A: Vaginal Vault [id number] [facility] 05/04/2017 [id number] / / [id number] documented as of this encounter Visit Diagnoses Diagnosis Preoperative cardiovascular examination- Primary Pre-operative cardiovascular examination Chronic heart failure with preserved ejection fraction (HCC) HTN, goal below 140/80 Unspecified essential hypertension History of TIA (transient ischemic attack) Transient ischemic attack (TIA), and cerebral infarction without residual deficits Dyslipidemia, goal LDL below 70 Other and unspecified hyperlipidemia documented in this encounter Advance Directives * Full Code (Latest Code Status on File) Date Activated Date Inactivated Comments 12/22/2014 10:37 AM 12/23/2014 2:42 PM This order reflects the patients wishes and were consensually agreed upon. * Full Code Date Activated Date Inactivated Comments 12/22/2014 7:46 AM 12/22/2014 10:37 AM This order reflects the patients wishes and were consensually agreed upon. Care Teams Mixer And Scaler Relationship Specialty Start Date End Date Andrea Reyes DO [address] [facility] [place] [address] PCP - General Internal Medicine 03/28/24 documented as of this encounter
--- OUTSIDE RECORDS SUMMARY | 2025-02-16 08:43 | External Medical Summary | Summary of Care ---
Author Name Unknown Organization [facility] Address [address] [place] [address] Phone [phone] Care Team Providers Care Inkjet Operator Name Role Phone Andrea Reyes DO Primary Care Provider [phone] Reason for Visit * Reason Onset Date Comments Medication Question 02/09/2025 Encounter Details Date Type Department Care Team ([facility] st Contact Info) Description 02/09/2025 Telephone Family Practice [address], [place] [address] [place] [address] Andrea Reyes DO [address] [place] [address] Medication Question Allergies No known [...] mRNA, LNP-s, No Pre serve, 2-Dose Series ([employer]d) 08/30/2021,12/22/2020,12/01/2020 Covid-19, Mrna, Lnp-s, Pf, B ivalent, 30 Mcg, IM, 12 yrs and above ([employer]2 Crowd) 11/24/2022 PPD 01/20/2014 Pneumococcal Conjugate Vacc, 13 [...] Notes * Telephone Encounter - Celi Christensen [facility] - 02/10/2025 4:32 PM EDT Images from the original note were not included. Per stress test today: Forwarding to PCP to confirm clopidogrel 5 day hold still okay. Celi Malagon, Pharm D, BCACP Clinical Pharmacist [address] - Medication Therapy [facility] 02/10/2025, 4:33 PM Ph. [phone] * Telephone Encounter - Rayna Jalloh [facility] - 02/09/2025 4:42 PM EDT Reviewed charts with [facility] as patient is getting a double mastectomy on 02/16 with [facility]. The pre-surgery note only has specific hold recommendations for Ozempic (last dose was to be 02/03; confirmed this) and that Plavix was to be deferred to PCP due to hx of TIA and was cleared to hold via cardiology.PCP aware and advised that a 5 day hold is sufficient. However, will await stress test results tomorrow and confirm hold with patient. Rayna Jalloh, Ana MariaD Clinical Pharmacist 02/09/2025 4:50 PM * Telephone [...] 02/16/2025 7:20 AM EDT Office Visit Non [facility], Operating Room, [facility] [address] [place] [address] Heri Ko MD [address] [place] [address] 02/16/2025 7:30 AM EDT Office Visit Non [facility], Operating Room, [facility] [address] [place] [address] Heri Ko MD [address] [place] [address] 03/04/2025 11:45 AM EDT Office Visit General Surgery, [facility] [address] [place] [phone] Heri Ko MD [address] [place] [address] 03/06/2025 10:00 AM EDT Office Visit Gastroenterology, [facility] [address] [place] [address] Winter Kraus CRNP [address] [place] [address] 03/10/2025 3:30 PM EDT Office Visit Rheumatology [facility] [address] [place] [address] Susan Faith CRNP [address] [place] [address] 04/20/2025 2:00 PM EDT Pharmacy Family Practice [address] [place] [address] [address] [place] [phone] College, Pharmacist 65 [facility] [address] [place] [address] 04/20/2025 2:20 PM EDT Office Visit Family Practice [address] [place] [address] [address] [place] [phone] Andrea Reyes, 293 [place] [address] 11/27/2025 1:10 PM EST Office Visit Dermatology [facility] [address] [place] [address] Sheba Huerta PA-C [address] [place] [address] Scheduled Procedures Name Priority Associated Diagnoses Date/Ti [...] 04/14/2024, Additional history exists TSH 08/15/2025 08/15/2024, 0 10/2023, 07/30/2023, Additional history exists Depression Screening [...] D LEVEL ONCE IN A LIFETIME-USE SMARTSET# 26947 Completed 12/11/2023, 10/22/2023, 10/13/2022, Additional history exists [...] this encounter Medical Devices Implanted Type Area Health Informatics Specialist Device Identifier Shelf Expiration Date Model / Serial / Lot Sling Elevate Post/Apical - [id number] Implanted:Qty: 1 on 12/22/2014 by Heri Cochran DO at [place] [facility] [place] N/A: Vaginal Vault [employer] 05/04/2017 [id number] / / [id number] documented as of this encounter Advance Directives [...] and were consensually agreed upon. Care Teams Inkjet Operator Relationship Specialty Start Date End Date Andrea Reyes DO [address] [place] [address] PCP - General Internal Medicine 03/28/24 documented as of this encounter
--- OUTSIDE RECORDS SUMMARY | 2025-02-16 08:43 | External Medical Summary | Summary of Care ---
Author Name Unknown Organization [facility] Address [address] [place] [address] Phone [phone] Care Team Providers Care Licensed Staff Mft Name Role Phone Andrea Reyes DO Primary Care Provider [phone] Reason for Visit * Reason Onset Date Comments Medication Question 02/09/2025 Encounter Details Date Type Department Care Team ([facility] st Contact Info) Description 02/09/2025 Telephone Family Practice [address], [place] [address] [place] [address] Andrea Reyes DO [address] [place] [address] Medication Question Allergies No known [...] mRNA, LNP-s, No Pre serve, 2-Dose Series ([employer]ote) 08/30/2021,12/22/2020,12/01/2020 Covid-19, Mrna, Lnp-s, Pf, B ivalent, 30 Mcg, IM, 12 yrs and above ([employer]ote) 11/24/2022 PPD 01/20/2014 Pneumococcal Conjugate Vacc, 13 [...] [facility] 02/11/2025, 11:07 AM Ph. [phone] * Telephone Encounter - Andrea Reyes DO [...] [facility] 02/10/2025, 4:33 PM Ph. [phone] * Telephone Encounter - Rayna Jalloh [facility] - 02/09/2025 4:42 PM EDT Reviewed charts with [facility] as patient is getting a double mastectomy on 02/16 with [facility]. The pre-surgery note only has specific [...] Office Visit Non [facility], Operating Room, [place] [address] [facility] [place] [address] Heri Ko MD [address] [facility] [place] [address] 02/16/2025 7:30 AM EDT Office Visit Non [facility], Operating Room, [facility] [address] [place] [facility] [place] [address] Heri Ko MD [address] [place] [address] 03/04/2025 11:45 AM EDT Office Visit General Surgery, [facility] [address] [place] [address] Heri Ko MD [address] [place] [address] 03/06/2025 10:00 AM EDT Office Visit Gastroenterology, [facility] [address] [place] [phone] Winter Kraus CRNP [address] [place] [address] 03/10/2025 3:30 PM EDT Office Visit Rheumatology [facility] [address] [place] [address] Susan Faith CRNP [address] [place] [address] 04/20/2025 2:00 PM EDT Pharmacy Family Practice 65 [facility] 293 [place] [address] College, Pharmacist [address] [place] [address] 04/20/2025 2:30 PM EDT Office Visit Family Practice 65 [facility] 293 [place] [phone] Andrea Reyes, 293 [place] [address] 11/27/2025 1:10 PM EST Office Visit Dermatology [facility], [place] [address] [place] [address] Sheba Huerta PA-C [address] [facility] [place] [address] Scheduled Procedures Name Priority Associated Diagnoses Date/Ti [...] D LEVEL ONCE IN A LIFETIME-USE SMARTSET# [id number] Completed 12/11/2023, 10/22/2023, 10/13/2022, Additional history exists [...] this encounter Medical Devices Implanted Type Area Wastewater Plant Civil Engineer Device Identifier Shelf Expiration Date Model / Serial / Lot Sling Elevate Post/Apical - [id number] Implanted:Qty: 1 on 12/22/2014 by Heri Cochran DO at [place] [facility] [place] N/A: Vaginal Vault [employer] 05/04/2017 [id number] / / [id number] documented as of this encounter Advance Directives [...] and were consensually agreed upon. Care Teams Licensed Staff Mft Relationship Specialty Start Date End Date Andrea Reyes DO [address] [place] [address] PCP - General Internal Medicine 03/28/24 documented as of this encounter
--- OUTSIDE RECORDS SUMMARY | 2025-02-16 08:43 | External Medical Summary | Summary of Care ---
Author Name Unknown Organization [facility] Address [address] [place] [address] Phone [phone] Care Team Providers Care Travel Rn Or Name Role Phone Andrea Reyes DO Primary Care Provider [phone] Reason for Visit * Reason Onset Date Comments Medication Question 02/09/2025 Encounter Details Date Type Department Care Team ([facility] st Contact Info) Description 02/09/2025 Telephone Family Practice [address] [place] [address] [place] [address] Andrea Reyes DO [address] [place] [address] Medication Question Allergies No known active allergiesdocumented as of this encounter (statuses as of 02/10/2025) Medications Vitamin D 125 MCG (5000 UT) [...] as of this encounter (statuses as of 02/10/2025) Active Problems Problem Noted Date Diagnosed Date [...] as of this encounter (statuses as of 02/10/2025) Resolved Problems Problem Noted Date Diagnosed Date [...] as of this encounter (statuses as of 02/10/2025) Immunizations Name Administration Dates Next Due COVID-19 mRNA, LNP-s, No Pre serve, 2-Dose Series ([employer]) 08/30/2021,12/22/2020,12/01/2020 Covid-19, Mrna, Lnp-s, Pf, B ivalent, 30 Mcg, IM, 12 yrs and above ([employer]alentEarth) 11/24/2022 PPD 01/20/2014 Pneumococcal Conjugate Vacc, 13 [...] encounter Miscellaneous Notes * Telephone Encounter - Rayna Jalloh RPh - 02/09/2025 4:42 PM EDT Reviewed charts with [facility] as patient is getting a double mastectomy on 02/16 with [facility]. The pre-surgery note only has specific hold recommendations for Ozempic (last dose was to be 02/03; confirmed this) and that Plavix was to be deferred to PCP due to hx of TIA and was cleared to hold via cardiology.PCP aware and advised that a 5 day hold is sufficient. However, will await stress test results tomorrow and confirm hold with patient. Rayna Jalloh, Bear Clinical Pharmacist 02/09/2025 4:50 PM * Telephone [...] Care Team (Late st Contact Info) Description 02/10/2025 12:00 PM EDT [facility] [address] [place] [address] 02/10/2025 1:00 PM EDT Imaging [facility] [address] [place] [address] 02/16/2025 7:20 AM EDT Office Visit Non [facility], Operating Room, [address] [place] [facility] [place] [address] Heri Ko MD [address] [place] [address] 02/16/2025 7:30 AM EDT Office Visit Non [facility], Operating Room, [address] [place] [facility] [place] [address] Heri Ko MD [address] [place] [address] 03/04/2025 11:45 AM EDT Office Visit General Surgery, [facility] [address] [place] [phone] Heri Ko MD [address] [place] [address] 03/06/2025 10:00 AM EDT Office Visit Gastroenterology, [facility] [address] [place] [address] Winter Kraus CRNP [address] [place] [address] 03/10/2025 3:30 PM EDT Office Visit Rheumatology [facility] [address] [place] [phone] Susan Faith CRNP [address] [place] [address] 04/20/2025 2:00 PM EDT Pharmacy Family Practice 65 [facility] [address] [place] [phone] College, Pharmacist [address] [address] 04/20/2025 2:20 PM EDT Office Visit Family Practice 65 [facility] 293 [place] [address] Andrea Reyes, DO [address] [place] [address] 11/27/2025 1:10 PM EST Office Visit Dermatology [facility] [address] [place] [address] Sheba Huerta PA-C [address] [place] [address] Scheduled Procedures Name Priority Associated Diagnoses Date/Ti [...] D LEVEL ONCE IN A LIFETIME-USE SMARTSET# [id number] Completed 12/11/2023, 10/22/2023, 10/13/2022, Additional history exists [...] this encounter Medical Devices Implanted Type Area Visitor Services Associate Device Identifier Shelf Expiration Date Model / Serial / Lot Sling Elevate Post/Apical - [id number] Implanted:Qty: 1 on 12/22/2014 by Heri Cochran DO at OR [facility] [place] N/A: Vaginal Vault [employer] 05/04/2017 [id number] / / [id number] documented as of this encounter Advance Directives [...] and were consensually agreed upon. Care Teams Travel Rn Or Relationship Specialty Start Date End Date Andrea Reyes DO [address] [place] [address] PCP - General Internal Medicine 03/28/24 documented as of this encounter
--- OUTSIDE RECORDS SUMMARY | 2025-02-16 08:44 | External Medical Summary ---
Author Name Unknown Address Unknown Organization [id number] [address] [place] [address] Laboratory Report Ordering Provider Test Date Status BALTA HANSON 01/28/2025 12:35:43 Final Observation Date Value Abnormality Reference (Units ) Status WBC, Total 01/28/2025 12:35:43 5.56 4.00-10.8 0 (K/uL) Final RBC 01/28/2025 12:35:43 4.37 3.85-5.15 (M/uL) Final Hemoglobin 01/28/2025 12:35:43 12.8 12.0-15.3 (g/dL) Final HCT 01/28/2025 12:35:43 40.0 36.0-45.2 (%) Final MCV 01/28/2025 12:35:43 91.5 81.5-97.5 (fL) Final MCH 01/28/2025 12:35:43 29.3 27.0-34.0 (pg) Final MCHC 01/28/2025 12:35:43 32.0 32.0-36.0 (g/dL) Final RDW 01/28/2025 12:35:43 13.8 11.5-15.5 (%) Final Platelets 01/28/2025 12:35:43 213 140-400 (K /uL) Final MPV 01/28/2025 12:35:43 9.1 6.6-11.1 ( fL) Final Performing Location [facility] [address] [place] [address]
--- OUTSIDE RECORDS SUMMARY | 2025-02-16 08:44 | External Medical Summary | Summary of Care ---
Author Name Unknown Organization [facility] Address [address] [place] [address] Phone [phone] Care Team Providers Care Display Designer Name Role Phone Andrea Reyes DO Primary Care Provider [phone] Reason for Visit * Reason Comments Follow Up Encounter Details Date Type Department Care Team ([facility] st Contact Info) Description 01/28/2025 11:15 AM EDT Office Visit General Surgery, [facility] [address] [place] [id number] Heri Ko MD [address] [place] [address] Pre-op examination*; Pre-operative examination; Ductal carcinoma in situ (DCIS) of left breast Allergies No known active allergiesdocumented as of this encounter (statuses as of 01/29/2025) Medications Vitamin D 125 MCG (5000 UT) [...] 4 10:40 AM EST 12/21/19 24 Active Semaglutide (2 MG/DOSE) 8 MG/3ML Subcutaneous Solution Pen-injector (Ozempic)Indication s:DM type 2, goal HbA1c < 8% (HCC) INJECT 2 MG UNDER THE SKIN ONCE A WEEK, 12 mL 3 5 9:07 AM EST 12/25/19 24 Active Additional Information Patient taking differently: INJECT 2 MG UNDER THE SKIN ONCE A WEEK on Tuesdays, Reported on 01/19/2025 Vitamin C 1000 MG Oral Tablet Take [...] 8:28 AM EDT 06/30/20 24 025 Active Atorvastatin Calcium 40 MG Oral Tablet (Lipitor)Indication s:Primary hypertension,Histor y of TIA (transient ischemic attack) TAKE ONE TABLET BY MOUTH EVERY DAY 100 Tablet 1 5 12:55 PM EST 07/23/20 24 Active Trospium Chloride ER 60 MG Oral [...] once a week. 12 mL 1 5 3:19 PM EDT 09/12/20 24 Active Gabapentin 300 [...] before bedtime. 60 Tablet 01/20/20 25 Active Hospital, Clinic, or Other Facility [...] as of this encounter (statuses as of 01/29/2025) Active Problems Problem Noted Date Diagnosed Date [...] as of this encounter (statuses as of 01/29/2025) Resolved Problems Problem Noted Date Diagnosed Date [...] as of this encounter (statuses as of 01/29/2025) Immunizations Name Administration Dates Next Due COVID-19 mRNA, LNP-s, No Pre serve, 2-Dose Series ([employer]) 08/30/2021,12/22/2020,12/01/2020 Covid-19, Mrna, Lnp-s, Pf, B ivalent, 30 Mcg, IM, 12 yrs and above ([employer]) 11/24/2022 PPD 01/20/2014 Pneumococcal Conjugate Vacc, 13 [...] 08/15/2024 Does the household have a re lar source of income? (Household - for ages [...] AM EST documented as of this encounter Progress Notes * Heri Ko MD - 01/28/2025 4:00 PM EDT Images from the original note were not included. [facility] NOTES INDICATION: Left Breast Cancer Clinical Stage 0 HISTORY OF PRESENT ILLNESS: Cleo Garcia is a 79 year old year old female who was referred by Andrea Reyes DO for evaluation and discussion of treatment options for carcinoma of the left upper outer quadrant. She is s/p core biopsy, left ultrasound guided demonstrating a high grade non-invasive ductal carcinoma. Estrogen receptor status is positive. Progesterone receptor status is positive. This was discovered after mammogram was done due to left nipple discharge which was persisting for a few months. Another finding on the mammogram was a small mass at the 9 o'clock position 3 cm from the nipple. This was biopsied as well and demonstrates a papilloma with atypical cells present. She denies any new onset of fevers, chills, weight loss, bone pain, headaches, abdominal pain, chest pain. She has chronic congestive heart failure in his followed by [facility] cardiology. She is on Plavix. She has factor 5 Leiden gene. She states she has never had a blood clot. This was found on mammogram done due to left breast brown nipple discharge. She returns to clinic for follow-up. We have her scheduled for an MRI guided biopsy of the additional small subcentimeter mass, retroareolar, left side. She states unequivocally today that she would like to have the breasts removed and does not want to undergo the biopsy. She would like a contralateral mastectomy as well, because she states that she will never be happy until all the breast tissuewas gone. BREAST HISTORY: Mass: Yes, right central breast cancer Breast Pain: yes Nipple discharge: Yes; LEFT, elicited, bloody Previous problems/surgeries: surgical biopsy, RIGHT Breast Cancer: yes Other Cancers: no GYNECOLOGIC HISTORY: Menarche at age: 13 Menopause at age: 27 with TAHBSO Number of children: 3 Patient's age at first live : 17 Ever take oral contraceptives? No Ever take estrogen? Yes, history of use for unknown number of year(s) RADIOLOGIC INTERPRETATION: ntains abnormal data MRI BREAST BILATERAL W WO CONTRAST Order: [id number] Status: Final result Visible to patient: No (inaccessible in MyChart) Next appt: 02/16/2025 at 07:20 AM in Surgery (Heri Ko MD) Dx: Ductal carcinoma in situ (DCIS) of le... 0 Result Notes 1 Follow-up Encounter Assessment Overall Left Right 4 - Suspicious 4 - Suspicious 2 - Benign Breast Density Overall Left Right Symmetry Amount of Fibroglandular Tissue c - Heterogeneous fibroglandular tissue c - Heterogeneous fibroglandular tissue c - Heterogeneous fibroglandular tissue Background Parenchymal Enhancement b - Mild b - Mild b - Mild Symmetric Details Reading Physician Reading Date Result [facility] Olivares MD [phone] 01/21/2025 Routine Narrative & Impression Exam MRI BREAST BILATERAL W WO CONTRAST performed on 01/19/25. History Ductal carcinoma in situ (dcis) of left breast Family medical history includes breast cancer in 2 relatives (sister (age of onset: 69), sister) and colon cancer in sister. Films Compared Multiple prior outside mammogram from [facility] to include left breast stereotactic guided core biopsy and left breast ultrasound guided core biopsy 01/02/2025. Technique Multiplanar pre-and post gadolinium enhanced MRI of the breasts. The exam was interpreted in conjunction with [employer] software with kinetic and morphologic analysis and subtraction images. Findings There is heterogeneous fibroglandular tissue and mild symmetric background parenchymal enhancement in both breasts. Left: Susceptibility artifact indicative of tissue marker (axial image 60, series 5 and sagittal image 122, series 18) related to stereotactic core biopsy 01/02/2025 (histology diagnosis of high-grade ductal carcinoma in-situ with comedonecrosis) from outside facility with surrounding post biopsy changes and 1.16 x 1.0 x 0.8 cm (axial image 55, series 8 and sagittal image 128, series 18) non massenhancement is seen in the upper-outer quadrant. A 1.6 x 0.6 x 1.0 cm (axial image 84, series 8 and sagittal image 124, series 18 heterogeneously enhancing mass is seen in the near central anterior depth at the site of biopsy proven intraductal papilloma with atypical adenosis. Susceptibility artifact related to tissue marker (indicative of ultrasound- guided core biopsy 01/02/2025 from outside facility) is seen in this region on axial image 84,series 5. A 4.4 x 4.8 x 4.9 mm (axial image 76, series 8 and sagittal image 124, series 18) enhancing retroareolar mass with persistent kinetics on color map is noted. No evidence of internal mammary or axillary lymphadenopathy. Right: Postsurgical changes related to breast conserving surgery for carcinoma are noted in the lower inner quadrant. No suspicious enhancing mass or non mass enhancement is seen. There is no internal mammary or axillary lymphadenopathy. Impression: Left: A 4.4 x 4.8 x 4.9 mm enhancing retroareolar mass with persistent kinetics. MR guided biopsy is advised. BI-RADS 4, suspicious. A 1.16 x 1.0 x 0.8 cm non-mass enhancement and post biopsy changes in the upper- outer quadrant at the site of biopsy proven high-grade ductal carcinoma in-situ with comedonecrosis. A 1.6 x 0.6 x 1.0 cm heterogeneously enhancing mass in the near central anterior depth at the site of a biopsy-proven intraductal papilloma with atypical adenosis as discussed above. Right: Postsurgical changes related to prior breast conserving surgery for carcinoma. No MRI evidence of malignancy. BI-RADS 2, benign finding. OVERALL BIRADS: BI-RADS 4, suspicious. Recommendation: MR guided left breast biopsy is advised. Continue annual surveillance right mammogram and annual high risk screening MRI as per patient's risk criteria. UNILATERAL LEFT DIGITAL DIAGNOSTIC MAMMOGRAM TOMOSYNTHESIS WITH SYNTHETIC 2D POST PROCEDURE IMAGING FOR MARKER PLACEMENT: 01/02/2025 CLINICAL HISTORY: Status post left breast biopsy x 2. TECHNIQUE: Left CC and ML tomosynthesis images including synthesized 2D images (Intelligent 2D) were obtained. COMPARISON: Comparison is made to exams dated: 12/23/2024 mammogram - [facility], 10/02/2024 mammogram - [facility], 12/23/2024 ultrasound, 01/02/2025 stereotactic biopsy, and 01/02/2025 ultrasound biopsy - [facility]. BREAST COMPOSITION: The breasts are heterogeneously dense, which may obscure small masses. FINDINGS: Postprocedure mammograms demonstrate a new ribbon-shaped biopsy clip in the left 9:00 breast in theexpected location of the biopsied mass. An hourglass shaped biopsy clip is noted within the left upper outer quadrant in the expected location of the biopsied calcifications. No significant postbiopsy hematoma is evident. IMPRESSION: POST PROCEDURE MAMMOGRAM FOR MARKER PLACEMENT New biopsy clips status post left breast biopsy x 2. Pathology results are pending. Some breast cancers are not detected with mammography. A negative mammographic report should not delay biopsy if a clinically suggestive mass is present. Falguni Ny M.D. /:01/02/2025 16:48:48 copy to: Andrea Reyes UNILATERAL LEFT DIGITAL DIAGNOSTIC MAMMOGRAM TOMOSYNTHESIS WITH SYNTHETIC 2D AND LEFT ULTRASOUND: 12/23/2024 CLINICAL HISTORY: 79-year-old woman with a personal history of right breast DCIS, status post breast conservation treatment. Also a strong family history of breast cancer including mother and 2 sisters. She presents for diagnostic evaluation of brownish left breast nipple discharge for 1 month, nearly every day. Also palpable lump in the left upper outer quadrant. TECHNIQUE: Left CC and MLO tomosynthesis images including synthesized 2D images (Intelligent 2D) were obtained. Spot compression tomosynthesis and spot magnification views of the left breast were also performed. COMPARISON: Comparison is made to exam dated: 10/02/2024 mammogram - [facility]. BREAST COMPOSITION: The breasts are heterogeneously dense, which may obscure small masses. FINDINGS: A triangular skin sticker was placed on the upper outer middle one third of the left breast indicating the area of palpable concern pointed out by the patient prior to mammography. There isquestionable architectural distortion and faint grouped microcalcification in the upper outer middle one third of the left breast near the palpable skin sticker, best seen on CC tomosynthesis slice 26/49, MLO tomosynthesis slice 31/68, for which additional spot compression tomosynthesis and spot magnification views were obtained. The remainder of the parenchymal pattern appears similar to numerous prior mammograms with stable focal asymmetry in the central retroareolar region. No obvious new mass, asymmetry or other grouping of new calcification identified. Stable small grouping of round and punctate microcalcification in the 6:00/central left breast is unchanged on all available prior mammograms dating back to at least 2017, therefore likely benign given long-term stability. The spot magnification left CC and ML views performed in the upper outer quadrant and retroareolar region demonstrate a very faint 2.3 mm grouping of microcalcification in the upper outer posterior breast. A 3 mm grouping of round and punctate microcalcification in the 6:00/central region are stable dating back to 2017. The spot compression tomosynthesis left CC and ML views centered in the upper outer quadrant demonstrate a 7 mm asymmetry with questionable associated architectural distortion in the region of the above described microcalcification. Further characterization with ultrasound was performed. Targeted ultrasound was performed in the left breast at the site of palpable concern in the upper outer quadrant and also in the subareolar periareolar region to assess for the brownish nipple discharge. In the 9:00 left breast, 3 cm from the nipple, there is the multilobulated tubular hypoechoic mass measuring approximately 15.7 x 6.1 x 6.0 mm. This could represent an intraductal mass such as a papilloma and may explain the patient's nipple discharge. Definitive characterization with ultrasound-guided core needle biopsy is recommended. Additional ultrasound scanning in the periareolar/retroareolar region demonstrates no additional mass. Scanning throughout the upper outer quadrant in the area of palpable concern demonstrates heterogeneous echotexture tissue with areas of ill-defined shadowing. No discrete focal mass or non-mass lesion identified. IMPRESSION: ACR BI-RADS CATEGORY 4: SUSPICIOUS, ULTRASOUND ACR BI-RADS CATEGORY 4: SUSPICIOUS 1. Left breast ultrasound-guided core biopsy is recommended for a 15.7 mm multilobulated tubular hypoechoic mass in the 9:00 left breast, possibly representing an intraductal mass and may explain thebrownish nipple discharge. 2. Left breast stereotactic/tomosynthesis guided biopsy is recommended for an asymmetry, 2 mm new group of microcalcification and possible associated architectural distortion in the upper outer middle one third of the left breast. Unclear if this explains the area of palpable concern although it isin the same region. These results and recommendations were discussed with the patient at the time of the exam. She tentatively scheduled the left breast biopsies prior to leaving our department. Some breast cancers are not detected with mammography. A negative mammographic report should not delay biopsy if a clinically suggestive mass is present. Linda Fontana M.D. ay/:12/23/2024 13:27:57 MY INTERPRETATION: I reviewed the films personally and with the breast radiologist, and concur withthe read. PATHOLOGY FINAL DIAGNOSIS A. Breast, left, upper outer quadrant, stereotactic core biopsy: - High-grade ductal carcinoma in situ with comedonecrosis. - Estrogen receptor: Positive (92%, 94% strong intensity, 5% medium, 1% weak). - Progesterone receptor: Positive (1.9%, 11% strong intensity, 11% medium, 78% weak). - Size of DCIS in greatest linear extent: 2.0 mm. B. 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 at 1158. Gross Description A. STEREOTACTIC BIOPSY LEFT BREAST The specimen is received in a container labeled left breast with the patient name. The specimen consists of pink, yellow and red soft rubbery tissue. In the aggregate this measures 3.7 x 2.0 x 0.3 cm. The specimen is submitted entirely in 2 cassettes as A for levels. B. ULTRASOUND-GUIDED BIOPSY LEFT BREAST The specimen is received in a container labeled left breast 9:00 with the patient name. The specimen consists of multiple pale pink and red cylindrical fragments of soft, rubbery, friable tissue. The fragments range from 0.1 to 1.2 cm long and average 0.1 cm in diameter. The specimen is submitted entirely in a single cassette as B for levels. Specimens A and B were each presumably immediately placed in 10% neutral buffered formalin. Specimen A was fixed for 58 hours. Specimen B was fixed in formalin for 57-1/2 hours FAMILY HISTORY: Family history of breast or ovarian cancer: Yes; Family history of other cancer: See below Family History Problem Relation Name Age of Onset Other (breast cancer [Other]) Mother Arthritis Mother Lung cancer Mother Other (emphysema [Other]) Father Cancer Father lung Breast Cancer Sister laurna 69 Lung cancer Sister laurna Breast Cancer Sister Lung cancer Sister Leida Colon cancer Sister Leida Esophageal cancer Sister Laverne 45 Eye Problems Sister Cristina Heart disease Sister Cristina Lung cancer Brother Lung cancer Brother Hyperlipidemia Son Justen Other (dvt) Son Justen Hyperlipidemia Son Tolu Other (dvt) Son Tolu Hyperlipidemia Son Kyle Heart disease Son Kyle Past Medical History Past Medical History: Diagnosis Date Depression Edema Fibromyalgia Gastroparesis 07/30/2023 GERD (gastroesophageal reflux disease) History of breast cancer radiation [id number] Hyperlipidemia Hypertension Hypothyroidism IBS (irritable bowel syndrome) 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 Moderate persistent asthma without complication Obstructive sleep apnea of adult 11/24/2022 PAD (peripheral artery disease) (HCC) Rheumatoid arthritis(714.0) TIA (transient ischemic attack) Past Surgical History Past Surgical History: Procedure Laterality Date ARTHROPLASTY KNEE TOTAL Right knee, 2019 ARTHROSCOPY OF JOINT Right 08/07/2018 knee CARPAL TUNNEL SURGERY bilateral COLONOSCOPY, DIAGNOSTIC (RECTUM) 10/21/2018 diverticulosis, fair prep/COLONOSCOPY FLEXIBLE PROXIMAL DIAGNOSTIC performed by Barbara Burk MD at [facility] COLONOSCOPY, DIAGNOSTIC (RECTUM) 10/17/2022 diverticulosis sigmoid and ascending colon/internal hemorrhoids/biopsies show hyperplastic polyps/recall 5 years/COLONOSCOPY FLEXIBLE PROXIMAL DIAGNOSTIC performed by Florencio Potts [facility] EGD, FLEXIBLE, DIAGNOSTIC 10/17/2022 hiatal hernia/biopsies normal/ESOPHAGOGASTRODUODENOSCOPY (EGD), FLEXIBLE, TRANSORAL, DIAGNOSTIC performed by Florencio Potts MD at [facility] LEG/ANKLE SURGERY NEC left ankle after surgery x 2 PELVIC FLOOR DEFECT RPR,MESH,EACH N/A 12/22/2014 INSERTION OF MESH FOR REPAIR PELVIC FLOOR DEFECT performed by Heri Cochran DO at OR [facility] REMOVAL OF APPENDIX REMOVE GALLBLADDER REPAIR OF VAGINAL PROLAPSE N/A 12/22/2014 COLPOPEXY VAGINAL EXTRA PERITONEAL APPROACH performed by Heri Cochran DO at OR [facility] REPAIR RECTUM & VAGINA, RECTOCELE N/A 12/22/2014 POSTERIOR COLPORRHAPHY performed by Heri Cochran DO at OR [facility] SHOULDER ARTHROSCOPY SURGERY both shoulders x 2 TOTAL ABD HYSTERECTOMY W/WO REMOVAL OF TUBE(S) 1973 Current outpatient prescriptions Current Outpatient Medications Medication Sig Dispense Refill Vitamin D 125 MCG (5000 UT) Oral Capsule Take 125 mcg by mouth daily. 90 Capsule 1 Metamucil 28.3 % Oral Powder (Psyllium) 1 tablespoon daily 538 g 1 Vitamin B Complex Oral Tablet Take 1 Tablet by mouth in the morning. OneTouch Verio In Vitro Strip (Glucose Blood) Use to test sugars once daily - E11.9 100 Strip 11 OneTouch Delica Lancets 33G Use to test sugars once daily - E11.9 100 Each 3 Ondansetron HCl 4 MG Oral Tablet Take 1 Tablet by mouth every 6 hours as needed for Nausea. 30 Tablet 1 Prochlorperazine Maleate 5 MG Oral Tablet (Compazine) Take 1 Tablet by mouth every 8 hours as needed for Nausea. 30 Tablet 0 Semaglutide (2 MG/DOSE) 8 MG/3ML Subcutaneous Solution Pen-injector (Ozempic) INJECT 2 MG UNDER THESKIN ONCE A WEEK, (Patient taking differently: INJECT 2 MG UNDER THE SKIN ONCE A WEEK on Tuesdays) 12 mL 3 Vitamin C 1000 MG Oral Tablet Take [...] Refill not due yet. 200 Tablet 3 Prolia 60 MG/ML Subcutaneous Solution Prefilled Syringe INJECT 60 MG (1 SYRINGE) UNDER THE SKIN ONCE FOR 1 DOSE 1 mL 1 Levocetirizine Dihydrochloride 5 MG Oral Tablet TAKE ONE TABLET BY MOUTH EVERY DAY 100 Tablet 3 Clopidogrel Bisulfate 75 MG Oral Tablet (pLAVix) TAKE ONE TABLET BY MOUTH EVERY DAY 100 Tablet 3 Atorvastatin Calcium 40 MG Oral Tablet (Lipitor) TAKE ONE TABLET BY MOUTH EVERY DAY 100 Tablet 1 Trospium Chloride ER 60 MG Oral Capsule [...] mouth in the afternoon. 180 Capsule 1 Levothyroxine Sodium 25 MCG [...] 5 Breztri Aerosphere 160-9-4.8 MCG/ACT Inhalation Aerosol (Ppclzpz-Azhthoojzoa-Lrvjhntdje) INHALE TWOPUFFS BY MOUTH TWICE A DAY [...] 1 Tablet before bedtime. 60 Tablet 0 Current Facility-Administered Medications Medication Dose Route Frequency Provider Last Rate Last Admin Albuterol Sulfate (Proventil) (2.5 MG/3ML) 0.083% inhalation solution 2.5 mg 2.5 mg Nebulizer PRN Mamadou Cross MD 2.5 mg at 03/14/24 0808 Albuterol Sulfate (Proventil) (5 MG/ML) 0.5% *conc* inhalation solution 2.5 mg 2.5 mg Nebulizer Mamadou Alvarez MD Allergies: Allergies as of 01/28/2025 (No Known Allergies) REVIEW OF SYSTEMS - ROS EXAM: As per HPI, otherwise negative EXAMINATION There were no vitals taken for this visit. Constitutional: alert, healthy, well nourished Head: normocephalic, atraumatic Eyes: conjunctiva non-injected, sclera white Neck: supple, no adenopathy Lungs: clear to auscultation, breath sounds are equal and symmetric Heart: regular rate & rhythm and no murmur, gallops or rubs Abdomen: soft, non-tender Back: normal curvature, normal ROM, no CVA tenderness Extremities: no edema, no skin discoloration Neuro: alert, gait normal, motor normal Skin: no obvious rashes or significant lesions BREAST EXAMINATION Right Breast: No evidence of mass, skin retraction, nipple inversion, Pagets, peau d'orange, arm edema, nipple discharge, palpable axillary adenopathy, or palpable supraclavicular adenopathy. There is a surgical scar. Left Breast: No evidence of mass, skin retraction, nipple inversion, Pagets, peau d'orange, arm edema, nipple discharge, palpable axillary adenopathy, or palpable supraclavicular adenopathy. There are no surgical scars. IMPRESSION: Clinical Stage 0 (Tis) carcinoma of the left upper outer breast. She also has a atypical papilloma in the central inner portion of the left breast. Options for management were discussed with the patient and her family. I reviewed the existing data noting the equivalency of breast conserving surgery with radiation therapy vs. mastectomy. We also reviewed the guidelines of the National [employer] Cancer Network for Stage 0 breast carcinoma. We discussed the results of the MRI, as well as the implications of the 2nd mass. She indicates that she would like to have both breasts removed. She does not want undergo further biopsy procedure. She states that her anxiety is such, given her prior history of breast cancer as well as her mother'shistory of breast cancer, that she will not be satisfied or able to relax until all of the breast tissue was removed. I made sure to discuss with her the fact that contralateral prophylactic mastectomy does not improve her survival over single side mastectomy. She is aware of this and still would like to proceed with bilateral mastectomy. She is not interested in any reconstructive options. After further discussion about the risks and benefits of mastectomy, consent has been obtained for bilateral simple mastectomy. We will not need to sample the sentinel node in this procedure. She will be set up for the hospital. She will need to be off her Plavix for 7 days prior to the surgery. All her questions were answered and she is agreeable to proceed. We will schedule this the earliest convenience. I spent a total of 30-39 minutes (exact time 35 mins) on the date of service in preparation, delivery, and documentation of the care provided to Cleo Garcia excluding any time spent in the performance of separately billed services or time spent by another provider/QHP. Heri Ko MD 01/15/2025 4:17 PM documented in this encounter Nursing Notes * Esperanza Hurtado LPN - 01/28/2025 12:15 PM EDT Patient is scheduled for surgery on TBS with Dr Heri Ko at [facility] Patient has been instructed to wash with chlorhexidine soap the night before and morning of surgery. Patient has been instructed that they may have clear liquids up until 2 hours before their arrival time. N/a Patient is aware that they need the following Preadmission testing. EKG and labs Patient is aware that they need a stock driver to take them home after surgery. Patient is aware that they must hold the following medication prior to surgery. Will talk to pre anesthesia * Collette Alva LPN - 01/28/2025 11:14 AM EDT Pt presents in office for follow up of Left breast cancer C/o- wants bilateral mastectomy documented in this encounter Plan of Treatment Upcoming Encounters Date Type Department Care Team (Late st Contact Info) Description 02/16/2025 7:20 AM EDT Office Visit [facility], Operating Room, [facility] [address] [facility], [place] [address] Heri Ko MD [address] [place] [address] 03/04/2025 11:45 AM EDT Office Visit General Surgery, [facility] [address] [place] [phone] Heri Ko MD [address] [place] [address] 03/06/2025 10:00 AM EDT Office Visit Gastroenterology, [facility] [address] [place] [phone] Winter Kraus CRNP [address] [place], [place] [address] 03/10/2025 3:30 PM EDT Office Visit Rheumatology [facility] [address] [place], [place] [address] Susan Faith CRNP [address] [place] [address] 04/20/2025 2:00 PM EDT Pharmacy Family Practice [address] [place] [address] 293 [place] [address] College, Pharmacist [address] [place] [address] 04/20/2025 2:20 PM EDT Office Visit Family Practice 65 [facility] 293 [place] [address] Andrea Reyes, 293 [place] [address] 11/27/2025 1:10 PM EST Office Visit Dermatology [facility] [address] [place] [address] Sheba Huerta PA-C [address] [place] [address] Scheduled Orders Name Type Priority Associated Diagnoses Orde r Schedule EKG EKG Routine Pre-op examination Expected: 01/28/2025 (Approximate), Expi res: 02/27/2026 Scheduled Procedures Name Priority Associated Diagnoses Date/Ti [...] D LEVEL ONCE IN A LIFETIME-USE SMARTSET# 80184 Completed 12/11/2023, 10/22/2023, 10/13/2022, Additional history exists [...] this encounter Medical Devices Implanted Type Area Terminal Makeup Operator Device Identifier Shelf Expiration Date Model / Serial / Lot Sling Elevate Post/Apical - [id number] Implanted:Qty: 1 on 12/22/2014 by Heri Cochran DO at OR [facility] [place] N/A: Vaginal Vault two.42.solutions [facility] 05/04/2017 [id number] / / [id number] documented as of this encounter Results * CBC (01/28/2025 12:35 PM EDT) [facility] WBC 5.56 4.00 - 10.80 K/uL 01/28/2025 12:49 PM EDT [facility] RBC 4.37 3.85 - 5.15 M/uL 01/28/2025 12:49 PM EDT [facility] HGB 12.8 12.0 - 15.3 g/dL 01/28/2025 12:49 PM EDT [facility] HCT 40.0 36.0 - 45.2 % 01/28/2025 12:49 PM EDT [facility] MCV 91.5 81.5 - 97.5 fL 01/28/2025 12:49 PM EDT [facility] MCH 29.3 27.0 - 34.0 pg 01/28/2025 12:49 PM EDT [facility] MCHC 32.0 32.0 - 36.0 g/dL 01/28/2025 12:49 PM EDT [facility] RDW 13.8 11.5 - 15.5 % 01/28/2025 12:49 PM EDT [facility] PLT 213 140 - 400 K/uL 01/28/2025 12:49 PM EDT [facility] MPV 9.1 6.6 - 11.1 fL 01/28/2025 12:49 PM EDT [facility] Blood Venous blood specimen / Unknown Venipuncture / Unknown 01/28/2025 12:35 PM EDT 01/28/2025 12:35 PM EDT Heri Ko MD LAB BLOOD ORDERABLES Fi nal Result [facility] [place] [address] documented in this encounter Visit Diagnoses Diagnosis Pre-op examination- Primary Preoperative examination, unspecified Pre-operative examination Preoperative examination, unspecified Ductal carcinoma in situ (DCIS) of left breast documented in this encounter Advance Directives * Full Code (Latest Code Status on File) Date Activated Date Inactivated Comments 12/22/2014 10:37 AM 12/23/2014 2:42 PM This order reflects the patients wishes and were consensually agreed upon. * Full Code Date Activated Date Inactivated Comments 12/22/2014 7:46 AM 12/22/2014 10:37 AM This order reflects the patients wishes and were consensually agreed upon. Care Teams Display Designer Relationship Specialty Start Date End Date Andrea Reyes DO [address] [facility] [address] PCP - General Internal Medicine 03/28/24 documented as of this encounter
--- OUTSIDE RECORDS SUMMARY | 2025-02-16 08:44 | External Medical Summary ---
Author Name Unknown Address Unknown Organization K0G:[facility]10 - [address] [place] [address] Laboratory Report Ordering Provider Test Date Status NICOLE SALGADO 01/28/2025 12:35:43 Final Observation Date Value Abnormality Reference (Units ) Status BUN 01/28/2025 12:35:43 14 6-20 (mg/dL) Final Creatinine 01/28/2025 12:35:43 0.9 0.5-1.0 (mg/dL) Final Glomerular filtration rate/1.73 sq M.predicted [Volume Rate/Area] in Serum, Plasma or Blood by Creatinine-based formula (CKD-EPI) 01/28/2025 12:35:43 65 >=60 (mL/min) Final eGFR is calculated based on the CKD-EPI 2020 equation. Sodium 01/28/2025 12:35:43 141 135-146 (m mol/L) Final Potassium 01/28/2025 12:35:43 4.3 3.5-5.1 (m mol/L) Final Cl 01/28/2025 12:35:43 103 98-107 (mm ol/L) Final CO2 01/28/2025 12:35:43 27 22-32 (mmo l/L) Final Anion gap 01/28/2025 12:35:43 11 7-15 (mmol /L) Final Glucose 01/28/2025 12:35:43 94 70-120 (mg /dL) Final Albumin 01/28/2025 12:35:43 4.5 3.8-5.0 (g /dL) Final AST (Aspartate aminotransferase) 01/28/2025 12:35:43 20 10-35 (U/L) Final Alk Phos 01/28/2025 12:35:43 59 35-130 (U/ L) Final Bilirubin, Total 01/28/2025 12:35:43 0.3 <=1 .2 (mg/dL) Final Calcium 01/28/2025 12:35:43 10.2 8.4-10.2 ( mg/dL) Final Protein 01/28/2025 12:35:43 6.7 6.0-8.3 (g /dL) Final ALT (Alanine aminotransferase) 01/28/2025 12:35:43 19 10-35 (U/L) Final Performing Location [facility] - [address] [place] [address]
--- OUTSIDE RECORDS SUMMARY | 2025-02-16 08:44 | External Medical Summary ---
Author Name Unknown Address Unknown Organization K01:LABORATORY C - [address] [place] [address] Laboratory Report Ordering Provider Test Date Status NICOLE SALGADO 01/28/2025 12:35:43 Final Observation Date Value Abnormality Reference (Units ) Status Magnesium 01/28/2025 12:35:43 2.0 1.5-2.6 (m g/dL) Final Performing Location LAB[facility]ATORY [facility] - [address] [place] [address]
--- OUTSIDE RECORDS SUMMARY | 2025-02-16 08:44 | External Medical Summary | Summary of Care ---
Author Name Unknown Organization [facility] Address [address] [place] [address] Phone [phone] Care Team Providers Care Estate Planning Attorney Name Role Phone Andrea Reyes DO Primary Care Provider [phone] Reason for Visit * Reason Onset Date Comments FYI 01/23/2025 Plavix Encounter Details Date Type Department Care Team ([facility] st Contact Info) Description 01/23/2025 Telephone Access Center, [address] *DO NOT REMOVE THIS DEPARTMENT* [place] [address] Services, Scheduling [address] [place] [address] FYI (Plavix) Allergies No known active allergiesdocumented as of this encounter (statuses as of 01/26/2025) Medications Vitamin D 125 MCG (5000 UT) [...] OR OTHER MEDICATIONS 100 Tablet 3 5 9:19 AM EST 10/21/19 25 Active Montelukast Sodium 10 MG [...] as of this encounter (statuses as of 01/26/2025) Active Problems Problem Noted Date Diagnosed Date [...] as of this encounter (statuses as of 01/26/2025) Resolved Problems Problem Noted Date Diagnosed Date [...] as of this encounter (statuses as of 01/26/2025) Immunizations Name Administration Dates Next Due COVID-19 mRNA, LNP-s, No Pre serve, 2-Dose Series ([employer]) 08/30/2021,12/22/2020,12/01/2020 Covid-19, Mrna, Lnp-s, Pf, B ivalent, [...] encounter Miscellaneous Notes * Telephone Encounter - Marlee Marrero LPN - 01/26/2025 11:44 AM EDT Patient is aware and will comply. Thank you * Telephone Encounter - Andrea Reyes DO - 01/26/2025 11:41 AM EDT Make sure celebrex is held for 1 week as well. * Telephone Encounter - Marlee Marrero LPN - 01/26/2025 11:34 AM EDT Scheduled Sunday for follow up with Dr Ko. Biopsy is scheduled 02/10. Please review recent MRI she has had since visit with you. Advised to hold the plavix one week prior to biopsy. Thank you * Telephone Encounter - Andrea Reyes DO - 01/26/2025 11:26 AM EDT Stop Plavix and celebrex 1 week prior to breast biopsy. * Telephone Encounter - Jennifer Sousa OSA - 01/26/2025 10:42 AM EDT Patient is scheduled and aware of 02/10 MRI guided breast biopsy. She states she is on PLAVIX. Please contact patient with any instructions. Thank you * Telephone Encounter - Dinah Tracey OSA - 01/23/2025 3:51 PM EDT Please reach out to schedule mri breast guided BX documented in this encounter Plan of Treatment Upcoming Encounters Date Type Department Care Team (Late st Contact Info) Description 01/28/2025 11:15 AM EDT Office Visit General Surgery, [facility] [address] [place] [address] Heri Ko MD [address] [place] [address] 02/10/2025 1:30 PM EDT Imaging Radiology [address] 132 [place] [address] 02/10/2025 1:45 PM EDT Imaging Radiology [address] [facility] [place] [address] 03/06/2025 10:00 AM EDT Office Visit Gastroenterology, [facility] 132 [place] [address] Winter Kraus CRNP [facility] [place] [address] 03/10/2025 3:30 PM EDT Office Visit Rheumatology [facility] [address] [facility] [place] [phone] Susan Faith CRNP [address] [place] [address], [place] [address] 04/20/2025 2:00 PM EDT Pharmacy Family Practice 65 [facility] 293 [place] [address] College, Pharmacist [address] [place] [address] 04/20/2025 2:20 PM EDT Office Visit Family Practice [address] [place] [address] 293 [place] [address] Andrea Reyes, DO 293 [place] [address] 11/27/2025 1:10 PM EST Office Visit Dermatology [facility] [address] [place] [address] Sheba Huerta PA-C [address] [facility] [address] Scheduled Procedures Name Priority Associated Diagnoses Date/Ti me COLONOSCOPY FLEXIBLE PROXIMA L DIAGNOSTIC Recall Family history of colon cancer History of colonic polyps Health Maintenance Due Date Last Done Comments COVID-19 Vaccine ( season) 2024 11/24/2022, 08/30/2021, 12/22/2020, Additional history exists Albumin/Creatinine Ratio 12/11/2024 12/11/2023, 07/16 Adult Wellness Visit 12/20/2024 12/21/2023, 12/19/19 23 Diabetic Foot Exam 04/01/2025 04/01/2024, 02/05/2023 GFR 04/01/2025 04/01/2024, 11/16, 10/22/2023, Additional history exists Diabetic Eye Exam 04/14/2025 04/14/2024, , 02/05/2023, Additional history exists DXA Scan 06/11/2025 06/11/2023, 05/16, 12/14/2020, Additional history exists HbA1c 06/19/2025 12/17/2024, 10/2023, 04/14/2024, Additional history exists TSH 08/15/2025 08/15/2024, 10/2023, 07/30/2023, Additional history exists Depression Screening 01/19/2026 01/19/2025 Colonoscopy 10/17/2027 10/17/2022, 12/2022, 10/21/2018, Additional history exists DTap/Tdap Vaccines (2 - Td or Tdap) 11/07/2028 11/07/2018, 10/18/2012 Pneumococcal Vaccine: 50+ Years Completed 10/03/2016, 12/12/2013 RETIRED - COLONOSCOPY-EVERY 5 YRS AGES 18-100 Discontinued 10/17/2022, 10/17/2022, 10/21/2018, Additional history exists Zoster Vaccines Completed 02/05/2023, 11/15, 08/24/2013 VITAMIN D LEVEL ONCE IN A LIFETIME-USE SMARTSET# [id number] Completed 12/11/2023, 10/22/2023, 10/13/2022, Additional history exists [...] this encounter Medical Devices Implanted Type Area Burr Bench Operator Device Identifier Shelf Expiration Date Model / Serial / Lot Sling Elevate Post/Apical - [id number] Implanted:Qty: 1 on 12/22/2014 by Heri Cochran DO [place] [facility] [place]A: Vaginal Vault [email or web address] 05/04/2017 [id number] / / [id number] documented as of this encounter Advance Directives [...] and were consensually agreed upon. Care Teams Estate Planning Attorney Relationship Specialty Start Date End Date Andrea Reyes DO [address] [place] [address] PCP - General Internal Medicine 03/28/24 documented as of this encounter
--- OUTSIDE RECORDS SUMMARY | 2025-02-16 08:44 | External Medical Summary | Summary of Care ---
Author Name Unknown Organization [facility] Address [address] [place] [place] [address] Phone [phone] Care Team Providers Care Office Admin Name Role Phone Andrea Reyes DO Primary Care Provider [phone] Reason for Visit * Reason Onset Date Comments Follow Up 01/28/2025 Encounter Details Date Type Department Care Team ([facility] st Contact Info) Description 01/28/2025 Telephone General Surgery, [facility] [address] [place] [address] Heri Ko MD [address] [place] [address] Follow Up Allergies No known active allergiesdocumented as of [...] mRNA, LNP-s, No Pre serve, 2-Dose Series ([employer]) 08/30/2021,12/22/2020,12/01/2020 Covid-19, Mrna, Lnp-s, Pf, B ivalent, 30 Mcg, IM, 12 yrs and above ([employer]oda) 11/24/2022 PPD 01/20/2014 Pneumococcal Conjugate Vacc, 13 [...] encounter Miscellaneous Notes * Telephone Encounter - Esperanza Hurtado LPN - 01/28/2025 4:01 PM EDT Can you look at EKG to see if she needs pre op clearance for EKG * Telephone Encounter - Martine Richmond RN - 01/28/2025 2:47 PM EDT once the EKG has been confirmed, the ordering provider will need to look at it and determine if thepatient needs further follow up with cardiology. * Telephone Encounter - Esperanza Hrutado LPN - 01/28/2025 2:06 PM EDT Abnormal EKG documented in this encounter Plan of Treatment Upcoming Encounters Date Type Department Care Team (Late st Contact Info) Description 02/16/2025 7:20 AM EDT Office Visit [facility], Operating Room, [facility] [address] [facility] [address] Heri Ko MD [address] [place] [address] 03/04/2025 11:45 AM EDT Office Visit General Surgery, [facility] [address] [place] [phone] Heri Ko MD [address] [place] [address] 03/06/2025 10:00 AM EDT Office Visit Gastroenterology, [facility] [address] [place] [phone] Winter Kraus CRNP [address] [place] [address] 03/10/2025 3:30 PM EDT Office Visit Rheumatology [facility] [address] [place] [address] Susan Faith CRNP [address] [place] [address] 04/20/2025 2:00 PM EDT Pharmacy Family Practice 65 [facility] 293 [facility] [address] College, Pharmacist [address] [place] [address], [place] [address] 04/20/2025 2:20 PM EDT Office Visit Family Practice [address] [place] 293 [place] [address] Andrea Reyes, 293 [place] [address] 11/27/2025 1:10 PM EST Office Visit Dermatology [place] [place] [address] [place] [address] Sheba Huerta PA-C [address] [place] [address] Scheduled Procedures Name Priority Associated Diagnoses Date/Ti [...] D LEVEL ONCE IN A LIFETIME-USE SMARTSET# [id number] Completed 12/11/2023, 10/22/2023, 10/13/2022, Additional history exists [...] this encounter Medical Devices Implanted Type Area Inside Sales Manager Device Identifier Shelf Expiration Date Model / Serial / Lot Sling Elevate Post/Apical - [id number] Implanted:Qty: 1 on 12/22/2014 by Heri Cochran DO [place] [facility] [place]/A: Vaginal Vault [employer] 05/04/2017 [id number] / / [id number] documented as of this encounter Advance Directives [...] and were consensually agreed upon. Care Teams Office Admin Relationship Specialty Start Date End Date Andrea Reyes DO [address] [place] [address] PCP - General Internal Medicine 03/28/24 documented as of this encounter
--- OUTSIDE RECORDS SUMMARY | 2025-02-16 08:44 | External Medical Summary | Summary of Care ---
Author Name Unknown Organization [facility] Address [address] [place] [address] Phone [phone] Care Team Providers Care E Business Consultant Name Role Phone Andrea Reyes DO Primary Care Provider [phone] Reason for Visit * Reason Comments Outpatient Testing Encounter Details Date Type Department Care Team (Late st Contact Info) Description 01/28/2025 12:40 PM EDT Laboratory Laboratory, [facility] [address] [place] [address] [facility] [address] [place] [address] [employer] Other*[id number]; Encounter for long-term (current) use of medications; HTN, goal below 140/80; History of TIA (transient ischemic attack); DM type 2 with diabetic peripheral neuropathy (HCC); Dyslipidemia, goal LDL below 70; Pre-operative examination Allergies No known active allergiesdocumented as of this encounter (statuses as of 01/28/2025) Medications Vitamin D 125 MCG (5000 UT) [...] s:DM type 2, goal HbA1c < 8% ([facility]) INJECT 2 MG UNDER THE SKIN ONCE [...] as of this encounter (statuses as of 01/28/2025) Active Problems Problem Noted Date Diagnosed Date [...] as of this encounter (statuses as of 01/28/2025) Resolved Problems Problem Noted Date Diagnosed Date [...] as of this encounter (statuses as of 01/28/2025) Immunizations Name Administration Dates Next Due COVID-19 mRNA, LNP-s, No Pre serve, 2-Dose Series ([employer]) 08/30/2021,12/22/2020,12/01/2020 Covid-19, Mrna, Lnp-s, Pf, B ivalent, [...] AM EST documented as of this encounter Plan of Treatment Upcoming Encounters Date Type Department Care Team (Late st Contact Info) Description 02/16/2025 7:20 AM EDT Office Visit [facility], Operating Room, [place] [address] [address] [facility], [place] [address] Heri Ko MD 132 [place] [address] 03/04/2025 11:45 AM EDT Office Visit General Surgery, [facility] [place] [address] [place] [address] Heri Ko MD [address] [place] [address] 03/06/2025 10:00 AM EDT Office Visit Gastroenterology, [facility] [address] [place] [phone] Winter Kraus CRNP [address] [place] [address] 03/10/2025 3:30 PM EDT Office Visit Rheumatology [facility] [address] [place] [address] Susan Faith CRNP [address] [place] [address], [place] [address] 04/20/2025 2:00 PM EDT Pharmacy Family Practice 65 [facility] 293 [place] [address] College, Pharmacist [address] [place] [address] 04/20/2025 2:20 PM EDT Office Visit Family Practice 65 [facility] 293 [place] [address] Andrea Reyes, 293 [facility] [address] 11/27/2025 1:10 PM EST Office Visit Dermatology [facility] [place] [address] [facility] [place] [address] Sheba Huerta PA-C 9[address] [facility] [place] [address] Pending Results Name Type Priority Associated Diagnoses Date /Time MYCODE SUBSEQUENT ADULT Lab Routine MyCode Research Other*[id number] 01/28/2025 12:35 PM EDT MAGNESIUM Lab Routine HTN, goal below 140/80 History of TIA (transient ischemic attack) DM type 2 with diabetic peripheral neuropathy (HCC) Dyslipidemia, goal LDL below 70 01/28/2025 12:35 PM EDT MYCODE SST1 Lab Routine [employer] Other*[id number] 01/28/2025 12:35 PM EDT MYCODE SST2 Lab Routine [employer] Other*[id number] 01/28/2025 12:35 PM EDT Scheduled Procedures Name Priority Associated Diagnoses Date/Ti [...] D LEVEL ONCE IN A LIFETIME-USE SMARTSET# [id number] Completed 12/11/2023, 10/22/2023, 10/13/2022, Additional history exists [...] this encounter Medical Devices Implanted Type Area Regional Agronomist Device Identifier Shelf Expiration Date Model / Serial / Lot Sling Elevate Post/Apical - [id number] Implanted:Qty: 1 on 12/22/2014 [place] Heri Cochran DO [place] [facility] [place]A: Vaginal Vault [employer] 05/04/2017 [id number] / / [id number] documented as of this encounter Procedures Procedure Name Priority Date/Time Associated Diagnosis Comments COMPREHENSIVE METABOLIC PANEL Routine 01/28/2025 12:35 PM EDT HTN, goal below 140/80 History of TIA (transient ischemic attack) DM type 2 with diabetic peripheral neuropathy (HCC) Dyslipidemia, goal LDL below 70 CBC Routine 01/28/2025 12:35 PM EDT Pre-operative examination documented in this encounter Results * CBC (01/28/2025 12:35 PM EDT) WBC 5.56 4.00 - 10.80 K/uL 01/28/2025 12:49 PM EDT [facility] RBC 4.37 3.85 - 5.15 M/uL 01/28/2025 12:49 PM EDT [facility] HGB 12.8 12.0 - 15.3 g/dL [...] 36.0 g/dL 01/28/2025 12:49 PM EDT LAB[facility]ATORY [facility] 57-10 RDW 13.8 11.5 - 15.5 % 01/28/2025 12:49 PM EDT LAB[facility]ATORY [facility] 57-10 PLT 213 140 - 400 K/uL 01/28/2025 12:49 PM EDT [facility] MPV 9.1 6.6 - 11.1 fL 01/28/2025 12:49 PM EDT [facility]10 Blood Venous blood specimen / Unknown Venipuncture / Unknown 01/28/2025 12:35 PM EDT 01/28/2025 12:35 PM EDT us Heri Ko MD LAB BLOOD ORDERABLES Fi nal Result [facility]10 132 [facility] [place] [address] * COMPREHENSIVE METABOLIC PANEL (01/28/2025 12:35 PM EDT) [facility] BUN 14 6 - 20 mg/dL 01/28/2025 2:24 PM EDT [facility]10 CREATININE 0.9 0.5 - 1.0 mg/dL 01/28/2025 2:24 PM EDT [facility]10 EGFR 65 >=60 mL/min 01/28/2025 2:24 PM EDT [facility]10 Comment:eGFR is calculated b ased on the CKD-EPI 2020 equation. SODIUM 141 135 - 146 mmol/L 01/28/2025 2:24 PM EDT [facility]10 POTASSIUM 4.3 3.5 - 5.1 mmol/L 01/28/2025 2:24 PM EDT [facility]10 CHLORIDE 103 98 - 107 mmol/L 01/28/2025 2:24 PM EDT [facility]10 CO2 27 22 - 32 mmol/L 01/28/2025 2:24 PM EDT [facility]10 ANION GAP 11 7 - 15 mmol/L 01/28/2025 2:24 PM EDT [facility]10 GLUCOSE 94 70 - 120 mg/dL 01/28/2025 2:24 PM EDT [facility]10 Albumin 4.5 3.8 - 5.0 g/dL 01/28/2025 2:24 PM EDT [facility] AST 20 10 - 35 U/L 01/28/2025 2:24 PM EDT [facility]10 Alkaline Phosphatase 59 35 - 130 U/L 01/28/2025 2:24 PM EDT [facility] Bilirubin, Total 0.3 <=1.2 mg/dL 01/28/2025 2:24 PM EDT [facility]10 CALCIUM 10.2 8.4 - 10.2 mg/dL 01/28/2025 2:24 PM EDT [facility]10 Protein 6.7 6.0 - 8.3 g/dL 01/28/2025 2:24 PM EDT [facility] ALT 19 10 - 35 U/L 01/28/2025 2:24 PM EDT [facility] Blood Venous blood specimen / Unknown Venipuncture / Unknown 01/28/2025 12:35 PM EDT 01/28/2025 12:35 PM EDT us Effie Palacio [facility] LAB BLOOD ORDERABLES Anamaria kunz Result [facility] [place] [address] documented in this encounter Visit Diagnoses Diagnosis MyCode Research Other*[id number] Encounter for long-term (current) use of medications Encounter for long-term (current) use of other medications HTN, goal below 140/80 Unspecified essential hypertension History of TIA (transient ischemic attack) Transient ischemic attack (TIA), 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 * Full Code Date Activated Date Inactivated Comments 12/22/2014 7:46 AM 12/22/2014 10:37 AM This order reflects the patients wishes and were consensually agreed upon. Care Teams E Business Consultant Relationship Specialty Start Date End Date Andrea Reyes DO 293 [facility], [place] [address] PCP - General Internal Medicine 03/28/24 documented as of this encounter
--- OUTSIDE RECORDS SUMMARY | 2025-02-16 08:44 | External Medical Summary ---
Author Name Unknown Address Unknown Organization K01:LABORATORY [facility] [place] - [address] [place] [address] Laboratory Report Ordering Provider Test Date Status CHAITANYAARISTIDES 01/28/2025 12:35:43 Final Observation Date Value Abnormality Reference (Units ) Status MYCODE SPECIMEN-SST 01/28/2025 12:35:43 Freezing of extracted DNA, whole blood and/or serum. Final Performing Location LABORATORY C - [address] [place] [address]
--- OUTSIDE RECORDS SUMMARY | 2025-02-16 08:44 | External Medical Summary | Summary of Care ---
Author Name Unknown Organization [facility] Address [address] [place] [address] Phone [phone] Care Team Providers Care Deep Submergence Vehicle Operator Name Role Phone Sapna Reyes DO Primary Care Provider [phone] Reason for Visit * Reason Comments Medication Refill Encounter Details Date Type Department Care Team (Late st Contact Info) Description 02/03/2025 Refill Family Practice [address], [place] [address] [place] [address] Sapna Reyes DO [address] [place] [address] Primary hypertension; History of TIA (transient ischemic attack) Allergies No known active allergiesdocumented as of this encounter (statuses as of 02/04/2025) Medications Vitamin D 125 MCG (5000 UT) [...] DAY 100 Tablet 1 02/05/20 25 Active Atorvastatin Calcium 40 MG Oral Tablet (Lipitor)Indication s:Primary hypertension,Histor y of TIA (transient ischemic attack) TAKE ONE TABLET BY MOUTH EVERY DAY 100 Tablet 1 5 12:55 PM EST 07/23/20 24 025 Discontin ued(Refil l) Hospital, Clinic, [...] as of this encounter (statuses as of 02/04/2025) Active Problems Problem Noted Date Diagnosed Date [...] as of this encounter (statuses as of 02/04/2025) Resolved Problems Problem Noted Date Diagnosed Date [...] as of this encounter (statuses as of 02/04/2025) Immunizations Name Administration Dates Next Due COVID-19 mRNA, LNP-s, No Pre serve, 2-Dose Series (FlagTap) 08/30/2021,12/22/2020,12/01/2020 Covid-19, Mrna, Lnp-s, Pf, B ivalent, [...] money to buy more. Never true 08/15/20 Within the past 12 months, t he [...] encounter Miscellaneous Notes * Telephone Encounter - Cecilia Tracey [facility] - 02/04/2025 12:27 PM EDTSigned Prescriptions: Disp Refills Atorvastatin Calcium 40 MG Oral Tablet (Li*100 Ta*1 Sig: TAKE ONE TABLET BY MOUTH EVERY DAYAuthorizing Provider: SAPNA REYES User: CECILIA TRACEY------ documented in this encounter Plan of Treatment Upcoming Encounters Date Type Department Care Team (Late st Contact Info) Description 02/09/2025 8:00 AM EDT Office Visit Cardiology, [place] [address] [place] [address] Daphne Mcclure PA-C [address] [place] [address] 02/16/2025 7:20 AM EDT Office Visit [facility], Operating Room, [facility] [address] [place] [facility] [place] [address] Heri Ko MD [address] [place] [address] 02/16/2025 7:30 AM EDT Office Visit Non [facility], Operating Room, [facility] [address] [place] [address] Heri Ko MD [address] [place] [address] 03/04/2025 11:45 AM EDT Office Visit General Surgery, [facility] [address] [place] [phone] Heri Ko MD [address] [place] [address] 03/06/2025 10:00 AM EDT Office Visit Gastroenterology, [facility] [address] [place] [phone] Winter Kraus CRNP [address] [place] [address] 03/10/2025 3:30 PM EDT Office Visit Rheumatology [facility] [address] [place] [phone] Susan Faith CRNP [address] [place] [address] 04/20/2025 2:00 PM EDT Pharmacy Family Practice [address] [place] [address] 293 [place] [address] College, Pharmacist [address] [place] [address] 04/20/2025 2:20 PM EDT Office Visit Family Practice [address] [place] [address] 293 [place] [address] Sapna Reyes, [address] [place] [address] 11/27/2025 1:10 PM EST Office Visit Dermatology [facility] [place] [address] [place] [address] Sheba Huerta PA-C [address] [place] [address] Scheduled Procedures Name Priority Associated Diagnoses Date/Ti [...] D LEVEL ONCE IN A LIFETIME-USE SMARTSET# [id number] Completed 12/11/2023, 10/22/2023, 10/13/2022, Additional history exists [...] this encounter Medical Devices Implanted Type Area Business Support Manager Device Identifier Shelf Expiration Date Model / Serial / Lot Sling Elevate Post/Apical - [id number] Implanted:Qty: 1 on 12/22/2014 by Heri Cochran DO at OR [place] N/A: Vaginal Vault [employer] [facility] 05/04/2017 [id number] / / [id number] documented as of this encounter Visit Diagnoses Diagnosis Primary hypertension Unspecified essential hypertension History of TIA (transient [...] and were consensually agreed upon. Care Teams Deep Submergence Vehicle Operator Relationship Specialty Start Date End Date Sapna Reyes DO [address] [place] [address] PCP - General Internal Medicine 03/28/24 documented as of this encounter
--- OUTSIDE RECORDS SUMMARY | 2025-02-16 08:44 | External Medical Summary ---
Author Name Unknown Address Unknown Organization K01:LABORATORY [facility] [place] - [address] [place] [address] Laboratory Report Ordering Provider Test Date Status CHAITANYAARISTIDES 01/28/2025 12:35:43 Final Observation Date Value Abnormality Reference (Units ) Status MYCODE SPECIMEN-SST 01/28/2025 12:35:43 Freezing of extracted DNA, whole blood and/or serum. Final Performing Location LABORATORY C - [address] [place] [address]
--- OUTSIDE RECORDS SUMMARY | 2025-02-16 08:44 | External Medical Summary | Summary of Care ---
Author Name Unknown Organization [facility] Address [address] [place] [address] Phone [phone] Care Team Providers Care Genetic Physician Name Role Phone Andrea Reyes DO Primary Care Provider [phone] Reason for Visit * Reason Onset Date Comments FYI 01/23/2025 Plavix Encounter Details Date Type Department Care Team ([facility] st Contact Info) Description 01/23/2025 Telephone Access Center, [address] *DO NOT REMOVE THIS DEPARTMENT* [place] [address] Services, Scheduling [address] [place] [address] FYI (Plavix) Allergies No known active allergiesdocumented [...] mRNA, LNP-s, No Pre serve, 2-Dose Series (Blowtorch) 08/30/2021,12/22/2020,12/01/2020 Covid-19, Mrna, Lnp-s, Pf, B ivalent, [...] 11:15 AM EDT Office Visit General Surgery, [facility] [address] [place] [address] Heri Ko MD [address] [place] [address] 02/10/2025 1:30 PM EDT Imaging Radiology [address] [place] [address] 02/10/2025 1:45 PM EDT Imaging Radiology [address] 132 [facility] [place] [address] 03/06/2025 10:00 AM EDT Office Visit Gastroenterology, [facility] [address] [place] [phone] Winter Kraus CRNP [address] [facility] [place] [address] 03/10/2025 3:30 PM EDT Office Visit Rheumatology [facility] [address] [facility] [place] [phone] Susan Faith CRNP [address] [place] [address], [place] [address] 04/20/2025 2:00 PM EDT Pharmacy Family Practice 65 [facility] 293 [place] [address] College, Pharmacist [address] [place] [address] 04/20/2025 2:20 PM EDT Office Visit Family Practice [address] [place] [address] 293 [place] [phone] Andrea Reyes, DO 293 [place] [address] 11/27/2025 1:10 PM EST Office Visit Dermatology [facility] [address] [place] [address] Sheba Huerta PA-C [address] [facility] [place] [address] Scheduled Procedures Name Priority Associated Diagnoses Date/Ti [...] D LEVEL ONCE IN A LIFETIME-USE SMARTSET# [id number] Completed 12/11/2023, 10/22/2023, 10/13/2022, Additional history exists [...] this encounter Medical Devices Implanted Type Area Hammerer Tab Device Identifier Shelf Expiration Date Model / Serial / Lot Sling Elevate Post/Apical - [id number] Implanted:Qty: 1 on 12/22/2014 by Heri Cochran DO at [place] [facility] [place] N/A: Vaginal Vault [employer] 05/04/2017 [id number] / / [id number] documented as of this encounter Advance Directives [...] and were consensually agreed upon. Care Teams Genetic Physician Relationship Specialty Start Date End Date Andrea Reyes DO [address] [place] [address] PCP - General Internal Medicine 03/28/24 documented as of this encounter
[2025-02-16] MEDS: LACTATED RINGER'S 1,000 ML IV SCH (08:45)
--- OUTSIDE RECORDS SUMMARY | 2025-02-16 08:45 | External Medical Summary | Summary of Care ---
Author Name Unknown Organization [facility] Address [address] [place] [address] Phone [phone] Care Team Providers Care Banking Specialist Name Role Phone Andrea Reyes DO Primary Care Provider [phone] Reason for Visit * Reason Onset Date Comments FYI 01/23/2025 Plavix Encounter Details Date Type Department Care Team ([facility] st Contact Info) Description 01/23/2025 Telephone Access Center, [address] *DO NOT REMOVE THIS DEPARTMENT* [place] [address] Services, Scheduling [address] [place] [address] FYI (Plavix) Allergies No known active allergiesdocumented [...] mRNA, LNP-s, No Pre serve, 2-Dose Series ([email or web address]) 08/30/2021,12/22/2020,12/01/2020 Covid-19, Mrna, Lnp-s, Pf, B ivalent, [...] 11:15 AM EDT Office Visit General Surgery, [facility] [address] [place] [address] Heri Ko MD [address] [place] [address] 02/10/2025 1:30 PM EDT Imaging Radiology [address] [place] [address] 02/10/2025 1:45 PM EDT Imaging Radiology [address] 132 [facility] [place] [address] 03/06/2025 10:00 AM EDT Office Visit Gastroenterology, [facility] [address] [place] [phone] Winter Kraus CRNP [address] [facility] [place] [address] 03/10/2025 3:30 PM EDT Office Visit [facility]umatology [facility] [place] [phone] Susan Faith CRNP [address] [place] [address], [place] [address] 04/20/2025 2:00 PM EDT Pharmacy Family Practice 65 [facility] [address] [place] [phone] College, Pharmacist [address] [place] [address] 04/20/2025 2:20 PM EDT Office Visit Family Practice [address] [place] [address] [address] [place] [address] Andrea Reyes, DO 293 [facility] [place] [address] 11/27/2025 1:10 PM EST Office Visit Dermatology [facility] [address] [place] [address] Sheba Huerta PA-C [address] [place] [address] Scheduled Procedures Name Priority Associated Diagnoses Date/Ti [...] D LEVEL ONCE IN A LIFETIME-USE SMARTSET# [id number] Completed 12/11/2023, 10/22/2023, 10/13/2022, Additional history exists [...] this encounter Medical Devices Implanted Type Area Bias Cutting Machine Operator Vertical Device Identifier Shelf Expiration Date Model / Serial / Lot Sling Elevate Post/Apical - [id number] Implanted:Qty: 1 on 12/22/2014 [place] Co[place] [facility] [place] Vaginal Vault [employer] 05/04/2017 [id number] / / [id number] documented as of this encounter Advance Directives [...] and were consensually agreed upon. Care Teams Banking Specialist Relationship Specialty Start Date End Date Andrea Reyes DO [address] [place] [address] PCP - General Internal Medicine 03/28/24 documented as of this encounter
--- OUTSIDE RECORDS SUMMARY | 2025-02-16 08:45 | External Medical Summary | Summary of Care ---
Author Name Unknown Organization [facility] Address [address] [place] [address] Phone [phone] Care Team Providers Care Electrical Accessories Ii Assembler Name Role Phone Andrea Reyes DO Primary Care Provider [phone] Reason for Visit * Reason Comments Medication Refill Encounter Details Date Type Department Care Team (Late st Contact Info) Description 01/18/2025 Refill Rheumatology [facility] [address] [place] [address] Susan Zuniga, [facility] [place] [address] Allergies No known active allergiesdocumented as of this encounter (statuses as of 01/21/2025) Medications Vitamin D 125 MCG (5000 UT) [...] once daily - E11.9 100 Strip 11 023 Active OneTouch Delica Lancets 33G Use to [...] 12/22/19 24 10:40 AM EST 024 Active Semaglutide (2 MG/DOSE) 8 MG/3ML Subcutaneous Solution Pen-injector (Ozempic)Indicatio ns:DM type 2, goal HbA1c < 8% (HCC) INJECT 2 MG UNDER THE SKIN ONCE A WEEK, 12 mL 3 11/20/19 25 9:07 AM EST Active Additional Information Patient taking differently: INJECT [...] 03/05/20 24 6:25 AM EDT 024 Active Furosemide 20 MG Oral Tablet (Lasix)Indications :Chronic diastolic congestive heart failure (HCC) Take 1 Tablet by mouth in the morning and 1 Tablet in the evening. Dose adjustment. Refill not due yet. 200 Tablet 3 11/04/19 25 9:40 AM EST 024 Active Prolia 60 MG/ML Subcutaneous Solution Prefilled Syringe INJECT 60 MG (1 SYRINGE) UNDER THE SKIN ONCE FOR 1 DOSE 1 mL 1 07/16/20 24 12:13 PM EDT 024 2024 Active Levocetirizine Dihydrochloride 5 MG Oral Tablet TAKE ONE TABLET BY MOUTH EVERY DAY 100 Tablet 3 01/17/20 25 8:28 AM EDT 024 2024 Active Clopidogrel Bisulfate 75 MG Oral Tablet (pLAVix) TAKE ONE TABLET BY MOUTH EVERY DAY 100 Tablet 3 01/17/20 25 8:28 AM EDT 024 2024 Active Atorvastatin Calcium 40 MG Oral Tablet (Lipitor)Indicatio ns:Primary hypertension,Histo ry of TIA (transient ischemic attack) TAKE ONE TABLET BY MOUTH EVERY DAY 100 Tablet 1 11/03/19 25 12:55 PM EST 024 Active Trospium Chloride ER 60 MG Oral [...] skin once a week. 12 mL 1 01/06/20 25 3:19 PM EDT 024 Active Gabapentin 300 MG Oral Capsule (Neurontin) Take 1 Capsule by mouth in the morning and Take 1 capsule by mouth in the afternoon. 180 Capsule 1 12/11/19 25 6:32 PM EST 024 Active Levothyroxine Sodium 25 MCG Oral Tablet (Levoxyl)Indicatio ns:Primary hypertension,Histo ry of TIA (transient ischemic attack) TAKE 1 TABLET BY MOUTH DAILY AT LEAST 30 MINUTES PRIOR TO FIRST MEAL OF THE DAY OR OTHER MEDICATIONS 100 Tablet 3 10/24/19 25 9:19 AM EST 025 Active Montelukast Sodium 10 MG Oral Tablet (Singulair)Indicat ions:Primary hypertension,Histo ry of TIA (transient ischemic attack) TAKE ONE TABLET BY MOUTH EVERY DAY AT BEDTIME 90 Tablet 3 10/31/19 25 10:51 AM EST 025 2025 Active rOPINIRole HCl 0.5 MG [...] CAPSULE BY MOUTH DAILY. 100 Capsule 01/15/20 25 9:45 AM EDT 025 2025 Active Metoprolol Tartrate 50 MG Oral Tablet (Lopressor)Indicat ions:Primary hypertension,Histo ry of TIA (transient ischemic attack) TAKE ONE TABLET BY MOUTH EVERY DAY IN THE MORNING AND BEFORE BEDTIME 180 Tablet 01/17/20 25 10:48 AM EDT 025 2025 Active Spironolactone 25 MG Oral Tablet (Aldactone)Indicat ions:HTN, goal below 140/80,History of TIA (transient ischemic attack) Take one-half tablet by mouth in the morning. 15 Tablet 01/17/20 25 10:48 AM EDT 025 Active Celecoxib 200 MG Oral Capsule (CeleBREX) Take 1 Capsule by mouth in the morning. 90 Capsule 025 Active Celecoxib 200 MG Oral Capsule (CeleBREX) Take 1 Capsule by mouth in the morning. 90 Capsule 1 10/28/19 25 9:01 AM EST 024 2024 Discontinued(R efill) Doxycycline Hyclate 100 MG Oral Tablet Take 1 Tablet by mouth in the morning and 1 Tablet before bedtime. 14 Tablet 024 2024 Discontinued busPIRone HCl 5 MG Oral Tablet (Buspar) Take 1 Tablet by mouth 3 times a day as needed for Anxiety. 30 Tablet 025 2024 Discontinued(M edication/Dose Changed) Hospital, Clinic, or Other Facility Administered Medication [...] as of this encounter (statuses as of 01/21/2025) Active Problems Problem Noted Date Diagnosed Date [...] as of this encounter (statuses as of 01/21/2025) Resolved Problems Problem Noted Date Diagnosed Date [...] as of this encounter (statuses as of 01/21/2025) Immunizations Name Administration Dates Next Due COVID-19 mRNA, LNP-s, No Pre serve, 2-Dose Series (theAudience) 08/30/2021,12/22/2020,12/01/2020 Covid-19, Mrna, Lnp-s, Pf, B ivalent, [...] encounter Miscellaneous Notes * Telephone Encounter - Susan Zuniga CRNP - 01/20/2025 4:20 PM EDTSigned Prescriptions: Disp Refills Celecoxib 200 MG Oral Capsule (CeleBREX) 90 Cap*0 Sig: Take 1 Capsule by mouth in the morning. Authorizing Provider: SUSAN ZUNIGA * Telephone Encounter - Nikole Cotton, senior technologist - 01/20/2025 11:21 AM EDT Pending Prescriptions: Disp Refills Celecoxib 200 MG Oral Capsule (CeleBREX) 90 Cap*0 Sig: Take 1 Capsule by mouth in the morning. * Telephone Encounter - Nikole Cotton senior technologist - 01/20/2025 11:20 AM EDT Received message from [facility] regarding patient needing labs. Call Placed, Left message on voicemail advising of required labs Thank you for your assistance Nikole Cotton District [employer] Agent III [facility] ([facility]) 01/20/2025,11:20 AM * Telephone Encounter - Brian Schultz [facility] - 01/19/2025 11:41 AM EDT Pending Prescriptions: Disp Refills Celecoxib 200 MG Oral Capsule (CeleBREX) 90 Cap*0 Sig: Take 1 Capsule by mouth in the morning. * Telephone Encounter - Brian Schultz RP - 01/19/2025 11:39 AM EDT Rheumatology: Refill Request(s) Per review of the refill parameters, Medication was NOT refilled d/t following concern: Last labs completed greater than protocol allows. Last labs completed 12/11/23. Labs previously ordered. Upcoming appt 03/10/25 Please advise if you would like held until labs completed. Lab work previously ordered and pended 90 day supply. Please route back and will advise pt of labs if appropriate. [facility] Clinical [facility] Rheumatology Department 01/19/2025,11:39 AM * Telephone Encounter - Brian Schultz RPh - 01/19/2025 11:38 AM EDT Outbound Unable to authorize medication refills for pended medication(s) at this time. Per refill protocol patient should have AST/ALT on file within past year. Lab orders placed. Please contact patient to advise of labs ordered for blood draw. Fasting is not required. Advise toobtain labs before requesting the next refill. After contacting patient, please forward request to Susan Zuniga CRNP . Thanks, Brian Schultz, PharmD Clinical Pharmacist [facility] [phone] 01/19/2025, 11:41 AM * Telephone Encounter - Robby Quevedo - 01/18/2025 10:45 AM EDTPending Prescriptions: Disp Refills Celecoxib 200 MG Oral Capsule (CeleBREX) 90 Cap*1 Sig: Take 1 Capsule by mouth in the morning. * Telephone Encounter - Robby Quevedo - 01/18/2025 10:44 AM EDT Did you pend patient's preferred pharmacy and medication before forwarding?yes [facility]acy[id number] Pending Prescriptions: Disp Refills Celecoxib 200 MG Oral Capsule (CeleBREX) 90 Cap*1 Sig: Take 1 Capsule by mouth in the morning. Last Visit: Visit date not found (in office), Visit date not found (telemedicine) Next Visit: 03/10/2025 If no future appointments scheduled, and last appointment is greater than a year ago, please schedule patient for a follow-up appointment Last date the medication was ordered: 07/28/2024 Is this request for a controlled substance?No Urine Drug Screen:No results found. However, due to the size of the patient record, not all encounters were searched. Please check Results Review for a complete set of results. Patient Phone Numbers Labs: Lab Results Component Value Date/Time CREAT 0.9 04/01/2024 02:30 PM CREAT 0.8 05/04/2020 01:15 PM POTASSIUM 4.4 04/01/2024 02:30 PM POTASSIUM 4.7 09/30/2019 12:37 PM TSH 1.55 08/15/2024 04:23 PM LDL 50 08/15/2024 04:23 PM LDL UNINTERPRETABLE RESULT 05/30/2019 02:31 PM LDLCALC 61 03/24/2021 06:00 PM ALT 22 12/11/2023 09:48 AM ALT 40 (H) 05/04/2020 01:15 PM HGBA1C 5.1 12/17/2024 03:04 PM HGBA1C 5.6 12/19/2021 11:00 AM documented in this encounter Plan of Treatment Upcoming Encounters Date Type Department Care Team (Late st Contact Info) Description 01/28/2025 8:30 AM EDT Office Visit General Surgery, [facility] [address] [place] [phone] Heri Ko MD [address] [place] [address] 03/06/2025 10:00 AM EDT Office Visit Gastroenterology, [facility] [address] [place] [address] Winter Kraus CRNP [address] [place] [address] 03/10/2025 3:30 PM EDT Office Visit Rheumatology [facility] [address] [place] [phone] Susan Zuniga CRNP [address] [place] [address], [place] [id number] 04/20/2025 2:00 PM EDT Pharmacy Family Practice [address] [facility] 293 [place] [phone] College, Pharmacist [address] [place] [address] 04/20/2025 2:20 PM EDT Office Visit Family Practice 65 [facility] 293 [place] [phone] Andrea Reyes, 293 [facility] [place] [address] 11/27/2025 1:10 PM EST Office Visit Dermatology [facility] [address] [place] [address] Sheba Huerta PA-C [address] [place] [id number] Scheduled Procedures Name Priority Associated Diagnoses Date/Ti [...] 12/14/2020, Additional history exists HbA1c 06/19/2025 12/17/2024, 11/0 10/2023, 04/14/2024, Additional history exists TSH 08/15/2025 08/15/2024, 070 10/2023, 07/30/2023, Additional history exists Depression Screening 01/19/2026 01/19/2025 Colonoscopy 10/17/2027 10/17/2022, 0 12/2022, 10/21/2018, Additional history exists DTap/Tdap Vaccines (2 - Td or Tdap) 11/07/2028 11/07/2018, 10/18/2012 Pneumococcal Vaccine: 50+ Years Completed 10/03/2016, 12/12/2013 RETIRED - COLONOSCOPY-EVERY 5 YRS AGES 18-100 Discontinued 10/17/2022, 10/17/2022, 10/21/2018, Additional history exists Zoster Vaccines Completed 02/05/2023, 11/15, 08/24/2013 VITAMIN D LEVEL ONCE IN A LIFETIME-USE SMARTSET# [id number] Completed 12/11/2023, 10/22/2023, 10/13/2022, Additional history exists [...] this encounter Medical Devices Implanted Type Area Auto Radiator Specialist Device Identifier Shelf Expiration Date Model / Serial / Lot Sling Elevate Post/Apical - [id number] Implanted:Qty: 1 on 12/22/2014 by Heri Cochran DO at [place] [facility] [place] N/A: Vaginal Vault [employer] 05/04/2017 [id number] / / [id number] documented as of this encounter Advance Directives [...] and were consensually agreed upon. Care Teams Electrical Accessories Ii Assembler Relationship Specialty Start Date End Date Andrea Reyes DO [address] [place] [address] PCP - General Internal Medicine 03/28/24 documented as of this encounter
--- OUTSIDE RECORDS SUMMARY | 2025-02-16 08:45 | External Medical Summary | Summary of Care ---
Author Name Unknown Organization [facility] Address [address] [place] [address] Phone [phone] Care Team Providers Care Area Development Consultant Name Role Phone Andrea Reyes DO Primary Care Provider [phone] Reason for Visit * Reason Onset Date Comments FYI 01/23/2025 Plavix Encounter Details Date Type Department Care Team ([facility] st Contact Info) Description 01/23/2025 Telephone Access Center, [address] *DO NOT REMOVE THIS DEPARTMENT* [place] [address] Services, Scheduling [address] [place] [address] FYI (Plavix) Allergies No known active allergiesdocumented [...] mRNA, LNP-s, No Pre serve, 2-Dose Series (Zooplus) 08/30/2021,12/22/2020,12/01/2020 Covid-19, Mrna, Lnp-s, Pf, B ivalent, [...] 11:15 AM EDT Office Visit General Surgery, [facility] [address] [place] [address] Heri Ko MD [address] [place] [address] 02/10/2025 1:30 PM EDT Imaging Radiology [address] 132 [place] [address] 02/10/2025 1:45 PM EDT Imaging Radiology [address] 132 [facility] [address] 03/06/2025 10:00 AM EDT Office Visit Gastroenterology, [facility] [address] [place] [address] Winter Kraus CRNP 132 [facility] [address] 03/10/2025 3:30 PM EDT Office Visit Rheumatology [facility] [place] [phone] Susan Faith CRNP [address] [place] [address], [place] [address] 04/20/2025 2:00 PM EDT Pharmacy Family Practice 65 [facility] 293 [place] [address] College, Pharmacist [address] [place] [address] 04/20/2025 2:20 PM EDT Office Visit Family Practice [address] [place] [address] 293 [facility] [place] [address] Andrea Reyes, DO 293 [place] [address] 11/27/2025 1:10 PM EST Office Visit Dermatology [facility] [address] [place] [address] Sheba Huerta PA-C [address] [place] [address] Scheduled Procedures Name Priority Associated Diagnoses Date/Ti [...] D LEVEL ONCE IN A LIFETIME-USE SMARTSET# [id number] Completed 12/11/2023, 10/22/2023, 10/13/2022, Additional history exists [...] Serial / Lot Sling Elevate Post/Apical - [id number] Implanted:Qty: 1 on 12/22/2014 by Heri Cochran DO at OR [facility] N/A: Vaginal Vault [employer] 05/04/2017 [id number] / / [id number] documented as of this encounter Advance Directives [...] and were consensually agreed upon. Care Teams Area Development Consultant Relationship Specialty Start Date End Date Andrea Reyes DO [address] [place] [address] PCP - General Internal Medicine 03/28/24 documented as of this encounter
--- OUTSIDE RECORDS SUMMARY | 2025-02-16 08:45 | External Medical Summary | Summary of Care ---
Author Name Unknown Organization [facility] Address [address] [place] [address] Phone [phone] Care Team Providers Care Network Director Name Role Phone Andrea Reyes DO Primary Care Provider [phone] Reason for Visit * Reason Onset Date Comments FYI 01/23/2025 Plavix Encounter Details Date Type Department Care Team ([facility] st Contact Info) Description 01/23/2025 Telephone Access Center, [address] *DO NOT REMOVE THIS DEPARTMENT* [place] [address] Services, Scheduling [address] [place] [address] FYI (Plavix) Allergies No known active allergiesdocumented [...] mRNA, LNP-s, No Pre serve, 2-Dose Series (Remedify) 08/30/2021,12/22/2020,12/01/2020 Covid-19, Mrna, Lnp-s, Pf, B ivalent, [...] 11:15 AM EDT Office Visit General Surgery, [facility] [address] [place] [address] Heri Ko MD [address] [place] [address] 02/10/2025 1:30 PM EDT Imaging Radiology [address] 132 [place] [address] 02/10/2025 1:45 PM EDT Imaging Radiology [address] 132 [facility] [address] 03/06/2025 10:00 AM EDT Office Visit Gastroenterology, [facility] [address] [place] [address] Winter Kraus CRNP 132 [facility] [place] [address] 03/10/2025 3:30 PM EDT Office Visit Rheumatology [facility] [place] [phone] Susan Faith CRNP [address] [place] [address], [place] [address] 04/20/2025 2:00 PM EDT Pharmacy Family Practice 65 [facility] 293 [place] [address] College, Pharmacist [address] [place] [address] 04/20/2025 2:20 PM EDT Office Visit Family Practice [address] [place] [address] 293 [place] [address] Andrea Reyes, DO 293 [place] [address] 11/27/2025 1:10 PM EST Office Visit Dermatology [facility] [address] [place] [address] Sheba Huerta PA-C [address] [place] [address] Scheduled Procedures Name Priority Associated Diagnoses Date/Ti [...] D LEVEL ONCE IN A LIFETIME-USE SMARTSET# [id number] Completed 12/11/2023, 10/22/2023, 10/13/2022, Additional history exists [...] this encounter Medical Devices Implanted Type Area Cotton Converter Device Identifier Shelf Expiration Date Model / Serial / Lot Sling Elevate Post/Apical - [id number] Implanted:Qty: 1 on 12/22/2014 by Heri Cochran DO at [place] [facility] N/A: Vaginal Vault [employer] 05/04/2017 [id number] / / [id number] documented as of this encounter Advance Directives [...] and were consensually agreed upon. Care Teams Network Director Relationship Specialty Start Date End Date Andrea Reyes DO [address] [place] [address] PCP - General Internal Medicine 03/28/24 documented as of this encounter
--- OUTSIDE RECORDS SUMMARY | 2025-02-16 08:45 | External Medical Summary | Summary of Care ---
Author Name Unknown Organization [facility] Address [address] [place] [address] Phone [phone] Care Team Providers Care Last Putter Away Name Role Phone Andrea Reyes DO Primary Care Provider [phone] Reason for Visit * Reason Onset Date Comments Encounter Created in Error 01/23/2025 Encounter Details Date Type Department Care Team ([facility] st Contact Info) Description 01/19/2025 2:10 PM EDT Pharmacy Family Practice [address] [address] College, Pharmacist [address] [address] Encounter created in error Allergies No known active allergiesdocumented as of this encounter (statuses as of 01/23/2025) Medications Vitamin D 125 MCG (5000 UT) [...] DAY AT BEDTIME 90 Tablet 3 5 10:51 AM EST 10/27/19 25 026 Active rOPINIRole HCl 0.5 [...] mouth in the morning. 90 Capsule 1 5 9:01 AM EST 07/28/20 24 025 Discontin ued(Refil l) Hospital, Clinic, [...] as of this encounter (statuses as of 01/23/2025) Active Problems Problem Noted Date Diagnosed Date [...] as of this encounter (statuses as of 01/23/2025) Resolved Problems Problem Noted Date Diagnosed Date Resolved Date Polyneuropathy associated wi th underlying disease 12/11/2023 12/17/2024 Morbid obesity due to excess calories 12/11/2023 12/11/2023 Gastroparesis 07/30/2023 01/19/2025 Migraine, unspecified, witho ut mention of intractable migraine without mention of status migrainosus 11/09/2022 11/24/2022 Overview (01/14/2025): ICD-10 Update of Inactive Term Depression, unspecified 11/09/202211/153 Disorder of iron metabolism, unspecified 11/09/2022 04/11/2023 [...] as of this encounter (statuses as of 01/23/2025) Immunizations Name Administration Dates Next Due COVID-19 mRNA, LNP-s, No Pre serve, 2-Dose Series (CorkShare) 08/30/2021,12/22/2020,12/01/2020 Covid-19, Mrna, Lnp-s, Pf, B ivalent, [...] as of this encounter Progress Notes * Rayna Jalloh RPh - 01/23/2025 7:58 AM EDT Patient arrived late to visit and pharmacy was not able to see her 01/23/2025, 7:58 AM, Rayna Jalloh RPh documented in this encounter Plan of Treatment Upcoming Encounters Date Type Department Care Team (Late st Contact Info) Description 01/28/2025 8:30 AM EDT Office Visit General Surgery, [facility] [address] [place] [phone] Heri Ko MD 132 [place] [address] 03/06/2025 10:00 AM EDT Office Visit Gastroenterology, [facility] [address] [place] [phone] Winter Kraus CRNP [address] [place] [address] 03/10/2025 3:30 PM EDT Office Visit Rheumatology [facility] [address] [place] [address] Susan Faith CRNP [address] [place] [address] 04/20/2025 2:00 PM EDT Pharmacy Family Practice 65 [facility] 293 [place] [address] College, Pharmacist [address] [address] 04/20/2025 2:20 PM EDT Office Visit Family Practice 65 [facility] 293 [facility] [phone] Andrea Reyes, DO 293 [facility] [place] [address] 11/27/2025 1:10 PM EST Office Visit Dermatology [facility] [address] [place] [address] Sheba Huerta PA-C [address] [place] [address] Scheduled Procedures Name Priority Associated Diagnoses Date/Ti [...] D LEVEL ONCE IN A LIFETIME-USE SMARTSET# [id number] Completed 12/11/2023, 10/22/2023, 10/13/2022, Additional history exists [...] this encounter Medical Devices Implanted Type Area Accounting Manager Device Identifier Shelf Expiration Date Model / Serial / Lot Sling Elevate Post/Apical - [id number] Implanted:Qty: 1 on 12/22/2014 by Heri Cochran DO at [place] [facility] [place] N/A: Vaginal Vault [employer] 05/04/2017 [id number] / / [id number] documented as of this encounter Visit Diagnoses Diagnosis Encounter Created In Error- Primary documented in this encounter Advance Directives * Full Code (Latest Code Status on File) Date Activated Date Inactivated Comments 12/22/2014 10:37 AM 12/23/2014 2:42 PM This order reflects the patients wishes and were consensually agreed upon. * Full Code Date Activated Date Inactivated Comments 12/22/2014 7:46 AM 12/22/2014 10:37 AM This order reflects the patients wishes and were consensually agreed upon. Care Teams Last Putter Away Relationship Specialty Start Date End Date Andrea Reyes DO [address] [place] [address] PCP - General Internal Medicine 03/28/24 documented as of this encounter
--- OUTSIDE RECORDS SUMMARY | 2025-02-16 08:45 | External Medical Summary | Summary of Care ---
Author Name Unknown Organization [facility] Address [address] [place] [address] Phone [phone] Care Team Providers Care Hooker Up Name Role Phone Andrea Reyes DO Primary Care Provider [phone] Reason for Visit * Reason Onset Date Comments FYI 01/23/2025 Plavix Encounter Details Date Type Department Care Team ([facility] st Contact Info) Description 01/23/2025 Telephone Access Center, [address] *DO NOT REMOVE THIS DEPARTMENT* [place] [address] Services, Scheduling [address] [place] [address] FYI (Plavix) Allergies No known active allergiesdocumented [...] mRNA, LNP-s, No Pre serve, 2-Dose Series (UpNext) 08/30/2021,12/22/2020,12/01/2020 Covid-19, Mrna, Lnp-s, Pf, B ivalent, [...] 11:15 AM EDT Office Visit General Surgery, [facility] [address] [place] [address] Heri Ko MD [address] [place] [address] 02/10/2025 1:30 PM EDT Imaging Radiology [address] [place] [address] 02/10/2025 1:45 PM EDT Imaging Radiology [address] 132 [facility] [address] 03/06/2025 10:00 AM EDT Office Visit Gastroenterology, [facility] [address] [place] [address] Winter Kraus CRNP 132 [facility] [place] [address] 03/10/2025 3:30 PM EDT Office Visit Rheumatology [facility] [place] [phone] Susan Faith CRNP [address] [place] [address], [place] [address] 04/20/2025 2:00 PM EDT Pharmacy Family Practice 65 [facility] 293 [facility] [place] [address] College, Pharmacist [address] [place] [address] 04/20/2025 2:20 PM EDT Office Visit Family Practice [address] [place] [address] 293 [facility] [place] [address] Andrea Reyes, DO 293 [place] [address] 11/27/2025 1:10 PM EST Office Visit Dermatology [facility] [address] [place] [address] Sheba Huerta PA-C [address] [facility] [place] [address] Scheduled Procedures Name Priority Associated Diagnoses Date/Ti [...] D LEVEL ONCE IN A LIFETIME-USE SMARTSET# 95080 Completed 12/11/2023, 10/22/2023, 10/13/2022, Additional history exists [...] this encounter Medical Devices Implanted Type Area Tube Winder Device Identifier Shelf Expiration Date Model / Serial / Lot Sling Elevate Post/Apical - [id number] Implanted:Qty: 1 on 12/22/2014 by Heri Cochran DO at OR [facility] [place] N/A: Vaginal Vault [employer] 05/04/2017 [id number] / / [id number] documented as of this encounter Advance Directives [...] and were consensually agreed upon. Care Teams Hooker Up Relationship Specialty Start Date End Date Andrea Reyes DO [address] [place] [address] PCP - General Internal Medicine 03/28/24 documented as of this encounter
--- OUTSIDE RECORDS SUMMARY | 2025-02-16 08:45 | External Medical Summary | Summary of Care ---
Author Name Unknown Organization [facility] Address [address] [place] [address] Phone [phone] Care Team Providers Care Wick Tender Name Role Phone Andrea Reyes DO Primary Care Provider [phone] Reason for Visit * Precert (Within 10 days (routine)) - Authorized Specialty Diagnoses / Procedures Referred By Contac t Referred To Contact Radiology Diagnoses Ductal carcinoma in situ (DCIS) of left breast Procedures MRI BREAST BILATERAL W WO CONTRAST Heri Ko MD [address] [place] [address] Phone: tel: fax: Referral ID Status Reason Start Date Expiration Date V isits Requested Visits Authorized [id number] Authorized 01/15/2025 [id number] Encounter Details Date Type Department Care Team (Late st Contact Info) Description 01/19/2025 12:00 PM EDT Imaging Radiology [address] [place] [phone] Abnormal MRI, breast*; Ductal carcinoma in situ (DCIS) of left [...] Tablet by mouth in the morning. Active OneTouch Verio In Vitro Strip (Glucose Blood) Use to test sugars once daily - E11.9 100 Strip 11 Active OneTouch Delica Lancets 33G Use to test sugars once daily - E11.9 100 Each 3 Active Ondansetron HCl 4 MG Oral TabletIndications: Nausea without vomiting Take 1 Tablet by mouth every 6 hours as needed for Nausea. 30 Tablet 1 05/16/20 23 6:13 AM EDT 023 Active Prochlorperazine Maleate 5 MG Oral Tablet (Compazine)Indicat ions:Viral gastroenteritis Take 1 Tablet by mouth every 8 hours as needed for Nausea. 30 Tablet 12/22/19 24 10:40 AM EST Active Semaglutide (2 MG/DOSE) 8 MG/3ML Subcutaneous Solution Pen-injector (Ozempic)Indicatio ns:DM type 2, goal HbA1c < 8% ([facility]) INJECT 2 MG UNDER THE SKIN ONCE [...] Tablet 3 11/04/19 25 9:40 AM EST Active Prolia 60 MG/ML Subcutaneous Solution Prefilled [...] by mouth at bedtime. 60 Tablet 5 Active Breztri Aerosphere 160-9-4.8 MCG/ACT Inhalation Aerosol (Budeson-Glycopyrr ol-Formoterol)Alem cations:Moderate persistent asthma without complication INHALE TWO PUFFS BY MOUTH TWICE A DAY 32.1 g 3 12/09/19 25 10:18 AM EST 025 2025 Active Gabapentin 600 MG Oral Tablet (Neurontin) Take 1 Tablet by mouth in the morning and 1 Tablet before bedtime. 180 Tablet 12/11/19 7:21 AM EST Active DULoxetine HCl 60 MG Oral Capsule [...] without complication 2.5 mg NEBULIZER PRN 02/11/2024 Acti ve Albuterol Sulfate (Proventil) (5 MG/ML) 0.5% *conc* inhalation solution 2.5 mgIndications:Moderate persistent asthma without complication 2.5 mg NEBULIZER PRN 02/11/2024 Acti ve sodium chloride 0.9 % flush/inj 50 mL 50 mL IV PUSH ONCE 01/19/2025 01/19/2025 Ended documented as of this encounter (statuses as [...] mRNA, LNP-s, No Pre serve, 2-Dose Series (Tinybeans) 08/30/2021,12/22/2020,12/01/2020 Covid-19, Mrna, Lnp-s, Pf, B ivalent, [...] Progress Notes * Heri Ko MD - 01/23/2025 12:11 PM EDT Called her to talk about the results of the MRI. The MRI demonstrates the 2 known findings on the left breast with an additional 5 mm mass in the retroareolar space on the left. Recommending MRI guided biopsy. After talking with her on the phone, she is leaning towards mastectomy. She is coming in for further discussion on Sunday01/28/2025. I have ordered the MRI guided biopsy to get her on the schedule. We will discuss this further on Sunday. If she elects to proceed with mastectomy, oly cancel the biopsy. documented in this encounter Plan of Treatment Upcoming Encounters Date Type Department Care Team (Late st Contact Info) Description 01/28/2025 11:15 AM EDT Office Visit General Surgery, [facility] [address] [place] [phone] Heri Ko MD [address] [place] [address] 03/06/2025 10:00 AM EDT Office Visit Gastroenterology, [facility] [address] [place] [address] Winter Kraus CRNP [address] [place] [address] 03/10/2025 3:30 PM EDT Office Visit Rheumatology [facility] [address] [place] [phone] Susan Faith CRNP 10[address] [facility], [place] [address] 04/20/2025 2:00 PM EDT Pharmacy Family Practice [address] [place] [address] 293 [place] [address] College, Pharmacist 65 [facility] 293 [place] [address] 04/20/2025 2:20 PM EDT Office Visit Family Practice [address] [facility] [place] 293 [place] [address] Andrea Reyes, 293 [facility] [address] 11/27/2025 1:10 PM EST Office Visit Dermatology [facility] [place] [address] [place] [address] Sheba Huerta PA-C [address] [place] [address] Scheduled Orders Name Type Priority Associated Diagnoses Orde r Schedule MRI GUIDED BREAST BX LEFT Medical Imaging Routine Ductal carcinoma in situ (DCIS) of left breast Abnormal MRI, breast Expected: 01/23/2025, Expires: 02/22/2026 Scheduled Procedures Name Priority Associated Diagnoses Date/Ti [...] D LEVEL ONCE IN A LIFETIME-USE SMARTSET# [id number] Completed 12/11/2023, 10/22/2023, 10/13/2022, Additional history exists [...] this encounter Medical Devices Implanted Type Area Emergency Department Aide Device Identifier Shelf Expiration Date Model / Serial / Lot Sling Elevate Post/Apical - [id number] Implanted:Qty: 1 on 12/22/2014 by Heri Cochran DO at OR [facility] N/A: Vaginal Vault [employer] 05/04/2017 [id number] / / [id number] documented as of this encounter Procedures Procedure Name Priority Date/Time Associated Diagnosis Comments MRI BREAST BILATERAL W WO CONTRAST Routine 01/19/2025 1:08 PM EDT Ductal carcinoma in situ (DCIS) of left breast documented in this encounter Results * (ABNORMAL) MRI BREAST BILATERAL W WO CONTRAST (01/19/2025 1:08 PM EDT) Anatomical Region Laterality Modality Breast Bilateral Magnetic Resonan ce Narrative 01/23/2025 11:20 AM EDT Exam MRI BREAST BILATERAL W WO CONTRAST performed on 01/19/25. History Ductal carcinoma in situ (dcis) of left breast Family medical history includes breast cancer in 2 relatives (sister (age of onset: 69), sister) and colon cancer in sister. Films Compared Multiple prior outside mammogram from [facility] to include left breast stereotactic guided core biopsy and left breast ultrasound guided core biopsy 01/02/2025. Technique Multiplanar pre-and post gadolinium enhanced MRI of the breasts. The exam was interpreted in conjunction with Joppel software with kinetic and morphologic analysis and [...] and sagittal image 128, series 18) non mass enhancement is seen in the upper-outer quadrant. A 1.6 x 0.6 x 1.0 cm (axial image 84, series 8 and sagittal image 124, series 18 heterogeneously enhancing mass is seen in the near central anterior depth at the site of biopsy proven intraductal papilloma with atypical adenosis. Susceptibility artifact related to tissue marker (indicative of ultrasound-guided core biopsy 01/02/2025 from outside facility) is seen in this region on axial image 84, series 5. A 4.4 x 4.8 x 4.9 [...] enhancement and post biopsy changes in the upper-outer quadrant at the site of biopsy proven [...] screening MRI as per patient's risk criteria. Heri Ko MD RAD MRI-MRA Final R esult documented in this encounter Visit Diagnoses Diagnosis Abnormal MRI, breast- Primary Other (abnormal) findings on radiological examination of breast Ductal carcinoma in situ (DCIS) of left breast documented in this encounter Administered Medications Inactive Administered Medications - up to 3 most recent administrations Medication Order MAR Action Action Date Dose Rate Site gadobutrol (Gadavist) inj 7 mL 7 mL, Intravenous, ONCE, On Sun01/19/25 at 1249, For 1 dose Given 01/19/2025 12:47 PM EDT 7 mL Antecubital Left sodium chloride 0.9 % flush/inj 50 mL 50 mL, IV Push, ONCE, On Sun01/19/25 at 1249, For 1 dose, Do not flush if lock, PICC, or central line not in place; IV infusing or unable to flush. Given 01/19/2025 12:49 PM EDT 50 mL Antecubital Left documented in this encounter Advance Directives * Full Code (Latest Code Status on File) Date Activated Date Inactivated Comments 12/22/2014 10:37 AM 12/23/2014 2:42 PM This order reflects the patients wishes and were consensually agreed upon. * Full Code Date Activated Date Inactivated Comments 12/22/2014 7:46 AM 12/22/2014 10:37 AM This order reflects the patients wishes and were consensually agreed upon. Care Teams Wick Tender Relationship Specialty Start Date End Date Andrea Reyes DO [address] [place] [address] PCP - General Internal Medicine 03/28/24 documented as of this encounter
--- OUTSIDE RECORDS SUMMARY | 2025-02-16 08:46 | External Medical Summary | Summary of Care ---
Author Name Unknown Organization [facility] Address [address] [place] [address] Phone [phone] Care Team Providers Care Machine Taper Name Role Phone Andrea Reyes DO Primary Care Provider [phone] Encounter Details Date Type Department Care Team (Latest Contact Info) Description 10/01/2023 2:00 PM EST - 10/01/2023 11:59 PM EST Hospital Encounter Radiology Film File [address] [place], [place] [id number] Discharge Disposition: Home - Self Care Allergies No known active allergiesdocumented as of this encounter (statuses as of 01/20/2025) Medications Vitamin D 125 MCG (5000 UT) Oral Capsule Take 125 mcg by mouth daily. 90 Capsule 1 2 Active Metamucil 28.3 % Oral Powder (Psyllium) 1 tablespoon daily 538 g 1 2 Active Vitamin B Complex Oral Tablet Take 1 Tablet by mouth in the morning. 3 Active OneTouch Verio In Vitro Strip (Glucose Blood) Use to test sugars once daily - E11.9 100 Strip 11 3 Active OneTouch Delica Lancets 33G Use to test sugars once daily - E11.9 100 Each 3 3 Active Ondansetron HCl 4 MG Oral TabletIndicatio ns:Nausea without vomiting Take 1 Tablet by mouth every 6 hours as needed for Nausea. 30 Tablet 1 05/16/2023 6:13 AM EDT 3 Active documented as of this encounter (statuses as of 01/20/2025) Active Problems Problem Noted Date Diagnosed Date [...] as of this encounter (statuses as of 01/20/2025) Resolved Problems Problem Noted Date Diagnosed Date Resolved Date Polyneuropathy associated wi th underlying disease 12/11/2023 12/17/2024 Morbid obesity due to excess calories 12/11/2023 12/11/2023 Gastroparesis 07/30/2023 01/19/2025 Migraine, unspecified, witho ut mention of intractable migraine without mention of status migrainosus 11/09/2022 11/24/2022 Overview (01/14/2025): ICD-10 Update of Inactive Term Depression, unspecified 11/09/2022 02 Disorder of iron metabolism, unspecified 11/09/2022 04/11/2023 [...] as of this encounter (statuses as of 01/20/2025) Immunizations Name Administration Dates Next Due COVID-19 mRNA, LNP-s, No Pre serve, 2-Dose Series ([employer]) 08/30/2021,12/22/2020,12/01/2020 Covid-19, Mrna, Lnp-s, Pf, B ivalent, 30 Mcg, IM, 12 yrs and above ([employer]ana) 11/24/2022 PPD 01/20/2014 Pneumococcal Conjugate Vacc, 13 Valent (Prevnar) 10/03/2016 Pneumococcal Polysaccharide PPV23 (Pneumovax) 12/12/2013 Seasonal Influenza Vac., MDV , IM, 0.5 mL (Fluzone) 07/20/2021,09/02/2019,08/15/2019,10/22,07/15/2018,07/31/2017,08/03/2016 ,08/06/2015,07/13/2014,07/24/2013 Seasonal Influenza Virus Vac cine, Unspecified Formulation 07/31/2017 Seasonal Influenza, Quadriva lent Hd (Fluzone Hd) [...] 8:30 AM EDT Office Visit General Surgery, [facility] [address] [phone] Heri Ko MD [address] [address] 03/06/2025 10:00 AM EDT Office Visit Gastroenterology, [facility] [address] [address] Winter Kraus CRNP [address] [address] 03/10/2025 3:30 PM EDT Office Visit Rheumatology [facility] [address] [place] [phone] Susan Faith CRNP [address] [place] [address] 04/20/2025 2:00 PM EDT Pharmacy Family Practice [address] [place] [address] 293 [place] [phone] College, Pharmacist [address] [place] [address] 04/20/2025 2:20 PM EDT Office Visit Family Practice [address] [place] [address] 293 [place] [address] Andrea Reyes, 293 [place] [address] 11/27/2025 1:10 PM EST Office Visit Dermatology [facility] [place] [address] [place] [address] Sheba Huerta PA-C [address] [place] [address] Scheduled Procedures Name Priority Associated Diagnoses Date/Ti [...] D LEVEL ONCE IN A LIFETIME-USE SMARTSET# [id number] Completed 12/11/2023, 10/22/2023, 10/13/2022, Additional history exists [...] this encounter Medical Devices Implanted Type Area Butane Compressor Operator Device Identifier Shelf Expiration Date Model / Serial / Lot Sling Elevate Post/Apical - [id number] Implanted:Qty: 1 on 12/22/2014 by Heri Cochran DO at OR [facility] N/A: Vaginal Vault [employer] 05/04/2017 [id number] documented as of this encounter Procedures Procedure Name Priority Date/Time Associated Diagnosis Comments RADIOLOGY EXAM - MAMMOGRAPHY (IMAGES ONLY, NO REPORT) Routine 10/01/2023 2:00 PM EST documented in this encounter Results * RADIOLOGY EXAM - MAMMOGRAPHY (IMAGES ONLY, NO REPORT) (10/01/2023 2:00 PM EST) 10/01/2023 1:58 PM EST Narrative Scheduling, Silent - 01/19/2025 12:21 PM EDT This is an imaging study not interpreted or resulted by a [facility] or [facility] contracted radiologist. us Heri Ko MD RAD MAMMOGRAPHY Final R esult documented in this encounter Advance Directives * Full Code (Latest Code Status on File) Date Activated Date Inactivated Comments 12/22/2014 10:37 AM 12/23/2014 2:42 PM This order reflects the patients wishes and were consensually agreed upon. * Full Code Date Activated Date Inactivated Comments 12/22/2014 7:46 AM 12/22/2014 10:37 AM This order reflects the patients wishes and were consensually agreed upon. Care Teams Machine Taper Relationship Specialty Start Date End Date Andrea Reyes DO PCP - General Internal Medicine 11/24/22 03/27/24 documented as of this encounter
--- OUTSIDE RECORDS SUMMARY | 2025-02-16 08:46 | External Medical Summary | Summary of Care ---
Author Name Unknown Organization [facility] Address [address] [place] [address] Phone [phone] Care Team Providers Care Carpenter Ship Name Role Phone Andrea Reyes DO Primary Care Provider [phone] Encounter Details Date Type Department Care Team (Latest Contact Info) Description 01/02/2025 10:15 AM EDT - 01/02/2025 10:29 AM EDT Hospital Encounter Radiology Film File [address] [place] [address] Discharge Disposition: Home - Self Care Allergies [...] 5 7:21 AM EST 12/08/19 25 Active Celecoxib 200 MG Oral Capsule [...] by PCP). Factor 5 Leiden mutation, heterozygous 2 Overview (11/09/2022): Anticoagulation contraindicated due to falls. [...] mRNA, LNP-s, No Pre serve, 2-Dose Series ([employer]) 08/30/2021,12/22/2020,12/01/2020 Covid-19, Mrna, Lnp-s, Pf, B ivalent, [...] 8:30 AM EDT Office Visit General Surgery, [facility] [address] [place] [phone] Heri Ko MD [address] [place] [address] 03/06/2025 10:00 AM EDT Office Visit Gastroenterology, [facility] [address] [place] [phone] Winter Kraus CRNP [address] [place] [address] 03/10/2025 3:30 PM EDT Office Visit Rheumatology [facility] [address] [place] [phone] Susan Faith CRNP [address] [facility], [place] [address] 04/20/2025 2:00 PM EDT Pharmacy Family Practice [address] [place] [address] 293 [facility], [place] [phone] College, Pharmacist [address] [place] [address], [place] [address] 04/20/2025 2:20 PM EDT Office Visit Family Practice [address] [place] [address] 293 [facility], [place] [phone] Andrea Reyes, 293 [facility], [place] [address] 11/27/2025 1:10 PM EST Office Visit Dermatology [facility] [place] [address] [place] [address] Sheba Huerta PA-C [address] [facility] [place] [address] Scheduled Procedures Name Priority Associated Diagnoses Date/Ti [...] 04/14/2024, Additional history exists TSH 08/15/2025 08/15/2024, 07/0 10/2023, 07/30/2023, Additional history exists Depression Screening 01/19/2026 01/19/2025 Colonoscopy 10/17/2027 10/17/2022, 12/2022, 10/21/2018, Additional history exists DTap/Tdap Vaccines (2 - Td or Tdap) 11/07/2028 11/07/2018, 10/18/2012 Pneumococcal Vaccine: 50+ Years Completed 10/03/2016, 12/12/2013 RETIRED - COLONOSCOPY-EVERY 5 YRS AGES 18-100 Discontinued 10/17/2022, 10/17/2022, 10/21/2018, Additional history exists Zoster Vaccines Completed 02/05/2023, 11/15, 08/24/2013 VITAMIN D LEVEL ONCE IN A LIFETIME-USE SMARTSET# [id number] Completed 12/11/2023, 10/22/2023, 10/13/2022, Additional history exists [...] this encounter Medical Devices Implanted Type Area Larder Cook Device Identifier Shelf Expiration Date Model / Serial / Lot Sling Elevate Post/Apical - [id number] Implanted:Qty: 1 on 12/22/2014 [place] [facility] [place] Vaginal Vault [employer] 05/04/2017 [id number] / / [id number] documented as of this encounter Procedures Procedure Name Priority Date/Time Associated Diagnosis Comments RADIOLOGY EXAM - MAMMOGRAPHY (IMAGES ONLY, NO REPORT) Routine 01/02/2025 10:15 AM EDT documented in this encounter Results * RADIOLOGY EXAM - MAMMOGRAPHY (IMAGES ONLY, NO REPORT) (01/02/2025 10:15 AM EDT) 01/02/2025 10:1 4 AM EDT Narrative Scheduling, Silent - 01/19/2025 12:21 PM EDT This is an imaging study not interpreted or resulted by a [facility] or [facility] contracted radiologist. Heri Ko MD RAD MAMMOGRAPHY Final R [...] and were consensually agreed upon. Care Teams Carpenter Ship Relationship Specialty Start Date End Date Andrea Reyes DO [address] [place] [address] PCP - General Internal Medicine 03/28/24 documented as of this encounter
--- OUTSIDE RECORDS SUMMARY | 2025-02-16 08:46 | External Medical Summary | Summary of Care ---
Author Name Unknown Organization [facility] Address [address] [place] [address] Phone [phone] Care Team Providers Care Shower Room Attendant Name Role Phone Conrad Gary MD Primary Care Provider Unav ailable Encounter Details Date Type Department Care Team (Latest Contact Info) Description 10/01/2020 10:25 AM EST - 10/01/2020 11:59 PM EST Hospital Encounter Radiology Film File [address] [place] [address] Discharge Disposition: Home - Self Care Allergies No known active allergiesdocumented as of this encounter (statuses as of 01/20/2025) Medications No known medicationsdocumented as of this encounter (statuses as of [...] 01/20/2025) Immunizations Name Administration Dates Next Due PPD 01/20/2014 Pneumococcal Conjugate Vacc, 13 Valent (Prevnar) 10/03/2016 Pneumococcal Polysaccharide PPV23 (Pneumovax) 12/12/2013 Seasonal Influenza Vac., MDV , IM, 0.5 mL (Fluzone) 09/02/2019,08/15/2019,10/22/2018,07/15,07/31/2017,08/03/2016,08/06/2015 ,07/13/2014,07/24/2013 Seasonal Influenza Virus Vac cine, Unspecified Formulation 07/31/2017 Seasonal Influenza, Recombin ant, RIV4, PF, (Flublock) 07/21/2020,09/02/2019,10/22/2018 Seasonal Influenza, Trivalen t, Adjuvanted, 65+ YRS, PF, (Fluad) 08/15/2019 TD, Preservative Free 10/18/2012 TDAP, Age 7 and older, IM (Adacel) 11/07/2018 Varicella Zoster Vaccine Santos lt (Zostavax) 08/24/2013 documented as of this encounter Social History Tobacco Use Types Packs/Day Years Used Date Smoking Tobacco: Never Smokeless Tobacco: Never Alcohol Use Standard Drinks/Week Comments No 0 (1 standard drink = 0.6 oz pur e alcohol) PHQ-2 Answer Date Recorded PHQ Adult Total [...] No 08/15/2024 Does the household have a [facility] hospit[facility] source of income? (Household - for [...] 8:30 AM EDT Office Visit General Surgery, [facility] [address] [place], [place] [phone] Heri Ko MD [address] [place] [address] 03/06/2025 10:00 AM EDT Office Visit Gastroenterology, [facility] [address] [place] [phone] Winter Kraus CRNP [address] [place] [address] 03/10/2025 3:30 PM EDT Office Visit Rheumatology [facility] [address] [place] [phone] Susan Faith CRNP [address] [place] [address] 04/20/2025 2:00 PM EDT Pharmacy Family Practice 65 [facility] 293 [place] [phone] College, Pharmacist [address] [place] [address] 04/20/2025 2:20 PM EDT Office Visit Family Practice 65 [facility] 293 [place] [address] Andrea Reyes, 293 [place] [address] 11/27/2025 1:10 PM EST Office Visit Dermatology [facility] [place] [address] [facility] [place] [address] Sheba Huerta PA-C [address] [facility] [place] [address] Scheduled Procedures Name Priority Associated Diagnoses Date/Ti [...] D LEVEL ONCE IN A LIFETIME-USE SMARTSET# [id number] Completed 12/11/2023, 10/22/2023, 10/13/2022, Additional history exists [...] this encounter Medical Devices Implanted Type Area Barker Peeler Device Identifier Shelf Expiration Date Model / Serial / Lot Sling Elevate Post/Apical - [id number] Implanted:Qty: 1 on 12/22/2014 [place] Heri [place]ran DO [place] [facility] [place] Vaginal Vault [employer] 05/04/2017 [id number] / / [id number] documented as of this encounter Procedures Procedure Name Priority Date/Time Associated Diagnosis Comments RADIOLOGY EXAM - MAMMOGRAPHY (IMAGES ONLY, NO REPORT) Routine 10/01/2020 10:25 AM EST documented in this encounter Results * RADIOLOGY EXAM - MAMMOGRAPHY (IMAGES ONLY, NO REPORT) (10/01/2020 10:25 AM EST) 10/01/2020 10:2 4 AM EST Narrative Scheduling, Silent - 01/19/2025 12:21 PM EDT This is an imaging study not interpreted or resulted by a [facility] or [facility] contracted radiologist. Heri Ko MD RAD MAMMOGRAPHY [...] and were consensually agreed upon. Care Teams Shower Room Attendant Relationship Specialty Start Date End Date Conrad Gary MD PCP - General Family Medicine 05/04/20 08/02/22 documented as of this encounter
--- OUTSIDE RECORDS SUMMARY | 2025-02-16 08:46 | External Medical Summary | Summary of Care ---
Author Name Unknown Organization [facility] Address [address] [place] [address] Phone [phone] Care Team Providers Care Chair Spring Assembler Name Role Phone Conrad Gary MD Primary Care Provider Unav ailable Encounter Details Date Type Department Care Team (Latest Contact Info) Description 10/03/2021 11:55 AM EST - 10/03/2021 11:59 PM EST Hospital Encounter Radiology Film File [address] [place] [address] Discharge Disposition: Home - Self [...] TIA (transient ischemic attack) 09/21 Overview (09/21/2022): 5/13/22 Vascular Note Remote hx TIA - felt [...] mRNA, LNP-s, No Pre serve, 2-Dose Series (Pfizer) 08/30/2021,12/22/2020,12/01/2020 PPD 01/20/2014 Pneumococcal Conjugate Vacc, 13 Valent [...] 8:30 AM EDT Office Visit General Surgery, [facility] [address] [place] [phone] Heri Ko MD [address] [place] [address] 03/06/2025 10:00 AM EDT Office Visit Gastroenterology, [facility] [address] [place] [phone] Winter Kraus CRNP [address] [place] [address] 03/10/2025 3:30 PM EDT Office Visit Rheumatology [facility] [address] [place] [address] Susan Faith CRNP [address] [place] [address] 04/20/2025 2:00 PM EDT Pharmacy Family Practice 65 [facility] 293 [place] [phone] College, Pharmacist [address] [place] [address] 04/20/2025 2:20 PM EDT Office Visit Family Practice 65 [facility] 293 [place] [phone] Andrea Reyes, 293 [facility] [place] [address] 11/27/2025 1:10 PM EST Office Visit Dermatology [facility], [address] [address] Sheba Huerta PA-C [address] [facility] [place] [address] Scheduled Procedures Name Priority Associated Diagnoses Date/Ti [...] 04/14/2024, Additional history exists TSH 08/15/2025 08/15/2024, 0710/2023, 07/30/2023, Additional history exists Depression Screening 01/19/2026 01/19/2025 Colonoscopy 10/17/2027 10/17/2022, 12/2022, 10/21/2018, Additional history exists DTap/Tdap Vaccines (2 - Td or Tdap) 11/07/2028 11/07/2018, 10/18/2012 Pneumococcal Vaccine: 50+ Years Completed 10/03/2016, 12/12/2013 RETIRED - COLONOSCOPY-EVERY 5 YRS AGES 18-100 Discontinued 10/17/2022, 10/17/2022, 10/21/2018, Additional history exists Zoster Vaccines Completed 02/05/2023, 11/15, 08/24/2013 VITAMIN D LEVEL ONCE IN A LIFETIME-USE SMARTSET# [id number] Completed 12/11/2023, 10/22/2023, 10/13/2022, Additional history exists [...] this encounter Medical Devices Implanted Type Area Mixing Plant Dumper Device Identifier Shelf Expiration Date Model / Serial / Lot Sling Elevate Post/Apical - [id number] Implanted:Qty: 1 on 12/22/2014 by Heri Cochran DO at [place] [facility] [place] N/A: Vaginal Vault [employer] 05/04/2017 [id number] / / [id number] documented as of this encounter Procedures Procedure Name Priority Date/Time Associated Diagnosis Comments RADIOLOGY EXAM - MAMMOGRAPHY (IMAGES ONLY, NO REPORT) Routine 10/03/2021 11:55 AM EST documented in this encounter Results * RADIOLOGY EXAM - MAMMOGRAPHY (IMAGES ONLY, NO REPORT) (10/03/2021 11:55 AM EST) 10/03/2021 11:5 2 AM EST Narrative Scheduling, Silent - 01/19/2025 12:22 PM EDT This is an imaging study not interpreted or resulted by a [facility] or [employer] contracted radiologist. Heri Ko MD RAD MAMMOGRAPHY [...] and were consensually agreed upon. Care Teams Chair Spring Assembler Relationship Specialty Start Date End Date Conrad Gary MD PCP - General Family Medicine 05/04/20 08/02/22 documented as of this encounter
--- OUTSIDE RECORDS SUMMARY | 2025-02-16 08:46 | External Medical Summary | Summary of Care ---
Author Name Unknown Organization [facility] Address [address] [place] [address] Phone [phone] Care Team Providers Care Clinical Trainer Name Role Phone Conrad Gary MD Primary Care Provider Unav ailable Encounter Details Date Type Department Care Team (Latest Contact Info) Description 04/18/2022 1:15 PM EDT - 04/18/2022 1:24 PM EDT Hospital Encounter Radiology Film File [address] [place] [address] Discharge Disposition: Home - Self Care Allergies No known active allergiesdocumented as of this encounter (statuses as of 01/20/2025) Medications Vitamin D 125 MCG (5000 UT) Oral Capsule Take 125 mcg by mouth daily. 90 Capsule 1 2 Active Metamucil 28.3 % Oral Powder (Psyllium) 1 tablespoon daily 538 g 1 2 Active documented as of this encounter (statuses [...] mRNA, LNP-s, No Pre serve, 2-Dose Series ([employer]) 08/30/2021,12/22/2020,12/01/2020 PPD 01/20/2014 Pneumococcal Conjugate Vacc, 13 [...] 8:30 AM EDT Office Visit General Surgery, [facility] [address] [place] [phone] Heri Ko MD [address] [place] [address] 03/06/2025 10:00 AM EDT Office Visit Gastroenterology, [facility] [address] [place] [phone] Winter Kraus CRNP [address] [place] [address] 03/10/2025 3:30 PM EDT Office Visit Rheumatology [facility] [address] [place] [phone] Susan Faith CRNP [facility], [place] [address] 04/20/2025 2:00 PM EDT Pharmacy Family Practice 65 [facility] 293 [place] [address] College, Pharmacist [address] [place] [address], [place] [address] 04/20/2025 2:20 PM EDT Office Visit Family Practice 65 [facility] [phone] Andrea Reyes, DO [address] [facility] [place] [address] 11/27/2025 1:10 PM EST Office Visit Dermatology [address], [place] [address] [place] [address] Sheba Huerta PA-C [address] [facility] [place] [address] Scheduled Procedures Name Priority Associated Diagnoses Date/Ti [...] D LEVEL ONCE IN A LIFETIME-USE SMARTSET# [id number] Completed 12/11/2023, 10/22/2023, 10/13/2022, Additional history exists [...] this encounter Medical Devices Implanted Type Area Or Nurse Manager Device Identifier Shelf Expiration Date Model / Serial / Lot Sling Elevate Post/Apical - [id number] Implanted:Qty: 1 on 12/22/2014 by Heri Cochran DO [place] [facility] [place]A: Vaginal Vault [employer] 05/04/2017 [id number] / / [id number] documented as of this encounter Procedures Procedure Name Priority Date/Time Associated Diagnosis Comments RADIOLOGY EXAM - MAMMOGRAPHY (IMAGES ONLY, NO REPORT) Routine 04/18/2022 1:15 PM EDT documented in this encounter Results * RADIOLOGY EXAM - MAMMOGRAPHY (IMAGES ONLY, NO REPORT) (04/18/2022 1:15 PM EDT) 04/18/2022 1:11 PM EDT Narrative Scheduling, Silent - 01/19/2025 12:21 PM EDT This is an imaging study not interpreted or resulted by a [facility] or [facility] contracted radiologist. Heri Ko MD RAD MAMMOGRAPHY [...] and were consensually agreed upon. Care Teams Clinical Trainer Relationship Specialty Start Date End Date Conrad Gary MD PCP - General Family Medicine 05/04/20 08/02/22 documented as of this encounter
--- OUTSIDE RECORDS SUMMARY | 2025-02-16 08:46 | External Medical Summary | Summary of Care ---
Author Name Unknown Organization [facility] Address [address] [place] [address] Phone [phone] Care Team Providers Care Brake Coupler Dinkey Name Role Phone Conrad Gary MD Primary Care Provider Unav ailable Encounter Details Date Type Department Care Team (Latest Contact Info) Description 09/08/2019 10:40 AM EST - 09/08/2019 11:59 PM EST Hospital Encounter Radiology Film File [address] [place] [address] Discharge Disposition: Home - Self [...] Seasonal Influenza, Recombin ant, RIV4, PF, (Flublock) 09/02/2019,10/22/2018 Seasonal Influenza, Trivalen t, Adjuvanted, 65+ YRS, [...] Orientation Straight 12/18/2022 11 :34 AM EST COVID-19 Exposure Response Date Recorded In the last month, have you been in contact with someone who was confirmed or suspected to have Coronavirus / COVID-19? No / Unsure 06/07/2020 11:34 AM EDT documented as of this encounter Plan of Treatment Upcoming Encounters Date Type Department Care Team (Late st Contact Info) Description 01/28/2025 8:30 AM EDT Office Visit General Surgery, [facility] [address] [place] [phone] Heri Ko MD [address] [place] [address] 03/06/2025 10:00 AM EDT Office Visit Gastroenterology, [facility] [address] [place] [phone] Winter Kraus CRNP [address] [place] [address] 03/10/2025 3:30 PM EDT Office Visit Rheumatology [facility] [address] [place] [phone] Susan Faith CRNP [address] [facility], [place] [address] 04/20/2025 2:00 PM EDT Pharmacy Family Practice [address] [place] [address] 293 [facility], [place] [phone] College, Pharmacist [address] [place] [address], [place] [address] 04/20/2025 2:20 PM EDT Office Visit Family Practice [address] [place] [address] 293 [facility] [place] [phone] Andrea Reyes, 293 [place] [address] 11/27/2025 1:10 PM EST Office Visit Dermatology [facility] [address] [place] [address] Sheba Huerta PA-C [address] [facility] [place] [address] Scheduled Procedures Name Priority Associated Diagnoses Date/Ti [...] Depression Screening 01/19/2026 01/19/2025 Colonoscopy 10/17/2027 10/17/2022, 0112/2022, 10/21/2018, Additional history exists DTap/Tdap Vaccines (2 - Td or Tdap) 11/07/2028 11/07/2018, 10/18/2012 Pneumococcal Vaccine: 50+ Years Completed 10/03/2016, 12/12/2013 RETIRED - COLONOSCOPY-EVERY 5 YRS AGES 18-100 Discontinued 10/17/2022, 10/17/2022, 10/21/2018, Additional history exists Zoster Vaccines Completed 02/05/2023, 11/15, 08/24/2013 VITAMIN D LEVEL ONCE IN A LIFETIME-USE SMARTSET# [id number] Completed 12/11/2023, 10/22/2023, 10/13/2022, Additional history exists [...] this encounter Medical Devices Implanted Type Area Strap Setter Device Identifier Shelf Expiration Date Model / Serial / Lot Sling Elevate Post/Apical - [id number] Implanted:Qty: 1 on 12/22/2014 [place] Heri Cochran[place] [facility] [place] Vaginal Vault [facility] 05/04/2017 [id number] / / [id number] documented as of this encounter Procedures Procedure Name Priority Date/Time Associated Diagnosis Comments RADIOLOGY EXAM - MAMMOGRAPHY (IMAGES ONLY, NO REPORT) Routine 09/08/2019 10:40 AM EST documented in this encounter Results * RADIOLOGY EXAM - MAMMOGRAPHY (IMAGES ONLY, NO REPORT) (09/08/2019 10:40 AM EST) 09/08/2019 10:3 6 AM EST Narrative Scheduling, Silent - 01/19/2025 12:21 PM EDT This is an imaging study not interpreted or resulted by a [facility] or [employer] contracted radiologist. us Heri Ko MD RAD [...] and were consensually agreed upon. Care Teams Brake Coupler Dinkey Relationship Specialty Start Date End Date Conrad Gary MD PCP - General Family Medicine 04/30/15 05/03/20 documented as of this encounter
--- OUTSIDE RECORDS SUMMARY | 2025-02-16 08:46 | External Medical Summary | Summary of Care ---
Author Name Unknown Organization [facility] Address [address] [place] [address] Phone [phone] Care Team Providers Care Historical Site Guide Name Role Phone Andrea Reyes DO Primary Care Provider [phone] Encounter Details Date Type Department Care Team (Latest Contact Info) Description 01/02/2025 10:30 AM EDT - 01/02/2025 11:59 PM EDT Hospital Encounter Radiology Film File [address] [place] [address] Discharge Disposition: Home - Self [...] mRNA, LNP-s, No Pre serve, 2-Dose Series (TSCA) 08/30/2021,12/22/2020,12/01/2020 Covid-19, Mrna, Lnp-s, Pf, B ivalent, [...] 8:30 AM EDT Office Visit General Surgery, [facility] [address] [place] [phone] Heri Ko MD [address] [place] [address] 03/06/2025 10:00 AM EDT Office Visit Gastroenterology, [facility] [address] [place] [phone] Winter Kraus CRNP [address] [facility] [place] [address] 03/10/2025 3:30 PM EDT Office Visit Rheumatology [facility] [address] [place] [phone] Susan Faith CRNP [address] [facility], [place] [address] 04/20/2025 2:00 PM EDT Pharmacy Family Practice [address] [place] [address] 293 [facility], [place] [phone] College, Pharmacist [address] [place] [address], [place] [address] 04/20/2025 2:20 PM EDT Office Visit Family Practice [address] [place] [address] 293 [facility], [place] [phone] Andrea Reyes, 293 [facility], [place] [address] 11/27/2025 1:10 PM EST Office Visit Dermatology [facility] [place] [address] [place] [address] Sheba Huerta PA-C [address] [facility] [place] [address] Scheduled Procedures Name Priority Associated Diagnoses Date/Ti [...] D LEVEL ONCE IN A LIFETIME-USE SMARTSET# [id number] Completed 12/11/2023, 10/22/2023, 10/13/2022, Additional history exists [...] this encounter Medical Devices Implanted Type Area Shore Hand Dredge Or Barge Device Identifier Shelf Expiration Date Model / Serial / Lot Sling Elevate Post/Apical - [id number] Implanted:Qty: 1 on 12/22/2014 by Heri Cochran DO [place] [facility] [place] Vaginal Vault [employer] 05/04/2017 [id number] / / [id number] documented as of this encounter Procedures Procedure Name Priority Date/Time Associated Diagnosis Comments RADIOLOGY EXAM - MAMMOGRAPHY (IMAGES ONLY, NO REPORT) Routine 01/02/2025 10:30 AM EDT documented in this encounter Results * RADIOLOGY EXAM - MAMMOGRAPHY (IMAGES ONLY, NO REPORT) (01/02/2025 10:30 AM EDT) 01/02/2025 10:2 7 AM EDT Narrative Scheduling, Silent - 01/19/2025 12:21 PM EDT This is an imaging study not interpreted or resulted by a [facility] or [facility] contracted radiologist. Heri Ko MD RAD MAMMOGRAPHY [...] and were consensually agreed upon. Care Teams Historical Site Guide Relationship Specialty Start Date End Date Andrea Reyes DO [address] [place] [address] PCP - General Internal Medicine 03/28/24 documented as of this encounter
--- OUTSIDE RECORDS SUMMARY | 2025-02-16 08:46 | External Medical Summary | Summary of Care ---
Author Name Unknown Organization [facility] Address [address] [place] [address] Phone [phone] Care Team Providers Care Building Services Engineer Name Role Phone Andrea Reyes DO Primary Care Provider [phone] Encounter Details Date Type Department Care Team (Latest Contact Info) Description 10/02/2024 3:05 PM EST - 10/02/2024 11:59 PM EST Hospital Encounter Radiology Film File [address] [place] [address] Discharge Disposition: Home - Self [...] 5 6:32 PM EST 09/17/20 24 Active Celecoxib 200 MG Oral Capsule (CeleBREX) [...] mRNA, LNP-s, No Pre serve, 2-Dose Series (IMRSV) 08/30/2021,12/22/2020,12/01/2020 Covid-19, Mrna, Lnp-s, Pf, B ivalent, [...] 8:30 AM EDT Office Visit General Surgery, [facility] [address] [place] [phone] Heri Ko MD [address] [place] [address] 03/06/2025 10:00 AM EDT Office Visit Gastroenterology, [facility] [address] [place] [phone] Winter Kraus CRNP [address] [place] [place] [address] 03/10/2025 3:30 PM EDT Office Visit Rheumatology [facility] [address] [place] [phone] Susan Faith CRNP [address] [place] [place] [address] 04/20/2025 2:00 PM EDT Pharmacy Family Practice [address] [place] [address] 293 [place] [place] [phone] College, Pharmacist [address] [place] [address] 04/20/2025 2:20 PM EDT Office Visit Family Practice 65 [facility] 293 [facility] [phone] Andrea Reyes, 293 [place] [address] 11/27/2025 1:10 PM EST Office Visit Dermatology [facility] [place] [address] [place] [address] Sheba Huerta PA-C [address] [place] [address] Scheduled Procedures Name Priority Associated Diagnoses Date/Ti [...] D LEVEL ONCE IN A LIFETIME-USE SMARTSET# [id number] Completed 12/11/2023, 10/22/2023, 10/13/2022, Additional history exists [...] this encounter Medical Devices Implanted Type Area Inspector Advanced Composite Device Identifier Shelf Expiration Date Model / Serial / Lot Sling Elevate Post/Apical - [id number] Implanted:Qty: 1 on 12/22/2014 by Heri Cochran DO at OR [facility] [place] N/A: Vaginal Vault [employer] 05/04/2017 [id number] / / [id number] documented as of this encounter Procedures Procedure Name Priority Date/Time Associated Diagnosis Comments RADIOLOGY EXAM - MAMMOGRAPHY (IMAGES ONLY, NO REPORT) Routine 10/02/2024 3:05 PM EST documented in this encounter Results * RADIOLOGY EXAM - MAMMOGRAPHY (IMAGES ONLY, NO REPORT) (10/02/2024 3:05 PM EST) 10/02/2024 3:01 PM EST Narrative Scheduling, Silent - 01/19/2025 12:21 PM EDT This is an imaging study not interpreted or resulted by a [employer] or [employer] contracted radiologist. us Heri Ko MD RAD [...] and were consensually agreed upon. Care Teams Building Services Engineer Relationship Specialty Start Date End Date Andrea Reyes DO [address] [place] [address] PCP - General Internal Medicine 03/28/24 documented as of this encounter
--- OUTSIDE RECORDS SUMMARY | 2025-02-16 08:46 | External Medical Summary | Summary of Care ---
Author Name Unknown Organization [facility] Address [address] [place] [address] Phone [phone] Care Team Providers Care Cable Mechanic Name Role Phone Conrad Gary MD Primary Care Provider Unav ailable Encounter Details Date Type Department Care Team (Latest Contact Info) Description 09/18/2018 8:30 AM EST - 09/18/2018 11:59 PM EST Hospital Encounter Radiology Film File [address] [place] [address] Discharge Disposition: Home - Self [...] Vac., MDV , IM, 0.5 mL (Fluzone) 07/15/2018,07/31/2017,08/03/2016,08/06,07/13/2014,07/24/2013 Seasonal Influenza Virus Vac cine, Unspecified Formulation 07/31/2017 TD, Preservative Free 10/18/2012 Varicella Zoster Vaccine Santos lt (Zostavax) 08/24/2013 [...] No 08/15/2024 Does the household have a [facility] source of income? (Household - for [...] 8:30 AM EDT Office Visit General Surgery, [facility] [address] [place] [address] Heri Ko MD [address] [place] [address] 03/06/2025 10:00 AM EDT Office Visit Gastroenterology, [facility] [address] [place] [phone] Winter Kraus CRNP [address] [place] [address] 03/10/2025 3:30 PM EDT Office Visit Rheumatology [facility] [address] [place] [phone] Susan Faith CRNP [address] [place] [address], [place] [address] 04/20/2025 2:00 PM EDT Pharmacy Family Practice [address] [place] [address] 293 [place] [phone] College, Pharmacist [address] [place] [address] 04/20/2025 2:20 PM EDT Office Visit Family Practice [address] [place] [address] 293 [place] [phone] Andrea Reyes, DO 293 [facility] [address] 11/27/2025 1:10 PM EST Office Visit Dermatology [facility] [address] [place] [address] Sheba Huerta PA-C [address] [facility] [place] [address] Scheduled Procedures Name Priority Associated Diagnoses Date/Ti [...] D LEVEL ONCE IN A LIFETIME-USE SMARTSET# [id number] Completed 12/11/2023, 10/22/2023, 10/13/2022, Additional history exists [...] this encounter Medical Devices Implanted Type Area Hvac Field Service Technician Device Identifier Shelf Expiration Date Model / Serial / Lot Sling Elevate Post/Apical - [id number] Implanted:Qty: 1 on 12/22/2014 by Heri Cochran, at [place] [facility] [place] N/A: Vaginal Vault [employer] 05/04/2017 [id number] / / [id number] documented as of this encounter Procedures Procedure Name Priority Date/Time Associated Diagnosis Comments RADIOLOGY EXAM - MAMMOGRAPHY (IMAGES ONLY, NO REPORT) Routine 09/18/2018 8:30 AM EST documented in this encounter Results * RADIOLOGY EXAM - MAMMOGRAPHY (IMAGES ONLY, NO REPORT) (09/18/2018 8:30 AM EST) 09/18/2018 8:30 AM EST Narrative Scheduling, Silent - 01/19/2025 12:22 PM EDT This is an imaging study not interpreted or resulted by a [facility] or [employer] contracted radiologist. Heri Ko MD RAD MAMMOGRAPHY [...] and were consensually agreed upon. Care Teams Cable Mechanic Relationship Specialty Start Date End Date Conrad Gary MD PCP - General Family Medicine 04/30/15 05/03/20 documented as of this encounter
--- OUTSIDE RECORDS SUMMARY | 2025-02-16 08:46 | External Medical Summary | Summary of Care ---
Author Name Unknown Organization [facility] Address [address] [place] [address] Phone [phone] Care Team Providers Care Assistant Teacher Name Role Phone Conrad Gary MD Primary Care Provider Unav ailable Encounter Details Date Type Department Care Team (Latest Contact Info) Description 04/18/2022 1:25 PM EDT - 04/18/2022 11:59 PM EDT Hospital Encounter Radiology Film File [address] [place] [address] Discharge Disposition: Home - Self [...] mRNA, LNP-s, No Pre serve, 2-Dose Series (UnboundID) 08/30/2021,12/22/2020,12/01/2020 PPD 01/20/2014 Pneumococcal Conjugate Vacc, 13 [...] 8:30 AM EDT Office Visit General Surgery, [facility] [address] [place] [phone] Heri Ko MD [address] [place] [address] 03/06/2025 10:00 AM EDT Office Visit Gastroenterology, [facility] [address] [place] [phone] Winter Kraus CRNP [address] [place] [address] 03/10/2025 3:30 PM EDT Office Visit Rheumatology [facility] [address] [place] [phone] Susan Faith CRNP [facility], [place] [address] 04/20/2025 2:00 PM EDT Pharmacy Family Practice 65 [facility] 293 [facility] [place] [address] College, Pharmacist [address] [place] [address], [place] [address] 04/20/2025 2:20 PM EDT Office Visit Family Practice 65 [facility] 293 [facility] [place] [phone] Andrea Reyes, DO 293 [facility] [address] 11/27/2025 1:10 PM EST Office Visit Dermatology [address], [place] [address] [place] [address] Sheba Huerta PA-C [address] [facility] [place] [address] Scheduled Procedures Name Priority Associated Diagnoses Date/Ti [...] D LEVEL ONCE IN A LIFETIME-USE SMARTSET# [id number] Completed 12/11/2023, 10/22/2023, 10/13/2022, Additional history exists [...] this encounter Medical Devices Implanted Type Area Hotbed Lever Operator Device Identifier Shelf Expiration Date Model / Serial / Lot Sling Elevate Post/Apical - [id number] Implanted:Qty: 1 on 12/22/2014 by Heri Cochran DO at [place] [facility] [place] N/A: Vaginal Vault [employer] 05/04/2017 [id number] / / [id number] documented as of this encounter Procedures Procedure Name Priority Date/Time Associated Diagnosis Comments RADIOLOGY EXAM - US (IMAGES ONLY, NO REPORT) Routine 04/18/2022 1:25 PM EDT documented in this encounter Results * RADIOLOGY EXAM - US (IMAGES ONLY, NO REPORT) (04/18/2022 1:25 PM EDT) 04/18/2022 1:22 PM EDT Narrative Scheduling, Silent - 01/19/2025 12:21 PM EDT This is an imaging study not interpreted or resulted by a [facility] or [facility] contracted radiologist. us Heri Ko MD RAD ULTRASOUND Final R esult documented in this encounter [...] and were consensually agreed upon. Care Teams Assistant Teacher Relationship Specialty Start Date End Date Conrad Gary MD PCP - General Family Medicine 05/04/20 08/02/22 documented as of this encounter
--- OUTSIDE RECORDS SUMMARY | 2025-02-16 08:47 | External Medical Summary | Summary of Care ---
Author Name Unknown Organization [facility] Address [address] [place] [address] Phone [phone] Care Team Providers Care Country Director Name Role Phone Andrea Reyes DO Primary Care Provider [phone] Encounter Details Date Type Department Care Team (Latest Contact Info) Description 12/23/2024 11:10 AM EDT - 12/23/2024 11:24 AM EDT Hospital Encounter Radiology Film File [address] [place] [address] Discharge Disposition: Home - Self [...] mRNA, LNP-s, No Pre serve, 2-Dose Series (curated.by) 08/30/2021,12/22/2020,12/01/2020 Covid-19, Mrna, Lnp-s, Pf, B ivalent, [...] 8:30 AM EDT Office Visit General Surgery, [facility] [address] [place] [phone] Heri Ko MD [address] [place] [address] 03/06/2025 10:00 AM EDT Office Visit Gastroenterology, [facility] [address] [place] [phone] Winter Kraus CRNP [address] [place] [address] 03/10/2025 3:30 PM EDT Office Visit Rheumatology [facility] [address] [place] [phone] Susan Faith CRNP [address] [facility], [place] [address] 04/20/2025 2:00 PM EDT Pharmacy Family Practice [address] [place] [address] 293 [facility], [place] [phone] College, Pharmacist [address] [place] [address], [place] [address] 04/20/2025 2:20 PM EDT Office Visit Family Practice [address] [place] [address] 293 [facility], [place] [phone] Andrea Reyes, 293 [facility], [place] [address] 11/27/2025 1:10 PM EST Office Visit Dermatology [facility] [place] [address] [place] [address] Sheba Huerta PA-C [address] [facility] [place] [address] Scheduled Procedures Name Priority Associated Diagnoses Date/Ti [...] D LEVEL ONCE IN A LIFETIME-USE SMARTSET# [id number] Completed 12/11/2023, 10/22/2023, 10/13/2022, Additional history exists [...] this encounter Medical Devices Implanted Type Area Roadmaster Device Identifier Shelf Expiration Date Model / Serial / Lot Sling Elevate Post/Apical - [id number] Implanted:Qty: 1 on 12/22/2014 [place] [facility] [place] Vaginal Vault [employer] 05/04/2017 [id number] / / [id number] documented as of this encounter Procedures Procedure Name Priority Date/Time Associated Diagnosis Comments RADIOLOGY EXAM - US (IMAGES ONLY, NO REPORT) Routine 12/23/2024 11:10 AM EDT documented in this encounter Results * RADIOLOGY EXAM - US (IMAGES ONLY, NO REPORT) (12/23/2024 11:10 AM EDT) 12/23/2024 11:0 8 AM EDT Narrative Scheduling, Silent - 01/19/2025 12:21 PM EDT This is an imaging study not interpreted or resulted by a [facility] or [facility] contracted radiologist. us Heri Ko MD RAD [...] and were consensually agreed upon. Care Teams Country Director Relationship Specialty Start Date End Date Andrea Reyes DO [address] [facility] [place] [address] PCP - General Internal Medicine 03/28/24 documented as of this encounter
--- OUTSIDE RECORDS SUMMARY | 2025-02-16 08:47 | External Medical Summary | Summary of Care ---
Author Name Unknown Organization [facility] Address [address] [place] [address] Phone [phone] Care Team Providers Care Lugger Name Role Phone Andrea Reyes DO Primary Care Provider [phone] Encounter Details Date Type Department Care Team (Latest Contact Info) Description 12/23/2024 11:25 AM EDT - 12/23/2024 11:59 PM EDT Hospital Encounter Radiology Film File [address] [place] [address] Discharge Disposition: Home - Self [...] mRNA, LNP-s, No Pre serve, 2-Dose Series ([email or web address]) 08/30/2021,12/22/2020,12/01/2020 Covid-19, Mrna, Lnp-s, Pf, B ivalent, [...] [facility] [address] [place] [phone] Heri Ko MD [address] [place] [address] 03/06/2025 10:00 AM EDT Office Visit Gastroenterology, [facility] [address] [place] [phone] Winter Kraus CRNP [address] [place] [address] 03/10/2025 3:30 PM EDT Office Visit Rheumatology [facility] [address] [place] [phone] Susan Faith CRNP [address] [facility], [place] [address] 04/20/2025 2:00 PM EDT Pharmacy Family Practice [address] [place] [address] 293 [facility], [place] [phone] College, Pharmacist [address] [place] [address], [place] [address] 04/20/2025 2:20 PM EDT Office Visit Family Practice [address] [place] [address] 293 [facility], [place] [phone] Andrea Reyes, 293 [facility], [place] [address] 11/27/2025 1:10 PM EST Office Visit Dermatology [facility] [place] [address] [place] [address] Sheba Huerta PA-C [address] [facility] [place] [address] Scheduled Procedures Name Priority Associated Diagnoses Date/Ti [...] D LEVEL ONCE IN A LIFETIME-USE SMARTSET# [id number] Completed 12/11/2023, 10/22/2023, 10/13/2022, Additional history exists [...] this encounter Medical Devices Implanted Type Area Cupola Man Device Identifier Shelf Expiration Date Model / Serial / Lot Sling Elevate Post/Apical - [id number] Implanted:Qty: 1 on 12/22/2014 by Heri Cochran DO [place] [facility] [place] Vaginal Vault [employer] 05/04/2017 [id number] / / [id number] documented as of this encounter Procedures Procedure Name Priority Date/Time Associated Diagnosis Comments RADIOLOGY EXAM - MAMMOGRAPHY (IMAGES ONLY, NO REPORT) Routine 12/23/2024 11:25 AM EDT documented in this encounter Results * RADIOLOGY EXAM - MAMMOGRAPHY (IMAGES ONLY, NO REPORT) (12/23/2024 11:25 AM EDT) 12/23/2024 11:2 2 AM EDT Narrative Scheduling, Silent - 01/19/2025 12:21 PM EDT This is an imaging study not interpreted or resulted by a [facility] or [employer] contracted radiologist. Heri Ko MD RAD MAMMOGRAPHY [...] and were consensually agreed upon. Care Teams Lugger Relationship Specialty Start Date End Date Andrea Reyes DO [address] [place] [address] PCP - General Internal Medicine 03/28/24 documented as of this encounter
--- OUTSIDE RECORDS SUMMARY | 2025-02-16 08:47 | External Medical Summary | Summary of Care ---
Author Name Unknown Organization [facility] Address [address] [facility] [place] [address] Phone [phone] Care Team Providers Care Biology Adjunct Instructor Name Role Phone Andrea Reyes DO Primary Care Provider [phone] Encounter Details Date Type Department Care Team (Late st Contact Info) Description 01/02/2025 Orders Only General Surgery, [facility] [address] [place] [phone] Heri Ko MD [address] [place] [address] Allergies No known active allergiesdocumented as of this encounter (statuses as of 01/19/2025) Medications Vitamin D 125 MCG (5000 UT) [...] ONCE A WEEK on Tuesdays, Reported on 01/15/2025 Vitamin C 1000 MG Oral Tablet Take [...] 11/03/19 25 12:55 PM EST 024 Active Celecoxib 200 MG Oral Capsule (CeleBREX) Take 1 Capsule by mouth in the morning. 90 Capsule 1 10/28/19 25 9:01 AM EST 024 Active Trospium Chloride ER 60 [...] 12/11/19 25 7:21 AM EST 025 Active Doxycycline Hyclate 100 MG Oral Tablet Take 1 Tablet by mouth in the morning and 1 Tablet before bedtime. 14 Tablet 024 2024 Discontinued Hospital, Clinic, or Other Facility Administered Medication [...] as of this encounter (statuses as of 01/19/2025) Active Problems Problem Noted Date Diagnosed Date [...] as of this encounter (statuses as of 01/19/2025) Resolved Problems Problem Noted Date Diagnosed Date [...] as of this encounter (statuses as of 01/19/2025) Immunizations Name Administration Dates Next Due COVID-19 mRNA, LNP-s, No Pre serve, 2-Dose Series (Pfizer) 08/30/2021,12/22/2020,12/01/2020 Covid-19, Mrna, Lnp-s, Pf, B ivalent, [...] 8:30 AM EDT Office Visit General Surgery, [facility] [address] [place] [phone] Heri Ko MD [address] [place] [address] 03/06/2025 10:00 AM EDT Office Visit Gastroenterology, [facility] [address] [place] [address] Winter Kraus CRNP [address] [place] [address] 03/10/2025 3:30 PM EDT Office Visit Rheumatology [facility] [address] [place] [phone] [facility] [address] [facility] [address] 04/20/2025 2:00 PM EDT Pharmacy Family Practice [address] [place] [address] [address] [place] [address] College, Pharmacist [address] [place], [place] [address] 04/20/2025 2:20 PM EDT Office Visit Family Practice [address], [place] 293 [place] [address] Andrea Reyes, 293 [place] [address] 11/27/2025 1:10 PM EST Office Visit Dermatology [facility] [place] [address] [place] [address] Sheba Huerta PA-C [address] [place] [address] Scheduled Procedures Name Priority Associated Diagnoses Date/Ti [...] D LEVEL ONCE IN A LIFETIME-USE SMARTSET# [id number] Completed 12/11/2023, 10/22/2023, 10/13/2022, Additional history exists [...] this encounter Medical Devices Implanted Type Area Traffic Enumerator Device Identifier Shelf Expiration Date Model / Serial / Lot Sling Elevate Post/Apical - [id number] Implanted:Qty: 1 on 12/22/2014 by Heri Cochran DO at OR [facility] N/A: Vaginal Vault [employer] 05/04/2017 [id number] / / [id number] documented as of this encounter Procedures Procedure Name Priority Date/Time Associated Diagnosis Comments RADIOLOGY EXAM - US (IMAGES ONLY, NO REPORT) Routine 01/02/2025 9:50 AM EDT documented in this encounter Results * RADIOLOGY EXAM - US (IMAGES ONLY, NO REPORT) (01/02/2025 9:50 AM EDT) 01/02/2025 9:47 AM EDT Narrative Scheduling, Silent - 01/19/2025 12:22 PM EDT This is an imaging study not interpreted or resulted by a [facility] or [facility] contracted radiologist. us Heri Ko MD RAD [...] and were consensually agreed upon. Care Teams Biology Adjunct Instructor Relationship Specialty Start Date End Date Andrea Reyes DO [address] [place] [address] PCP - General Internal Medicine 03/28/24 documented as of this encounter
--- OUTSIDE RECORDS SUMMARY | 2025-02-16 08:47 | External Medical Summary | Summary of Care ---
Author Name Unknown Organization [facility] Address [address] [facility] [place] [address] Phone [phone] Care Team Providers Care Assistant To The Ceo Name Role Phone Andrea Reyes DO Primary Care Provider [phone] Encounter Details Date Type Department Care Team (Late st Contact Info) Description 01/02/2025 Orders Only General Surgery, [facility] [address] [place] [address] Heri [...] 8:30 AM EDT Office Visit General Surgery, [facility] [address] [place] [phone] Heri Ko MD [address] [place] [address] 03/06/2025 10:00 AM EDT Office Visit Gastroenterology, [facility] [address] [place] [address] Winter Kraus CRNP [address] [place] [address] 03/10/2025 3:30 PM EDT Office Visit Rheumatology [facility] [address] [phone] [facility] [address] [facility] [address] 04/20/2025 2:00 PM EDT Pharmacy Family Practice [address] [place] [address] [address] [place] [address] College, Pharmacist [address] [place], [place] [address] [address] 04/20/2025 2:20 PM EDT Office Visit Family Practice [address], [place] 293 [place] [address] Andrea Reyes, 293 [place] [address] 11/27/2025 1:10 PM EST Office Visit Dermatology [facility] [place] [address] [place] [address] Sheba Huerta PA-C [address] [place] [address] Scheduled Procedures Name Priority Associated Diagnoses Date/Ti [...] D LEVEL ONCE IN A LIFETIME-USE SMARTSET# [id number] Completed 12/11/2023, 10/22/2023, 10/13/2022, Additional history exists [...] this encounter Medical Devices Implanted Type Area Mobility Scooter Repairer Device Identifier Shelf Expiration Date Model / Serial / Lot Sling Elevate Post/Apical - [id number] Implanted:Qty: 1 on 12/22/2014 [place] [facility] [place] Vaginal Vault [employer] 05/04/2017 [id number] / / [id number] documented as of this encounter Procedures Procedure [...] study not interpreted or resulted by a [facility] or [employer] contracted radiologist. us Heri Ko MD RAD [...] were consensually agreed upon. Care Teams Assistant To The Ceo Relationship Specialty Start Date End Date Andrea Reyes DO [address] [place] [address] PCP - General Internal Medicine 03/28/24 documented as of this encounter
--- OUTSIDE RECORDS SUMMARY | 2025-02-16 08:47 | External Medical Summary | Summary of Care ---
Author Name Unknown Organization [facility] Address [address] [place] [address] Phone [phone] Care Team Providers Care Warehouse Pricing And Inventory Clerk Name Role Phone Linda Pinto DO Primary Care Provider [phone] Encounter Details Date Type Department Care Team (Latest Contact Info) Description 10/04/2022 10:55 AM EST - 10/04/2022 11:59 PM EST Hospital Encounter Radiology Film File [address] [place] [address] Discharge Disposition: Home - Self [...] Seasonal Influenza, Quadriva lent Hd (Fluzone Hd) 08/04/2022 Seasonal Influenza, Recombin ant, RIV4, PF, (Flublock) [...] Office Visit General Surgery, [facility] [address] [place] [phone] Heri Ko MD [address] [place] [address] 03/06/2025 10:00 AM EDT Office Visit Gastroenterology, [facility] [address] [place] [address] Winter Kraus CRNP [address] [place] [address] 03/10/2025 3:30 PM EDT Office Visit Rheumatology [facility] [address] [place] [phone] [facility] [address] [facility] [address] 04/20/2025 2:00 PM EDT Pharmacy Family Practice [facility] [address] College, Pharmacist [address] [address] 04/20/2025 2:20 PM EDT Office Visit [facility] [address] [facility] [address] Andrea Reyes, 293 [place] [address] 11/27/2025 1:10 PM EST Office Visit Dermatology [place], [place] [address] [place] [address] Sheba Huerta PA-C [address] [place] [address] Scheduled Procedures Name Priority Associated Diagnoses Date/Ti [...] D LEVEL ONCE IN A LIFETIME-USE SMARTSET# [id number] Completed 12/11/2023, 10/22/2023, 10/13/2022, Additional history exists [...] this encounter Medical Devices Implanted Type Area Explosives Worker Device Identifier Shelf Expiration Date Model / Serial / Lot Sling Elevate Post/Apical - [id number] Implanted:Qty: 1 on 12/22/2014 by Heri Cochran DO at [place] [facility] [place] N/A: Vaginal Vault [employer] 05/04/2017 [id number] / / [id number] documented as of this encounter Procedures Procedure Name Priority Date/Time Associated Diagnosis Comments RADIOLOGY EXAM - MAMMOGRAPHY (IMAGES ONLY, NO REPORT) Routine 10/04/2022 10:55 AM EST documented in this encounter Results * RADIOLOGY EXAM - MAMMOGRAPHY (IMAGES ONLY, NO REPORT) (10/04/2022 10:55 AM EST) 10/04/2022 10:5 1 AM EST Narrative Scheduling, Silent - 01/19/2025 12:21 PM EDT This is an imaging study not interpreted or resulted by a [facility] or [facility] contracted radiologist. us Heri Ko MD RAD [...] and were consensually agreed upon. Care Teams Warehouse Pricing And Inventory Clerk Relationship Specialty Start Date End Date Linda Pinto DO PCP - General Family Medicine 08/03/22 11/23/22 documented as of this encounter
--- OUTSIDE RECORDS SUMMARY | 2025-02-16 08:47 | External Medical Summary | Summary of Care ---
Author Name Unknown Organization [facility] Address [address] [place] [address] Phone [phone] Care Team Providers Care Ice Cream Server Name Role Phone Andrea Reyes DO Primary Care Provider [phone] Reason for Visit * Reason Comments Follow Up Encounter Details Date Type Department Care Team ([facility] st Contact Info) Description 01/19/2025 2:20 PM EDT Office Visit Family Practice [address] [facility] [address] [place] [address] Andrea Reyes DO [address] [place] [address] Mass overlapping multiple quadrants of left breast*; Chronic diastolic congestive heart failure (HCC); Dyslipidemia, goal LDL below 70; Factor 5 Leiden mutation, heterozygous (HCC); Fibromyalgia; Gastroesophageal reflux disease without esophagitis; HTN, goal below 140/90; Moderate persistent asthma without complication; Obstructive sleep apnea of adult; Rheumatoid arthritis involving multiple sites with positive rheumatoid factor (HCC); Senile osteoporosis; Anxiety Allergies No known active allergiesdocumented as of [...] ns:DM type 2, goal HbA1c < 8% ([facility]) INJECT 2 MG UNDER THE SKIN ONCE [...] 180 Tablet 12/11/19 25 7:21 AM EST Active DULoxetine HCl 60 [...] 15 Tablet 01/17/20 25 10:48 AM EDT Active busPIRone HCl 10 MG Oral Tablet (Buspar)Indication s:Anxiety Take 1 Tablet by mouth in the morning and 1 Tablet at noon and 1 Tablet before bedtime. 60 Tablet Active Doxycycline Hyclate 100 MG Oral Tablet [...] mRNA, LNP-s, No Pre serve, 2-Dose Series ([employer]) 08/30/2021,12/22/2020,12/01/2020 Covid-19, Mrna, Lnp-s, Pf, B ivalent, 30 Mcg, IM, 12 yrs and above ([employer]) 11/24/2022 PPD 01/20/2014 Pneumococcal Conjugate Vacc, 13 [...] Past Smokeless Tobacco: Never Tobacco Cessation:Counseling Given: Yes Alcohol Use Standard Drinks/Week Comments Yes 0 [...] Sign Reading Time Taken Comments Blood Pressure 118/66 01/19/2025 2:58 PM EDT Pulse 72 01/19/2025 2:58 PM EDT Temperature 36.8 °C (98.2 °F) 01/19/2025 2:58 PM ED T Respiratory Rate 16 01/19/2025 2:58 PM EDT Oxygen Saturation 98% 01/19/2025 2:58 PM EDT Inhaled Oxygen Concentration - - Weight 77.6 kg (171 lb) 01/19/2025 2:58 PM EDT Height 152.4 cm (5') 01/19/2025 2:58 PM EDT Body Mass Index 33.4 01/19/2025 2:58 PM EDT documented in this encounter Progress Notes * Andrea Reyes, DO - 01/19/2025 8:28 PM EDT Images from the original note were not included. Subjective Cleo Garcia is a 79 year old female that presents for Follow Up History of Present Illness Cleo Garcia is an 79 year old female with a history of Rheumatoid Arthritis, Obstructive Sleep Apnea, Diastolic CHF, DM type II, Asthma, Upper Airway Cough Syndrome, Bladder Prolapse, Urinary Incontinence, Hypothyroidism, Peripheral Neuropathy, Osteoporosis, chronic bilateral knee pain, right knee replacement, SMA Stenosis, Hyperlipidemia, GERD and right breast cancer who presents with a recent diagnosis of left breast cancer. She is accompanied by her son. She has a recent diagnosis of left breast cancer, confirmed by a positive pathology. An MRI was performed today to further evaluate the condition, as there are two abnormalities that were biopsied. The patient has history of right breast cancer treated with surgery and radiation six years ago. She has a strong family history of breast cancer, with her mother and two sisters also affected. She experiences anxiety related to her diagnosis and family history of cancer. She takes Buspar forher nerves, which provides partial relief, and is also on duloxetine. Her blood pressure can increase with anxiety. She has a history of heart failure and is currently taking spironolactone, metoprolol, and furosemide. No current chest pain or shortness of breath. A stress test a year ago was normal. She is managing diabetes with Ozempic, but is unsure if it is effectively curbing her appetite. Sheis not taking metformin. She has a history of restless leg syndrome, which has been worsening. She is on ropinirole for thiscondition. She also reports back pain that radiates down her legs, which she attributes to lumbar disc disease. She has a history of rheumatoid arthritis and is on Orencia for management. She also experiences reflux and is taking Protonix for stomach acid control. 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 History of TIA (transient ischemic attack) Factor 5 Leiden mutation, heterozygous (HCC) Chronic diastolic congestive heart failure (HCC) Gastroesophageal reflux disease without esophagitis History of breast cancer Dyslipidemia, goal LDL below 70 Obstructive sleep apnea of adult DM type 2, goal HbA1c < 8% ([facility]) Hypothyroidism due to acquired atrophy of thyroid Gastroparesis due to DM (HCC) 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 ([facility]) Past Surgical History: Procedure Laterality Date ARTHROPLASTY KNEE TOTAL Right knee, 2019 ARTHROSCOPY OF JOINT Right 08/07/2018 knee CARPAL TUNNEL SURGERY bilateral COLONOSCOPY, DIAGNOSTIC (RECTUM) 10/21/2018 diverticulosis, fair prep/COLONOSCOPY FLEXIBLE PROXIMAL DIAGNOSTIC performed by Barbara Burk MD at ENDOSCOPY [facility] COLONOSCOPY, DIAGNOSTIC (RECTUM) 10/17/2022 diverticulosis sigmoid and ascending colon/internal hemorrhoids/biopsies show hyperplastic polyps/recall 5 years/COLONOSCOPY FLEXIBLE PROXIMAL DIAGNOSTIC performed [facility] EGD, FLEXIBLE, DIAGNOSTIC 10/17/2022 hiatal hernia/biopsies normal/ESOPHAGOGASTRODUODENOSCOPY (EGD), FLEXIBLE, TRANSORAL, DIAGNOSTIC performed by Florencio Potts MD at ENDOSCOPY [facility] LEG/ANKLE SURGERY NEC left ankle after surgery x 2 PELVIC FLOOR DEFECT RPR,MESH,EACH N/A 12/22/2014 INSERTION OF MESH FOR REPAIR PELVIC FLOOR DEFECT performed by Heri Cochran DO at [facility] REMOVAL OF APPENDIX REMOVE GALLBLADDER REPAIR OF VAGINAL PROLAPSE N/A 12/22/2014 COLPOPEXY VAGINAL EXTRA PERITONEAL APPROACH performed by Heri Cochran DO at OR [facility] REPAIR RECTUM & VAGINA, RECTOCELE N/A 12/22/2014 POSTERIOR COLPORRHAPHY performed by Heri Cochran DO at OR [facility] SHOULDER ARTHROSCOPY SURGERY both shoulders x 2 TOTAL ABD HYSTERECTOMY W/WO REMOVAL OF TUBE(S) 1972 Review of patient's allergies indicates: No Known Allergies Current Medications: busPIRone HCl 10 MG Oral Tablet (Buspar) Metoprolol Tartrate 50 MG Oral Tablet (Lopressor) Spironolactone 25 MG Oral Tablet (Aldactone) Gabapentin 600 MG Oral Tablet (Neurontin) Breztri Aerosphere 160-9-4.8 MCG/ACT Inhalation Aerosol (Uiqjpmp-Jwswiipkbzl-Xszojnhuoq) Montelukast Sodium 10 MG Oral Tablet (Singulair) Levothyroxine Sodium 25 MCG Oral Tablet (Levoxyl) Orencia ClickJect 125 MG/ML Subcutaneous Solution Auto-injector (Abatacept) Pantoprazole Sodium 40 MG Oral Tablet Delayed Release (Protonix) Trospium Chloride ER 60 MG Oral Capsule Extended Release 24 Hour (Sanctura ER) Celecoxib 200 MG Oral Capsule (CeleBREX) Atorvastatin Calcium 40 MG Oral Tablet (Lipitor) Clopidogrel Bisulfate 75 MG Oral Tablet (pLAVix) Levocetirizine Dihydrochloride 5 MG Oral Tablet Furosemide 20 MG Oral Tablet (Lasix) Albuterol Sulfate HFA 108 (90 Base) MCG/ACT Inhalation Aerosol Solution Vitamin C 1000 MG Oral Tablet Semaglutide (2 MG/DOSE) 8 MG/3ML Subcutaneous Solution Pen-injector (Ozempic) Prochlorperazine Maleate 5 MG Oral Tablet (Compazine) Ondansetron HCl 4 MG Oral Tablet Vitamin B Complex Oral Tablet Vitamin D 125 MCG (5000 UT) Oral Capsule DULoxetine HCl 60 MG Oral Capsule Delayed Release Particles (Cymbalta) rOPINIRole HCl 0.5 MG Oral Tablet (Requip) Gabapentin 300 MG Oral Capsule (Neurontin) Prolia 60 MG/ML Subcutaneous Solution Prefilled Syringe Spark CRM[employer] Lancets 33G Cartagenia Verio In Vitro Strip (Glucose Blood) Metamucil 28.3 % Oral Powder (Psyllium) Albuterol Sulfate (Proventil) (2.5 MG/3ML) 0.083% inhalation solution 2.5 mg Albuterol Sulfate (Proventil) (5 MG/ML) 0.5% *conc* inhalation solution 2.5 mg Review of Systems Constitutional: Negative for appetite change, fatigue and unexpected weight change. Respiratory: Negative for cough, shortness of breath and wheezing. Cardiovascular: Negative for chest pain, palpitations and leg swelling. Gastrointestinal: Negative for abdominal pain, blood in stool, constipation, diarrhea, nausea and vomiting. Genitourinary: Positive for frequency. Negative for dysuria and hematuria. Musculoskeletal: Positive for arthralgias and back pain. Neurological: Positive for numbness (bilateral foot). Negative for dizziness, syncope and headaches. Psychiatric/Behavioral: Positive for sleep disturbance. Negative for decreased concentration, dysphoric mood and self-injury. The patient is nervous/anxious. Objective BP 118/66 | Pulse 72 | Temp 98.2 °F (36.8 °C) | Resp 16 | Ht 5' (1.524 m) | Wt 171 lb (77.6 kg) |SpO2 98% | BMI 33.40 kg/m² | BSA 1.81 m² Physical Exam VITALS: BP- 118/66 Physical Exam Vitals and nursing note reviewed. Constitutional: General: She is not in acute distress. Appearance: Normal appearance. She is not toxic-appearing. HENT: Head: Normocephalic and atraumatic. Cardiovascular: Rate and Rhythm: Normal rate and regular rhythm. Heart sounds: Normal heart sounds. No murmur heard. No gallop. Pulmonary: Effort: Pulmonary effort is normal. Breath sounds: Normal breath sounds. No wheezing, rhonchi or rales. Abdominal: General: Bowel sounds are normal. There is no distension. Palpations: Abdomen is soft. Tenderness: There is no abdominal tenderness. Musculoskeletal: Right lower leg: No edema. Left lower leg: No edema. Neurological: Mental Status: She is alert and oriented to person, place, and time. Mental status is at baseline. Motor: No weakness. Gait: Gait normal. Psychiatric: Mood and Affect: Mood normal. Behavior: Behavior normal. Thought Content: Thought content normal. Assessment and Plan Assessment & Plan Breast Cancer MRI results pending to determine disease extent. Strong family history with mother and two sisters affected. Considering mastectomy or lumpectomy per surgery recommendations. Anxious about diagnosis. - Await MRI results to determine disease extent. - Keep appointment with Dr. Ko as scheduled. Anxiety Experiencing anxiety related to breast cancer diagnosis. On Buspar and duloxetine. Discussed increasing Buspar dosage to manage symptoms. - Increase Buspar dosage to three times a day as needed. - Monitor for side effects such as drowsiness and adjust dosage if necessary. - Continue duloxetine. Heart Failure On spironolactone, metoprolol, and furosemide. Reports no chest pain or shortness of breath. Last stress test a year ago was without inducible ischemia - Continue spironolactone, metoprolol, and furosemide. Type 2 Diabetes Mellitus On Ozempic for management. - Continue Ozempic. - Monitor blood glucose levels and weight. Gastroesophageal Reflux Disease (GERD) Experiences reflux, managed with Protonix. - Continue Protonix. Restless Leg Syndrome Reports worsening symptoms, particularly when anxious. On ropinirole for management. - Continue ropinirole. - Consider follow-up with neurology if symptoms persist. Rheumatoid Arthritis Under pediatric dietician care, on Orencia for management. - Continue Orencia. Wrap-Up Follow Up: Return in about 3 months (around 04/20/2025), or if symptoms worsen or fail to improve. Text in this note was generated using an weeSPIN service. I discussed the use of a device to record and summarize our discussion today. All persons present during the encounter consented to its use. documented in this encounter Nursing Notes * Marlee Marrero LPN - 01/19/2025 2:58 PM EDT Here for follow up, recent diagnosis of breast cancer --left breast. documented in this encounter Plan of Treatment Upcoming Encounters Date Type Department Care Team (Late st Contact Info) Description 01/28/2025 8:30 AM EDT Office Visit General Surgery, [facility] [address] [address] Heri Ko MD [address] [address] 03/06/2025 10:00 AM EDT Office Visit Gastroenterology, [facility] [address] [place] [phone] Winter Kraus CRNP [address] [place] [address] 03/10/2025 3:30 PM EDT Office Visit Rheumatology [facility] [address] [place] [phone] Susan Faith CRNP [address] [place] [address] 04/20/2025 2:00 PM EDT Pharmacy Family Practice [address] [place] [address] [address] [facility] [place] [phone] College, Pharmacist [address] [place] [address], [place] [address] 04/20/2025 2:20 PM EDT Office Visit Family Practice [address] [place] [address] [address] [facility] [place] [phone] Andrea Reyes, [address] [facility] [place] [address] 11/27/2025 1:10 PM EST Office Visit Dermatology [facility] [address] [place] [address] Sheba Huerta PA-C [address] [place] [address] Scheduled Procedures Name Priority Associated Diagnoses Date/Ti [...] D LEVEL ONCE IN A LIFETIME-USE SMARTSET# 31851 Completed 12/11/2023, 10/22/2023, 10/13/2022, Additional history exists [...] this encounter Medical Devices Implanted Type Area Borematic Machine Operator Device Identifier Shelf Expiration Date Model / Serial / Lot Sling Elevate Post/Apical - [id number] Implanted:Qty: 1 on 12/22/2014 by Heri Cochran DO at OR [facility] N/A: Vaginal Vault [employer] 05/04/2017 [id number] / / [id number] documented as of this encounter Visit Diagnoses Diagnosis Mass overlapping multiple quadrants of left breast- Primary Chronic diastolic congestive heart failure (HCC) Chronic diastolic heart failure Dyslipidemia, goal LDL below 70 Other and unspecified hyperlipidemia Factor 5 Leiden mutation, heterozygous (HCC) Primary hypercoagulable state Fibromyalgia Mylagia and myositis, unspecified Gastroesophageal reflux disease without esophagitis Esophageal reflux HTN, goal below 140/90 Unspecified essential hypertension Moderate persistent asthma without complication Unspecified asthma Obstructive sleep apnea of adult Obstructive sleep apnea (adult) (pediatric) Rheumatoid arthritis involving multiple sites with positive rheumatoid factor (HCC) Senile osteoporosis Anxiety Anxiety state, unspecified documented in this encounter Advance Directives [...] were consensually agreed upon. Care Teams Ice Cream Server Relationship Specialty Start Date End Date Andrea Reyes DO [address] [facility] [place] [address] PCP - General Internal Medicine 03/28/24 documented as of this encounter
--- OUTSIDE RECORDS SUMMARY | 2025-02-16 08:47 | External Medical Summary | Summary of Care ---
Author Name Unknown Organization [facility] Address [address] [place] [address] Phone [phone] Care Team Providers Care Wood Room Hand Name Role Phone Andrea Reyes DO Primary Care Provider [phone] Encounter Details Date Type Department Care Team (Latest Contact Info) Description 01/02/2025 9:50 AM EDT - 01/02/2025 10:14 AM EDT Hospital Encounter Radiology Film File [address] [place] [address] Discharge Disposition: Home - Self [...] "dizy" for which she was admitted to [facility] (placed on Plavix for this by PCP). documented as of this encounter (statuses as of 01/20/2025) Immunizations Name Administration Dates Next Due COVID-19 mRNA, LNP-s, No Pre serve, 2-Dose Series ([employer]) 08/30/2021,12/22/2020,12/01/2020 Covid-19, Mrna, Lnp-s, Pf, B ivalent, [...] 8:30 AM EDT Office Visit General Surgery, [facility] [address] [place] [phone] Heri Ko MD [address] [place] [address] 03/06/2025 10:00 AM EDT Office Visit Gastroenterology, [facility] [address] [place] [phone] Winter Kraus CRNP [address] [facility] [place] [address] 03/10/2025 3:30 PM EDT Office Visit Rheumatology [facility] [address] [place] [phone] Susan Faith CRNP [address] [facility], [place] [address] 04/20/2025 2:00 PM EDT Pharmacy Family Practice [address] [place] [address] [address] [facility], [place] [phone] College, Pharmacist [address] [place] [address], [place] [address] 04/20/2025 2:20 PM EDT Office Visit Family Practice [address] [place] [address] [address] [facility], [place] [phone] Andrea Reyes, [address] [facility], [place] [address] 11/27/2025 1:10 PM EST Office Visit Dermatology [facility] [place] [address] [place] [address] Sheba Huerta PA-C [address] [facility] [place] [address] Scheduled Procedures Name Priority Associated Diagnoses Date/Ti [...] D LEVEL ONCE IN A LIFETIME-USE SMARTSET# 61751 Completed 12/11/2023, 10/22/2023, 10/13/2022, Additional history exists [...] this encounter Medical Devices Implanted Type Area Veneer Grader Device Identifier Shelf Expiration Date Model / Serial / Lot Sling Elevate Post/Apical - [id number] Implanted:Qty: 1 on 12/22/2014 by Heri Cochran DO at OR [facility] N/A: Vaginal Vault [employer] 05/04/2017 [id number] / / [id number] documented as of this encounter Procedures Procedure [...] interpreted or resulted by a [facility] or [facility] contracted radiologist. us Heri Ko MD RAD [...] and were consensually agreed upon. Care Teams Wood Room Hand Relationship Specialty Start Date End Date Andrea Reyes DO [address] [place] [address] PCP - General Internal Medicine 03/28/24 documented as of this encounter
--- OUTSIDE RECORDS SUMMARY | 2025-02-16 08:48 | External Medical Summary | Summary of Care ---
Author Name Unknown Organization [facility] Address [address] [place] [address] Phone [phone] Care Team Providers Care Sinter Machine Operator Name Role Phone Andrea Reyes DO Primary Care Provider [phone] Reason for Referral * Precert (Within 10 days (routine)) - Authorized Specialty Diagnoses / Procedures Referred By Annie t Referred To Contact Radiology Diagnoses Ductal carcinoma in situ (DCIS) of left breast Procedures MRI BREAST BILATERAL W WO CONTRAST Heri Ko MD [address] [place] [address] Phone: tel: fax: Referral ID Status Reason Start Date Expiration Date V isits Requested Visits Authorized [id number] Authorized 01/15/2025 [id number] Reason for Visit * Reason Comments NEW PATIENT DCIS of left breast * Evaluate & Treat - Unlimited Visits (Within 3 days (urgent)) - Authorized Specialty Diagnoses / Procedures Referred By Annie mendieta Referred To Contact Breast Clinic Multi Specialty Diagnoses Breast cancer in female (HCC) Andrea Reyes DO [address] [place] [address] Phone: tel: fax: Referral ID Status Reason Start Date Expiration Date Visits Requested Visits Authorized [id number] Authorized Specialty Services Required 01/08/2025 999 [id number] Encounter Details Date Type Department Care Team ([facility] st Contact Info) Description 01/15/2025 3:00 PM EDT Office Visit General Surgery, [facility] [address] [place] [phone] Heri Ko MD [address] [place] [address] Ductal carcinoma in situ (DCIS) of left breast*; Papilloma of left breast Allergies No known active allergiesdocumented as of this encounter (statuses as of 01/16/2025) Medications Vitamin D 125 MCG (5000 UT) [...] s:DM type 2, goal HbA1c < 8% ([facility]) INJECT 2 MG UNDER THE SKIN ONCE [...] BY MOUTH EVERY DAY 100 Tablet 3 4 10:33 AM EST 06/30/20 24 025 Active Clopidogrel Bisulfate 75 MG Oral Tablet (pLAVix) TAKE ONE TABLET BY MOUTH EVERY DAY 100 Tablet 3 4 10:33 AM EST 06/30/20 24 025 Active Atorvastatin Calcium 40 MG Oral Tablet (Lipitor)Indication s:Primary hypertension,Histor y of TIA (transient ischemic attack) TAKE ONE TABLET BY MOUTH EVERY DAY 100 Tablet 1 5 12:55 PM EST 07/23/20 24 Active Celecoxib 200 MG Oral Capsule (CeleBREX) Take 1 Capsule by mouth in the morning. 90 Capsule 1 5 9:01 AM EST 07/28/20 24 Active Trospium Chloride ER 60 MG Oral Capsule Extended Release 24 Hour (Sanctura ER) Take 1 Capsule by mouth in the morning. 90 Capsule 4 2:26 PM EDT 08/14/20 24 Active Pantoprazole Sodium 40 MG Oral Tablet Delayed Release (Protonix) Take 1 Tablet by mouth in the morning. 90 Tablet 1 5 7:24 AM EST 08/25/20 24 Active Doxycycline Hyclate 100 MG Oral Tablet Take 1 Tablet by mouth in the morning and 1 Tablet before bedtime. 14 Tablet 08/25/20 24 Active Orencia ClickJect 125 MG/ML [...] 5 7:21 AM EST 12/08/19 25 Active busPIRone HCl 5 MG Oral Tablet (Buspar) Take 1 Tablet by mouth 3 times a day as needed for Anxiety. 30 Tablet 01/10/20 25 Active DULoxetine HCl 60 MG Oral Capsule Delayed Release Particles (Cymbalta) TAKE 1 CAPSULE BY MOUTH DAILY. 100 Capsule 5 9:45 AM EDT 01/11/20 25 026 Active Metoprolol Tartrate 50 MG Oral Tablet (Lopressor)Indicati ons:Primary hypertension,Histor y of TIA (transient ischemic attack) TAKE ONE TABLET BY MOUTH EVERY DAY IN THE MORNING AND BEFORE BEDTIME 180 Tablet 01/16/20 25 026 Active Spironolactone 25 MG Oral Tablet (Aldactone)Indicati ons:HTN, goal below 140/80,History of TIA (transient ischemic attack) Take one-half tablet by mouth in the morning. 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 12/11/2023 Gastroparesis due to DM 12/11/2023 Gastroparesis 07/30/2023 DM type 2, goal HbA1c < 8% [...] as of this encounter (statuses as of 01/16/2025) Resolved Problems Problem Noted Date Diagnosed Date Resolved Date Polyneuropathy associated wi th underlying disease 12/11/2023 12/17/2024 Morbid obesity due to excess calories 12/11/2023 12/11/2023 Migraine, unspecified, witho ut mention of intractable [...] as of this encounter (statuses as of 01/16/2025) Immunizations Name Administration Dates Next Due COVID-19 mRNA, LNP-s, No Pre serve, 2-Dose Series ([employer]) 08/30/2021,12/22/2020,12/01/2020 Covid-19, Mrna, Lnp-s, Pf, B ivalent, [...] Answer Date Recorded PHQ Adult Total Score 4 12/21/2023 Hunger Vital Sign Answer Date Recorded Within [...] Sign Reading Time Taken Comments Blood Pressure 118/65 01/15/2025 2:23 PM EDT Pulse 76 01/15/2025 2:23 PM EDT Temperature 36.5 °C (97.7 °F) 01/15/2025 2:23 PM ED T Respiratory Rate - - Oxygen Saturation - - Inhaled Oxygen Concentration - - Weight 77.3 kg (170 lb 8 oz) 01/15/2025 2:23 PM EDT Height - - Body Mass Index 33.3 08/15/2024 3:08 PM EDT documented in this encounter Progress Notes * Heri Ko MD - 01/15/2025 4:17 PM EDT [facility] BREAST CLINIC NOTES INDICATION: Left Breast Cancer [...] congestive heart failure in his followed by [facility] cardiology. She is on Plavix. She has factor 5 Leiden gene. She states she has never had a blood clot. This was found on mammogram done due to left breast brown nipple discharge. BREAST HISTORY: Mass: Yes, right central breast [...] for unknown number of year(s) RADIOLOGIC INTERPRETATION: UNILATERAL LEFT DIGITAL DIAGNOSTIC MAMMOGRAM TOMOSYNTHESIS WITH SYNTHETIC 2D POST PROCEDURE IMAGING FOR MARKER PLACEMENT: 01/02/2025 CLINICAL HISTORY: Status post left breast biopsy x 2. TECHNIQUE: Left CC and ML tomosynthesis images including synthesized 2D images (Intelligent 2D) were obtained. COMPARISON: Comparison is made to exams dated: 12/23/2024 mammogram - [facility], 10/02/2024 mammogram - [facility], 12/23/2024 ultrasound, 01/02/2025 stereotactic biopsy, and 01/02/2025 ultrasound biopsy - [facility]. BREAST COMPOSITION: The breasts are heterogeneously dense, [...] made to exam dated: 10/02/2024 mammogram - [facility]. 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 Moderate persistent asthma without complication Obstructive sleep apnea of adult 11/24/2022 PAD (peripheral artery disease) (HCC) Rheumatoid arthritis(714.0) TIA (transient ischemic attack) Past Surgical History Past Surgical History: Procedure Laterality Date ARTHROPLASTY KNEE TOTAL Right knee2019 ARTHROSCOPY OF JOINT Right 08/07/2018 knee CARPAL TUNNEL SURGERY bilateral COLONOSCOPY, DIAGNOSTIC (RECTUM) 10/21/2018 diverticulosis, fair prep/COLONOSCOPY FLEXIBLE PROXIMAL DIAGNOSTIC performed by Barbara Burk MD at ENDOSCOPY [facility] COLONOSCOPY, DIAGNOSTIC (RECTUM) 10/17/2022 diverticulosis sigmoid and ascending colon/internal hemorrhoids/biopsies show hyperplastic polyps/recall 5 years/COLONOSCOPY FLEXIBLE PROXIMAL DIAGNOSTIC performed by Florencio Potts MD at [facility] EGD, FLEXIBLE, DIAGNOSTIC 10/17/2022 hiatal hernia/biopsies normal/ESOPHAGOGASTRODUODENOSCOPY (EGD), FLEXIBLE, TRANSORAL, DIAGNOSTIC performed by Florencio Potts MD at ENDOSCOPY [facility] LEG/ANKLE SURGERY NEC left ankle after surgery x 2 PELVIC FLOOR DEFECT RPR,MESH,EACH N/A 12/22/2014 INSERTION OF MESH FOR REPAIR PELVIC FLOOR DEFECT performed by Heri Cochran DO at [facility] REMOVAL OF APPENDIX REMOVE GALLBLADDER REPAIR OF VAGINAL PROLAPSE N/A 12/22/2014 COLPOPEXY VAGINAL EXTRA PERITONEAL APPROACH performed by Heri Cochran DO at [facility] REPAIR RECTUM & VAGINA, RECTOCELE N/A 12/22/2014 POSTERIOR COLPORRHAPHY performed by Heri Cochran DO at [facility] SHOULDER ARTHROSCOPY SURGERY both shoulders x 2 [...] BY MOUTH EVERY DAY 100 Tablet 1 Celecoxib 200 MG Oral Capsule (CeleBREX) Take 1 Capsule by mouth in the morning. 90 Capsule 1 Trospium Chloride ER 60 MG Oral Capsule Extended Release 24 Hour (Sanctura ER) Take 1 Capsule by mouth in the morning. 90 Capsule 0 Pantoprazole Sodium 40 MG Oral Tablet Delayed Release (Protonix) Take 1 Tablet by mouth in the morning. 90 Tablet 1 Doxycycline Hyclate 100 MG Oral Tablet Take 1 Tablet by mouth in the morning and 1 Tablet before bedtime. 14 Tablet 0 Orencia ClickJect 125 MG/ML Subcutaneous Solution Auto-injector [...] 5 Breztri Aerosphere 160-9-4.8 MCG/ACT Inhalation Aerosol (Rqlbaud-Syjaerprtdr-Burvqssiiz) INHALE TWOPUFFS BY MOUTH TWICE A DAY 32.1 g 3 Gabapentin 600 MG Oral Tablet (Neurontin) Take 1 Tablet by mouth in the morning and 1 Tablet beforebedtime. 180 Tablet 0 busPIRone HCl 5 MG Oral Tablet (Buspar) Take 1 Tablet by mouth 3 times a day as needed for Anxiety.30 Tablet 0 DULoxetine HCl 60 MG Oral Capsule Delayed Release Particles (Cymbalta) TAKE 1 CAPSULE BY MOUTH DAILY. 100 Capsule 0 Metoprolol Tartrate 50 MG Oral Tablet (Lopressor) TAKE ONE TABLET BY MOUTH EVERY DAY IN THE MORNINGAND BEFORE BEDTIME 180 Tablet 0 Spironolactone 25 MG Oral Tablet (Aldactone) Take one-half tablet by mouth in the morning. 15 Tablet 0 Current Facility-Administered Medications Medication Dose Route Frequency Provider Last Rate Last Admin Albuterol Sulfate (Proventil) (2.5 MG/3ML) 0.083% inhalation solution 2.5 mg 2.5 mg Nebulizer Mamadou Parra MD 2.5 mg at 03/14/24 0808 Albuterol Sulfate (Proventil) (5 MG/ML) 0.5% *conc* inhalation solution 2.5 mg 2.5 mg Nebulizer Mamadou Alvarez MD Allergies: Allergies as of 01/15/2025 (No Known Allergies) REVIEW OF SYSTEMS - ROS EXAM: As per HPI, otherwise negative EXAMINATION Blood pressure 118/65, pulse 76, temperature 36.5 °C (97.7 °F), weight 77.3 kg (170 lb 8 oz). Constitutional: alert, healthy, well nourished Head: normocephalic, [...] Stage 0 breast carcinoma. We discussed the 2 findings, as well as the density of her breasts, the prior breast cancer, in thevariability of the area of DCIS, high grade, with comedo necrosis. After discussion with Radiology,we would recommend a breast MRI for further evaluation of these areas. In the meantime, we discussed mastectomy versus a double lumpectomy procedure. We discussed the risks and benefits of both procedures. I did stress that there is no survival benefit to mastectomy. She was not sure which procedure she would like to proceed with, and we will await the results of the MRI for further decision making. All her and her family's questions were answered to the best of my ability. We will have her return once the MRI is complete. He will call with any new or concerning symptoms in the meantime. I spent a total of Greater than 55 mins (exact time 60 mins) on the date of service in preparation,delivery, and documentation of the care provided to Cleo Garcia excluding any time spent in the performance of separately billed services or time spent by another provider/QHP. Heri Ko MD 01/15/2025 4:17 PM documented in this encounter Nursing Notes * Esperanza Hurtado LPN - 01/15/2025 2:25 PM EDT Chief Complaint Patient presents with NEW PATIENT DCIS of left breast Patient presents today for evaluation of nipple discharge. Patient had mammogram done at [facility] on 10/02/2025. BREAST HISTORY: Mass: Yes; right central , Breast Pain: yes Nipple discharge: No Previous problems/surgeries: surgical biopsy, RIGHT Breast Cancer: yes Other Cancers: no GYNECOLOGIC HISTORY: LMP: No LMP recorded. Patient has had a hysterectomy. Menarche at age: 13 Menopause at age: 27 Number of children: 3 Patient's age at first live : 17 Did you breast feed any of your children: No Ever take oral contraceptives? No Ever take estrogen? Yes, history of use for does not remember year(s) Family History of Breast Cancer: Yes mother and two sisters documented in this encounter Plan of Treatment Upcoming Encounters Date Type Department Care Team (Late st Contact Info) Description 01/19/2025 2:20 PM EDT Office Visit Family Practice [address] [place] [address] [address] [place] [address] Andrea Reyes DO [address] [place] [address] 03/06/2025 10:00 AM EDT Office Visit Gastroenterology, [facility] [address] [place] [phone] Winter Kraus CRNP [address] [place] [address] 03/10/2025 3:30 PM EDT Office Visit Rheumatology [facility] [address] [place] [phone] Susan Faith CRNP [address] [place] [address] 11/27/2025 1:10 PM EST Office Visit Dermatology [facility], [address] [place] [address] Sheba Huerta PA-C [address] [facility] [place] [address] Scheduled Orders Name Type Priority Associated Diagnoses Orde r Schedule MRI BREAST BILATERAL W WO CONTRAST Medical Imaging Routine Ductal carcinoma in situ (DCIS) of left breast Expected: 01/15/2025, Expires: 02/14/2026 Scheduled Procedures Name Priority Associated Diagnoses Date/Ti me COLONOSCOPY FLEXIBLE PROXIMA L DIAGNOSTIC Recall Family history of colon cancer History of colonic polyps Health Maintenance Due Date Last Done Comments COVID-19 Vaccine ( season) 2024 11/24/2022, 08/30/2021, 12/22/2020, Additional history exists Albumin/Creatinine Ratio 12/11/2024 12/11/2023, 07/16 Adult Wellness Visit 12/20/2024 12/21/2023, 12/19/19 23 Depression Screening 12/20/2024 12/21/2023 Diabetic Foot Exam 04/01/2025 04/01/2024, 02/05/2023 GFR 04/01/2025 04/01/2024, 11/16, 10/22/2023, Additional history exists Diabetic Eye Exam 04/14/2025 04/14/2024, , 02/05/2023, Additional history exists DXA Scan 06/11/2025 06/11/2023, 05/16, 12/14/2020, Additional history exists HbA1c 06/19/2025 12/17/2024, 10/2023, 04/14/2024, Additional history exists TSH 08/15/2025 08/15/2024, 10/2023, 07/30/2023, Additional history exists Colonoscopy 10/17/2027 10/17/2022, 12/2022, 10/21/2018, Additional history exists DTap/Tdap Vaccines (2 - Td or Tdap) 11/07/2028 11/07/2018, 10/18/2012 Pneumococcal Vaccine: 50+ Years Completed 10/03/2016, 12/12/2013 RETIRED - COLONOSCOPY-EVERY 5 YRS AGES 18-100 Discontinued 10/17/2022, 10/17/2022, 10/21/2018, Additional history exists Zoster Vaccines Completed 02/05/2023, 11/15, 08/24/2013 VITAMIN D LEVEL ONCE IN A LIFETIME-USE SMARTSET# [id number] Completed 12/11/2023, 10/22/2023, 10/13/2022, Additional history exists [...] this encounter Medical Devices Implanted Type Area Research And Development Director Device Identifier Shelf Expiration Date Model / Serial / Lot Sling Elevate Post/Apical - [id number] Implanted:Qty: 1 on 12/22/2014 by Heri Cochran DO at [facility] N/A: Vaginal [employer]ault [employer] 05/04/2017 [id number] / / [id number] documented as of this encounter Visit Diagnoses Diagnosis Ductal carcinoma in situ (DCIS) of left breast- Primary Papilloma of left breast documented in this encounter [...] and were consensually agreed upon. Care Teams Sinter Machine Operator Relationship Specialty Start Date End Date Andrea Reyes DO [address] [place] [address] PCP - General Internal Medicine 03/28/24 documented as of this encounter
--- OUTSIDE RECORDS SUMMARY | 2025-02-16 08:48 | External Medical Summary | Summary of Care ---
Author Name Unknown Organization [facility] Address [address] [place] [address] Phone [phone] Care Team Providers Care Dice Maker Name Role Phone Andrea Reyes DO Primary Care Provider [phone] Reason for Referral * Evaluate & Treat - Unlimited Visits (Within 3 days (urgent)) - Authorized Specialty Diagnoses / Procedures Referred By Annie mendieta Referred To Contact Breast Clinic Multi Specialty Diagnoses Breast cancer in female (HCC) Andrea Reyes DO [address] [place] [address] Phone: tel: fax: Referral ID Status Reason Start Date Expiration Date Visits Requested Visits Authorized [id number] Authorized Specialty Services Required 01/08/2025 999 [id number] Question Answer Referral Priority Within 3 days (urgent) Where should this appointment be scheduled? [email or web address] Reason for Visit * Reason Onset Date Comments Test Results 01/08/202501/08 Encounter Details Date Type Department Care Team (Late st Contact Info) Description 01/08/2025 Telephone Family Practice [address] [facility] [address] [place] [address] Andrea Reyes DO [address] [place], [place] [id number] Test Results (01/08) Allergies No known active allergiesdocumented as of this encounter (statuses as of 01/09/2025) Medications Vitamin D 125 MCG (5000 UT) [...] 3 6:13 AM EDT 05/02/20 23 Active DULoxetine HCl 60 MG Oral Capsule Delayed Release Particles (Cymbalta) TAKE 1 CAPSULE BY MOUTH DAILY. 100 Capsule 4 4 9:28 AM EST 12/12/19 24 025 Active Prochlorperazine Maleate 5 MG Oral Tablet [...] ONCE A WEEK on Tuesdays, Reported on 02/29/2024 Metoprolol Tartrate 50 MG Oral Tablet (Lopressor)Indicati ons:Primary hypertension,Histor y of TIA (transient ischemic attack) TAKE ONE TABLET BY MOUTH EVERY DAY IN THE MORNING AND BEFORE BEDTIME 180 Tablet 3 5 6:58 AM EST 01/25/20 24 025 Active Vitamin C 1000 MG Oral Tablet [...] 5 6:32 PM EST 09/17/20 24 Active Spironolactone 25 MG Oral Tablet (Aldactone)Indicati ons:HTN, goal below 140/80,History of TIA (transient ischemic attack) Take one-half tablet by mouth in the morning. 50 Tablet 4 6:26 PM EST 10/13/20 24 Active Levothyroxine Sodium 25 MCG Oral [...] 5 7:21 AM EST 12/08/19 25 Active Hospital, Clinic, or Other Facility [...] as of this encounter (statuses as of 01/09/2025) Active Problems Problem Noted Date Diagnosed Date [...] as of this encounter (statuses as of 01/09/2025) Resolved Problems Problem Noted Date Diagnosed Date Resolved Date Polyneuropathy associated wi th underlying disease 12/11/2023 12/17/2024 Morbid obesity due to excess calories 12/11/2023 12/11/2023 Migraine, unspecified, witho ut mention of intractable migraine without mention of status migrainosus 11/09/2022 11/24/2022 Depression, unspecified 11/09/202211/15 Disorder of iron metabolism, [...] as of this encounter (statuses as of 01/09/2025) Immunizations Name Administration Dates Next Due COVID-19 mRNA, LNP-s, No Pre serve, 2-Dose Series ([employer]) 08/30/2021,12/22/2020,12/01/2020 Covid-19, Mrna, Lnp-s, Pf, B ivalent, 30 Mcg, IM, 12 yrs and above ([employer]) 11/24/2022 PPD 01/20/2014 Pneumococcal Conjugate Vacc, 13 [...] older, IM ([employer]acel) 11/07/2018 Varicella Zoster Vaccine (Adult) 08/24/2013 Zoster Vaccine Recombinant ([employer]hingrix) 02/05/2023 ,11/24/2022 [...] No 08/15/2024 Does the household have a [facility] source of income? (Household - for ages [...] encounter Miscellaneous Notes * Telephone Encounter - Alta Albert LPN - 01/09/2025 11:06 AM EDT Contact attempts are documented in another encounter. Gemma Albert LPN Intake Nurse Navigator General Surgery and Breast Clinic [facility] * Telephone Encounter - Marlee Buckner RN - 01/09/2025 8:46 AM EDT Pt called in to [facility] today-notified of message of the 3 surgeons. Pt has no preference-she would like to see whoever can get her in the soonest. Pt declines need to speak to Dr Reyes at this time-states that Dr Ny explained everything well to her on evening. She has appt with Dr Reyes on 01/19/25. Message forwarded to Alta Albert. * Telephone Encounter - Alta Albert LPN - 01/08/2025 3:46 PM EDT Referral received by Intake Nurse Navigation. Contact attempts are documented in my encounter datedtoday. Will schedule with Dr. Ko, Dr. Finch, or Dr. Pena, depending on pt's preference. Dr. Del Rosario will be out on [place] from 01/15-03/03 and is not scheduling any surgeries until after her return. Gemma Albert LPN Intake Nurse Navigator General Surgery and Breast [facility] * Telephone Encounter - Marlee Marrero LPN - 01/08/2025 1:34 PM EDT Called, left message for patient to return call. Will discuss and offer appt with DR Reyes to discus sif she wishes. Thank you * Telephone Encounter - Marlee Marrero LPN - 01/08/2025 1:31 PM EDT ----- Message from Andrea Reyes DO sent at 01/08/2025 1:04 PM EDT ----- Patient has breast cancer on left breast biopsy. Schedule with Breast Surgery Clinic at [facility] within 3 days. documented in this encounter Plan of Treatment Upcoming Encounters Date Type Department Care Team (Late st Contact Info) Description 01/15/2025 3:00 PM EDT Office Visit General Surgery, [facility] [address] [place] [phone] Heri Ko MD [address] [place] [address] 01/19/2025 2:20 PM EDT Office Visit Family Practice [address] [place] [address] [address] [place] [address] Andrea Reyes DO [address] [place] [address] 03/06/2025 10:00 AM EDT Office Visit Gastroenterology, [facility] [address] [place] [phone] Winter Kraus CRNP [address] [place] [address] 03/10/2025 3:30 PM EDT Office Visit Rheumatology [facility] [address] [place] [phone] Susan Faith CRNP [address] [place] [address], [place] [address] 11/27/2025 1:10 PM EST Office Visit Dermatology [address] [address] Sheba Huerta PA-C [address] [facility] [place] [address] Scheduled Procedures Name Priority Associated Diagnoses Date/Ti me COLONOSCOPY FLEXIBLE PROXIMA L DIAGNOSTIC Recall Family history of colon cancer History of colonic polyps Scheduled Referrals Name Type Priority Associated Diagnoses Orde r Schedule BREAST CANCER CLINIC REFERRAL OP Referral Within 3 days (urgent) Breast cancer in female (HCC) Ordered: 01/08/2025 Health Maintenance Due Date Last Done Comments [...] 08/15/2024, 0 10/2023, 07/30/2023, Additional history exists Colonoscopy 10/17/2027 10/17/2022, 12/2022, 10/21/2018, Additional history exists DTap/Tdap Vaccines (2 - Td or Tdap) 11/07/2028 11/07/2018, 10/18/2012 Pneumococcal Vaccine: 50+ Years Completed 10/03/2016, 12/12/2013 RETIRED - COLONOSCOPY-EVERY 5 YRS AGES 18-100 Discontinued 10/17/2022, 10/17/2022, 10/21/2018, Additional history exists Zoster Vaccines Completed 02/05/2023, 11/15, 08/24/2013 VITAMIN D LEVEL ONCE IN A LIFETIME-USE SMARTSET# [id number] Completed 12/11/2023, 10/22/2023, 10/13/2022, Additional history exists [...] this encounter Medical Devices Implanted Type Area Editing Internship Device Identifier Shelf Expiration Date Model / Serial / Lot Sling Elevate Post/Apical - [id number] Implanted:Qty: 1 on 12/22/2014 by Heri Cochran DO [place] [facility] [place] Vaginal [employer] 05/04/2017 [id number] / / [id number] documented as of this encounter Visit Diagnoses Diagnosis Breast cancer in female (HCC)- Primary documented in this encounter Advance Directives [...] and were consensually agreed upon. Care Teams Dice Maker Relationship Specialty Start Date End Date Andrea Reyes DO [address] [place] [address] PCP - General Internal Medicine 03/28/24 documented as of this encounter
--- OUTSIDE RECORDS SUMMARY | 2025-02-16 08:48 | External Medical Summary | Summary of Care ---
Author Name Unknown Organization [facility] Address [address] [facility] [place] [address] Phone [phone] Care Team Providers Care Glass Belt Sander Name Role Phone Andrea Reyes DO Primary Care Provider [phone] Encounter Details Date Type Department Care Team (Late st Contact Info) Description 12/23/2024 Orders Only General Surgery, [facility] [address] [place] [...] 8:30 AM EDT Office Visit General Surgery, [facility] [address] [place] [phone] Heri Ko MD [address] [place] [address] 03/06/2025 10:00 AM EDT Office Visit Gastroenterology, [facility] [address] [place] [address] Winter Kraus CRNP [address] [place] [address] 03/10/2025 3:30 PM EDT Office Visit Rheumatology [facility] [address] [place] [address] Susan Faith [facility] [facility] [address] 04/20/2025 2:00 PM EDT Pharmacy Family Practice [address] [place] [address] [address] [place] [address] College, Pharmacist [address] [place], [place] [address] [address] 04/20/2025 2:20 PM EDT Office Visit Family Practice [address], [place] 293 [facility] [place] [address] Andrea Reyes, 293 [facility] [place] [address] 11/27/2025 1:10 PM EST Office Visit Dermatology [facility], [place] [address] [place] [address] Sheba Huerta PA-C 5[address] [place] [address] Scheduled Procedures Name Priority Associated Diagnoses Date/Ti [...] D LEVEL ONCE IN A LIFETIME-USE SMARTSET# 63507 Completed 12/11/2023, 10/22/2023, 10/13/2022, Additional history exists [...] this encounter Medical Devices Implanted Type Area Flyer Builder Device Identifier Shelf Expiration Date Model / Serial / Lot Sling Elevate Post/Apical - [id number] Implanted:Qty: 1 on 12/22/2014 by Heri Cochran DO at OR [facility] [place] N/A: Vaginal Vault [employer] 05/04/2017 [id number] / / [id number] documented as of this encounter Procedures Procedure [...] study not interpreted or resulted by a [employer] or [employer] contracted radiologist. us Heri Ko MD RAD [...] and were consensually agreed upon. Care Teams Glass Belt Sander Relationship Specialty Start Date End Date Andrea Reyes DO 293 [facility] [place] [address] PCP - General Internal Medicine 03/28/24 documented as of this encounter
--- OUTSIDE RECORDS SUMMARY | 2025-02-16 08:48 | External Medical Summary | Summary of Care ---
Author Name Unknown Organization [facility] Address [address] [facility] [place] [address] Phone [phone] Care Team Providers Care Entry Writer Name Role Phone Andrea Reyes DO Primary Care Provider [phone] Encounter Details Date Type Department Care Team (Late st Contact Info) Description 10/02/2024 Orders Only General Surgery, [facility] [address] [place] [address] [...] Tablet 1 11/03/19 25 12:55 PM EST Active Celecoxib 200 MG Oral Capsule (CeleBREX) [...] Tablet 1 11/24/19 25 7:24 AM EST Active Orencia ClickJect 125 MG/ML Subcutaneous Solution [...] Capsule 1 12/11/19 25 6:32 PM EST Active Doxycycline Hyclate 100 MG Oral Tablet Take 1 Tablet by mouth in the morning and 1 Tablet before bedtime. 14 Tablet 2024 Discontinued Hospital, Clinic, or Other Facility [...] mRNA, LNP-s, No Pre serve, 2-Dose Series ([employer]) 08/30/2021,12/22/2020,12/01/2020 Covid-19, Mrna, Lnp-s, Pf, B ivalent, [...] 8:30 AM EDT Office Visit General Surgery, [facility] [address] [place] [address] Heri Ko MD [address] [place] [address] 03/06/2025 10:00 AM EDT Office Visit Gastroenterology, [facility] [address] [place] [address] Winter Kraus CRNP [address] [place] [address] 03/10/2025 3:30 PM EDT Office Visit Rheumatology [facility] [address] [place] [address] Susan Faith CRNP [address] [place] [address] 04/20/2025 2:00 PM EDT Pharmacy Family Practice [address] [place] [address] 293 [place] [address] College, Pharmacist [address] [place] [address], [place] [address] 04/20/2025 2:20 PM EDT Office Visit Family Practice 65 [facility] 293 [place] [address] Andrea Reyes, 293 [place] [address] 11/27/2025 1:10 PM EST Office Visit Dermatology [facility], [place] [address] [place] [address] Sheba Huerta PA-C 3[address] [place] [address] Scheduled Procedures Name Priority Associated Diagnoses Date/Ti [...] D LEVEL ONCE IN A LIFETIME-USE SMARTSET# 80061 Completed 12/11/2023, 10/22/2023, 10/13/2022, Additional history exists [...] this encounter Medical Devices Implanted Type Area Side Panel Padder Device Identifier Shelf Expiration Date Model / Serial / Lot Sling Elevate Post/Apical - [id number] Implanted:Qty: 1 on 12/22/2014 by Heri Cochran DO at OR [facility] [place] N/A: Vaginal Vault [employer] 05/04/2017 [id number] / / [id number] documented as of this encounter Procedures Procedure [...] interpreted or resulted by a [facility] or [employer] contracted radiologist. us Heri Ko MD RAD [...] and were consensually agreed upon. Care Teams Entry Writer Relationship Specialty Start Date End Date Andrea Reyes DO [address] [place] [address] PCP - General Internal Medicine 03/28/24 documented as of this encounter
--- OUTSIDE RECORDS SUMMARY | 2025-02-16 08:48 | External Medical Summary | Summary of Care ---
Author Name Unknown Organization [facility] Address [address] [facility] [place] [address] Phone [phone] Care Team Providers Care Block Making Machine Operator Name Role Phone Andrea Reyes DO Primary Care Provider [phone] Encounter Details Date Type Department Care Team (Late st Contact Info) Description 01/02/2025 Orders Only [facility] [address] [place] [phone] Heri Ko MD [address] [place] [address] 03/06/2025 10:00 AM EDT Office Visit Gastroenterology, [facility] [address] [place] [address] Winter Kraus CRNP [address] [place] [address] 03/10/2025 3:30 PM EDT Office Visit Rheumatology [facility] [address] [place] [phone] Susan Faith CRNP [address] [facility] [address] 04/20/2025 2:00 PM EDT Pharmacy Family Practice [address] [place] [address] [address] [place] [address] College, Pharmacist [address] [place], [place] [address] [address] 04/20/2025 2:20 PM EDT Office Visit Family Practice [address], [place] 293 [place] [address] Andrea Reyes, 293 [place] [address] 11/27/2025 1:10 PM EST Office Visit Dermatology [facility], [place] [address] [place] [address] Sheba Huerta PA-C 5051 [place] [address] Scheduled Procedures Name Priority Associated Diagnoses Date/Ti [...] D LEVEL ONCE IN A LIFETIME-USE SMARTSET# 48031 Completed 12/11/2023, 10/22/2023, 10/13/2022, Additional history exists [...] this encounter Medical Devices Implanted Type Area Philosophy Lecturer Device Identifier Shelf Expiration Date Model / Serial / Lot Sling Elevate Post/Apical - [id number] Implanted:Qty: 1 on 12/22/2014 [place] Heri Co[place] [facility]/A: Vaginal Vault [employer] 05/04/2017 [id number] / / [id number] documented as of this encounter Procedures Procedure [...] study not interpreted or resulted by a [employer] or [employer] contracted radiologist. us Heri Ko MD RAD [...] and were consensually agreed upon. Care Teams Block Making Machine Operator Relationship Specialty Start Date End Date Andrea Reyes DO 293 [place] [address] PCP - General Internal Medicine 03/28/24 documented as of this encounter
--- OUTSIDE RECORDS SUMMARY | 2025-02-16 08:48 | External Medical Summary | Summary of Care ---
Author Name Unknown Organization [facility] Address [address] [place] [address] Phone [phone] Care Team Providers Care Truck Loader Name Role Phone Andrea Reyes DO Primary Care Provider [phone] Reason for Visit * Reason Onset Date Comments Other 01/09/2025 Med Request 01/09/202501/09 Encounter Details Date Type Department Care Team (Late st Contact Info) Description 01/09/2025 Telephone Family Practice [address], [place] 293 [place] [address] Andrea Reyes DO 293 [place] [address] Other; Med Request (01/09) Allergies No known active allergiesdocumented as of [...] for Anxiety. 30 Tablet 01/10/20 25 Active Hospital, Clinic, or Other Facility [...] mRNA, LNP-s, No Pre serve, 2-Dose Series ([employer]) 08/30/2021,12/22/2020,12/01/2020 Covid-19, Mrna, Lnp-s, Pf, B [...] encounter Miscellaneous Notes * Telephone Encounter - Keila Dumotn LPN - 01/09/2025 4:02 PM EDT Call placed to patient and relayed information from Dr. Reyes. Pt acknowledged understanding. Confirmed OV with Dr. Reyes on 01/19. Advised pt to call if she would like to talk to Dr. Reyes sooner. Pt acknowledged. Pharmacy confirmed. Medication pended for 30 tablets - please change quantity if needed. * Telephone Encounter - Andrea Reyes DO - 01/09/2025 3:50 PM EDT Start Buspar 5 mg three times a day as needed. * Telephone Encounter - Keila Dumont LPN - 01/09/2025 2:46 PM EDT Call placed to patient and confirmed pharmacy - [facility] [place]. Pt was tearful over the phone. States she is taking duloxetine, but since receiving the cancer diagnosis she is struggling. * Telephone Encounter - Ezequiel Mcnair MED ASSIST - 01/09/2025 1:16 PM EDT Patient called in wanting to know if she can get something for her nerves. Patient was very upset. States she don't have consultation until next with surgeon. documented in this encounter Plan of Treatment Upcoming Encounters Date Type Department Care Team (Late st Contact Info) Description 01/15/2025 3:00 PM EDT Office Visit General Surgery, [facility] [address] [phone] Heri Ko MD [address] [place] [address] 01/19/2025 2:20 PM EDT Office Visit Family Practice [address] [place] [address] 293 [facility], [place] [address] Andrea Reyes DO 293 [facility], [place] [address] 03/06/2025 10:00 AM EDT Office Visit Gastroenterology, [facility] [address] [place] [phone] Winter Kraus CRNP [address] [place] [address] 03/10/2025 3:30 PM EDT Office Visit Rheumatology [facility] [address] [place] [address] Susan Faith CRNP [address] [facility] [place] [address] 11/27/2025 1:10 PM EST Office Visit Dermatology [facility], [place] [address] [place] [address] Sheba Huerta PA-C 3226 [facility] [place] [address] Scheduled Procedures Name Priority Associated Diagnoses Date/Ti [...] D LEVEL ONCE IN A LIFETIME-USE SMARTSET# 40490 Completed 12/11/2023, 10/22/2023, 10/13/2022, Additional history exists [...] this encounter Medical Devices Implanted Type Area Garageman Device Identifier Shelf Expiration Date Model / Serial / Lot Sling Elevate Post/Apical - [id number] Implanted:Qty: 1 on 12/22/2014 by Heri Cochran DO at OR [facility] N/A: Vaginal Vault [employer] 05/04/2017 [id number] / / [id number] documented as of this encounter Advance Directives [...] and were consensually agreed upon. Care Teams Truck Loader Relationship Specialty Start Date End Date Andrea Reyes DO [address] [place] [address] PCP - General Internal Medicine 03/28/24 documented as of this encounter
--- OUTSIDE RECORDS SUMMARY | 2025-02-16 08:48 | External Medical Summary | Summary of Care ---
Author Name Unknown Organization [facility] Address [address] [place] [address] Phone [phone] Care Team Providers Care Mold Filler Plastic Dolls Name Role Phone Andrea Reyes DO Primary Care Provider [phone] Encounter Details Date Type Department Care Team (Late st Contact Info) Description 01/13/2025 Orders Only PATIENT PORTAL DO NOT DELETE THIS DEPT USED BY [place] [id number] Allergies No known active allergiesdocumented as of this encounter (statuses as of 01/13/2025) Medications Vitamin D 125 MCG (5000 UT) [...] 1 CAPSULE BY MOUTH DAILY. 100 Capsule 01/11/20 25 026 Active Hospital, Clinic, or Other Facility Administered [...] as of this encounter (statuses as of 01/13/2025) Active Problems Problem Noted Date Diagnosed Date [...] as of this encounter (statuses as of 01/13/2025) Resolved Problems Problem Noted Date Diagnosed Date [...] as of this encounter (statuses as of 01/13/2025) Immunizations Name Administration Dates Next Due COVID-19 mRNA, LNP-s, No Pre serve, 2-Dose Series ([employer]) 08/30/2021,12/22/2020,12/01/2020 Covid-19, Mrna, Lnp-s, Pf, B ivalent, [...] 3:00 PM EDT Office Visit General Surgery, [facility] [address] [place] [phone] Heri Ko MD [address] [place] [address] 01/19/2025 2:20 PM EDT Office Visit Family Practice [address] [place] [address] 293 [facility] [place] [address] Andrea Reyes DO 293 [place] [address] 03/06/2025 10:00 AM EDT Office Visit Gastroenterology, [facility] [address] [place] [address] Winter Kraus CRNP [address] [place] [address] 03/10/2025 3:30 PM EDT Office Visit Rheumatology [facility] [address] [place] [address] Susan Faith CRNP [address] [facility] [place] [address] 11/27/2025 1:10 PM EST Office Visit Dermatology [facility], [place] [address] [facility] [place] [address] Sheba Huerta PA-C [address] [facility] [place] [address] Scheduled Procedures Name Priority Associated Diagnoses Date/Ti [...] D LEVEL ONCE IN A LIFETIME-USE SMARTSET# 71615 Completed 12/11/2023, 10/22/2023, 10/13/2022, Additional history exists [...] this encounter Medical Devices Implanted Type Area Silver Brazer Device Identifier Shelf Expiration Date Model / Serial / Lot Sling Elevate Post/Apical - [id number] Implanted:Qty: 1 on 12/22/2014 by Heri Cochran DO [place] [facility] [place] N/A: Vaginal Vault [employer] 05/04/2017 [id number] / / [id number] documented as of this encounter Advance Directives [...] and were consensually agreed upon. Care Teams Mold Filler Plastic Dolls Relationship Specialty Start Date End Date Andrea Reyes DO [address] [facility] [place] [address] PCP - General Internal Medicine 03/28/24 documented as of this encounter
--- OUTSIDE RECORDS SUMMARY | 2025-02-16 08:48 | External Medical Summary | Summary of Care ---
Author Name Unknown Organization [facility] Address [address] [facility] [place] [address] Phone [phone] Care Team Providers Care Icebox Worker Name Role Phone Andrea Reyes DO Primary Care Provider [phone] Encounter Details Date Type Department Care Team (Late st Contact Info) Description 12/23/2024 Orders Only General Surgery, [facility] [address] [place] [...] 8:30 AM EDT Office Visit General Surgery, [facility] [address] [place] [phone] Heri Ko MD [address] [place] [address] 03/06/2025 10:00 AM EDT Office Visit Gastroenterology, [facility] [address] [place] [address] Winter Kraus CRNP [address] [place] [address] 03/10/2025 3:30 PM EDT Office Visit Rheumatology [facility] [address] [place] [address] Susan Faith CRNP [address] [facility] [address] 04/20/2025 2:00 PM EDT Pharmacy Family Practice [address] [place] [address] [address] [place] [address] College, Pharmacist [address] [place], [place] [address] [address] 04/20/2025 2:20 PM EDT Office Visit Family Practice [address], [place] 293 [place] [address] Andrea Reyes, 293 [place] [address] 11/27/2025 1:10 PM EST Office Visit Dermatology [facility], [place] [address] [place] [address] Sheba Huerta PA-C [address] [place] [address] Scheduled Procedures Name Priority Associated Diagnoses Date/Ti [...] D LEVEL ONCE IN A LIFETIME-USE SMARTSET# [id number] Completed 12/11/2023, 10/22/2023, 10/13/2022, Additional history exists [...] this encounter Medical Devices Implanted Type Area Wallpaper Inspector And Shipper Device Identifier Shelf Expiration Date Model / Serial / Lot Sling Elevate Post/Apical - [id number] Implanted:Qty: 1 on 12/22/2014 by Heri Cochran DO at OR [facility] [place] N/A: Vaginal Vault [employer] 05/04/2017 [id number] / / [id number] documented as of this encounter Procedures Procedure [...] study not interpreted or resulted by a [employer] or [employer] contracted radiologist. us Heri Ko MD RAD [...] and were consensually agreed upon. Care Teams Icebox Worker Relationship Specialty Start Date End Date Andrea Reyes DO 293 [place] [address] PCP - General Internal Medicine 03/28/24 documented as of this encounter
--- OUTSIDE RECORDS SUMMARY | 2025-02-16 08:49 | External Medical Summary | Summary of Care ---
Author Name Unknown Organization [facility] Address [address] [place] [address] Phone [phone] Care Team Providers Care Sponge Buffer Name Role Phone Andrea Reyes DO Primary Care Provider [phone] Reason for Visit * Reason Onset Date Comments Referral 01/08/2025 Breast Surgery r eferral Encounter Details Date Type Department Care Team ([facility] st Contact Info) Description 01/08/2025 Telephone General Surgery, [place] [address] [place] [address] Services, Scheduling [address] [place] [address] Referral (Breast Surgery referral) Allergies No known active allergiesdocumented as of this encounter (statuses as of 01/08/2025) Medications Vitamin D 125 MCG (5000 UT) [...] as of this encounter (statuses as of 01/08/2025) Active Problems Problem Noted Date Diagnosed Date [...] as of this encounter (statuses as of 01/08/2025) Resolved Problems Problem Noted Date Diagnosed Date [...] as of this encounter (statuses as of 01/08/2025) Immunizations Name Administration Dates Next Due COVID-19 mRNA, LNP-s, No Pre serve, 2-Dose Series ([employer]) 08/30/2021,12/22/2020,12/01/2020 Covid-19, Mrna, Lnp-s, Pf, B ivalent, [...] Encounter - Alta Albert LPN - 01/08/2025 3:42 PM EDT Referral from: Dr. Andrea Reyes Consult: Breast Surgery For: left DCIS, ER/[place]+ Referral received as detailed above. Urgent imaging push request faxed to [facility]. Attempted to contact patient to schedule appointment - left message on primary phone for patient toreturn call. Will offer appointment with first available provider. Of note, Dr. Del Rosario will be out on [place] from 01/15-03/03 and is not scheduling surgeries until after her return. Will offer appointment with Dr. Heri Ko, or if pt prefers [place] will schedule with Dr. Finch or Dr. Pena. Gemma Albert LPN Intake Nurse Navigator General Surgery and Breast Clinic [facility] documented in this encounter Plan of Treatment Upcoming Encounters Date Type Department Care Team (Late st Contact Info) Description 01/19/2025 2:20 PM EDT Office Visit Family Practice 65 [facility], [place] 293 [facility] [place] [address] Andrea Reyes DO 293 [place] [address] 03/06/2025 10:00 AM EDT Office Visit Gastroenterology, [facility] [address] [place] [address] Winter Kraus CRNP [address] [place] [address] 03/10/2025 3:30 PM EDT Office Visit Rheumatology [facility] [address] [place] [address] Susan Faith CRNP [address] [place] [address] 11/27/2025 1:10 PM EST Office Visit Dermatology [facility], [place] [address] [place] [address] Sheba Huerta PA-C [address] [place] [address] Scheduled Procedures Name Priority Associated Diagnoses Date/Ti [...] D LEVEL ONCE IN A LIFETIME-USE SMARTSET# 87707 Completed 12/11/2023, 10/22/2023, 10/13/2022, Additional history exists [...] this encounter Medical Devices Implanted Type Area Lumber Piler Device Identifier Shelf Expiration Date Model / Serial / Lot Sling Elevate Post/Apical - [id number] Implanted:Qty: 1 on 12/22/2014 by Heri Cochran DO at OR [facility] [place] N/A: Vaginal Vault [employer] 05/04/2017 [id number] / / [id number] documented as of this encounter Advance Directives [...] and were consensually agreed upon. Care Teams Sponge Buffer Relationship Specialty Start Date End Date Andrea Reyes DO [address] [place] [address] PCP - General Internal Medicine 03/28/24 documented as of this encounter
--- OUTSIDE RECORDS SUMMARY | 2025-02-16 08:49 | External Medical Summary | Summary of Care ---
Author Name Unknown Organization [facility] Address [address] [place] [address] Phone [phone] Care Team Providers Care Digital Marketing Intern Name Role Phone Andrea Reyes DO Primary Care Provider Reason for Referral * Evaluate & Treat - Unlimited Visits (Within 3 days (urgent)) - Authorized Specialty Diagnoses / Procedures Referred By Annie mendieta Referred To Contact Breast Clinic Multi Specialty Diagnoses Breast cancer in female (HCC) Andrea Reyes DO [address] [place] [address] Phone: tel: fax: Referral ID Status Reason Start Date Expiration Date Visits Requested Visits Authorized [id number] Authorized Specialty Services Required 01/08/[phone] Question Answer Referral Priority Within 3 days (urgent) Where should this appointment be scheduled? Maddy MOFFETT Reason for Visit * Reason Onset Date Comments Test Results 01/08/202501/08 Encounter Details Date Type Department Care Team (Late st Contact Info) Description 01/08/2025 Telephone Family Practice 65 [facility] [address] [place] [address] Andrea Reyes DO [address] [place], [place] [phone] Test Results (01/08) Allergies No known active [...] mRNA, LNP-s, No Pre serve, 2-Dose Series ([employer]) 08/30/2021,12/22/2020,12/01/2020 Covid-19, Mrna, Lnp-s, Pf, B ivalent, 30 Mcg, IM, 12 yrs and above ([employer]) 11/24/2022 PPD 01/20/2014 Pneumococcal Conjugate Vacc, 13 [...] No 08/15/2024 Does the household have a [facility] source of income? (Household - for [...] Miscellaneous Notes * Telephone Encounter - Marlee Buckner RN [...] Nurse Navigator General Surgery and Breast Clinic [facility] * Telephone Encounter - Marlee Marrero LPN [...] biopsy. Schedule with Breast Surgery Clinic at [facility] within 3 days. documented in this encounter Plan of Treatment Upcoming Encounters Date Type Department Care Team (Late st Contact Info) Description 01/19/2025 2:20 PM EDT Office Visit Family Practice [address], [place] 293 [place] [address] Andrea Reyes DO 293 [place] [address] 03/06/2025 10:00 AM EDT Office Visit Gastroenterology, [facility] [address] [place] [address] Winter Kraus CRNP [address] [place] [address] 03/10/2025 3:30 PM EDT Office Visit Rheumatology [facility] [address] [place] [address] Susan Faith CRNP [address] [place] [address] 11/27/2025 1:10 PM EST Office Visit Dermatology [facility], [place] [address] [place] [address] Sheba Huerta PA-C [address] [place] [address] Scheduled Procedures Name Priority Associated Diagnoses Date/Ti [...] 12/14/2020, Additional history exists HbA1c 06/19/2025 12/17/2024, 0 10/2023, 04/14/2024, Additional history exists TSH 08/15/2025 [...] D LEVEL ONCE IN A LIFETIME-USE SMARTSET# 54538 Completed 12/11/2023, 10/22/2023, 10/13/2022, Additional history exists [...] this encounter Medical Devices Implanted Type Area Packing Line Worker Device Identifier Shelf Expiration Date Model / Serial / Lot Sling Elevate Post/Apical - [id number] Implanted:Qty: 1 on 12/22/2014 by Heri Cochran DO at OR [facility] [place] N/A: Vaginal Vault [employer] 05/04/2017 [id number] / / [id number] documented as of this encounter Visit Diagnoses [...] and were consensually agreed upon. Care Teams Digital Marketing Intern Relationship Specialty Start Date End Date Andrea Reyes DO [address] [place] [address] PCP - General Internal Medicine 03/28/24 documented as of this encounter
--- OUTSIDE RECORDS SUMMARY | 2025-02-16 08:49 | External Medical Summary | Summary of Care ---
Author Name Unknown Organization [facility] Address [address] [place] [address] Phone [phone] Care Team Providers Care Digital Assistant Name Role Phone Andrea Reyes DO Primary Care Provider [phone] Reason for Referral * Evaluate & Treat - Unlimited Visits (Within 3 days (urgent)) - Authorized Specialty Diagnoses / Procedures Referred By Annie mendieta Referred To Contact Breast Clinic Multi Specialty Diagnoses Breast cancer in female (HCC) Andrea Reyes DO [address] [place] [address] Phone: tel: fax: Referral ID Status Reason Start Date Expiration Date Visits Requested Visits Authorized [id number] Authorized Specialty Services Required 01/08/[phone] Question Answer Referral Priority Within 3 days (urgent) Where should this appointment be scheduled? Maddy MOFFETT Reason for Visit * Reason Onset Date Comments Test Results 01/08/202501/08 Encounter Details Date Type Department Care Team (Late st Contact Info) Description 01/08/2025 Telephone Family Practice 65 [facility] [address] [place] [address] Andrea Reyes DO [address] [place], [place] [phone] Test Results (01/08) Allergies No known active [...] mRNA, LNP-s, No Pre serve, 2-Dose Series ([employer]) 08/30/2021,12/22/2020,12/01/2020 Covid-19, Mrna, Lnp-s, Pf, B ivalent, 30 Mcg, IM, 12 yrs and above ([employer]) 11/24/2022 PPD 01/20/2014 Pneumococcal Conjugate Vacc, 13 [...] No 08/15/2024 Does the household have a [facility] source of income? (Household - for [...] Nurse Navigator General Surgery and Breast Clinic [facility] * Telephone Encounter - Marlee Marrero LPN [...] biopsy. Schedule with Breast Surgery Clinic at [facility] within 3 days. documented in this encounter Plan of Treatment Upcoming Encounters Date Type Department Care Team (Late st Contact Info) Description 01/19/2025 2:20 PM EDT Office Visit Family Practice [address] [place] [address] 293 [facility] [place] [address] Andrea Reyes DO 293 [facility], [place] [address] 03/06/2025 10:00 AM EDT Office Visit Gastroenterology, [facility] [address] [place] [address] Winter Kraus CRNP [address] [place] [address] 03/10/2025 3:30 PM EDT Office Visit Rheumatology [facility] [address] [place] [address] Susan Faith, AUTOMATED ACCESS SYSTEMS TECHNICIAN [address] [facility] [place], [place] [address] 11/27/2025 1:10 PM EST Office Visit Dermatology [facility], [place] [address] [place] [address] Sheba Huerta PA-C [address] [place] [address] Scheduled Procedures Name Priority Associated Diagnoses Date/Ti [...] D LEVEL ONCE IN A LIFETIME-USE SMARTSET# [id number] Completed 12/11/2023, 10/22/2023, 10/13/2022, Additional history exists [...] this encounter Medical Devices Implanted Type Area Directional Driller Device Identifier Shelf Expiration Date Model / Serial / Lot Sling Elevate Post/Apical - [id number] Implanted:Qty: 1 on 12/22/2014 [place] Heri Co[place] [facility] [place]A: Vaginal Vault [employer] 05/04/2017 [id number] / / [id number] documented as of this encounter Visit Diagnoses [...] were consensually agreed upon. Care Teams Digital Assistant Relationship Specialty Start Date End Date Andrea Reyes DO [address] [place] [address] PCP - General Internal Medicine 03/28/24 documented as of this encounter
--- OUTSIDE RECORDS SUMMARY | 2025-02-16 08:49 | External Medical Summary | Summary of Care ---
Author Name Unknown Organization [facility] Address [address] [place] [address] Phone [phone] Care Team Providers Care Personal Banker Name Role Phone Andrea Reyes DO Primary Care Provider [phone] Reason for Referral * Evaluate & Treat - Unlimited Visits (Within 3 days (urgent)) - Authorized Specialty Diagnoses / Procedures Referred By Annie mendieta Referred To Contact Breast Clinic Multi Specialty Diagnoses Breast cancer in female (HCC) Andrea Reyes DO [address] [place] [address] Phone: tel: fax: Referral ID Status Reason Start Date Expiration Date Visits Requested Visits Authorized [id number] Authorized Specialty Services Required 01/08/2025 999 999 Question Answer Referral Priority Within 3 days (urgent) Where should this appointment be scheduled? Maddy MOFFETT Reason for Visit * Reason Onset Date Comments Test Results 01/08/202501/08 Encounter Details Date Type Department Care Team (Late st Contact Info) Description 01/08/2025 Telephone Family Practice 65 [facility] [address] [place] [address] Andrea Reyes DO [address] [place], [place] [phone] Test Results (01/08) Allergies No known active [...] mRNA, LNP-s, No Pre serve, 2-Dose Series ([employer]) 08/30/2021,12/22/2020,12/01/2020 Covid-19, Mrna, Lnp-s, Pf, B ivalent, 30 Mcg, IM, 12 yrs and above ([employer]) 11/24/2022 PPD 01/20/2014 Pneumococcal Conjugate Vacc, 13 [...] No 08/15/2024 Does the household have a [facility] source of income? (Household - for [...] Nurse Navigator General Surgery and Breast Clinic [facility] * Telephone Encounter - Marlee Marrero LPN [...] Schedule with Breast Surgery Clinic at [facility] within 3 days. documented in this encounter Plan of Treatment Upcoming Encounters Date Type Department Care Team (Late st Contact Info) Description 01/19/2025 2:20 PM EDT Office Visit Family Practice [address] [place] [address] 293 [facility] [place] [address] Andrea Reyes DO 293 [facility], [place] [address] 03/06/2025 10:00 AM EDT Office Visit Gastroenterology, [facility] [address] [place] [address] Winter Kraus CRNP [address] [place] [address] 03/10/2025 3:30 PM EDT Office Visit Rheumatology [facility] [address] [place] [phone] Susan Faith, LABEL PINKER [address] [facility], [place] [address] 11/27/2025 1:10 PM EST Office Visit Dermatology [facility], [place] [address] [place] [address] Sheba Huerta PA-C [address] [place] [address] Scheduled Procedures Name Priority Associated Diagnoses Date/Ti [...] D LEVEL ONCE IN A LIFETIME-USE SMARTSET# [id number] Completed 12/11/2023, 10/22/2023, 10/13/2022, Additional history exists [...] this encounter Medical Devices Implanted Type Area Pharmaceutical Plant Operator Device Identifier Shelf Expiration Date Model / Serial / Lot Sling Elevate Post/Apical - [id number] Implanted:Qty: 1 on 12/22/2014 by Heri Cochran DO at OR [facility] [place] N/A: Vaginal Vault [employer] 05/04/2017 [id number] / / [id number] documented as of this encounter Visit Diagnoses [...] and were consensually agreed upon. Care Teams Personal Banker Relationship Specialty Start Date End Date Andrea Reyes DO [address] [place] [address] PCP - General Internal Medicine 03/28/24 documented as of this encounter
--- OUTSIDE RECORDS SUMMARY | 2025-02-16 08:49 | External Medical Summary | Summary of Care ---
Author Name Unknown Organization [facility] Address [address] [place] [address] Phone [phone] Care Team Providers Care Manager Restaurant Name Role Phone Andrea Reyes DO Primary Care Provider [phone] Reason for Referral * Evaluate & Treat - Unlimited Visits (Within 3 days (urgent)) - Authorized Specialty Diagnoses / Procedures Referred By Annie mendieta Referred To Contact Breast Clinic Multi Specialty Diagnoses Breast cancer in female (HCC) Andrea Reyes DO [address] [place] [address] Phone: tel: fax: Referral ID Status Reason Start Date Expiration Date Visits Requested Visits Authorized [id number] Authorized Specialty Services Required 01/08/2025 999 999 Question Answer Referral Priority Within 3 days (urgent) Where should this appointment be scheduled? Maddy MOFFETT Reason for Visit * Reason Onset Date Comments Test Results 01/08/202501/08 Encounter Details Date Type Department Care Team (Late st Contact Info) Description 01/08/2025 Telephone Family Practice 65 [facility] [address] [place] [address] Andrea Reyes DO [address] [place], [place] [phone] Test Results (01/08) Allergies No known active [...] mRNA, LNP-s, No Pre serve, 2-Dose Series ([employer]) 08/30/2021,12/22/2020,12/01/2020 Covid-19, Mrna, Lnp-s, Pf, B ivalent, 30 Mcg, IM, 12 yrs and above ([employer]) 11/24/2022 PPD 01/20/2014 Pneumococcal Conjugate Vacc, 13 [...] No 08/15/2024 Does the household have a [facility] source of income? (Household - for [...] Nurse Navigator General Surgery and Breast Clinic [facility] * Telephone Encounter - Marlee Buckner RN [...] Intake Nurse Navigator General Surgery and Breast [facility] * Telephone Encounter - Marlee Marrero [...] biopsy. Schedule with Breast Surgery Clinic at [facility] within 3 days. documented in this encounter Plan of Treatment Upcoming Encounters Date Type Department Care Team (Late st Contact Info) Description 01/19/2025 2:20 PM EDT Office Visit Family Practice 65 [facility] [place] 293 [facility] [place] [address] Andrea Reyes DO [address] [place] [address] 03/06/2025 10:00 AM EDT Office Visit Gastroenterology, [facility] [address] [place] [address] Winter Kraus CRNP [address] [place] [address] 03/10/2025 3:30 PM EDT Office Visit Rheumatology [facility] [address] [place] [address] Susan Faith CRNP [address] [place] [address] 11/27/2025 1:10 PM EST Office Visit Dermatology [facility], [place] [address] [facility] [place] [address] Sheba Huerta PA-C [address] [facility] [place] [address] Scheduled Procedures Name Priority Associated Diagnoses Date/Ti [...] 08/15/2024, 07/0 10/2023, 07/30/2023, Additional history exists Colonoscopy 10/17/2027 10/17/2022, 01/0 12/2022, 10/21/2018, Additional history exists DTap/Tdap Vaccines (2 - Td or Tdap) 11/07/2028 11/07/2018, 10/18/2012 Pneumococcal Vaccine: 50+ Years Completed 10/03/2016, 12/12/2013 RETIRED - COLONOSCOPY-EVERY 5 YRS AGES 18-100 Discontinued 10/17/2022, 10/17/2022, 10/21/2018, Additional history exists Zoster Vaccines Completed 02/05/2023, 11/15, 08/24/2013 VITAMIN D LEVEL ONCE IN A LIFETIME-USE SMARTSET# [id number] Completed 12/11/2023, 10/22/2023, 10/13/2022, Additional history exists [...] this encounter Medical Devices Implanted Type Area Dental Practice Manager Device Identifier Shelf Expiration Date Model / Serial / Lot Sling Elevate Post/Apical - [id number] Implanted:Qty: 1 on 12/22/2014 by Heri Cochran DO at OR [facility] N/A: Vaginal Vault [employer] 05/04/2017 [id number] / / [id number] documented as of this encounter Visit Diagnoses [...] and were consensually agreed upon. Care Teams Manager Restaurant Relationship Specialty Start Date End Date Andrea Reyes DO [address] [place] [address] PCP - General Internal Medicine 03/28/24 documented as of this encounter
--- OUTSIDE RECORDS SUMMARY | 2025-02-16 08:49 | External Medical Summary | Summary of Care ---
Author Name Unknown Organization [facility] Address [address] [place] [address] Phone [phone] Care Team Providers Care Frozen Pie Maker Name Role Phone Andrea Reyes DO Primary Care Provider [phone] Reason for Visit * Reason Onset Date Comments Precert Approved 01/01/2025 [place] Encounter Details Date Type Department Care Team (Late st Contact Info) Description 01/01/2025 Telephone Rheumatology [facility] [address] [place] [address] Susan Faith CRNP [address] [facility] [place] [address] Precert Approved (Orencia) Allergies No known active allergiesdocumented as of this encounter (statuses as of 01/07/2025) Medications Vitamin D 125 MCG (5000 UT) [...] as of this encounter (statuses as of 01/07/2025) Active Problems Problem Noted Date Diagnosed Date [...] as of this encounter (statuses as of 01/07/2025) Resolved Problems Problem Noted Date Diagnosed Date [...] as of this encounter (statuses as of 01/07/2025) Immunizations Name Administration Dates Next Due COVID-19 [...] encounter Miscellaneous Notes * Telephone Encounter - Parul Mckeon LPN - 01/06/2025 4:02 PM EDT Approved/Denied: approved Drug Name and Formulation: ORENCIA CLICKJECT 125 MG/ML How Prescribed(directions/sig): WEEKLY Qty and Day Supply: 02/09 Did you receive insurance information from outside the chart? No, received insurance information within the chart Valid auth start date: 01/02/25 Valid auth end date: 01/03/26 * Telephone Encounter - Parul Mckeon LPN - 01/01/2025 2:30 PM EDT Please prior auth Orencia per [facility] Thank you! documented in this encounter Plan of Treatment Upcoming Encounters Date Type Department Care Team (Late st Contact Info) Description 01/19/2025 2:20 PM EDT Office Visit Family Practice [address], [place] 293 [place] [address] Andrea Reyes DO 293 [place] [address] 03/06/2025 10:00 AM EDT Office Visit Gastroenterology, [facility] [address] [place] [address] Winter Kraus CRNP [address] [place] [address] 03/10/2025 3:30 PM EDT Office Visit Rheumatology [facility] [address] [place] [address] Susan Faith CRNP [address] [place] [address] 11/27/2025 1:10 PM EST Office Visit Dermatology [facility] [address] [place] [address] Sheba Huerta PA-C [address] [place] [address] Scheduled Procedures Name Priority Associated Diagnoses Date/Ti me COLONOSCOPY FLEXIBLE PROXIMA L DIAGNOSTIC Recall Family history of colon cancer History of colonic polyps Health Maintenance Due Date Last Done Comments COVID-19 Vaccine ( season) 2024 11/24/2022, 08/30/2021, 12/22/2020, Additional history exists Albumin/Creatinine Ratio 12/11/2024 12/11/2023, 07/16 Adult Wellness Visit 12/20/2024 12/21/2023, 12/19/19 Depression Screening 12/20/2024 12/21/2023 Diabetic Foot Exam [...] D LEVEL ONCE IN A LIFETIME-USE SMARTSET# [id number] Completed 12/11/2023, 10/22/2023, 10/13/2022, Additional history exists [...] this encounter Medical Devices Implanted Type Area Wood Club Neck Whipper Device Identifier Shelf Expiration Date Model / Serial / Lot Sling Elevate Post/Apical - [id number] Implanted:Qty: 1 on 12/22/2014 by Heri Cochran DO at [place] [facility] [place] N/A: Vaginal Vault [employer] 05/04/2017 [id number] / / [id number] documented as of this encounter Advance Directives [...] and were consensually agreed upon. Care Teams Frozen Pie Maker Relationship Specialty Start Date End Date Andrea Reyes DO 293 [place] [address] PCP - General Internal Medicine 03/28/24 documented as of this encounter
--- OUTSIDE RECORDS SUMMARY | 2025-02-16 08:49 | External Medical Summary | Summary of Care ---
Author Name Unknown Organization [facility] Address [address] [place] [address] Phone [phone] Care Team Providers Care Barrel Tester Name Role Phone Andrea Reyes DO Primary Care Provider [phone] Reason for Visit * Reason Onset Date Comments Referral 01/08/2025 Breast Surgery r eferral Encounter Details Date Type Department Care Team ([facility] st Contact Info) Description 01/08/2025 Telephone General Surgery, [place] [address] [place] [address] Services, Scheduling [address] [place] [address] Referral (Breast Surgery referral) Allergies No known [...] mRNA, LNP-s, No Pre serve, 2-Dose Series ([employer]) 08/30/2021,12/22/2020,12/01/2020 Covid-19, Mrna, Lnp-s, Pf, B ivalent, [...] Reyes Consult: Breast Surgery For: left DCIS, ER/ID+ Referral received as detailed above. Urgent imaging push request faxed to [facility]. Attempted to contact patient to schedule [...] Nurse Navigator General Surgery and Breast Clinic [facility] documented in this encounter Plan of Treatment Upcoming Encounters Date Type Department Care Team (Late st Contact Info) Description 01/19/2025 2:20 PM EDT Office Visit Family Practice 65 [facility] [place] 293 [place] [address] Andrea Reyes DO 293 [facility] [place] [address] 03/06/2025 10:00 AM EDT Office Visit Gastroenterology, [facility] [address] [place] [address] Winter Kraus CRNP [address] [place] [address] 03/10/2025 3:30 PM EDT Office Visit Rheumatology [facility] [address] [place] [address] Susan Faith CRNP [address] [facility] [place] [address] 11/27/2025 1:10 PM EST Office Visit Dermatology [facility], [place] [address] [place] [address] Sheba Huerta PA-C [address] [place] [address] Scheduled Procedures Name Priority Associated Diagnoses Date/Ti [...] D LEVEL ONCE IN A LIFETIME-USE SMARTSET# [id number] Completed 12/11/2023, 10/22/2023, 10/13/2022, Additional history exists [...] this encounter Medical Devices Implanted Type Area Assessment Consultant Device Identifier Shelf Expiration Date Model / Serial / Lot Sling Elevate Post/Apical - [id number] Implanted:Qty: 1 on 12/22/2014 by Heri Cochran DO at [place] [facility] [place] N/A: Vaginal Vault [employer] 05/04/2017 [id number] / / [id number] documented as of this encounter Advance Directives [...] and were consensually agreed upon. Care Teams Barrel Tester Relationship Specialty Start Date End Date Andrea Reyes DO [address] [place] [address] PCP - General Internal Medicine 03/28/24 documented as of this encounter
--- OUTSIDE RECORDS SUMMARY | 2025-02-16 08:50 | External Medical Summary | Summary of Care ---
Author Name Unknown Organization [facility] Address [address] [place] [address] Phone [phone] Care Team Providers Care Mold Dresser Name Role Phone Andrea Reyes DO Primary Care Provider [phone] Encounter Details Date Type Department Care Team (Late st Contact Info) Description 01/05/2025 Orders Only Family Practice [facility] [address] [place] [address] Andrea Reyes DO [address] [place] [address] Allergies No known active allergiesdocumented as of this encounter (statuses as of 01/06/2025) Medications Vitamin D 125 MCG (5000 UT) [...] as of this encounter (statuses as of 01/06/2025) Active Problems Problem Noted Date Diagnosed Date [...] as of this encounter (statuses as of 01/06/2025) Resolved Problems Problem Noted Date Diagnosed Date [...] as of this encounter (statuses as of 01/06/2025) Immunizations Name Administration Dates Next Due COVID-19 mRNA, LNP-s, No Pre serve, 2-Dose Series ([employer]) 08/30/2021,12/22/2020,12/01/2020 Covid-19, Mrna, Lnp-s, Pf, B ivalent, [...] 2:20 PM EDT Office Visit Family Practice [address] [place] [address] 293 [place] [address] Andrea Reyes DO 293 [facility] [place] [address] 03/06/2025 10:00 AM EDT Office Visit Gastroenterology, [facility] [address] [place] [phone] Winter Kraus CRNP [address] [place] [address] 03/10/2025 3:30 PM EDT Office Visit Rheumatology [facility] [address] [place] [phone] [facility] [address] [facility] [address] 11/27/2025 1:10 PM EST Office Visit Dermatology [facility] [place] [address] [place] [address] Sheba Huerta PA-C [address] [facility] [place] [address] Scheduled Procedures Name Priority Associated Diagnoses Date/Ti [...] D LEVEL ONCE IN A LIFETIME-USE SMARTSET# [id number] Completed 12/11/2023, 10/22/2023, 10/13/2022, Additional history exists [...] this encounter Medical Devices Implanted Type Area Dispensing Optician Device Identifier Shelf Expiration Date Model / Serial / Lot Sling Elevate Post/Apical - [id number] Implanted:Qty: 1 on 12/22/2014 by Heri Cochran DO at OR [facility] N/A: Vaginal Vault [employer] 05/04/2017 [id number] / / [id number] documented as of this encounter Procedures Procedure Name Priority Date/Time Associated Diagnosis Comments MAMMOGRAM DIAGNOSTIC LEFT Routine 01/02/2025 documented in this encounter Results * MAMMOGRAM DIAGNOSTIC LEFT (01/02/2025) Anatomical Region Laterality Modality Breast Left Other 01/02/2025 Falguni Ny MD RAD MAMMOGRAPHY Final Res ult documented in this encounter Advance Directives * [...] were consensually agreed upon. Care Teams Mold Dresser Relationship Specialty Start Date End Date Andrea Reyes DO [address] [place] [address] PCP - General Internal Medicine 03/28/24 documented as of this encounter
--- OUTSIDE RECORDS SUMMARY | 2025-02-16 08:50 | External Medical Summary | Summary of Care ---
Author Name Unknown Organization [facility] Address [address] [place] [address] Phone [phone] Care Team Providers Care Bomb Squad Commander Name Role Phone Andrea Reyes DO Primary Care Provider [phone] Encounter Details Date Type Department Care Team ([facility] st Contact Info) Description 01/02/2025 Result Scan Unspecified Department <No scans attached> Allergies No known active allergiesdocumented as of [...] mRNA, LNP-s, No Pre serve, 2-Dose Series ([employer]) 08/30/2021,12/22/2020,12/01/2020 Covid-19, Mrna, Lnp-s, Pf, B ivalent, [...] 65 [facility] [address] [place] [address] Andrea Reyes DO 293 [place] [address] 03/06/2025 10:00 AM EDT Office Visit Gastroenterology, [facility] [address] [place] [phone] Winter Kraus CRNP [address] [place] [address] 03/10/2025 3:30 PM EDT Office Visit Rheumatology [facility] [address] [place] [phone] Susan Faith CRNP [address] [place] [address] 11/27/2025 1:10 PM EST Office Visit Dermatology [facility], [address] [address] Sheba Huerta PA-C [address] [facility] [place] [address] Scheduled Procedures Name Priority Associated Diagnoses Date/Ti [...] 08/15/2024, 070 10/2023, 07/30/2023, Additional history exists Colonoscopy 10/17/2027 10/17/2022, 12/2022, 10/21/2018, Additional history exists DTap/Tdap Vaccines (2 - Td or Tdap) 11/07/2028 11/07/2018, 10/18/2012 Pneumococcal Vaccine: 50+ Years Completed 10/03/2016, 12/12/2013 RETIRED - COLONOSCOPY-EVERY 5 YRS AGES 18-100 Discontinued 10/17/2022, 10/17/2022, 10/21/2018, Additional history exists Zoster Vaccines Completed 02/05/2023, 11/15, 08/24/2013 VITAMIN D LEVEL ONCE IN A LIFETIME-USE SMARTSET# [id number] Completed 12/11/2023, 10/22/2023, 10/13/2022, Additional history exists [...] this encounter Medical Devices Implanted Type Area Engineering Program Manager Device Identifier Shelf Expiration Date Model / Serial / Lot Sling Elevate Post/Apical - [id number] Implanted:Qty: 1 on 12/22/2014 by Heri Cochran DO at OR [facility] N/A: Vaginal Vault [employer] 05/04/2017 [id number] / / [id number] documented as of this encounter Procedures Procedure Name Priority Date/Time Associated Diagnosis Comments RADIOLOGY SCANNED RESULT 01/02/2025 RADIOLOGY SCANNED RESULT 01/02/2025 documented in this encounter Results * RADIOLOGY SCANNED RESULT (01/02/2025) 01/02/2025 us No Physician Data Unknown DIAGNOSTIC RADIOLOGY S ERVICES Final Result * RADIOLOGY SCANNED RESULT (01/02/2025) 01/02/2025 us No Physician Data Unknown DIAGNOSTIC RADIOLOGY S ERVICES Final Result documented in this encounter Advance Directives * Full Code (Latest Code Status on File) Date Activated Date Inactivated Comments 12/22/2014 10:37 AM 12/23/2014 2:42 PM This order reflects the patients wishes and were consensually agreed upon. * Full Code Date Activated Date Inactivated Comments 12/22/2014 7:46 AM 12/22/2014 10:37 AM This order reflects the patients wishes and were consensually agreed upon. Care Teams Bomb Squad Commander Relationship Specialty Start Date End Date Andrea Reyes DO [address] [facility] [place] [facility] [address] PCP - General Internal Medicine 03/28/24 documented as of this encounter
--- OUTSIDE RECORDS SUMMARY | 2025-02-16 08:50 | External Medical Summary | Summary of Care ---
Author Name Unknown Organization [facility] Address [address] [place] [address] Phone [phone] Care Team Providers Care Project Controls Scheduler Name Role Phone Andrea Reyes DO Primary Care Provider [phone] Encounter Details Date Type Department Care Team (Late st Contact Info) Description 01/02/2025 Telephone Family Practice 65 [facility] [address] [place] [address] Andrea Reyes DO [address] [place] [address] Allergies No known active allergiesdocumented as of this encounter (statuses as of 01/02/2025) Medications Vitamin D 125 MCG (5000 UT) [...] 30 Tablet 1 3 6:13 AM EDT 07/19/20 23 Active DULoxetine HCl 60 MG Oral [...] once a week. 12 mL 1 5 8:18 AM EST 09/12/20 24 Active Gabapentin 300 MG Oral [...] as of this encounter (statuses as of 01/02/2025) Active Problems Problem Noted Date Diagnosed Date [...] as of this encounter (statuses as of 01/02/2025) Resolved Problems Problem Noted Date Diagnosed Date [...] as of this encounter (statuses as of 01/02/2025) Immunizations Name Administration Dates Next Due COVID-19 mRNA, LNP-s, No Pre serve, 2-Dose Series ([employer] Effective Data) 08/30/2021,12/22/2020,12/01/2020 Covid-19, Mrna, Lnp-s, Pf, B ivalent, [...] encounter Miscellaneous Notes * Telephone Encounter - Andrea Reyes DO - 01/02/2025 9:48 AM EDT Noted * Telephone Encounter - Marlee Marrero LPN - 01/02/2025 9:34 AM EDT Order has been faxed * Telephone Encounter - Nithya Barber OSA - 01/02/2025 8:33 AM EDT Images from the original note were not included. Neeraj Pettit is calling to request new orders for The diagnosis does not work for medical necessity. Patient is coming today @ 945am. Please put in new orders KARLO and fax to [phone] documented in this encounter Plan of Treatment Upcoming Encounters Date Type Department Care Team (Late st Contact Info) Description 01/19/2025 2:20 PM EDT Office Visit Family Practice [address], [place] [address] [place] [address] Andrea Reyes, 293 [place] [address] 03/06/2025 10:00 AM EDT Office Visit Gastroenterology, [facility] [address] [place] [phone] Winter Kraus CRNP [address] [place] [address] 03/10/2025 3:30 PM EDT Office Visit Rheumatology [facility] [address] [place] [phone] Susan Faith CRNP [address] [place] [address] 11/27/2025 1:10 PM EST Office Visit Dermatology [facility] [address] [place] [address] Sheba Huerta PA-C [address] [place] [address] Scheduled Orders Name Type Priority Associated Diagnoses Orde r Schedule US GUIDED BREAST BIOPSY LEFT Medical Imaging Routine Abnormal breast finding Expected: 01/02/2025, Expires: 02/02/2026 Scheduled Procedures Name Priority Associated Diagnoses Date/Ti [...] D LEVEL ONCE IN A LIFETIME-USE SMARTSET# [id number] Completed 12/11/2023, 10/22/2023, 10/13/2022, Additional history exists [...] this encounter Medical Devices Implanted Type Area Contact Lens Manufacturer Device Identifier Shelf Expiration Date Model / Serial / Lot Sling Elevate Post/Apical - [id number] Implanted:Qty: 1 on 12/22/2014 by Heri Cochran DO at OR [facility] N/A: Vaginal Vault [employer] [facility] 05/04/2017 [id number] / / [id number] documented as of this encounter Visit Diagnoses Diagnosis Abnormal breast finding- Primary Other abnormal clinical finding documented in this encounter Advance Directives * Full Code (Latest Code Status on File) Date Activated Date Inactivated Comments 12/22/2014 10:37 AM 12/23/2014 2:42 PM This order reflects the patients wishes and were consensually agreed upon. * Full Code Date Activated Date Inactivated Comments 12/22/2014 7:46 AM 12/22/2014 10:37 AM This order reflects the patients wishes and were consensually agreed upon. Care Teams Project Controls Scheduler Relationship Specialty Start Date End Date Andrea Reyes DO [address] [place] [address] PCP - General Internal Medicine 03/28/24 documented as of this encounter
--- OUTSIDE RECORDS SUMMARY | 2025-02-16 08:50 | External Medical Summary | Summary of Care ---
Author Name Unknown Organization [facility] Address [address] [place] [address] Phone [phone] Care Team Providers Care Seaport Planning Manager Name Role Phone Andrea Reyes DO Primary Care Provider [phone] Reason for Visit * Reason Onset Date Comments Information 01/02/2025 Encounter Details Date Type Department Care Team ([facility] st Contact Info) Description 01/02/2025 Telephone Family Practice 65 [facility] [place] [address] [place] [address] Andrea Reyes DO [address] [place] [address] Information Allergies No known active allergiesdocumented as of [...] mRNA, LNP-s, No Pre serve, 2-Dose Series ([employer], a division of [employer]) 08/30/2021,12/22/2020,12/01/2020 Covid-19, Mrna, Lnp-s, Pf, B ivalent, [...] the original note were not included. Neeraj Hodan is calling to request new orders for The diagnosis does not work for medical necessity. Patient is coming today @ 945am. Please put in new orders KARLO and fax to [phone] documented in this encounter Plan of Treatment Upcoming Encounters Date Type Department Care Team (Late st Contact Info) Description 01/19/2025 2:20 PM EDT Office Visit Family Practice [address], [place] 293 [place] [address] Andrea Reyes, 293 [place] [address] 03/06/2025 10:00 AM EDT Office Visit Gastroenterology, [facility] [address] [place] [phone] Winter Kraus CRNP [address] [place] [address] 03/10/2025 3:30 PM EDT Office Visit Rheumatology [facility] [address] [place] [phone] Susan Faith CRNP [address] [facility] [place] [address] 11/27/2025 1:10 PM EST Office Visit Dermatology [facility] [address] [place] [address] Sheba Huerta PA-C [address] [place] [address] Scheduled Orders Name Type Priority Associated Diagnoses [...] D LEVEL ONCE IN A LIFETIME-USE SMARTSET# [id number] Completed 12/11/2023, 10/22/2023, 10/13/2022, Additional history exists [...] this encounter Medical Devices Implanted Type Area Tread Tuber Machine Operator Device Identifier Shelf Expiration Date Model / Serial / Lot Sling Elevate Post/Apical - [id number] Implanted:Qty: 1 on 12/22/2014 by Heri Cochran DO at OR [facility] N/A: Vaginal Vault [employer] 05/04/2017 [id number] / / [id number] documented as of this encounter Visit Diagnoses [...] and were consensually agreed upon. Care Teams Seaport Planning Manager Relationship Specialty Start Date End Date Andrea Reyes DO [address] [place] [address] PCP - General Internal Medicine 03/28/24 documented as of this encounter
[2025-02-16] MEDS ORDERED: HYDROmorphone INJ 1 MG/ML SYRINGE IV PRN (09:08)
[2025-02-16] MEDS ORDERED: ePHEDrine sulfate 50 MG/ML AMP IV PRN (09:08)
[2025-02-16] MEDS ORDERED: ATROPINE SULFATE 0.1 MG/ML 10ML SYR IV PRN (09:08)
--- NOTE | 2025-02-16 09:19 | History & Physical Bridge Note ---
Date of Service February 16, 2025 History & Physical Bridge Note I have examined the patient, reviewed the History & Physical and in the interval since the performance of the History & Physical I have noted the following changes of clinical significance: no changes noted
[2025-02-16] MEDS ORDERED: PROPOFOL IV EMULSION 10 MG/ML 20 ML VIAL IV ONE ×4 (09:41→14:02)
[2025-02-16] MEDS ORDERED: LIDOCAINE 2% 2 ML VIAL/AMP(20MG/ML) INFIL ONE ×3 (09:41→14:02)
[2025-02-16] MEDS ORDERED: DEXAMETHASONE SOD INJ 4 MG/ML VIAL ONE (09:41)
[2025-02-16] MEDS ORDERED: ONDANSETRON INJ 2 MG/ML 2 ML VIAL ONE ×2 (09:41→13:37)
[2025-02-16] MEDS ORDERED: fentaNYL citrate PF 100 MCG/2 ML VIAL ONE ×2 (09:42→11:45)
[2025-02-16] MEDS: ceFAZolin 2000MG 2,000 MG/15 ML SYR IV SCH (09:52)
[2025-02-16] MEDS ORDERED: PHENYLEPHRINE 100MCG/ML 5ML SYR ONE (10:02)
[2025-02-16] MEDS ORDERED: diphenhydrAMINE 50 MG/ML VIAL ONE (10:18)
[2025-02-16] MEDS ORDERED: ACETAMINOPHEN 1000 MG/100 ML IV IV ONE (10:23)
[2025-02-16] MEDS: SODIUM CHLORIDE 0.9% PF INJ 10 ML VIAL ONE (12:05)
[2025-02-16] MEDS: BUPIVACAINE LIPOSOME 1.3% 266 MG/20 ML VIAL ONE (12:05)
[2025-02-16] MEDS: LIDOCAINE 1%/EPINEPHRINE 1:100,000 50 ML VIAL ONE (12:05)
--- NOTE | 2025-02-16 12:32 | Post Operative Brief Note ---
Immediate Post Op Note Date of Surgery February 16, 2025 Pre & Post Diagnosis Operation Date: 02/16/25 09:40 Pre-Op Diagnosis: Left Breast Cancer Clinical Stage 0 Post-Op Diagnosis: Left Breast Cancer Clinical Stage 0 I identified the patient and participated in the time-out.: Yes Procedure Operation Date: 02/16/25 09:40 Actual Procedures p Bilateral Mastectomy, Simple(Bilateral) - Heri Ko MD Surgeon Heri Ko MD Front Desk Lead CHRIS Gibson assisted with tissue retraction, camera op, closure Estimated Blood Loss 10 Findings Consistent with Post-Op Diagnosis Drains [place] Drain (bilateral 10Fr flat)
[2025-02-16] MEDS: fentaNYL citrate PF 100 MCG/2 ML VIAL IV PRN (13:06)
--- NOTE | 2025-02-16 13:36 | Consultation ---
Date of Consultation February 16, 2025 Assessment & Plan (1) Breast cancer: (2) Status post bilateral mastectomy: (3) Hypothyroidism: (4) Chronic heart failure: (5) History of TIA (transient ischemic attack): (6) Hyperlipidemia: (7) HTN (hypertension): (8) Superior mesenteric artery stenosis: (9) GERD (gastroesophageal reflux disease): (10) Asthma: Plan Ms. Garcia is an 79-year-old female that presented to the [facility] for a planned elective bilateral mastectomy under the care of Dr. Ko. Intraoperatively no complications occurred and EBL 10 mL. She presented to her PCP on December 17, 2024 with complaints of left nipple discharge that she noticed 1 week prior. It was described as a clear discharge with no noticeable odor. No pain was identified. These findings prompted a mammogram; a small mass was identified 3 cm from her nipple which was biopsied with results of a papilloma with atypical cells being present. 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 For discharge consideration patient does live alone. She does have 3 sons that live about 30 minutes away. She does have a friend who plans to stay with her for a day or 2 after discharge. Patient may benefit from home health support. Will need to confirm when Plavix can be resumed with general surgery. 2020: High Grade Non invasive Ductal Carcinoma ESRS +; received Radiation ONLY. 2024: Left nipple drainage; small mass in left breast; bx papilloma with atypical cells; unable to find any actual staging documented. Pt made decision for bl mastectomy vs further additional radiation tx. Breast mass: Status post bilateral mastectomy: POD#0 s/p bilateral mastectomy under the care of Dr. Ko. EBL: 10 mL Monitor H&H, baseline 12.8 from 16; trend in a.m. FRANCISCO drain anterior x 2 with minimal zulay red blood Per general surgery for pain control, wound care, anticoagulation and activities. continue incentive spirometry; wean O2 as able PT/OT when appropriate Advance diet as tolerated History of TIA: Superior mesenteric artery stenosis: Chronic Takes Plavix; on hold postop; reassess in a.m. and discussed with general surgery HFpEF: HTN: Last ECHO: 07/11/2022-mildly increased concentric left ventricular wall thickness, LVWM normal, EF 55 to 59% with grade 1 diastolic dysfunction, mild TR Takes Lasix; continue takes losartan, metoprolol; continue Monitor BP; normotensive postop HLD: chronic takes atorvastatin; continue Hypothyroidism: Chronic takes levothyroxine; continue DM2: Obesity: Takes gabapentin; continue Takes Ozempic; hold while inpatient SSI ACHS while inpatient GERD: chronic Takes pantoprazole; continue Disposition: PCP: Dr. Reyes Code Status: Full VTE Prophylaxis: Per admitting team I spent a total of 62 minutes coordinating, documenting, and providing care for this patient excluding time spent inthe performance of separately billed services or time spent by another provider/QHP. Supervising Physician Co-Signing Physician Notes Patient is an 79-year-old female with history of breast cancer, CHF, rheumatoid arthritis, PAD, hypothyroidism, fibromyalgia, TIA and other medical problems was consulted for postop medical management. Patient underwent bilateral mastectomy by Dr. Ko. She admits to have pain at surgical site but otherwise denies any dyspnea, nausea, dizziness, abdominal pain. Please review HPI for complete details. I personally reviewed old records and prior blood work. Physical Exam: Vitals signs as noted above General Appearance:Moderately built and nourished, no apparent distress Head: normocephalic, Atraumatic Eyes: normal inspection, EOMI Neck: supple, Trachea midline Respiratory/Chest: Normal breath sounds, CTA, + surgical site in dressing, no accessory muscle use Cardiovascular: S1, S2, No murmur Abdomen/GI:Soft, Non tender, Bowel sounds present Extremities/Musculoskeletal:normal inspection, no edema Neurologic/Psych:AAOX3, grossly no focal neurological deficits Skin: normal color, warm Breast cancer S/P bilateral mastectomy by Dr. Ko on 02/16/2025 Monitor for postop anemia Pain control as needed Bowel regimen to prevent constipation Appreciate surgery help Continue local wound care Transfuse PRBCs if needed Other comorbidities Stable Resume home medications as able I personally interviewed and examined the patient at bedside. I have reviewed the advanced practitioner's documentation on the date of service referred in note and agree with plan. Patient's care is coordinated with Gosia NOGUERA. Please refer to the documentation above for details of patient's presentation and for discussion of other issues. I spent a total [id number] coordinating, documenting, and providing care for this patient excluding time spent in the performance of separately billed services or time spent by another provider/QHP. History of Present Illness Requesting Physician: Dr. Ko Reason for Consultation: Postoperative medical management Attending Physician: Heri Ko MD History of Present Illness Ms. Garcia is an 79-year-old female that presented to the [facility] for a planned elective bilateral mastectomy under the care of Dr. Ko. Intraoperatively no complications occurred and EBL 10 mL. She presented to her PCP on December 17, 2024 with complaints of left nipple discharge that she noticed 1 week prior. It was described as a clear discharge with no noticeable odor. No pain was identified. These findings prompted a mammogram; a small mass was identified 3 cm from her nipple which was biopsied with results of a papilloma with atypical cells being present. 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 She had a dobutamine stress echo in October 2023 which was negative for ischemia. Her last echocardiogram was 07/11/2022 with mildly increased concentric left ventricular wall thickness, LVWM normal, EF 55 to 59% with grade 1 diastolic dysfunction, mild tricuspid regurgitation. Post operatively, she is recovering in room 324. Numerous bed family members at bedside. Main complaint is anterior chest discomfort related to incisional pain from surgery. Patient denies headache, dizziness, shortness of breath, chest pain, abdominal pain or discomfort, peripheral neuropathy, nausea or vomiting. She did have some nausea in the recovery area which resolved with IV antiemetics. For discharge consideration patient does live alone. She does have 3 sons that live about 30 minutes away. She does have a friend who plans to stay with her for a day or 2 after discharge. Patient may benefit from home health support. Will need to confirm when Plavix can be resumed with general surgery. [facility] Hospitalist service was consulted for postoperative medical management. Thank you kindly for this consultation. We are available via [employer] text 07/05 for any questions or concerns. Allergies Allergy/AdvReac Type Severity Reaction Status Date / Time No Known Allergies Allergy Verified 02/03/25 15:37 Home Medications Medication Instructions Recorded Confirmed Type levothyroxine 25 mcg tablet 25 mcg PO QAM 08/13/18 02/16/25 History (Synthroid) gabapentin 300 mg capsule 300 mg PO DAILY 05/09/19 02/16/25 History gabapentin 600 mg tablet 600 mg PO BID 06/12/19 02/16/25 History metoprolol tartrate 50 mg tablet 50 mg PO BID 06/12/19 02/16/25 History clopidogrel 75 mg tablet (Plavix) 75 mg PO QAM 06/20/19 02/16/25 History nebulizers #1 ea 05/17/22 11/13/22 Rx celecoxib 200 mg capsule 200 mg PO DAILY 11/14/22 02/16/25 History abatacept 125 mg/mL subcutaneous 125 mg subcut WK 12/01/22 02/16/25 History syringe (Orencia) furosemide 20 mg tablet 40 mg PO HS 12/01/22 02/16/25 History atorvastatin 40 mg tablet 40 mg PO HS 03/14/23 02/16/25 History benzonatate 100 mg capsule 100 - 200 mg PO HS PRN Cough 03/14/23 02/16/25 History budesonide 160 mcg-glycopyr 9 2 inh inhalation BID 03/14/23 02/16/25 History mcg-formot 4.8 mcg/actuation HFA inhaler (Breztri Aerosphere) cholecalciferol (vitamin D3) 125 125 mcg PO HS 03/14/23 02/16/25 History mcg (5,000 unit) tablet (Vitamin D3) denosumab 60 mg/mL subcutaneous 60 mg subcut DIRECTED 03/14/23 02/16/25 History syringe (Prolia) duloxetine 60 mg capsule,delayed 60 mg PO QAM 03/14/23 02/16/25 History release losartan 50 mg tablet 50 mg PO QAM 03/14/23 02/16/25 History montelukast 10 mg tablet 10 mg PO HS 03/14/23 02/16/25 History (Singulair) pantoprazole 40 mg tablet,delayed 40 mg PO UD PRN Acid Reflux 03/14/23 02/16/25 History release psyllium husk 3.4 gram/5.4 gram 1 tbsp PO UD PRN Constipation 03/14/23 02/16/25 History oral powder (Metamucil) semaglutide 0.25 mg or 0.5 mg (2 2 mg subcut WK 03/14/23 02/16/25 History mg/3 mL) subcutaneous pen injector (Ozempic) spironolactone 25 mg tablet 0 mg PO QAM 03/14/23 02/16/25 History vitamin B complex 1 tab PO QAM 03/14/23 02/16/25 History Patient History Medical History Diabetes Gastroparesis Per records Chronic heart failure with preserved EF Superior mesenteric artery stenosis - 50% SMA stenosis- follows with vascular per cardio records - Last seen by vascular 07/2023- mesenteric duplex abnormal. CT 2022 of A/P with no flow limiting mesenteric artery disease. Dx'ed with gastroparesis- continue Plavix and Lipitor. Follow PRN Osteopenia Hyperlipidemia HTN (hypertension) Depression Anxiety History of TIA (transient ischemic attack) remote hx per pt on Plavix History of COVID-19 approx 2019 or 2020/no hx hospitalization. Hypothyroidism History of diverticulitis History of dysphagia Asthma well controlled Peripheral edema Lasix PRN HX: breast cancer RT (SURGERY AND RADIATION) Fibromyalgia Osteoarthritis GERD (gastroesophageal reflux disease) Peripheral neuropathy Restless leg syndrome Hx of migraines Chronic obstructive pulmonary disease Rheumatoid arthritis Surgical History History of total right knee replacement History of bronchoscopy Status post excisional biopsy Excisional BX and possible closure of right nasal defect -Dr. Drake on 06/20/19 Family history of reaction to anesthesia SISTER-NAUSEA Nausea and vomiting after administration of anesthetic agent History of bilateral tubal ligation History of repair of rotator cuff RT/LEFT X 2 History of arthroscopy RT KNEE History of esophagogastroduodenoscopy (EGD) History of colonoscopy History of repair of rectocele History of cholecystectomy History of appendectomy Hx of lumpectomy RT History of tooth extraction History of cardiac cath "UNSURE OF DATE, A LONG TIME AGO" NO STENTS PLACED History of bladder surgery BLADDER TACK History of carpal tunnel surgery RT/LEFT S/P MIGUE-BSO Family History Mother Diabetes Breast cancer Lung cancer Unknown Bone cancer Coronary heart disease Non-Hodgkin lymphoma Breast cancer Lung cancer Stroke syndrome Cancer Hypertension Thyroid disorder Stroke Father Diabetes Sister Family history of esophageal cancer Colon cancer Diabetes Brother Diabetes Social History Smoking Status: Never smoker Second Hand Exposure: Yes; Do You Dip or Chew Tobacco: No; Hx Alcohol Use: Yes Hx Substance Use: No Preferred Language: Thai Communication Ability: Effective Visual Impairment: No Limitations Data Analysis Manager Required: No Beliefs That Will Affect Care: None marital status: Current Living Situation: Alone Other Information That Helps Us Care for You: Yes (pt voices she would like to have home nurse after d/c, pt informed sxn off) Feels Safe at Home: Yes Assistive Devices: Denture - Upper, Denture - Lower and Glasses Review of Systems Review of Systems: Neuro: (-) Falls, trauma, slurred speech HEENT: (-) KENDALL, dizziness, dysphagia, visual or auditory changes CV: (-) CP, palpitations, swelling Resp: (-) SOB GI: (-) appetite changes, N/V/D, bowel changes : (-) urinary changes Skin: (-) rashes Psych: (-) anxiety, depression Physical Exam Physical Exam: Neuro: AAOx4, PERRLA, no aphagia, memory changes, CNII-XII grossly intact HEENT: head normocephalic, moist mucus membranes CV: S1/S2, (-) M/G/R, (-) edema, cap refill < 3 seconds Resp: Lungs CTA in all juárez. On RA GI: Abdomen S/NT/ND, Ax4 bowel sounds, (-) CVA tenderness Musculoskeletal: 5/5 B/L UE strength, 5/5 B/L LE strength. No gait disturbance Skin: (-) rashes , (-) erythema. Psych: euthymic mood Results & Data Vital Signs (Past 12 Hours) Vital Signs Temp Pulse Resp BP Pulse Ox O2 Del Method O2 Flow Rate 02/16/25 12:54 36.2 C L 83 18 160/56 H 99 Oxymask 6 02/16/25 08:34 36.5 C 75 18 119/59 L 98 Room Air (1) Breast cancer Laterality: right Patient sex: female (3) Hypothyroidism Hypothyroidism type: acquired Qualified Code(s): E03.9 - Hypothyroidism, unspecified
[2025-02-16] MEDS: ONDANSETRON INJ 2 MG/ML 2 ML VIAL IV PRN ×2 (14:13→18:07)
[2025-02-16] MEDS: PROMETHAZINE HCL INJ 25 MG/ML 1 ML VIAL ONE (14:24)
[2025-02-16] MEDS: PROMETHAZINE 6.25 MG/50.25 ML BAG IV STA (14:24)
--- NOTE | 2025-02-16 14:42 | Anesthesiology Progress Note ---
Date of Service February 16, 2025 Anesthesia Post Procedure Vital Signs Vital Signs: Temp Pulse Resp BP Pulse Ox O2 Del Method O2 Flow Rate 02/16/25 14:30 75 20 107/56 L 100 Nasal Cannula 2 02/16/25 14:20 76 22 105/45 L 99 Nasal Cannula 2 02/16/25 14:10 78 16 104/54 L 96 Nasal Cannula 2 02/16/25 14:00 72 12 100/54 L 98 Nasal Cannula 2 02/16/25 13:50 76 18 109/57 L 99 Nasal Cannula 2 02/16/25 13:40 72 22 111/59 L 100 Oxymask 2 02/16/25 13:30 70 12 111/61 100 Oxymask 2 02/16/25 13:20 71 16 111/61 100 Oxymask 6 02/16/25 13:10 72 12 100/70 99 Oxymask 6 02/16/25 13:00 75 19 117/56 L 100 Oxymask 6 02/16/25 12:54 97.2 F L 83 18 160/56 H 99 Oxymask 6 02/16/25 08:34 97.7 F 75 18 119/59 L 98 Room Air Pain Intensity Bilateral Breast: Pain Intensity: 8 Transfer of Care Handoff Completed per policy Notes Mental Status: alert / awake / arousable and participated in evaluation Patient Amnestic to Procedure: Yes Nausea / Vomiting: improving with treatment Pain: adequately controlled Airway Patency, RR, SpO2: stable & adequate BP & HR: stable & adequate Hydration State: stable & adequate Anesthetic Complications: no major complications apparent and Pt Satisfied with anesthetic care
--- NOTE | 2025-02-16 15:06 | Mammography Report ---
SPECIMEN LEFT BREAST: 02/16/2025 CLINICAL HISTORY: 79-year-old woman with a personal history of previous right breast cancer, status p ost breast conservation treatment and more recently diagnosed left breast DCIS, intraductal papilloma and atypical ductal hyperplasia presents at time of bilateral mastectomy. Specimen radiography perfo rmed of the left breast. COMPARISON: Comparison is made to exams dated: 01/02/2025 mammogram, 01/02/2025 ultrasound biopsy, 01/02 stereotactic biopsy, 12/23/2024 mammogram, 12/23/2024 ultrasound - [facility], and 10/02/2024 mammogram - [facility]. FINDINGS: Specimen radiography was performed of the left breast mastectomy specimen. The specimen de monstrates both the ribbon and hourglass shaped biopsy clips as well as the nipple within the tissue specimen. This was discussed with the operating surgeon over the telephone on 02/16/2025. Left breast mastectomy specimen radiograph, as above. IMPRESSION: SPECIMEN Left breast mastectomy specimen radiograph, as above. Linda Fontana M.D. ay/:02/16/2025 12:29:57 [employer] Detailer: OR Technologist, [facility]
[2025-02-16] MEDS ORDERED: oxyCODONE/ACETAMINOPHEN 5mg/325mg TAB PO PRN (15:35)
[2025-02-16] MEDS ORDERED: diphenhydrAMINE Capsule 25 MG CAP PO PRN (15:35)
[2025-02-16] MEDS ORDERED: PROMETHAZINE 12.5 MG/50.5 ML BAG IV PRN (15:35)
[2025-02-16] MEDS: FAMOTIDINE/PF 20 MG/2 ML VIAL IV ONE (15:38)
[2025-02-16] MEDS: MoRPHine SULFATE 2 MG/ML CARP IV PRN ×2 (15:45→21:04)
[2025-02-16] MEDS: oxyCODONE/ACETAMINOPHEN 5mg/325mg TAB PO PRN (17:49)
[2025-02-17 06:05] LABS: Hematocrit (blood only) 30.2 % (37.0-47.0); Hemoglobin 9.8 g/dl (12.0-16.0); Mean Corpuscular Hemoglobin 29.3 pg (25.0-34.0); Mean Corpuscular Hgb Conc 32.5 g/dL (32.0-36.0); Mean Corpuscular Volume 90.4 fL (80.0-100.0); Mean Platelet Volume 8.9 fL (9.4-12.4); Platelet Count 143 K/uL (130-400); RDW Coefficient of Variation 13.6 % (11.5-14.5); RDW Standard Deviation 44.7 fL (36.4-46.3); Red Blood Count 3.34 M/uL (4.20-5.40)
[2025-02-17 06:18] LABS: BUN Creatinine Ratio 14.6 (10-20); Calcium 8.7 mg/dl (8.6-10.3); Magnesium 1.7 mg/dl (1.7-2.4); Potassium 4.1 mmol/L (3.5-5.1)
[2025-02-17] MEDS: SODIUM CHLORIDE 0.9% 500 ML IV SCH (08:19)
[2025-02-17] MEDS: ENOXAPARIN INJ 40 MG/0.4 ML SYR SQ SCH (08:23)
[2025-02-17] MEDS: MAGNESIUM SULFATE / D5W 1 GM/100 ML BAG IV ONE (09:53)
--- NOTE | 2025-02-17 10:23 | Surgery Progress Note ---
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 postop pain moderate to severe, not well controlled hemodynamically stable +nausea Plan: continue pain management, encouraged oral pain medication with breakthrough IV to determine pain control on home regimen d/c planning will need home health nursing PT/OT continue medical management Enocuraged OOB to chair and ambulation with web production assistant ramona drains to bulb suction reg diet Admission and Anticipated Discharge Date Admission Date: February 16, 2025 Subjective having a lot of pain, pain about 9/10 right now nausea this am no vomiting, controlled tolerating diet has not been oob except to bathroom needs home health nursing, lives at home alone Physical Exam Constitutional: WD/WN, vitals as above cooperative and comfortable; no acute distress and not ill appearing Respiratory: normal respiratory effort; no respiratory distress and no labored breathing Chest (Breasts): Additional Comments: The mastectomy incisions covered with dry dressings. Tender to palpation of the chest wall. Ramona drains with bloody serosanguineous output Skin: no rashes, warm and dry Psychiatric: Orientation: alert and oriented x 3 Results & Data Vital Signs (Past 12 Hours) Vital Signs Temp Pulse Resp BP BP Pulse Ox O2 Del Method 02/17/25 09:53 97/61 L 02/17/25 07:52 37 C 77 16 84/52 L 90/57 L 94 Room Air 02/17/25 06:19 104/57 L 02/17/25 06:10 79 98/54 L 02/17/25 03:04 105/62 02/17/25 03:02 36.6 C 78 16 99/59 L 94 Room Air 02/16/25 22:45 75 103/62 Laboratory Results 02/17/25 02/16/25 Range/Units 05:50 12:59 WBC 7.70 (4.8-10.8) K/ul RBC 3.34 L (4.20-5.40) M/uL Hgb 9.8 L (12.0-16.0) g/dl Hct 30.2 L (37.0-47.0) % MCV 90.4 (80.0-100.0) fL MCH 29.3 (25.0-34.0) pg MCHC 32.5 (32.0-36.0) g/dL RDW Std Deviation 44.7 (36.4-46.3) fL RDW Coeff of Griffin 13.6 (11.5-14.5) % Plt Count 143 (130-400) K/uL MPV 8.9 L (9.4-12.4) fL Sodium 139 (136-145) mmol/L Potassium 4.1 (3.5-5.1) mmol/L Chloride 105 (98-107) mmol/L Carbon Dioxide 32 (21-32) mmol/L Anion Gap 2 L (3-11) BUN 13 (6-23) mg/dl Creatinine 0.89 (0.6-1.2) mg/dl Est Cr Clr Drug Dosing 46.0 ml/min eGFR 65.50 BUN/Creatinine Ratio 14.6 (10-20) Glucose 102 H (70-99(Fasting)) mg/dl POC Glucose 118 H (70-99) mg/dl Calcium 8.7 (8.6-10.3) mg/dl Magnesium 1.7 (1.7-2.4) mg/dl
[2025-02-17] MEDS ORDERED: BENZONATATE 100 MG CAPSULE PO PRN (11:49)
--- NOTE | 2025-02-17 11:53 | Hospitalist Progress Note ---
Date of Service February 17, 2025 Assessment & Plan (1) Breast cancer: (2) Status post bilateral mastectomy: (3) Hypothyroidism: (4) Chronic heart failure: (5) History of TIA (transient ischemic attack): (6) Hyperlipidemia: (7) HTN (hypertension): (8) Superior mesenteric artery stenosis: (9) GERD (gastroesophageal reflux disease): (10) Asthma: Plan Ms. Garcia is an 79-year-old female that presented to the [facility] for a planned elective bilateral mastectomy under the care of Dr. Ko. Intraoperatively no complications occurred and EBL 10 mL. She presented to her PCP on December 17, 2024 with complaints of left nipple discharge that she noticed 1 week prior. It was described as a clear discharge with no noticeable odor. No pain was identified. These findings prompted a mammogram; a small mass was identified 3 cm from her nipple which was biopsied with results of a papilloma with atypical cells being present. 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 For discharge consideration patient does live alone. She does have 3 sons that live about 30 minutes away. She does have a friend who plans to stay with her for a day or 2 after discharge. Patient may benefit from home health support. Will need to confirm when Plavix can be resumed with general surgery. 2020: High Grade Non invasive Ductal Carcinoma ESRS +; received Radiation ONLY. 2024: Left nipple drainage; small mass in left breast; bx papilloma with atypical cells; unable to find any actual staging documented. Pt made decision for bl mastectomy vs further additional radiation tx. Breast mass: Status post bilateral mastectomy: Likely acute blood loss anemia: last preop Hb of 14.3 from 03/14/23, post op Hb of 9.8, pt w/ no dizziness/palpitation, no indication for blood transfusion. POD#1 s/p bilateral mastectomy under the care of Dr. Ko. EBL: 10 mL Monitor H&H, baseline 12.8 from 01/28; trend in a.m. FRANCISCO drain anterior x 2 with minimal zulay red blood Per general surgery for pain control, wound care, anticoagulation and activities. continue incentive spirometry PT/OT when appropriate History of TIA: Superior mesenteric artery stenosis: Chronic Takes Plavix; on hold postop; resume as soon as possible post operatively when bleeding risk deemed minimal per sx. HFpEF: HTN: Last ECHO: 07/11/2022-mildly increased concentric left ventricular wall thickness, LVWM normal, EF 55 to 59% with grade 1 diastolic dysfunction, mild TR Currently hypotension/low normal BP likely 2/2 pain meds need. Will use gentle NSS for BP support. Hold home lasix, losartan, metoprolol for now. monitor and reassess in AM to see if they can be resumed. HLD: chronic takes atorvastatin; continue Hypothyroidism: Chronic takes levothyroxine; continue DM2: Obesity: Takes gabapentin; continue Takes Ozempic; hold while inpatient SSI ACHS while inpatient GERD: chronic Takes pantoprazole; continue Disposition: PCP: Dr. Reyes Code Status: Full VTE Prophylaxis: Per admitting team Admission and Anticipated Discharge Date Admission Date: February 16, 2025 Subjective Patient was seen and examined at bedside. Patient was lying in bed, on room air, NAD, resting comfortably. Patient reports operative site pain, fairly bearable with pain medication. Patient denies vomiting, has not moved bowel, denies abdominal pain. Physical Exam Physical Exam: General Appearance:Moderately built and nourished, no apparent distress Head: normocephalic, Atraumatic Eyes: normal inspection, EOMI Neck: supple, Trachea midline Respiratory/Chest: Normal breath sounds, CTA, + surgical site in dressing c/d/i Cardiovascular: S1, S2, No murmur Abdomen/GI:Soft, Non tender, Bowel sounds present Extremities/Musculoskeletal:normal inspection, no edema Neurologic/Psych:AAOX3, grossly no focal neurological deficits Skin: normal color, warm Results & Data Results & Data Vital Signs (Past 12 Hours) Vital Signs Temp Pulse Resp BP BP Pulse Ox O2 Del Method 02/17/25 09:53 97/61 L 02/17/25 07:52 37 C 77 16 84/52 L 90/57 L 94 Room Air 02/17/25 06:19 104/57 L 02/17/25 06:10 79 98/54 L 02/17/25 03:04 105/62 02/17/25 03:02 36.6 C 78 16 99/59 L 94 Room Air (1) Breast cancer Patient sex: female Laterality: right (3) Hypothyroidism Hypothyroidism type: acquired Qualified Code(s): E03.9 - Hypothyroidism, unspecified
[2025-02-17] MEDS ORDERED: PSYLLIUM HUSK 4GM PACKET PO PRN (11:54)
--- NOTE | 2025-02-17 12:54 | Operative Report ---
Post Operative Report Pre & Post Diagnosis Operation Date: 02/16/25 09:40 Pre-Op Diagnosis: Left Breast Cancer Clinical Stage 0 Post-Op Diagnosis: Left Breast Cancer Clinical Stage 0 I identified the patient and participated in the time-out.: Yes Procedure Operation Date: 02/16/25 09:40 Actual Procedures p Bilateral Mastectomy, Simple(Bilateral) - Heri Ko MD Surgeon Heri Ko MD Manager Of Creative Services CHRIS Gibson assisted with tissue retraction, camera op, closure Estimated Blood Loss 10 Findings Consistent with Post-Op Diagnosis Specimens 1. right breast mastectomy 2. left breast mastectomy Drains 10 Chadian flat FRANCISCO x2 (one each side) Anesthesia Type General Complications none Description of Procedure the patient was taken to the operating room, placed supine on the operating table. A time-out was performed, perioperative antibiotics were administered, SCD boots were placed. After adequate anesthesia and analgesia was obtained, the bilateral chest wall to the neck, abdomen, and table were prepped and draped in the normal sterile fashion. We began on the right side. The mastectomy elliptical incision containing the nipple and areolar complex was drawn out and noted to be adequate. The incision was made with a 15 blade scalpel and carried into the level of the subcutaneous tissue. Flaps were raised between the breast tissue below in the subcutaneous tissue above. This was done with the traction countertraction technique. The ellipse of skin encompass the nipple-areolar complex. The extent of the dissection was the clavicle superiorly, the sternum medially, the rectus sheath inferiorly, and the axillary fat pad laterally. Bleeding vessels were controlled with the cautery as well as the harmonic scalpel. The breast was then removed from the underlying pectoralis major muscle with the cautery taking care to remove the fascia of the muscle along with the specimen. The specimen was removed, oriented with sutures and ink, and was sent off the field. Hemostasis was checked and attended to and was excellent. A 10 Chadian flat FRANCISCO drain was placed through a separate stab incision was secured with silk suture. The subcutaneous tissue was closed with interrupted 3-0 Vicryl suture. The skin was closed with a running 4-0 Monocryl subcuticular stitch. Dermabond was applied. A blue towel was placed overlying this side and we turned our attention to the left. On the left side, the mastectomy elliptical incision containing the nipple and areolar complex was drawn out and noted to be adequate. The incision was made with a 15 blade scalpel and carried into the level of the subcutaneous tissue. Flaps were raised between the breast tissue below in the subcutaneous tissue above. This was done with the traction countertraction technique. The ellipse of skin encompass the nipple-areolar complex. The extent of the dissection was the clavicle superiorly, the sternum medially, the rectus sheath inferiorly, and the axillary fat pad laterally. Bleeding vessels were controlled with the cautery as well as the harmonic scalpel. The breast was then removed from the underlying pectoralis major muscle with the cautery taking care to remove the fascia of the muscle along with the specimen. The specimen was removed, oriented with sutures and ink, and was sent off the field. specimen mammogram noted the clip within the breast. Hemostasis was checked and attended to and was excellent. A 10 Chadian flat FRANCISCO drain was placed through a separate stab incision was secured with silk suture. The subcutaneous tissue was closed with interrupted 3-0 Vicryl suture. The skin was closed with a running 4-0 Monocryl subcuticular stitch. Dermabond was applied. Dressings were applied. The patient tolerated the procedure without complication, transferred stable condition to the PACU. All instrument, needle, and sponge counts were correct at the end of the case. Attestation: I understand that section 1842 (b)(7)(D) of the Social Security Act generally prohibits Medicare physician fee schedule payment for the services of [id number] in teaching hospitals when qualified residents are available to furnish such services. I certify that the services for which payment is claimed were medically necessary, and that no qualified resident was available to perform the services. I further understand that these services are subject to post-payment review by the Medicare carrier. I attest to the content of the Intraoperative Record and any orders documented therein. Any exceptions are noted below.
[2025-02-17] MEDS ORDERED: HYDROmorphone INJ 0.5 MG/0.5 ML SYR IV PRN (16:44)
[2025-02-17] MEDS: ACETAMINOPHEN 1,000 MG/100 ML VIAL IV SCH (17:45)
[2025-02-17] MEDS ORDERED: NON-FORMULARY MEDICATION (Budesonide-Glycopyr-Formoterol [Breztri Aerosphere] 160-9-4.8 mc INH SCH (21:00)
[2025-02-17] MEDS: CHOLECALCIFEROL 125 MCG (5,000 UNITS) TAB PO SCH (21:28)
[2025-02-17] MEDS: ATORVASTATIN 40 MG TAB PO SCH (21:28)
[2025-02-17] MEDS: GABAPENTIN 600 MG TAB PO SCH (21:28)
[2025-02-17] MEDS: MONTELUKAST SODIUM 10 MG TABLET PO SCH (21:28)
[2025-02-17] MEDS: GABAPENTIN 300 MG CAP PO SCH (21:28)
[2025-02-17] MEDS: oxyCODONE HCL IR 5 MG TAB (IMMEDIATE RELEASE) PO PRN (21:31)
--- OUTSIDE RECORDS SUMMARY | 2025-02-17 21:53 | External Medical Summary | Summary of Care ---
Author Name Unknown Organization [facility] Address [address] [place] [address] Phone [phone] Care Team Providers Care Stave Log Ripsaw Operator Name Role Phone Andrea Reyes DO Primary Care Provider [phone] Encounter Details Date Type Department Care Team ([facility] st Contact Info) Description 02/16/2025 Result Scan Unspecified Department [facility] [address] [facility] [address] <No scans attached> Allergies No known active allergiesdocumented as of this encounter (statuses as of 02/17/2025) Medications Vitamin D 125 MCG (5000 UT) [...] 5 3:45 PM EDT 01/21/20 25 Active Atorvastatin Calcium 40 MG Oral [...] morning. 90 Tablet 1 02/14/20 25 Active busPIRone HCl 10 MG Oral Tablet (Buspar)Indications :Anxiety Take 1 Tablet by mouth in the morning and 1 Tablet at noon and 1 Tablet before bedtime. 60 Tablet 02/17/20 25 Active Hospital, Clinic, or Other Facility [...] as of this encounter (statuses as of 02/17/2025) Active Problems Problem Noted Date Diagnosed Date [...] as of this encounter (statuses as of 02/17/2025) Resolved Problems Problem Noted Date Diagnosed Date [...] as of this encounter (statuses as of 02/17/2025) Immunizations Name Administration Dates Next Due COVID-19 mRNA, LNP-s, No Pre serve, 2-Dose Series ([employer]) 08/30/2021,12/22/2020,12/01/2020 Covid-19, Mrna, Lnp-s, Pf, B [...] Care Team (Late st Contact Info) Description 03/04/2025 11:45 AM EDT Office Visit General Surgery, [facility] [address] [phone] Heri Ko MD [address] [place] [address] 03/06/2025 10:00 AM EDT Office Visit Gastroenterology, [facility] [address] [phone] Winter Kraus CRNP [address] [place] [address] 03/10/2025 3:30 PM EDT Office Visit Rheumatology [facility] [address] [phone] Susan Faith CRNP [address] [phone] 04/20/2025 2:00 PM EDT Pharmacy Family Practice [address] [place] [address] [address] [facility] [place] [address] College, Pharmacist [address] [place] [address] 04/20/2025 2:30 PM EDT Office Visit Family Practice [address] [facility] [address] [facility] [place] [address] Andrea Reyes DO [address] [facility] [address] 11/27/2025 1:10 PM EST Office Visit Dermatology [facility] [place] [place] [address] [place] [address] Sheba Huerta PA-C [address] [place] [address] Scheduled Procedures Name Priority Associated Diagnoses Date/Ti [...] D LEVEL ONCE IN A LIFETIME-USE SMARTSET# [id number] Completed 12/11/2023, 10/22/2023, 10/13/2022, Additional history exists [...] this encounter Medical Devices Implanted Type Area Aqua Ammonia Operator Device Identifier Shelf Expiration Date Model / Serial / Lot Sling Elevate Post/Apical - [id number] Implanted:Qty: 1 on 12/22/2014 by Heri Cochran DO at [place] [facility] N/A: Vaginal [employer]ault [employer] 05/04/2017 [id number] / / [id number] documented as of this encounter Procedures Procedure Name Priority Date/Time Associated Diagnosis Comments RADIOLOGY SCANNED RESULT 02/16/2025 documented in this encounter Results * RADIOLOGY SCANNED RESULT (02/16/2025) 02/16/2025 us Heri Ko MD DIAGNOSTIC RADIOLOGY SE RVICES Final Result documented in this encounter Advance [...] and were consensually agreed upon. Care Teams Stave Log Ripsaw Operator Relationship Specialty Start Date End Date Andrea Reyes DO [address] [facility] [place] [address] PCP - General Internal Medicine 03/28/24 documented as of this encounter
[2025-02-18 06:35] LABS: Hematocrit (blood only) 30.7 % (37.0-47.0); Mean Corpuscular Hemoglobin 29.2 pg (25.0-34.0); Mean Corpuscular Hgb Conc 32.6 g/dL (32.0-36.0); Mean Corpuscular Volume 89.8 fL (80.0-100.0); Mean Platelet Volume 9.3 fL (9.4-12.4); Platelet Count 134 K/uL (130-400); RDW Coefficient of Variation 13.6 % (11.5-14.5); RDW Standard Deviation 44.3 fL (36.4-46.3); Red Blood Count 3.42 M/uL (4.20-5.40); White Blood Count 4.94 K/ul (4.8-10.8)
[2025-02-18] MEDS: UMECLIDINIUM/VILANTEROL 62.5/25MCG 7 PUFFS/INHALER INH SCH (08:18)
[2025-02-18] MEDS: FLUTICASONE FUROATE 200MCG 14 PUFFS/INHALER INH SCH (08:19)
[2025-02-18] MEDS: LEVOTHYROXINE SODIUM 25 MCG TABLET PO SCH (08:19)
[2025-02-18] MEDS: DULoxetine HCL 60 MG CAP PO SCH (08:20)
[2025-02-18] MEDS ORDERED: GABAPENTIN 300 MG CAP PO SCH (09:00)
--- NOTE | 2025-02-18 10:39 | Surgery Progress Note ---
Date of Service February 18, 2025 Assessment & Plan (1) Status post bilateral mastectomy: Plan: continue present care possibly home in AM Admission and Anticipated Discharge Date Admission Date: February 16, 2025 Subjective still with pain working with therapies Review of Systems Constitutional: no fever and no chills Respiratory: no cough and no dyspnea Cardiovascular: no chest pain Gastrointestinal: + nausea; no abdominal pain Neurologic: + generalized weakness; no localized wea kness Psychiatric: no behavioral changes Physical Exam Constitutional: WD/WN, vitals as above Respiratory: normal respiratory effort, lungs clear to auscultation Cardiovascular: RRR, no murmur, no edema Chest (Breasts): Additional Comments: FRANCISCO serosanguious Gastrointestinal (Abdomen): normal bowel sounds, soft, nontender, no hepatosplenomegaly Skin: no rashes, warm and dry Results & Data Vital Signs (Past 12 Hours) Vital Signs Temp Pulse Resp BP Pulse Ox O2 Del Method 02/18/25 07:20 37.1 C 90 16 105/68 94 Room Air 02/18/25 01:06 93 Room Air
[2025-02-18] MEDS: oxyCODONE HCL IR 5 MG TAB (IMMEDIATE RELEASE) PO PRN (11:52)
--- NOTE | 2025-02-18 16:03 | Hospitalist Progress Note ---
Date of Service February 18, 2025 Assessment & Plan (1) Breast cancer: (2) Status post bilateral mastectomy: (3) Hypothyroidism: (4) Chronic heart failure: (5) History of TIA (transient ischemic attack): (6) Hyperlipidemia: (7) HTN (hypertension): (8) Superior mesenteric artery stenosis: (9) GERD (gastroesophageal reflux disease): (10) Asthma: Plan Ms. Garcia is an 79-year-old female that presented to the [facility] for a planned elective bilateral mastectomy under the care of Dr. Ko. Intraoperatively no complications occurred and EBL 10 mL. She presented to her PCP on December 17, 2024 with complaints of left nipple discharge that she noticed 1 week prior. It was described as a clear discharge with no noticeable odor. No pain was identified. These findings prompted a mammogram; a small mass was identified 3 cm from her nipple which was biopsied with results of a papilloma with atypical cells being present. 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 For discharge consideration patient does live alone. She does have 3 sons that live about 30 minutes away. She does have a friend who plans to stay with her for a day or 2 after discharge. Patient may benefit from home health support. Will need to confirm when Plavix can be resumed with general surgery. 2020: High Grade Non invasive Ductal Carcinoma ESRS +; received Radiation ONLY. 2024: Left nipple drainage; small mass in left breast; bx papilloma with atypical cells; unable to find any actual staging documented. Pt made decision for bl mastectomy vs further additional radiation tx. Breast mass: Status post bilateral mastectomy: Likely acute blood loss anemia: last preop Hb of 14.3 from 03/14/23, post op Hb of 9.8, pt w/ no dizziness/palpitation, no indication for blood transfusion. S/P bilateral mastectomy under the care of Dr. Ko. On 02/16/2025 EBL: 10 mL Monitor H&H, baseline 12.8 from 01/28; trend in a.m. FRANCISCO drain anterior x 2 with minimal zulay red blood Per general surgery for pain control, wound care, anticoagulation and activities. Continue incentive spirometry Appreciate general surgery care following the mastectomy PT/OT when appropriate Complains pain otherwise stable with blood pressure on the lower side at 99/68 History of TIA: Superior mesenteric artery stenosis: Chronic Takes Plavix; on hold postop; resume as soon as possible post operatively when bleeding risk deemed minimal per sx. Will discussed with the surgical team when Plavix can be restarted HFpEF: HTN: Last ECHO: 07/11/2022-mildly increased concentric left ventricular wall thickness, LVWM normal, EF 55 to 59% with grade 1 diastolic dysfunction, mild TR Currently hypotension/low normal BP likely 2/2 pain meds need. Will use gentle NSS for BP support. Hold home lasix, losartan, metoprolol for now. monitor and reassess in AM to see if they can be resumed. Will restart metoprolol may be smaller doses as soon as possible HLD: chronic takes atorvastatin; continue Hypothyroidism: Chronic takes levothyroxine; continue DM2: Obesity: Takes gabapentin; continue Takes Ozempic; hold while inpatient SSI ACHS while inpatient GERD: chronic Takes pantoprazole; continue Disposition: PCP: Dr. Reyes Code Status: Full VTE Prophylaxis: Per admitting team Has been on Lovenox Admission and Anticipated Discharge Date Admission Date: February 16, 2025 Subjective 02/18/2025 The patient was seen and examined in medical floor She is status post bilateral mastectomy and complaining of considerable amount of pain at the surgery site Denies any abdominal pain, nausea and/or vomiting No shortness of breath at rest Review of Systems Review of Systems: All systems reviewed and are unremarkable except as noted below Physical Exam Physical Exam: Sitting on the chair without any acute distress except pain at the surgery site Constitutional: well developed, well nourished, + ill appearing and + obese Eyes: PERRL, conjunctivae normal, anicteric sclerae ENMT: external ear and nose normal, oropharynx normal Neck: trachea midline, no thyromegaly Respiratory: no respiratory distress Auscultation: lungs clear to auscultation bilaterally Cardiovascular: Rate/Rhythm: regular rate and regular rhythm; not tachycardic Heart Sounds: normal S1 and normal S2; no murmur Extremities: no edema Chest (Breasts): Additional Comments: Status post bilateral mastectomy Gastrointestinal (Abdomen): Inspection/Auscultation: normal bowel sounds; abdomen not distended Percussion/Palpation: abdomen soft; abdomen nontender Musculoskeletal: No acute arthritis involving any of the joints Neurologic: normal touch/pain/proprioception and moves all extremities; no focal motor deficits Lymphatic: no cervical or axillary lymphadenopathy Results & Data Results & Data Vital Signs (Past 12 Hours) Vital Signs Temp Pulse Resp BP Pulse Ox Pulse Ox Pulse Ox 02/18/25 14:53 37.0 C 88 16 99/68 L 93 02/18/25 14:25 92 95 02/18/25 07:20 37.1 C 90 16 105/68 94 O2 Del Method O2 Flow Rate O2 Flow Rate 02/18/25 14:53 Room Air 02/18/25 14: 0 2 02/18/25 07:20 Room Air Laboratory Results Short CBC 02/18/25 Range/Units 06:05 WBC 4.94 (4.8-10.8) K/ul Hgb 10.0 L (12.0-16.0) g/dl Hct 30.7 L (37.0-47.0) % Plt Count 134 (130-400) K/uL Medications Administered Current Inpatient Medications Atorvastatin Calcium (Atorvastatin 40 Mg Tab) 40 mg PO HS DENAE Stop: 03/19/25 20:59 Last Admin: 02/17/25 21:28 Dose: 40 mg Benzonatate (Benzonatate 100 Mg Capsule) 100 - 200 mg PO HS PRN PRN Reason: Cough Stop: 03/19/25 11:48 Diphenhydramine HCl (Diphenhydramine Capsule 25 Mg Cap) 25 mg PO Q4H PRN PRN Reason: hives, itching or insomnia Stop: 03/18/25 15:34 Duloxetine HCl (Duloxetine Hcl 60 Mg Cap) 60 mg PO QAM DENAE Stop: 03/20/25 08:59 Last Admin: 02/18/25 08:20 Dose: 60 mg Enoxaparin Sodium (Enoxaparin Inj 40 Mg/0.4 Ml Syr) 40 mg SQ Q24H DENAE Stop: 03/19/25 07:59 Last Admin: 02/18/25 08:21 Dose: 40 mg Fluticasone Furoate (Fluticasone Furoate 200mcg 14 Puffs/Inhaler) 1 puffs INH DAILY [facility] Stop: 03/20/25 08:59 Last Admin: 02/18/25 08:19 Dose: 1 puffs Gabapentin (Gabapentin 600 Mg Tab) 600 mg PO BID [facility] Stop: 03/19/25 20:59 Last Admin: 02/18/25 08:19 Dose: 600 mg Gabapentin (Gabapentin 300 Mg Cap) 300 mg PO [facility] Stop: 03/19/25 20:59 Last Admin: 02/17/25 21:28 Dose: 300 mg Hydromorphone HCl (Hydromorphone Inj 0.5 Mg/0.5 Ml Syr) 0.25 mg IV Q3H PRN PRN Reason: Moderate Pain (Scale 4, 5, 6) Stop: 03/03/25 16:43 Hydromorphone HCl (Hydromorphone Inj 0.5 Mg/0.5 Ml Syr) 0.5 mg IV Q3H PRN PRN Reason: Severe Pain (Scale 7, 8, 9,10) Stop: 03/03/25 16:43 Promethazine HCl (Phenergan) 12.5 mg in 50.5 mls @ 202 mls/hr IV Q6H PRN PRN Reason: Nausea And Vomiting Stop: 03/18/25 15:34 Acetaminophen (Ofirmev) 1,000 mg in 100 mls @ 400 mls/hr IV Q8H [facility] Stop: 02/20/25 16:44 Last Admin: 02/18/25 11:39 Dose: Not Given Levothyroxine Sodium (Levothyroxine Sodium 25 Mcg Tablet) 25 mcg PO [facility] Stop: 03/20/25 08:59 Last Admin: 02/18/25 08:19 Dose: 25 mcg Montelukast Sodium (Montelukast Sodium 10 Mg Tablet) 10 mg PO [facility] Stop: 03/19/25 20:59 Last Admin: 02/17/25 21:28 Dose: 10 mg Ondansetron HCl (Ondansetron Inj 2 Mg/Ml 2 Ml Vial) 4 mg IV Q4H PRN PRN Reason: Nausea And Vomiting Stop: 03/18/25 15:34 Last Admin: 02/17/25 06:23 Dose: 4 mg Oxycodone HCl (Oxycodone Hcl Ir 5 Mg Tab (Immediate Release)) 10 mg PO Q4H PRN PRN Reason: Severe Pain (Scale 7, 8, 9,10) Stop: 03/03/25 16:41 Last Admin: 02/18/25 11:52 Dose: 10 mg Oxycodone HCl (Oxycodone Hcl Ir 5 Mg Tab (Immediate Release)) 5 mg PO Q4H PRN PRN Reason: Moderate Pain (Scale 4, 5, 6) Stop: 03/03/25 18:12 Last Admin: 02/17/25 21:31 Dose: 5 mg Pantoprazole Sodium (Pantoprazole 40 Mg Tab) 40 mg PO DAILY PRN PRN Reason: Acid Reflux Stop: 03/19/25 11:48 Psyllium Hydrophilic Mucilloid (Psyllium Or Guar Gum Fiber 4gm Packet) 4 gm PO DAILY PRN PRN Reason: Constipation Stop: 03/19/25 11:53 Umeclidinium/Vilanterol (Umeclidinium/Vilanterol 62.5/25mcg 7 Puffs/Inhaler) 1 puffs INH DAILY DENAE Stop: 03/20/25 08:59 Last Admin: 02/18/25 08:18 Dose: 1 puffs Vitamin D (Cholecalciferol 125 Mcg (5,000 Units) Tab) 125 mcg PO HS DENAE Stop: 03/19/25 20:59 Last Admin: 02/17/25 21:28 Dose: 125 mcg (1) Breast cancer Patient sex: female Laterality: right (3) Hypothyroidism Hypothyroidism type: acquired Qualified Code(s): E03.9 - Hypothyroidism, unspecified
[2025-02-19 06:57] LABS: Basophils # (auto) 0.03 K/uL (0.00-0.20); Basophils % (auto) 0.8 %; Eosinophils # (auto) 0.11 K/uL (0.00-0.50); Eosinophils % (auto) 2.9 %; Hematocrit (blood only) 29.4 % (37.0-47.0); Hemoglobin 9.6 g/dl (12.0-16.0); Immature Granulocytes # (auto) 0.01 K/uL (0.01-0.20); Immature Granulocytes % (auto) 0.3 %; Lymphocytes # (auto) 1.28 K/uL (1.20-3.40); Lymphocytes % (auto) 33.5 %; Mean Corpuscular Hemoglobin 29.4 pg (25.0-34.0); Mean Corpuscular Hgb Conc 32.7 g/dL (32.0-36.0); Mean Corpuscular Volume 90.2 fL (80.0-100.0); Monocytes # (auto) 0.31 K/uL (0.11-0.59); Monocytes % (auto) 8.1 %; Neutrophils # (auto) 2.08 K/uL (1.40-6.50); Neutrophils % (auto) 54.4 %; Platelet Count 147 K/uL (130-400); RDW Coefficient of Variation 13.4 % (11.5-14.5); RDW Standard Deviation 44.5 fL (36.4-46.3); Red Blood Count 3.26 M/uL (4.20-5.40); White Blood Count 3.82 K/ul (4.8-10.8)
[2025-02-19 07:23] LABS: Calcium 9.3 mg/dl (8.6-10.3); Creatinine Clr Calc Pharmacy 51.2 ml/min; Potassium 4.3 mmol/L (3.5-5.1)
[2025-02-19] MEDS: PANTOprazole 40 MG TAB PO PRN (07:44)
[2025-02-19] MEDS: DOCUSATE SODIUM 100 MG CAP PO SCH (11:57)
--- NOTE | 2025-02-19 13:13 | Hospitalist Progress Note ---
Date of Service February 19, 2025 Assessment & Plan (1) Breast cancer: (2) Status post bilateral mastectomy: (3) Hypothyroidism: (4) Chronic heart failure: (5) History of TIA (transient ischemic attack): (6) Hyperlipidemia: (7) HTN (hypertension): (8) Superior mesenteric artery stenosis: (9) GERD (gastroesophageal reflux disease): (10) Asthma: Plan Ms. Garcia is an 79-year-old female that presented to the [facility] for a planned elective bilateral mastectomy under the care of Dr. Ko. Intraoperatively no complications occurred and EBL 10 mL. She presented to her PCP on December 17, 2024 with complaints of left nipple discharge that she noticed 1 week prior. It was described as a clear discharge with no noticeable odor. No pain was identified. These findings prompted a mammogram; a small mass was identified 3 cm from her nipple which was biopsied with results of a papilloma with atypical cells being present. 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 For discharge consideration patient does live alone. She does have 3 sons that live about 30 minutes away. She does have a friend who plans to stay with her for a day or 2 after discharge. Patient may benefit from home health support. Will need to confirm when Plavix can be resumed with general surgery. 2020: High Grade Non invasive Ductal Carcinoma ESRS +; received Radiation ONLY. 2024: Left nipple drainage; small mass in left breast; bx papilloma with atypical cells; unable to find any actual staging documented. Pt made decision for bl mastectomy vs further additional radiation tx. Breast mass: Status post bilateral mastectomy: Likely acute blood loss anemia: last preop Hb of 14.3 from 03/14/23, post op Hb of 9.8, pt w/ no dizziness/palpitation, no indication for blood transfusion. S/P bilateral mastectomy under the care of Dr. Ko. On 02/16/2025 EBL: 10 mL Monitor H&H, baseline 12.8 from 01/28; trend in a.m. FRANCISCO drain anterior x 2 with minimal zulay red blood Per general surgery for pain control, wound care, anticoagulation and activities. Continue incentive spirometry Appreciate general surgery care following the mastectomy PT/OT when appropriate Complains pain otherwise stable with blood pressure on the lower side at 99/68 Has been feeling much better with minimal pain and denies any other symptoms Likely discharge tomorrow and if that is okay with the primary service History of TIA: Superior mesenteric artery stenosis: Chronic Takes Plavix; on hold postop; resume as soon as possible post operatively when bleeding risk deemed minimal per sx. Will discussed with the surgical team when Plavix can be restarted Likely restart Plavix tomorrow on discharge HFpEF: HTN: Last ECHO: 07/11/2022-mildly increased concentric left ventricular wall thickness, LVWM normal, EF 55 to 59% with grade 1 diastolic dysfunction, mild TR Currently hypotension/low normal BP likely 2/2 pain meds need. Will use gentle NSS for BP support. Hold home lasix, losartan, metoprolol for now. monitor and reassess in AM to see if they can be resumed. Will restart metoprolol may be smaller doses as soon as possible HLD: chronic takes atorvastatin; continue Hypothyroidism: Chronic takes levothyroxine; continue DM2: Obesity: Takes gabapentin; continue Takes Ozempic; hold while inpatient SSI ACHS while inpatient GERD: chronic Takes pantoprazole; continue Disposition: PCP: Dr. Reyes Code Status: Full VTE Prophylaxis: Per admitting team Has been on [facility] Admission and Anticipated Discharge Date Admission Date: February 16, 2025 Subjective 02/18/2025 The patient was seen and examined in medical floor She is status post bilateral mastectomy and complaining of considerable amount of pain at the surgery site Denies any abdominal pain, nausea and/or vomiting No shortness of breath at rest 04/21/2025 The patient was seen and examined in medical floor She has been feeling better today with decreasing pain at the surgery site Denies any other significant symptoms Review of Systems Review of Systems: All systems reviewed and are unremarkable except as noted below Physical Exam Physical Exam: Sitting on the chair without any acute distress except pain at the surgery site Constitutional: well developed, well nourished, + ill appearing and + obese Eyes: PERRL, conjunctivae normal, anicteric sclerae ENMT: external ear and nose normal, oropharynx normal Neck: trachea midline, no thyromegaly Respiratory: no respiratory distress Auscultation: lungs clear to auscultation bilaterally Cardiovascular: Rate/Rhythm: regular rate and regular rhythm; not tachycardic Heart Sounds: normal S1 and normal S2; no murmur Extremities: no edema Gastrointestinal (Abdomen): Inspection/Auscultation: normal bowel sounds; abdomen not distended Percussion/Palpation: abdomen soft; abdomen nontender Neurologic: normal touch/pain/proprioception and moves all extremities; no focal motor deficits Lymphatic: no cervical or axillary lymphadenopathy Results & Data Results & Data Vital Signs (Past 12 Hours) Vital Signs Temp Pulse Resp BP Pulse Ox O2 Del Method 02/19/25 09:52 Room Air 02/19/25 08:00 36.6 C 80 16 93/57 L 93 Room Air Laboratory Results Short CBC 02/19/25 Range/Units 06:34 WBC 3.82 L (4.8-10.8) K/ul Hgb 9.6 L (12.0-16.0) g/dl Hct 29.4 L (37.0-47.0) % Plt Count 147 (130-400) K/uL BMP 02/19/25 06:34 Sodium 140 Potassium 4.3 Chloride 104 Carbon Dioxide 32 BUN 20 Creatinine 0.80 Glucose 105 H Calcium 9.3 Medications Administered Current Inpatient Medications Atorvastatin Calcium (Atorvastatin 40 Mg Tab) 40 mg PO HS DENAE Stop: 03/19/25 20:59 Last Admin: 02/18/25 21:33 Dose: 40 mg Benzonatate (Benzonatate 100 Mg Capsule) 100 - 200 mg PO HS PRN PRN Reason: Cough Stop: 03/19/25 11:48 Diphenhydramine HCl (Diphenhydramine Capsule 25 Mg Cap) 25 mg PO Q4H PRN PRN Reason: hives, itching or insomnia Stop: 03/18/25 15:34 Docusate Sodium (Docusate Sodium 100 Mg Cap) 100 mg PO BID DENAE Stop: 03/21/25 11:59 Last Admin: 02/19/25 11:57 Dose: 100 mg Duloxetine HCl (Duloxetine Hcl 60 Mg Cap) 60 mg PO QAM DENAE Stop: 03/20/25 08:59 Last Admin: 02/19/25 07:44 Dose: 60 mg Enoxaparin Sodium (Enoxaparin Inj 40 Mg/0.4 Ml Syr) 40 mg SQ Q24H [facility] Stop: 03/19/25 07:59 Last Admin: 02/19/25 07:41 Dose: 40 mg Fluticasone Furoate (Fluticasone Furoate 200mcg 14 Puffs/Inhaler) 1 puffs INH DAILY [facility] Stop: 03/20/25 08:59 Last Admin: 02/19/25 07:41 Dose: 1 puffs Gabapentin (Gabapentin 600 Mg Tab) 600 mg PO BID [facility] Stop: 03/19/25 20:59 Last Admin: 02/19/25 07:44 Dose: 600 mg Gabapentin (Gabapentin 300 Mg Cap) 300 mg PO [facility] Stop: 03/19/25 20:59 Last Admin: 02/18/25 21:33 Dose: 300 mg Hydromorphone HCl (Hydromorphone Inj 0.5 Mg/0.5 Ml Syr) 0.25 mg IV Q3H PRN PRN Reason: Moderate Pain (Scale 4, 5, 6) Stop: 03/03/25 16:43 Hydromorphone HCl (Hydromorphone Inj 0.5 Mg/0.5 Ml Syr) 0.5 mg IV Q3H PRN PRN Reason: Severe Pain (Scale 7, 8, 9,10) Stop: 03/03/25 16:43 Promethazine HCl (Phenergan) 12.5 mg in 50.5 mls @ 202 mls/hr IV Q6H PRN PRN Reason: Nausea And Vomiting Stop: 03/18/25 15:34 Acetaminophen (Ofirmev) 1,000 mg in 100 mls @ 400 mls/hr IV Q8H [facility] Stop: 02/20/25 16:44 Last Infusion: 02/19/25 09:06 Dose: Infused Levothyroxine Sodium (Levothyroxine Sodium 25 Mcg Tablet) 25 mcg PO QAM [facility] Stop: 03/20/25 08:59 Last Admin: 02/19/25 07:50 Dose: 25 mcg Montelukast Sodium (Montelukast Sodium 10 Mg Tablet) 10 mg PO HS [facility] Stop: 03/19/25 20:59 Last Admin: 02/18/25 21:33 Dose: 10 mg Ondansetron HCl (Ondansetron Inj 2 Mg/Ml 2 Ml Vial) 4 mg IV Q4H PRN PRN Reason: Nausea And Vomiting Stop: 03/18/25 15:34 Last Admin: 02/17/25 06:23 Dose: 4 mg Oxycodone HCl (Oxycodone Hcl Ir 5 Mg Tab (Immediate Release)) 10 mg PO Q4H PRN PRN Reason: Severe Pain (Scale 7, 8, 9,10) Stop: 03/03/25 16:41 Last Admin: 02/19/25 07:53 Dose: 10 mg Oxycodone HCl (Oxycodone Hcl Ir 5 Mg Tab (Immediate Release)) 5 mg PO Q4H PRN PRN Reason: Moderate Pain (Scale 4, 5, 6) Stop: 03/03/25 18:12 Last Admin: 02/17/25 21:31 Dose: 5 mg Pantoprazole Sodium (Pantoprazole 40 Mg Tab) 40 mg PO DAILY PRN PRN Reason: Acid Reflux Stop: 03/19/25 11:48 Last Admin: 02/19/25 07:44 Dose: 40 mg Psyllium Hydrophilic Mucilloid (Psyllium Or Guar Gum Fiber 4gm Packet) 4 gm PO DAILY PRN PRN Reason: Constipation Stop: 03/19/25 11:53 Umeclidinium/Vilanterol (Umeclidinium/Vilanterol 62.5/25mcg 7 Puffs/Inhaler) 1 puffs INH DAILY DENAE Stop: 03/20/25 08:59 Last Admin: 02/19/25 07:41 Dose: 1 puffs Vitamin D (Cholecalciferol 125 Mcg (5,000 Units) Tab) 125 mcg PO HS DENAE Stop: 03/19/25 20:59 Last Admin: 02/18/25 21:33 Dose: 125 mcg (1) Breast cancer Patient sex: female Laterality: right (3) Hypothyroidism Hypothyroidism type: acquired Qualified Code(s): E03.9 - Hypothyroidism, unspecified
--- NOTE | 2025-02-19 14:04 | Surgery Progress Note ---
Date of Service February 19, 2025 Assessment & Plan (1) Status post bilateral mastectomy: Plan: POD # 3 s/p bilateral mastectomy avss hgb stable ramona drains now more serosanguineous postop pain still moderate to severe but slowly improving PT recommending rehab Plan: Continue pain management as needed can resume plavix case management on board, will dicuss rehab given PT's recommendations and patient preference . Lives at home alone and feels she needs a week of rehab. Continue medical management continue reg diet Admission and Anticipated Discharge Date Admission Date: February 19, 2025 Subjective feeling better but still having moderate to severe pain at times, overall pain slowly improving not worsening no fevers or chills no n,v tolerating diet urinating without difficulty worked with PT yesterday, per their note recommending rehab. She thinks she needs rehab . Lives at home alone. Physical Exam Constitutional: WD/WN, vitals as above cooperative and comfortable; no acute distress and not ill appearing Respiratory: normal respiratory effort; no respiratory distress, no labored breathing and no retractions Chest (Breasts): Additional Comments: Chest: Bilateral mastectomy dressing intact with no spotting. Bilateral drains now serosanguineous. Skin: no rashes, warm and dry Psychiatric: Orientation: alert and oriented x 3 Results & Data Vital Signs (Past 12 Hours) Vital Signs Temp Pulse Pulse Resp BP BP Pulse Ox 02/19/25 13:41 36.6 C 81 16 99/70 L 95 02/19/25 09:52 02/19/25 08:00 36.6 C 80 16 93/57 L 93 O2 Del Method 02/19/25 13:41 Room Air 02/19/25 09:52 Room Air 02/19/25 08:00 Room Air Laboratory Results 02/19/25 Range/Units 06:34 WBC 3.82 L (4.8-10.8) K/ul RBC 3.26 L (4.20-5.40) M/uL Hgb 9.6 L (12.0-16.0) g/dl Hct 29.4 L (37.0-47.0) % MCV 90.2 (80.0-100.0) fL MCH 29.4 (25.0-34.0) pg MCHC 32.7 (32.0-36.0) g/dL RDW Std Deviation 44.5 (36.4-46.3) fL RDW Coeff of [place] 13.4 (11.5-14.5) % Plt Count 147 (130-400) K/uL MPV 9.0 L (9.4-12.4) fL Immature Gran % (Auto) 0.3 % Neut % (Auto) 54.4 % Lymph % (Auto) 33.5 % [place] % (Auto) 8.1 % Eos % (Auto) 2.9 % Baso % (Auto) 0.8 % Neut # (Auto) 2.08 (1.40-6.50) K/uL Lymph # (Auto) 1.28 (1.20-3.40) K/uL [place] # (Auto) 0.31 (0.11-0.59) K/uL Eos # (Auto) 0.11 (0.00-0.50) K/uL Baso # (Auto) 0.03 (0.00-0.20) K/uL Immature Gran # (Auto) 0.01 (0.01-0.20) K/uL Sodium 140 (136-145) mmol/L Potassium 4.3 (3.5-5.1) mmol/L Chloride 104 (98-107) mmol/L Carbon Dioxide 32 (21-32) mmol/L Anion Gap 4 (3-11) BUN 20 (6-23) mg/dl Creatinine 0.80 (0.6-1.2) mg/dl Est Cr Clr Drug Dosing 51.2 ml/min eGFR 74.44 BUN/Creatinine Ratio 25.0 H (10-20) Glucose 105 H (70-99(Fasting)) mg/dl Calcium 9.3 (8.6-10.3) mg/dl
[2025-02-20] MEDS: CLOPIDOGREL BISULFATE 75 MG TAB PO SCH (08:05)
--- NOTE | 2025-02-20 11:33 | Surgery Progress Note ---
Date of Service February 20, 2025 Assessment & Plan (1) Status post bilateral mastectomy: Plan: POD # 4 s/p bilateral mastectomy avss hgb stable ramona drains now serosanguineous postop pain still moderate to severe but slowly improving PT recommending rehab Plan: Continue pain management as needed continue plavix case management on board, awaiting rehab placement Continue medical management continue reg diet encouraged ambulation, working with PT while awaiting placement Admission and Anticipated Discharge Date Admission Date: February 19, 2025 Subjective feeling better but still having moderate to severe pain at times, 06/24 this am prior to Oxycodone and Tylenol. overall pain slowly improving not worsening no fevers or chills no n,v tolerating diet urinating without difficulty Physical Exam Constitutional: WD/WN, vitals as above cooperative and comfortable; no acute distress and not ill appearing Respiratory: normal respiratory effort; no respiratory distress and no labored breathing Chest (Breasts): Additional Comments: Bilateral mastectomy incisions c/d/i with dermabond. No swelling of bilateral chest wall. Bilateral ramona drains with serosanguineous output. Skin: no rashes, warm and dry Psychiatric: Orientation: alert and oriented x 3 Results & Data Vital Signs (Past 12 Hours) Vital Signs Temp Pulse Resp BP Pulse Ox O2 Del Method 02/20/25 07:54 36.7 C 85 18 104/67 95 Room Air
--- NOTE | 2025-02-20 12:04 | Hospitalist Progress Note ---
Date of Service February 20, 2025 Assessment & Plan (1) Breast cancer: (2) Status post bilateral mastectomy: (3) Hypothyroidism: (4) Chronic heart failure: (5) History of TIA (transient ischemic attack): (6) Hyperlipidemia: (7) HTN (hypertension): (8) Superior mesenteric artery stenosis: (9) GERD (gastroesophageal reflux disease): (10) Asthma: Plan Ms. Garcia is an 79-year-old female that presented to the [facility] for a planned elective bilateral mastectomy under the care of Dr. Ko. Intraoperatively no complications occurred and EBL 10 mL. She presented to her PCP on December 17, 2024 with complaints of left nipple discharge that she noticed 1 week prior. It was described as a clear discharge with no noticeable odor. No pain was identified. These findings prompted a mammogram; a small mass was identified 3 cm from her nipple which was biopsied with results of a papilloma with atypical cells being present. 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 For discharge consideration patient does live alone. She does have 3 sons that live about 30 minutes away. She does have a friend who plans to stay with her for a day or 2 after discharge. Patient may benefit from home health support. Will need to confirm when Plavix can be resumed with general surgery. 2020: High Grade Non invasive Ductal Carcinoma ESRS +; received Radiation ONLY. 2024: Left nipple drainage; small mass in left breast; bx papilloma with atypical cells; unable to find any actual staging documented. Pt made decision for bl mastectomy vs further additional radiation tx. Breast mass: Status post bilateral mastectomy: Likely acute blood loss anemia: last preop Hb of 14.3 from 03/14/23, post op Hb of 9.8, pt w/ no dizziness/palpitation, no indication for blood transfusion. S/P bilateral mastectomy under the care of Dr. Ko. On 02/16/2025 EBL: 10 mL Monitor H&H, baseline 12.8 from 01/28; trend in a.m. FRANCISCO drain anterior x 2 with minimal zulay red blood Per general surgery for pain control, wound care, anticoagulation and activities. Continue incentive spirometry Appreciate general surgery care following the mastectomy PT/OT when appropriate Complains pain otherwise stable with blood pressure on the lower side at 99/68 Has been feeling much better with minimal pain and denies any other symptoms Likely discharge tomorrow and if that is okay with the primary service She will need to have PT OT and will need to go to rehab manager utilization review is working on it- her pain is reasonably controlled and remains medically stable History of TIA: Superior mesenteric artery stenosis: Chronic Takes Plavix; on hold postop; resume as soon as possible post operatively when bleeding risk deemed minimal per sx. Will discussed with the surgical team when Plavix can be restarted Likely restart Plavix tomorrow on discharge Her home medications will be started including Plavix HFpEF: HTN: Last ECHO: 07/11/2022-mildly increased concentric left ventricular wall thickness, LVWM normal, EF 55 to 59% with grade 1 diastolic dysfunction, mild TR Currently hypotension/low normal BP likely 2/2 pain meds need. Will use gentle N SS for BP support. Hold home lasix, losartan, metoprolol for now. monitor and reassess in AM to see if they can be resumed. Will restart metoprolol may be smaller doses as soon as possible HLD: chronic takes atorvastatin; continue Hypothyroidism: Chronic takes levothyroxine; continue DM2: Obesity: Takes gabapentin; continue Takes Ozempic; hold while inpatient SSI ACHS while inpatient GERD: chronic Takes pantoprazole; continue Disposition: PCP: Dr. Reyes Code Status: Full VTE Prophylaxis: Per admitting team Has been on Lovenox Admission and Anticipated Discharge Date Admission Date: February 19, 2025 Subjective 02/18/2025 The patient was seen and examined in medical floor She is status post bilateral mastectomy and complaining of considerable amount of pain at the surgery site Denies any abdominal pain, nausea and/or vomiting No shortness of breath at rest 02/19/2025 The patient was seen and examined in medical floor She has been feeling better today with decreasing pain at the surgery site Denies any other significant symptoms 02/20/2025 The patient was seen and examined in medical floor She has been complaining of chest pain at the site of surgery does not have any shortness of breath, any nausea and or vomiting She will need to go for rehab Review of Systems Review of Systems: All systems reviewed and are unremarkable except as noted below Physical Exam Physical Exam: Sitting on the chair without any acute distress except pain at the surgery site Constitutional: well developed, well nourished, + ill appearing and + obese Eyes: PERRL, conjunctivae normal, anicteric sclerae ENMT: external ear and nose normal, oropharynx normal Neck: trachea midline, no thyromegaly Respiratory: no respiratory distress Auscultation: lungs clear to auscultation bilaterally Cardiovascular: Rate/Rhythm: regular rate and regular rhythm; not tachycardic Heart Sounds: normal S1 and normal S2; no murmur Extremities: no edema Gastrointestinal (Abdomen): Inspection/Auscultation: normal bowel sounds; abdomen not distended Percussion/Palpation: abdomen soft; abdomen nontender Neurologic: normal touch/pain/proprioception and moves all extremities; no focal motor deficits Lymphatic: no cervical or axillary lymphadenopathy Results & Data Results & Data Vital Signs (Past 12 Hours) Vital Signs Temp Pulse Resp BP Pulse Ox O2 Del Method 02/20/25 07:54 36.7 C 85 18 104/67 95 Room Air Medications Administered Current Inpatient Medications Atorvastatin Calcium (Atorvastatin 40 Mg Tab) 40 mg PO HS DENAE Stop: 03/19/25 20:59 Last Admin: 02/19/25 21:50 Dose: 40 mg Benzonatate (Benzonatate 100 Mg Capsule) 100 - 200 mg PO HS PRN PRN Reason: Cough Stop: 03/19/25 11:48 Clopidogrel Bisulfate (Clopidogrel Bisulfate 75 Mg Tab) 75 mg PO QAM [facility]NAE Stop: 03/22/25 08:59 Last Admin: 02/20/25 08:05 Dose: 75 mg Diphenhydramine HCl (Diphenhydramine Capsule 25 Mg Cap) 25 mg PO Q4H PRN PRN Reason: hives, itching or insomnia Stop: 03/18/25 15:34 Docusate Sodium (Docusate Sodium 100 Mg Cap) 100 mg PO BID DENAE Stop: 03/21/25 11:59 Last Admin: 02/20/25 08:07 Dose: 100 mg Duloxetine HCl (Duloxetine Hcl 60 Mg Cap) 60 mg PO QAM [facility] Stop: 03/20/25 08:59 Last Admin: 02/20/25 08:05 Dose: 60 mg Enoxaparin Sodium (Enoxaparin Inj 40 Mg/0.4 Ml Syr) 40 mg SQ Q24H [facility] Stop: 03/19/25 07:59 Last Admin: 02/20/25 08:06 Dose: 40 mg Fluticasone Furoate (Fluticasone Furoate 200mcg 14 Puffs/Inhaler) 1 puffs INH DAILY [facility] Stop: 03/20/25 08:59 Last Admin: 02/20/25 08:06 Dose: 1 puffs Gabapentin (Gabapentin 600 Mg Tab) 600 mg PO BID [facility] Stop: 03/19/25 20:59 Last Admin: 02/20/25 08:05 Dose: 600 mg Gabapentin (Gabapentin 300 Mg Cap) 300 mg PO [facility] Stop: 03/19/25 20:59 Last Admin: 02/19/25 21:50 Dose: 300 mg Hydromorphone HCl (Hydromorphone Inj 0.5 Mg/0.5 Ml Syr) 0.25 mg IV Q3H PRN PRN Reason: Moderate Pain (Scale 4, 5, 6) Stop: 03/03/25 16:43 Hydromorphone HCl (Hydromorphone Inj 0.5 Mg/0.5 Ml Syr) 0.5 mg IV Q3H PRN PRN Reason: Severe Pain (Scale 7, 8, 9,10) Stop: 03/03/25 16:43 Promethazine HCl (Phenergan) 12.5 mg in 50.5 mls @ 202 mls/hr IV Q6H PRN PRN Reason: Nausea And Vomiting Stop: 03/18/25 15:34 Acetaminophen (Ofirmev) 1,000 mg in 100 mls @ 400 mls/hr IV Q8H [facility] Stop: 02/20/25 16:44 Last Infusion: 02/20/25 09:55 Dose: Infused Levothyroxine Sodium (Levothyroxine Sodium 25 Mcg Tablet) 25 mcg PO QAM [facility] Stop: 03/20/25 08:59 Last Admin: 02/20/25 08:05 Dose: 25 mcg Montelukast Sodium (Montelukast Sodium 10 Mg Tablet) 10 mg PO HS [facility] Stop: 03/19/25 20:59 Last Admin: 02/19/25 21:49 Dose: 10 mg Ondansetron HCl (Ondansetron Inj 2 Mg/Ml 2 Ml Vial) 4 mg IV Q4H PRN PRN Reason: Nausea And Vomiting Stop: 03/18/25 15:34 Last Admin: 02/17/25 06:23 Dose: 4 mg Oxycodone HCl (Oxycodone Hcl Ir 5 Mg Tab (Immediate Release)) 10 mg PO Q4H PRN PRN Reason: Severe Pain (Scale 7, 8, 9,10) Stop: 03/03/25 16:41 Last Admin: 02/20/25 08:04 Dose: 10 mg Oxycodone HCl (Oxycodone Hcl Ir 5 Mg Tab (Immediate Release)) 5 mg PO Q4H PRN PRN Reason: Moderate Pain (Scale 4, 5, 6) Stop: 03/03/25 18:12 Last Admin: 02/17/25 21:31 Dose: 5 mg Pantoprazole Sodium (Pantoprazole 40 Mg Tab) 40 mg PO DAILY PRN PRN Reason: Acid Reflux Stop: 03/19/25 11:48 Last Admin: 02/20/25 08:05 Dose: 40 mg Psyllium Hydrophilic Mucilloid (Psyllium Or Guar Gum Fiber 4gm Packet) 4 gm PO DAILY PRN PRN Reason: Constipation Stop: 03/19/25 11:53 Umeclidinium/Vilanterol (Umeclidinium/Vilanterol 62.5/25mcg 7 Puffs/Inhaler) 1 puffs INH DAILY [facility] Stop: 03/20/25 08:59 Last Admin: 02/20/25 08:06 Dose: 1 puffs Vitamin D (Cholecalciferol 125 Mcg (5,000 Units) Tab) 125 mcg PO HS [facility] Stop: 03/19/25 20:59 Last Admin: 02/19/25 21:49 Dose: 125 mcg (1) Breast cancer Patient sex: female Laterality: right (3) Hypothyroidism Hypothyroidism type: acquired Qualified Code(s): E03.9 - Hypothyroidism, unspecified
[2025-02-21] MEDS: HYDROmorphone INJ 0.5 MG/0.5 ML SYR IV PRN (00:07)
[2025-02-21 06:08] LABS: Basophils # (auto) 0.02 K/uL (0.00-0.20); Basophils % (auto) 0.4 %; Eosinophils # (auto) 0.13 K/uL (0.00-0.50); Eosinophils % (auto) 2.7 %; Hematocrit (blood only) 30.9 % (37.0-47.0); Hemoglobin 10.1 g/dl (12.0-16.0); Immature Granulocytes # (auto) 0.01 K/uL (0.01-0.20); Immature Granulocytes % (auto) 0.2 %; Lymphocytes # (auto) 1.29 K/uL (1.20-3.40); Lymphocytes % (auto) 26.4 %; Mean Corpuscular Hemoglobin 29.4 pg (25.0-34.0); Mean Corpuscular Hgb Conc 32.7 g/dL (32.0-36.0); Mean Corpuscular Volume 90.1 fL (80.0-100.0); Mean Platelet Volume 8.9 fL (9.4-12.4); Monocytes # (auto) 0.36 K/uL (0.11-0.59); Monocytes % (auto) 7.4 %; Neutrophils # (auto) 3.07 K/uL (1.40-6.50); Neutrophils % (auto) 62.9 %; Platelet Count 186 K/uL (130-400); RDW Coefficient of Variation 13.9 % (11.5-14.5); RDW Standard Deviation 45.4 fL (36.4-46.3); Red Blood Count 3.43 M/uL (4.20-5.40); White Blood Count 4.88 K/ul (4.8-10.8)
[2025-02-21 06:24] LABS: Calcium 9.8 mg/dl (8.6-10.3); Potassium 4.3 mmol/L (3.5-5.1)
--- NOTE | 2025-02-21 12:50 | Hospitalist Progress Note ---
Date of Service February 21, 2025 Assessment & Plan (1) Breast cancer: (2) Status post bilateral mastectomy: (3) Hypothyroidism: (4) Chronic heart failure: (5) History of TIA (transient ischemic attack): (6) Hyperlipidemia: (7) HTN (hypertension): (8) Superior mesenteric artery stenosis: (9) GERD (gastroesophageal reflux disease): (10) Asthma: Plan Ms. Garcia is an 79-year-old female that presented to the [facility] for a planned elective bilateral mastectomy under the care of Dr. Ko. Intraoperatively no complications occurred and EBL 10 mL. She presented to her PCP on December 17, 2024 with complaints of left nipple discharge that she noticed 1 week prior. It was described as a clear discharge with no noticeable odor. No pain was identified. These findings prompted a mammogram; a small mass was identified 3 cm from her nipple which was biopsied with results of a papilloma with atypical cells being present. 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 For discharge consideration patient does live alone. She does have 3 sons that live about 30 minutes away. She does have a friend who plans to stay with her for a day or 2 after discharge. Patient may benefit from home health support. Will need to confirm when Plavix can be resumed with general surgery. 2020: High Grade Non invasive Ductal Carcinoma ESRS +; received Radiation ONLY. 2024: Left nipple drainage; small mass in left breast; bx papilloma with atypical cells; unable to find any actual staging documented. Pt made decision for bl mastectomy vs further additional radiation tx. Breast mass: Status post bilateral mastectomy: Likely acute blood loss anemia: last preop Hb of 14.3 from 03/14/23, post op Hb of 9.8, pt w/ no dizziness/palpitation, no indication for blood transfusion. S/P bilateral mastectomy under the care of Dr. Ko. On 02/16/2025 EBL: 10 mL Monitor H&H, baseline 12.8 from 01/28; trend in a.m. FRANCISCO drain anterior x 2 with minimal zulay red blood Per general surgery for pain control, wound care, anticoagulation and activities. Continue incentive spirometry Appreciate general surgery care following the mastectomy PT/OT when appropriate Complains pain otherwise stable with blood pressure on the lower side at 99/68 Has been feeling much better with minimal pain and denies any other symptoms Likely discharge tomorrow and if that is okay with the primary service She will need to have PT OT and will need to go to rehab e business manager is working on it- her pain is reasonably controlled and remains medically stable Remains medically stable without significant pain at the surgery site and no signs and or symptoms of infection History of TIA: Superior mesenteric artery stenosis: Chronic Takes Plavix; on hold postop; resume as soon as possible post operatively when bleeding risk deemed minimal per sx. Will discussed with the surgical team when Plavix can be restarted Likely restart Plavix tomorrow on discharge Her home medications will be started including Plavix HFpEF: HTN: Last ECHO: 07/11/2022-mildly increased concentric left ventricular wall thickness, LVWM normal, EF 55 to 59% with grade 1 diastolic dysfunction, mild TR Currently hypotension/low normal BP likely 2/2 pain meds need. Will use gentle NSS for BP support. Hold home lasix, losartan, metoprolol for now. monitor and reassess in AM to see if they can be resumed. Will restart metoprolol may be smaller doses as soon as possible Blood pressure seems to be stable Will start a small dose of beta-benita starting with metoprolol titrate 12.5 mg twice daily HLD: chronic takes atorvastatin; continue Hypothyroidism: Chronic takes levothyroxine; continue DM2: Obesity: Takes gabapentin; continue Takes Ozempic; hold while inpatient SSI ACHS while inpatient GERD: chronic Takes pantoprazole; continue Disposition: PCP: Dr. Reyes Code Status: Full VTE Prophylaxis: Per admitting team Has been on Lovenox Admission and Anticipated Discharge Date Admission Date: February 19, 2025 Subjective 02/18/2025 The patient was seen and examined in medical floor She is status post bilateral mastectomy and complaining of considerable amount of pain at the surgery site Denies any abdominal pain, nausea and/or vomiting No shortness of breath at rest 02/19/2025 The patient was seen and examined in medical floor She has been feeling better today with decreasing pain at the surgery site Denies any other significant symptoms 02/20/2025 The patient was seen and examined in medical floor She has been complaining of chest pain at the site of surgery does not have any shortness of breath, any nausea and or vomiting She will need to go for rehab 02/21/2025 The patient was seen and examined in medical floor She has been stable with minimal pain in chest Denies any fever no chills, no nausea no vomiting and no other significant symptoms Awaiting placement Review of Systems Review of Systems: All systems reviewed and are unremarkable except as noted below Physical Exam Physical Exam: Sitting on the chair without any acute distress except pain at the surgery site Constitutional: well developed, well nourished, + ill appearing and + obese Eyes: PERRL, conjunctivae normal, anicteric sclerae ENMT: external ear and nose normal, oropharynx normal Neck: trachea midline, no thyromegaly Respiratory: no respiratory distress Auscultation: lungs clear to auscultation bilaterally Cardiovascular: Rate/Rhythm: regular rate and regular rhythm; not tachycardic Heart Sounds: normal S1 and normal S2; no murmur Extremities: no edema Gastrointestinal (Abdomen): Inspection/Auscultation: normal bowel sounds; abdomen not distended Percussion/Palpation: abdomen soft; abdomen nontender Neurologic: normal touch/pain/proprioception and moves all extremities; no focal motor deficits Lymphatic: no cervical or axillary lymphadenopathy Results & Data Results & Data Vital Signs (Past 12 Hours) Vital Signs Temp Pulse Resp BP Pulse Ox O2 Del Method 02/21/25 12:11 36.5 C 80 16 114/70 95 Room Air 02/21/25 07:59 36.7 C 86 16 106/70 94 Room Air 02/21/25 07:55 Room Air Laboratory Results Short CBC 02/21/25 Range/Units 05:49 WBC 4.88 (4.8-10.8) K/ul Hgb 10.1 L (12.0-16.0) g/dl Hct 30.9 L (37.0-47.0) % Plt Count 186 (130-400) K/uL BMP 02/21/25 05:49 Sodium 139 Potassium 4.3 Chloride 102 Carbon Dioxide 33 H BUN 24 H Creatinine 1.00 Glucose 109 H Calcium 9.8 Medications Administered Current Inpatient Medications Atorvastatin Calcium (Atorvastatin 40 Mg Tab) 40 mg PO HS [facility] Stop: 03/19/25 20:59 Last Admin: 02/20/25 21:44 Dose: 40 mg Benzonatate (Benzonatate 100 Mg Capsule) 100 - 200 mg PO HS PRN PRN Reason: Cough Stop: 03/19/25 11:48 Clopidogrel Bisulfate (Clopidogrel Bisulfate 75 Mg Tab) 75 mg PO QAM [facility] Stop: 03/22/25 08:59 Last Admin: 02/21/25 08:15 Dose: 75 mg Diphenhydramine HCl (Diphenhydramine Capsule 25 Mg Cap) 25 mg PO Q4H PRN PRN Reason: hives, itching or insomnia Stop: 03/18/25 15:34 Docusate Sodium (Docusate Sodium 100 Mg Cap) 100 mg PO BID [facility] Stop: 03/21/25 11:59 Last Admin: 02/21/25 08:15 Dose: 100 mg Duloxetine HCl (Duloxetine Hcl 60 Mg Cap) 60 mg PO QAM [facility] Stop: 03/20/25 08:59 Last Admin: 02/21/25 08:15 Dose: 60 mg Enoxaparin Sodium (Enoxaparin Inj 40 Mg/0.4 Ml Syr) 40 mg SQ Q24H [facility] Stop: 03/19/25 07:59 Last Admin: 02/21/25 08:15 Dose: 40 mg Fluticasone Furoate (Fluticasone Furoate 200mcg 14 Puffs/Inhaler) 1 puffs INH DAILY [facility] Stop: 03/20/25 08:59 Last Admin: 02/21/25 08:16 Dose: 1 puffs Gabapentin (Gabapentin 600 Mg Tab) 600 mg PO BID [facility] Stop: 03/19/25 20:59 Last Admin: 02/21/25 08:16 Dose: 600 mg Gabapentin (Gabapentin 300 Mg Cap) 300 mg PO HS [facility] Stop: 03/19/25 20:59 Last Admin: 02/20/25 21:45 Dose: 300 mg Hydromorphone HCl (Hydromorphone Inj 0.5 Mg/0.5 Ml Syr) 0.25 mg IV Q3H PRN PRN Reason: Moderate Pain (Scale 4, 5, 6) Stop: 03/03/25 16:43 Hydromorphone HCl (Hydromorphone Inj 0.5 Mg/0.5 Ml Syr) 0.5 mg IV Q3H PRN PRN Reason: Severe Pain (Scale 7, 8, 9,10) Stop: 03/03/25 16:43 Last Admin: 02/21/25 00:07 Dose: 0.5 mg Promethazine HCl (Phenergan) 12.5 mg in 50.5 mls @ 202 mls/hr IV Q6H PRN PRN Reason: Nausea And Vomiting Stop: 03/18/25 15:34 Levothyroxine Sodium (Levothyroxine Sodium 25 Mcg Tablet) [facility] Stop: 03/20/25 08:59 Last Admin: 02/21/25 08:16 Dose: 25 mcg Montelukast Sodium (Montelukast Sodium 10 Mg Tablet) 10 mg PO [facility] Stop: 03/19/25 20:59 Last Admin: 02/20/25 21:44 Dose: 10 mg Ondansetron HCl (Ondansetron Inj 2 Mg/Ml 2 Ml Vial) 4 mg IV Q4H PRN PRN Reason: Nausea And Vomiting Stop: 03/18/25 15:34 Last Admin: 02/17/25 06:23 Dose: 4 mg Oxycodone HCl (Oxycodone Hcl Ir 5 Mg Tab (Immediate Release)) 10 mg PO Q4H PRN PRN Reason: Severe Pain (Scale 7, 8, 9,10) Stop: 03/03/25 16:41 Last Admin: 02/21/25 08:15 Dose: 10 mg Oxycodone HCl (Oxycodone Hcl Ir 5 Mg Tab (Immediate Release)) 5 mg PO Q4H PRN PRN Reason: Moderate Pain (Scale 4, 5, 6) Stop: 03/03/25 18:12 Last Admin: 02/17/25 21:31 Dose: 5 mg Pantoprazole Sodium (Pantoprazole 40 Mg Tab) 40 mg PO DAILY PRN PRN Reason: Acid Reflux Stop: 03/19/25 11:48 Last Admin: 02/20/25 08:05 Dose: 40 mg Psyllium Hydrophilic Mucilloid (Psyllium Or Guar Gum Fiber 4gm Packet) 4 gm PO DAILY PRN PRN Reason: Constipation Stop: 03/19/25 11:53 Umeclidinium/Vilanterol (Umeclidinium/Vilanterol 62.5/25mcg 7 Puffs/Inhaler) 1 puffs INH DAILY [facility] Stop: 03/20/25 08:59 Last Admin: 02/21/25 08:16 Dose: 1 puffs Vitamin D (Cholecalciferol 125 Mcg (5,000 Units) Tab) 125 mcg PO HS [facility] Stop: 03/19/25 20:59 Last Admin: 02/20/25 21:45 Dose: 125 mcg (1) Breast cancer Patient sex: female Laterality: right (3) Hypothyroidism Hypothyroidism type: acquired Qualified Code(s): E03.9 - Hypothyroidism, unspecified
[2025-02-21] MEDS: METOPROLOL TARTRATE 25 MG TAB PO SCH (13:11)
--- NOTE | 2025-02-21 14:16 | Surgery Progress Note ---
<Statement entered by Ramesh Cassidy DO - 02/21/25 14:36> I have seen and examined this patient this am with the surgical PA, I agree with this asessment and plan. Date of Service February 21, 2025 Assessment & Plan (1) Status post bilateral mastectomy: Plan: pt is s/p bilateral mastectomy on 02/16 she is doing well, wbc 4.8, hbg 10. vitals stable FRANCISCO x2 serosang, each with 35cc/24hrs. wearing surgical bra diet as tolerate. prn pain meds ordered continue to encourage pulm toilet and OOB/ambulating appreciate hospitalist assistance awaiting placement once found Admission and Anticipated Discharge Date Admission Date: February 19, 2025 Subjective Patient is feeling well. No acute events overnight. She is sitting up in chair. Awaiting dispo placement. Physical Exam Physical Exam: awake/alert, no distress, sitting up in chair Chest (Breasts): Additional Comments: wearing surgical bra. FRANCISCO x2 serosang, L 35cc/24hrs and R 35cc/24 hrs Results & Data Vital Signs (Past 12 Hours) Vital Signs Temp Pulse Resp BP Pulse Ox O2 Del Method 02/21/25 12:11 97.7 F 80 16 114/70 95 Room Air 02/21/25 07:59 98.1 F 86 16 106/70 94 Room Air 02/21/25 07:55 Room Air PG Care Time/CCT Total # of Minutes Spent Total Time Spent with Patient: Total time spent is greater than 50% in coordination of care (as documented) at patient's floor/unit and/or counseling patient: Coding Level of Care Code 59551 SUB INP/OBS CARE 11/08MIN Diagnoses Status post bilateral mastectomy Z90.13
--- NOTE | 2025-02-22 11:35 | Surgery Progress Note ---
Date of Service February 22, 2025 Assessment & Plan (1) Status post bilateral mastectomy: Plan: pt is s/p bilateral mastectomy on 02/16 vitals stable FRANCISCO x2 serosang, incision with ecchymosis no s/s infection noted, wearing surgical bra, and compression dressing continue to encourage pulm toilet and OOB/ambulating appreciate hospitalist assistance awaiting placement pt seen and examined with Dr Cassidy Admission and Anticipated Discharge Date Admission Date: February 19, 2025 Supervising Physician Co-Signing Physician Notes I have seen and examined this patient with the surgical CORPORATE REAL ESTATE SPECIALIST and I agree with this plan. Subjective Patient is feeling well. No acute events overnight. She is sitting up in chair. Awaiting dispo placement. expected post surgical discomfort to incisions Review of Systems Constitutional: no fever and no chills Respiratory: no dyspnea Cardiovascular: no chest pain Gastrointestinal: no abdominal pain, no nausea and no vomiting Psychiatric: no confusion Physical Exam Constitutional: cooperative and comfortable; no acute distress Respiratory: normal respiratory effort and able to speak in complete sentences; no respiratory distress Chest (Breasts): Additional Comments: post richelle. mastectomy Psychiatric: A+Ox3, euthymic affect Results & Data Vital Signs (Past 12 Hours) Vital Signs Temp Pulse Resp BP Pulse Ox O2 Del Method 02/22/25 08:02 98.4 F 90 18 113/72 92 Room Air Results CBC w Diff Results: RBC 3.43 M/uL (4.20-5.40) L 02/21/25 WBC 4.88 K/ul (4.8-10.8) 02/21/25 Hgb 10.1 g/dl (12.0-16.0) L 02/21/25 Hct 30.9 % (37.0-47.0) L 02/21/25 MCV 90.1 fL (80.0-100.0) 02/21/25 MCH 29.4 pg (25.0-34.0) 02/21/25 MCHC 32.7 g/dL (32.0-36.0) 02/21/25 RDW Standard Deviation 45.4 fL (36.4-46.3) 02/21/25 RDW Coefficient of Variation 13.9 % (11.5-14.5) 02/21/25 Plt Count 186 K/uL (130-400) 02/21/25 MPV 8.9 fL (9.4-12.4) L 02/21/25 Neutrophils (%) (Auto) 62.9 % 02/21/25 Lymphocytes (%) (Auto) 26.4 % 02/21/25 Monocytes # (Auto) 0.36 K/uL (0.11-0.59) 02/21/25 Eosinophils # (Auto) 0.13 K/uL (0.00-0.50) 02/21/25 Immature Granulocyte % (Auto) 0.2 % 02/21/25 Neutrophils # (Auto) 3.07 K/uL (1.40-6.50) 02/21/25 Lymphocytes # (Auto) 1.29 K/uL (1.20-3.40) 02/21/25 Monocytes # (Auto) 0.36 K/uL (0.11-0.59) 02/21/25 Eosinophils # (Auto) 0.13 K/uL (0.00-0.50) 02/21/25 Basophils # (Auto) 0.02 K/uL (0.00-0.20) 02/21/25 Immature Granulocyte # (Auto) 0.01 K/uL (0.01-0.20) 5 PG Care Time/CCT Total # of Minutes Spent Total Time Spent with Patient: Total time spent is greater than 50% in coordination of care (as documented) at patient's floor/unit and/or counseling patient: Coding Level of Care Code 66435 SUB INP/OBS CARE 11/08MIN Diagnoses Status post bilateral mastectomy Z90.13
--- NOTE | 2025-02-22 12:49 | Hospitalist Progress Note ---
Date of Service February 22, 2025 Assessment & Plan (1) Breast cancer: (2) Status post bilateral mastectomy: (3) Hypothyroidism: (4) Chronic heart failure: (5) History of TIA (transient ischemic attack): (6) Hyperlipidemia: (7) HTN (hypertension): (8) Superior mesenteric artery stenosis: (9) GERD (gastroesophageal reflux disease): (10) Asthma: Plan Ms. Garcia is an 79-year-old female that presented to the [facility] for a planned elective bilateral mastectomy under the care of Dr. Ko. Intraoperatively no complications occurred and EBL 10 mL. She presented to her PCP on December 17, 2024 with complaints of left nipple discharge that she noticed 1 week prior. It was described as a clear discharge with no noticeable odor. No pain was identified. These findings prompted a mammogram; a small mass was identified 3 cm from her nipple which was biopsied with results of a papilloma with atypical cells being present. 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 For discharge consideration patient does live alone. She does have 3 sons that live about 30 minutes away. She does have a friend who plans to stay with her for a day or 2 after discharge. Patient may benefit from home health support. Will need to confirm when Plavix can be resumed with general surgery. 2020: High Grade Non invasive Ductal Carcinoma ESRS +; received Radiation ONLY. 2024: Left nipple drainage; small mass in left breast; bx papilloma with atypical cells; unable to find any actual staging documented. Pt made decision for bl mastectomy vs further additional radiation tx. Breast mass: Status post bilateral mastectomy: Likely acute blood loss anemia: last preop Hb of 14.3 from 03/14/23, post op Hb of 9.8, pt w/ no dizziness/palpitation, no indication for blood transfusion. S/P bilateral mastectomy under the care of Dr. Ko. On 02/16/2025 EBL: 10 mL Monitor H&H, baseline 12.8 from 01/28; trend in a.m. FRANCISCO drain anterior x 2 with minimal zulay red blood Per general surgery for pain control, wound care, anticoagulation and activities. 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 Will discussed with the surgical team when Plavix can be restarted Likely restart Plavix tomorrow on discharge Her home medications will be started including Plavix HFpEF: HTN: Last ECHO: 07/11/2022-mildly increased concentric left ventricular wall thickness, LVWM normal, EF 55 to 59% with grade 1 diastolic dysfunction, mild TR Currently hypotension/low normal BP likely 2/2 pain meds need. Will use gentle NSS for BP support. Hold home lasix, losartan, metoprolol for now. monitor and reassess in AM to see if they can be resumed. Will restart metoprolol may be smaller doses as soon as possible Blood pressure seems to be stable Will start a small dose of beta-benita starting with metoprolol titrate 12.5 mg twice daily Tolerating small dose of beta-benita well HLD: chronic takes atorvastatin; continue Hypothyroidism: Chronic takes levothyroxine; continue DM2: Obesity: Takes gabapentin; continue Takes Ozempic; hold while inpatient SSI ACHS while inpatient GERD: chronic Takes pantoprazole; continue Disposition: PCP: Dr. Reyes Code Status: Full VTE Prophylaxis: Per admitting team Has been on Lovenox Admission and Anticipated Discharge Date Admission Date: February 19, 2025 Subjective 02/18/2025 The patient was seen and examined in medical floor She is status post bilateral mastectomy and complaining of considerable amount of pain at the surgery site Denies any abdominal pain, nausea and/or vomiting No shortness of breath at rest 02/19/2025 The patient was seen and examined in medical floor She has been feeling better today with decreasing pain at the surgery site Denies any other significant symptoms 02/20/2025 The patient was seen and examined in medical floor She has been complaining of chest pain at the site of surgery does not have any shortness of breath, any nausea and or vomiting She will need to go for rehab 02/21/2025 The patient was seen and examined in medical floor She has been stable with minimal pain in chest Denies any fever no chills, no nausea no vomiting and no other significant symptoms Awaiting placement 02/22/2025 The patient was seen and examined in medical floor She remains stable and the pain is reasonably controlled Awaiting placement Review of Systems Review of Systems: All systems reviewed and are unremarkable except as noted below Physical Exam Physical Exam: Sitting on the chair without any acute distress except pain at the surgery site Constitutional: well developed, well nourished, + ill appearing and + obese Eyes: PERRL, conjunctivae normal, anicteric sclerae ENMT: external ear and nose normal, oropharynx normal Neck: trachea midline, no thyromegaly Respiratory: no respiratory distress Auscultation: lungs clear to auscultation bilaterally Cardiovascular: Rate/Rhythm: regular rate and regular rhythm; not tachycardic Heart Sounds: normal S1 and normal S2; no murmur Extremities: no edema Gastrointestinal (Abdomen): Inspection/Auscultation: normal bowel sounds; abdomen not distended Percussion/Palpation: abdomen soft; abdomen nontender Neurologic: normal touch/pain/proprioception and moves all extremities; no focal motor deficits Lymphatic: no cervical or axillary lymphadenopathy Results & Data Results & Data Vital Signs (Past 12 Hours) Vital Signs Temp Pulse Resp BP Pulse Ox O2 Del Method 02/22/25 08:02 36.9 C 90 18 113/72 92 Room Air Medications Administered Current Inpatient Medications Atorvastatin Calcium (Atorvastatin 40 Mg Tab) 40 mg PO HS [facility] Stop: 03/19/25 20:59 Last Admin: 02/21/25 21:27 Dose: 40 mg Benzonatate (Benzonatate 100 Mg Capsule) 100 - 200 mg PO HS PRN PRN Reason: Cough Stop: 03/19/25 11:48 Clopidogrel Bisulfate (Clopidogrel Bisulfate 75 Mg Tab) 75 mg PO QAM [facility] Stop: 03/22/25 08:59 Last Admin: 02/22/25 08:38 Dose: 75 mg Diphenhydramine HCl (Diphenhydramine Capsule 25 Mg Cap) 25 mg PO Q4H PRN PRN Reason: hives, itching or insomnia Stop: 03/18/25 15:34 Docusate Sodium (Docusate Sodium 100 Mg Cap) 100 mg PO BID [facility] Stop: 03/21/25 11:59 Last Admin: 02/22/25 08:38 Dose: 100 mg Duloxetine HCl (Duloxetine Hcl 60 Mg Cap) 60 mg PO QAM [facility] Stop: 03/20/25 08:59 Last Admin: 02/22/25 08:38 Dose: 60 mg Enoxaparin Sodium (Enoxaparin Inj 40 Mg/0.4 Ml Syr) 40 mg SQ Q24H [facility] Stop: 03/19/25 07:59 Last Admin: 02/22/25 08:37 Dose: 40 mg Fluticasone Furoate (Fluticasone Furoate 200mcg 14 Puffs/Inhaler) 1 puffs INH DAILY [facility] Stop: 03/20/25 08:59 Last Admin: 02/22/25 08:39 Dose: 1 puffs Gabapentin (Gabapentin 600 Mg Tab) 600 mg PO BID [facility] Stop: 03/19/25 20:59 Last Admin: 02/22/25 08:39 Dose: 600 mg Gabapentin (Gabapentin 300 Mg Cap) 300 mg PO HS [facility] Stop: 03/19/25 20:59 Last Admin: 02/21/25 21:28 Dose: 300 mg Hydromorphone HCl (Hydromorphone Inj 0.5 Mg/0.5 Ml Syr) 0.25 mg IV Q3H PRN PRN Reason: Moderate Pain (Scale 4, 5, 6) Stop: 03/03/25 16:43 Hydromorphone HCl (Hydromorphone Inj 0.5 Mg/0.5 Ml Syr) 0.5 mg IV Q3H PRN PRN Reason: Severe Pain (Scale 7, 8, 9,10) Stop: 03/03/25 16:43 Last Admin: 02/21/25 00:07 Dose: 0.5 mg Promethazine HCl (Phenergan) 12.5 mg in 50.5 mls @ 202 mls/hr IV Q6H PRN PRN Reason: Nausea And Vomiting Stop: 03/18/25 15:34 Levothyroxine Sodium (Levothyroxine Sodium 25 Mcg Tablet) 25 mcg PO QAM [facility] Stop: 03/20/25 08:59 Last Admin: 02/22/25 08:39 Dose: 25 mcg Metoprolol Tartrate (Metoprolol Tartrate 25 Mg Tab) 12.5 mg PO BID [facility] Stop: 03/23/25 12:59 Last Admin: 02/22/25 08:35 Dose: 12.5 mg Montelukast Sodium (Montelukast Sodium 10 Mg Tablet) 10 mg PO HS [facility] Stop: 03/19/25 20:59 Last Admin: 02/21/25 21:28 Dose: 10 mg Ondansetron HCl (Ondansetron Inj 2 Mg/Ml 2 Ml Vial) 4 mg IV Q4H PRN PRN Reason: Nausea And Vomiting Stop: 03/18/25 15:34 Last Admin: 02/17/25 06:23 Dose: 4 mg Oxycodone HCl (Oxycodone Hcl Ir 5 Mg Tab (Immediate Release)) 10 mg PO Q4H PRN PRN Reason: Severe Pain (Scale 7, 8, 9,10) Stop: 03/03/25 16:41 Last Admin: 02/22/25 08:35 Dose: 10 mg Oxycodone HCl (Oxycodone Hcl Ir 5 Mg Tab (Immediate Release)) 5 mg PO Q4H PRN PRN Reason: Moderate Pain (Scale 4, 5, 6) Stop: 03/03/25 18:12 Last Admin: 02/17/25 21:31 Dose: 5 mg Pantoprazole Sodium (Pantoprazole 40 Mg Tab) 40 mg PO DAILY PRN PRN Reason: Acid Reflux Stop: 03/19/25 11:48 Last Admin: 02/20/25 08:05 Dose: 40 mg Psyllium Hydrophilic Mucilloid (Psyllium Or Guar Gum Fiber 4gm Packet) 4 gm PO DAILY PRN PRN Reason: Constipation Stop: 03/19/25 11:53 Umeclidinium/Vilanterol (Umeclidinium/Vilanterol 62.5/25mcg 7 Puffs/Inhaler) 1 puffs INH DAILY [facility] Stop: 03/20/25 08:59 Last Admin: 02/22/25 08:40 Dose: 1 puffs Vitamin D (Cholecalciferol 125 Mcg (5,000 Units) Tab) 125 mcg PO HS [facility] Stop: 03/19/25 20:59 Last Admin: 02/21/25 21:27 Dose: 125 mcg (1) Breast cancer Patient sex: female Laterality: right (3) Hypothyroidism Hypothyroidism type: acquired Qualified Code(s): E03.9 - Hypothyroidism, unspecified
--- NOTE | 2025-02-23 06:59 | Surgery Progress Note ---
Date of Service February 23, 2025 Assessment & Plan (1) Breast cancer: Plan: pt is s/p bilateral mastectomy on 02/[address] Ko. Mild tachycardia with some hypotension x1 this a.m. Follow-up a.m. labs. Patient asymptomatic at this time. FRANCISCO x2 serosang, incision with ecchymosis no s/s infection noted, wearing surgical bra, and compression dressing continue to encourage pulm toilet and OOB/ambulating appreciate hospitalist assistance awaiting placement Admission and Anticipated Discharge Date Admission Date: February 19, 2025 Subjective I have seen and examined this patient this a.m. She denies any lightheadedness or dizziness. She was resting very well when I saw her this a.m. Physical Exam Constitutional: no acute distress, not ill appearing and not diaphoretic Respiratory: normal respiratory effort; no respiratory distress, no labored breathing and does not use accessory muscles Results & Data Vital Signs (Past 12 Hours) Vital Signs Temp Pulse Resp BP Pulse Ox O2 Del Method 02/22/25 21:05 37 C 94 H 16 91/62 L 95 Room Air PG Care Time/CCT Total # of Minutes Spent Total Time Spent with Patient: Total time spent is greater than 50% in coordination of care (as documented) at patient's floor/unit and/or counseling patient: Coding Level of Care Code 77734 Post Operative Follow-Up Diagnoses Breast cancer C50.919 Patient sex: female Laterality: right (1) Breast cancer Patient sex: female Laterality: right
--- NOTE | 2025-02-23 08:30 | Hospitalist Progress Note ---
Date of Service February 23, 2025 Assessment & Plan (1) Breast cancer: (2) Status post bilateral mastectomy: (3) History of TIA (transient ischemic attack): (4) Superior mesenteric artery stenosis: (5) Chronic heart failure: (6) HTN (hypertension): (7) Hyperlipidemia: (8) Hypothyroidism: (9) Diabetes: (10) GERD (gastroesophageal reflux disease): (11) Chronic obstructive pulmonary disease: (12) Anxiety: (13) Depression: Plan 79 year old female with PMH significant for high grade noninvasive ductal carcinoma estrogen receptor positive (dx 5 years ago s/p radiation), factor IV leidin, chronic HFpEF, PAD, COPD, vascular disease with 50% SMA stenosis, history of TIA, hypothyroidism, RA, DM II, HTN, HLD, depression, GERD, osteoporosis that presented to [facility] for a planned elective bilateral mastectomy under the care of Dr. Ko on 02/16. She presented to her PCP on 12/17/24 with complaints of left nipple discharge that she noticed 1 week prior which prompted a mammogram. A small mass was identified 3 cm from her nipple which was biopsied with results of a papilloma with atypical cells being present. Breast mass Status post bilateral mastectomy s/p bilateral mastectomy under the care of Dr. Ko on 02/16/2025 EBL 10 mL and no intra-operative complications FRANCISCO drain anterior x2 with minimal zulay red blood Encourage incentive spirometry Pain control per primary team PT/OT consults recommending rehab - case management following History of TIA Superior mesenteric artery stenosis Plavix restarted on 02/20 HFpEF Hypertension Follows with Cardiology (last seen 02/09/25) Currently hypotension/low normal BP likely due to post op and pain meds Per review of Cardiology notes - patient was having hypotension outpatient also and losartan was discontinued Holding furosemide and spironolactone still Restarted metoprolol tartrate at 12.5mg bid on 02/21 Hyperlipidemia Continue atorvastatin per home dosing Hypothyroidism Continue levothyroxine per home dosing DMII Continue gabapentin per home dosing On Ozempic at home - hold while inpt SSI ACHS while inpatient GERD Continue pantoprazole per home dosing COPD On Breztri at home Continue Anoro Ellipta and fluticasone while inpt Continue montelukast per home dosing Depression/anxiety Continue duloxetine per home dosing RLS Continue ropinirole per home dosing RA On Orencia at home - holding while inpt Osteoporosis On Prolia at home - holding while inpt DVT Prophylaxis: SQ lovenox Code Status: FULL CODE PCP: Andrea Reyes Disposition: Likely discharge tomorrow to [facility] Patient seen in collaboration with Dr Marshall. Please see addendum. I spent a total of 60 minutes coordinating, documenting and providing care for this patient excluding time spent in the performance of separately billed services or time spent by another provider/QHP. Admission and Anticipated Discharge Date Admission Date: February 19, 2025 Supervising Physician Co-Signing Physician Notes Attending addendum: The patient was seen and examined in medical floor She has been stable with minimal pain in the chest at the site of surgery Denies any other significant symptoms On examination Lying in bed without any acute distress Remains hemodynamically stable and is afebrile Other system examination is unremarkable Status post bilateral mastectomy for ductal carcinoma Remains medically stable and awaiting placement for short-term rehab Agree with assessment plan as outlined above by CHUCKIE Menard and take the full responsibility of care in the hospital Total time taken to document, review, talking to the patient was [address] Gabe Marshall Subjective Patient seen sitting up in bed Reports pain at her incision across her chest Denies chest pain, SOB, abdominal pain, N/V/D Eating and drinking well Review of Systems Review of Systems: All systems reviewed & are unremarkable except as noted in Subjective Physical Exam Physical Exam: Gen/Psych: WD/WN, sitting up in bed, NAD, A&Ox3 HEENT: Normocephalic, atraumatic, conjunctivae pink, sclerae anicteric, mucous membranes moist Lung: Clear to auscultation bilaterally, no wheezes/rales/rhonchi Heart: Regular rate and rhythm, no murmurs/rubs/gallops Extremities: Normal peripheral pulses, no edema Abdomen: Soft, NT, ND, +BS x 4 Skin: Warm and dry, no rash, bilateral FRANCISCO drains in place Results & Data Results & Data Vital Signs (Past 12 Hours) Vital Signs Temp Pulse Pulse Resp BP Pulse Ox O2 Del Method 02/23/25 08:00 36.7 C 83 16 100/68 92 Room Air 02/22/25 21:05 37 C 94 H 16 91/62 L 95 Room Air Medications Administered Current Inpatient Medications Atorvastatin Calcium (Atorvastatin 40 Mg Tab) 40 mg PO HS [facility] Stop: 03/19/25 20:59 Last Admin: 02/22/25 21:59 Dose: 40 mg Benzonatate (Benzonatate 100 Mg Capsule) 100 - 200 mg PO HS PRN PRN Reason: Cough Stop: 03/19/25 11:48 Clopidogrel Bisulfate (Clopidogrel Bisulfate 75 Mg Tab) 75 mg PO QAM [facility] Stop: 03/22/25 08:59 Last Admin: 02/23/25 07:58 Dose: 75 mg Diphenhydramine HCl (Diphenhydramine Capsule 25 Mg Cap) 25 mg PO Q4H PRN PRN Reason: hives, itching or insomnia Stop: 03/18/25 15:34 Docusate Sodium (Docusate Sodium 100 Mg Cap) 100 mg PO BID [facility] Stop: 03/21/25 11:59 Last Admin: 02/23/25 08:00 Dose: 100 mg Duloxetine HCl (Duloxetine Hcl 60 Mg Cap) 60 mg PO QAM [facility] Stop: 03/20/25 08:59 Last Admin: 02/23/25 07:57 Dose: 60 mg Enoxaparin Sodium (Enoxaparin Inj 40 Mg/0.4 Ml Syr) 40 mg SQ Q24H [facility] Stop: 03/19/25 07:59 Last Admin: 02/23/25 07:58 Dose: 40 mg Fluticasone Furoate (Fluticasone Furoate 200mcg 14 Puffs/Inhaler) 1 puffs INH DAILY [facility] Stop: 03/20/25 08:59 Last Admin: 02/23/25 07:59 Dose: 1 puffs Gabapentin (Gabapentin 600 Mg Tab) 600 mg PO BID [facility] Stop: 03/19/25 20:59 Last Admin: 02/23/25 07:58 Dose: 600 mg Gabapentin (Gabapentin 300 Mg Cap) 300 mg PO HS [facility] Stop: 03/19/25 20:59 Last Admin: 02/22/25 21:59 Dose: 300 mg Hydromorphone HCl (Hydromorphone Inj 0.5 Mg/0.5 Ml Syr) 0.25 mg IV Q3H PRN PRN Reason: Moderate Pain (Scale 4, 5, 6) Stop: 03/03/25 16:43 Hydromorphone HCl (Hydromorphone Inj 0.5 Mg/0.5 Ml Syr) 0.5 mg IV Q3H PRN PRN Reason: Severe Pain (Scale 7, 8, 9,10) Stop: 03/03/25 16:43 Last Admin: 02/21/25 00:07 Dose: 0.5 mg Promethazine HCl (Phenergan) 12.5 mg in 50.5 mls @ 202 mls/hr IV Q6H PRN PRN Reason: Nausea And Vomiting Stop: 03/18/25 15:34 Levothyroxine Sodium (Levothyroxine Sodium 25 Mcg Tablet) 25 mcg PO QAM [facility] Stop: 03/20/25 08:59 Last Admin: 02/23/25 07:58 Dose: 25 mcg Metoprolol Tartrate (Metoprolol Tartrate 25 Mg Tab) 12.5 mg PO BID [facility] Stop: 03/23/25 12:59 Last Admin: 02/23/25 08:04 Dose: 12.5 mg Montelukast Sodium (Montelukast Sodium 10 Mg Tablet) 10 mg PO [facility] Stop: 03/19/25 20:59 Last Admin: 02/22/25 21:59 Dose: 10 mg Ondansetron HCl (Ondansetron Inj 2 Mg/Ml 2 Ml Vial) 4 mg IV Q4H PRN PRN Reason: Nausea And Vomiting Stop: 03/18/25 15:34 Last Admin: 02/17/25 06:23 Dose: 4 mg Oxycodone HCl (Oxycodone Hcl Ir 5 Mg Tab (Immediate Release)) 10 mg PO Q4H PRN PRN Reason: Severe Pain (Scale 7, 8, 9,10) Stop: 03/03/25 16:41 Last Admin: 02/23/25 09:23 Dose: 10 mg Oxycodone HCl (Oxycodone Hcl Ir 5 Mg Tab (Immediate Release)) 5 mg PO Q4H PRN PRN Reason: Moderate Pain (Scale 4, 5, 6) Stop: 03/03/25 18:12 Last Admin: 02/17/25 21:31 Dose: 5 mg Pantoprazole Sodium (Pantoprazole 40 Mg Tab) 40 mg PO DAILY PRN PRN Reason: Acid Reflux Stop: 03/19/25 11:48 Last Admin: 02/23/25 07:58 Dose: 40 mg Psyllium Hydrophilic Mucilloid (Psyllium Or Guar Gum Fiber 4gm Packet) 4 gm PO DAILY PRN PRN Reason: Constipation Stop: 03/19/25 11:53 Umeclidinium/Vilanterol (Umeclidinium/Vilanterol 62.5/25mcg 7 Puffs/Inhaler) 1 puffs INH DAILY [facility] Stop: 03/20/25 08:59 Last Admin: 02/23/25 07:59 Dose: 1 puffs Vitamin D (Cholecalciferol 125 Mcg (5,000 Units) Tab) 125 mcg PO HS [facility] Stop: 03/19/25 20:59 Last Admin: 02/22/25 21:59 Dose: 125 mcg (1) Breast cancer Laterality: right Patient sex: female (8) Hypothyroidism Hypothyroidism type: acquired Qualified Code(s): E03.9 - Hypothyroidism, unspecified
[2025-02-23] MEDS: rOPINIRole HCL 1 MG TABLET PO SCH (19:53)
[2025-02-24 06:42] LABS: Hematocrit (blood only) 29.7 % (37.0-47.0); Hemoglobin 9.6 g/dl (12.0-16.0); Mean Corpuscular Hemoglobin 29.2 pg (25.0-34.0); Mean Corpuscular Hgb Conc 32.3 g/dL (32.0-36.0); Mean Corpuscular Volume 90.3 fL (80.0-100.0); Platelet Count 187 K/uL (130-400); RDW Coefficient of Variation 14.4 % (11.5-14.5); RDW Standard Deviation 46.5 fL (36.4-46.3); Red Blood Count 3.29 M/uL (4.20-5.40); White Blood Count 5.22 K/ul (4.8-10.8)
[2025-02-24 07:03] LABS: Calcium 9.7 mg/dl (8.6-10.3); Creatinine Clr Calc Pharmacy 53.2 ml/min; Potassium 4.1 mmol/L (3.5-5.1)
--- NOTE | 2025-02-24 09:21 | Surgery Progress Note ---
Date of Service February 24, 2025 Assessment & Plan (1) Status post bilateral mastectomy: Plan: pt is s/p bilateral mastectomy on 02/[address] Ko wbc 5, hbg 9.6. vitals stable FRANCISCO x2, 25cc on R and 15cc on L. incisions c/d/i. wearing surgical bra and compressive dressings awaiting discharge to facility hopefully as early as today f/u in office as outline by dr. ko as outpatient Admission and Anticipated Discharge Date Admission Date: February 19, 2025 Subjective Patient feeling fairly well, states her pain is getting better each day. Physical Exam Physical Exam: awake/alert, sitting up in bed Respiratory: normal respiratory effort Chest (Breasts): Additional Comments: surgical incisions c/d/i with dressings/bra in place. FRANCISCO x2 serosang. Results & Data Vital Signs (Past 12 Hours) Vital Signs Temp Pulse Resp BP Pulse Ox O2 Del Method 02/24/25 07:57 97.9 F 74 16 115/73 94 Room Air PG Care Time/CCT Total # of Minutes Spent Total Time Spent with Patient: Total time spent is greater than 50% in coordination of care (as documented) at patient's floor/unit and/or counseling patient: Coding Level of Care Code 96778 SUB INP/OBS CARE 11/08MIN Diagnoses Status post bilateral mastectomy Z90.13
--- NOTE | 2025-02-24 14:45 | Hospitalist Progress Note ---
<Statement entered by Vipin Maza DO - 02/24/25 16:07> I have seen and examined the patient and have discussed the case with the advance practice provider. I have reviewed the advanced practitioner's documentation, and I agree with, and take responsibility for that plan of care. I spent a total of 7 minutes coordinating, documenting, and providing care for this patient excluding time spent by another provider/QHP. Patient overall doing well. Anticipating going to rehab when approved. 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 Ko on 02/16. She presented to her PCP on 12/17/24 with complaints of left nipple discharge that she noticed 1 week prior which prompted a mammogram. A small mass was identified 3 cm from her nipple which was biopsied with results of a papilloma with atypical cells being present. Breast mass Status post bilateral mastectomy s/p bilateral mastectomy under the care of Dr. Ko on 02/16/2025 EBL 10 mL and no intra-operative complications FRANCISCO drain anterior x2 with minimal zulay red blood Encourage incentive spirometry Pain control per primary team PT/OT consults recommending rehab - case management following History of TIA Superior mesenteric artery stenosis Plavix restarted on 02/20 HFpEF Hypertension Follows with Cardiology (last seen 02/09/25) Currently hypotension/low normal BP likely due to post op and pain meds Per review of Cardiology notes - patient was having hypotension outpatient also and losartan was discontinued Holding furosemide and spironolactone still Restarted metoprolol tartrate at 12.5mg bid on 02/21 Hyperlipidemia Continue atorvastatin per home dosing Hypothyroidism Continue levothyroxine per home dosing DMII Continue gabapentin per home dosing On Ozempic at home - hold while inpt SSI ACHS while inpatient GERD Continue pantoprazole per home dosing COPD On Breztri at home Continue Anoro Ellipta and fluticasone while inpt Continue montelukast per home dosing Depression/anxiety Continue duloxetine per home dosing RLS Continue ropinirole per home dosing RA On Orencia at home - holding while inpt Osteoporosis On Prolia at home - holding while inpt DVT Prophylaxis: SQ lovenox Code Status: FULL CODE PCP: Andrea Reyes Disposition: Likely discharge tomorrow to [facility] Patient seen in collaboration with Dr Maza. Please see addendum. I spent a total of 60 minutes coordinating, documenting and providing care for this patient excluding time spent in the performance of separately billed services or time spent by another provider/QHP. Admission and Anticipated Discharge Date Admission Date: February 19, 2025 Subjective Patient seen sitting up in bed Reports pain at her incision site still but improving Denies chest pain, SOB, abdominal pain, N/V/D Eating and drinking well Review of Systems Review of Systems: All systems reviewed & are unremarkable except as noted in Subjective Physical Exam Physical Exam: Gen/Psych: WD/WN, sitting up in bed, NAD, A&Ox3 HEENT: Normocephalic, atraumatic, conjunctivae pink, sclerae anicteric, mucous membranes moist Lung: Clear to auscultation bilaterally, no wheezes/rales/rhonchi Heart: Regular rate and rhythm, no murmurs/rubs/gallops Extremities: Normal peripheral pulses, no edema Abdomen: Soft, NT, ND, +BS x 4 Skin: Warm and dry, no rash, bilateral FRANCISCO drains in place Results & Data Results & Data Vital Signs (Past 12 Hours) Vital Signs Temp Pulse Resp BP Pulse Ox O2 Del Method 02/24/25 07:57 36.6 C 74 16 115/73 94 Room Air Laboratory Results Short CBC 02/24/25 Range/Units 06:23 WBC 5.22 (4.8-10.8) K/ul Hgb 9.6 L (12.0-16.0) g/dl Hct 29.7 L (37.0-47.0) % Plt Count 187 (130-400) K/uL BMP 02/24/25 06:23 Sodium 139 Potassium 4.1 Chloride 105 Carbon Dioxide 31 BUN 20 Creatinine 0.77 Glucose 95 Calcium 9.7 I have independently reviewed and interpreted patient's admitting labs including CBC and BMP (1) Breast cancer Laterality: right Patient sex: female (8) Hypothyroidism Hypothyroidism type: acquired Qualified Code(s): E03.9 - Hypothyroidism, unspecified
[2025-02-24 14:59] VITALS: TEMP 98.1
[2025-02-25 07:01] VITALS: RESP 16
[2025-02-25 07:48] VITALS: PULSE 75; O2SAT 93
--- NOTE | 2025-02-25 11:51 | Hospitalist Progress Note ---
Date of Service February 25, 2025 Assessment & Plan (1) Breast cancer: (2) Status post bilateral mastectomy: (3) History of TIA (transient ischemic attack): (4) Superior mesenteric artery stenosis: (5) Chronic heart failure: (6) HTN (hypertension): Plan: Blood pressure has been trending lower, medications held and dosages reduced. Overall stable and improving continue to monitor (7) Hyperlipidemia: (8) Hypothyroidism: (9) Diabetes: (10) GERD (gastroesophageal reflux disease): (11) Chronic obstructive pulmonary disease: (12) Anxiety: (13) Depression: Plan Patient is doing well postoperatively. Medical issues are stable. Antihypertensive medications have been reduced, patient tolerating adjustments to medications without any lightheadedness or dizziness. Note: Metoprolol held this morning, however yesterday blood pressures were really quite stable and she had received a lower dose. Would continue current dose of metoprolol with hold parameters. Patient medically ready for discharge to rehab unit when bed available. Admission and Anticipated Discharge Date Admission Date: February 19, 2025 Subjective Patient reports that her pain is controlled. She denies any lightheadedness or dizziness with ambulation. Physical Exam Physical Exam: Constitutional: Alert Lungs: Clear to auscultation, decreased, no wheezes rales or rhonchi CV: S1-S2, regular Abdomen: Soft, nontender, nondistended Extremities: No significant edema Neuro: No focal deficits Psych: Cooperative, normal mood Results & Data Results & Data Vital Signs (Past 12 Hours) Vital Signs Temp Pulse Resp BP BP Pulse Ox O2 Del Method 02/25/25 07:48 75 16 95/64 L 93 Room Air 02/25/25 07:00 36.7 C 71 16 94/61 L 91 Room Air (1) Breast cancer Patient sex: female Laterality: right (8) Hypothyroidism Hypothyroidism type: acquired Qualified Code(s): E03.9 - Hypothyroidism, unspecified
--- NOTE | 2025-02-25 12:42 | Surgery Progress Note ---
Date of Service February 25, 2025 Assessment & Plan (1) Status post bilateral mastectomy: Plan: pt is s/p bilateral mastectomy on 02/[address] Ko vitals stable, denies dizziness/feeling light headed FRANCISCO x2 serosan. incisions c/d/i. wearing surgical bra and compressive dressings awaiting discharge to facility hopefully today f/u in office as outline by dr. ko as outpatient Admission and Anticipated Discharge Date Admission Date: February 19, 2025 Subjective waiting rehab today no complaints pain controlled with oral meds Review of Systems Constitutional: no fever and no chills Respiratory: no dyspnea Cardiovascular: no chest pain Gastrointestinal: no abdominal pain, no nausea and no vomiting Physical Exam Constitutional: cooperative and comfortable; no acute distress Respiratory: normal respiratory effort and able to speak in complete sentences; no respiratory distress Cardiovascular: Rate/Rhythm: regular rate Chest (Breasts): Additional Comments: s/p richelle. mastectomy, dermabond cdi Psychiatric: A+Ox3, euthymic affect Results & Data Vital Signs (Past 12 Hours) Vital Signs Temp Pulse Resp BP BP Pulse Ox O2 Del Method 02/25/25 07:48 75 16 95/64 L 93 Room Air 02/25/25 07:00 98.1 F 71 16 94/61 L 91 Room Air PG Care Time/CCT Total # of Minutes Spent Total Time Spent with Patient: Total time spent is greater than 50% in coordination of care (as documented) at patient's floor/unit and/or counseling patient: Coding Level of Care Code 09292 Post Operative Follow-Up Diagnoses Status post bilateral mastectomy Z90.13
[2025-02-25 14:48] VITALS: BP 117/74
== END 2025-02-25 15:28 | DRG 582 ==
LOC: ASU 08:14 → 3E 08:14
DX: Z83.3 Family history of diabetes mellitus; Z79.899 Other long term (current) drug therapy; K21.9 Gastro-esophageal reflux disease without esophagitis; E78.5 Hyperlipidemia, unspecified; F41.9 Anxiety disorder, unspecified; E03.9 Hypothyroidism, unspecified; Z79.51 Long term (current) use of inhaled steroids; Z80.1 Family history of malignant neoplasm of trachea, bronchus and lung; Z79.85 Long-term (current) use of injectable non-insulin antidiabetic drugs; D05.12 Intraductal carcinoma in situ of left breast; I73.9 Peripheral vascular disease, unspecified; I50.32 Chronic diastolic (congestive) heart failure; Z79.620 Long term (current) use of immunosuppressive biologic; J44.89 Other specified chronic obstructive pulmonary disease; Z80.3 Family history of malignant neoplasm of breast; Z86.73 Personal history of transient ischemic attack (TIA), and cerebral infarction without residual deficits; K55.1 Chronic vascular disorders of intestine; Z80.0 Family history of malignant neoplasm of digestive organs; Z79.890 Hormone replacement therapy; D68.51 Activated protein C resistance; E11.51 Type 2 diabetes mellitus with diabetic peripheral angiopathy without gangrene; Z85.3 Personal history of malignant neoplasm of breast; G25.81 Restless legs syndrome; E66.9 Obesity, unspecified; Z79.02 Long term (current) use of antithrombotics/antiplatelets; I11.0 Hypertensive heart disease with heart failure; M06.9 Rheumatoid arthritis, unspecified; D62 Acute posthemorrhagic anemia; F32.A Depression, unspecified